=== PATIENT | female | born 1950 | race Caucasian/White ===

== ENCOUNTER → 2018-03-02 02:59 | Outpatient (CLI) | payer MEDICARE, BC, SELFPAY ==
[2018-03-02 14:53] LABS: Abs Immature Grans 0.03 k/cumm (0.0-0.09); Absolute Basophil Count 0.04 k/cumm (0.0-0.2); Absolute Eosinophil Count 0.02 k/cumm (0.0-0.7); Absolute Lymphocyte Count 1.21 k/cumm (1.2-3.4); Absolute Monocyte Count 0.42 k/cumm (0.11-0.7); Absolute Neutrophil Count 9.03 k/cumm (1.2-6.7); Basophils % 0.4; Eosinophils % 0.2; HCT 38.4 % (36.0-46.0); Immature Grans % 0.3; Lymphocytes % 11.3; Mean Corp. HGB Concentration 33.9 g/dL (32.0-36.0); Mean Corpuscular Hemoglobin 29.7 pg (27.0-33.0); Mean Corpuscular Volume 87.7 fL (80-95); Mean Platelet Volume 10.2 fL (8.0-11.0); Monocytes % 3.9; Neutrophils % 83.9; Platelet Count 350 x1000/uL (130-400); RBC 4.38 m/cumm (4.00-5.20); RBC Distribution Width 14.5 % (11.7-14.6); White Blood Cell Count 10.75 k/cumm (4.4-10.8)
[2018-03-02 15:49] LABS: ALT 25 U/L (12-78); AST 21 U/L (15-37); Albumin 4.1 g/dL (3.4-5.0); Alkaline Phosphatase 100 U/L (46-116); BUN 19 mg/dL (7-18); Bilirubin, Total 0.3 mg/dL (0.2-1.0); CREATININE 0.98 mg/dL (0.55-1.02); Calcium 9.5 mg/dL (8.5-10.1); Chloride 104 mmol/L (98-107); Estimated GFR 56.11 (mL/min/1.73m2); Glucose 132 mg/dL (70-100); Sodium 143 mmol/L (136-145)
== END ==
PROVIDERS: PCP Family Medicine; Visit Provider Internal Medicine Rheumatology
DX: M06.9 Rheumatoid arthritis, unspecified (principal); Z51.81 Encounter for therapeutic drug level monitoring
CPT/HCPCS: 36415; 80053; 85025

== ENCOUNTER 2018-03-16 02:53 | Outpatient (RCR) | payer MEDICARE, BC, SELFPAY ==
[2018-03-16 09:26] VITALS: BP 159/75; PULSE 66; RESP 18; TEMP 36.6
[2018-03-16] MEDS: Acetaminophen 325 MG TAB PO (09:34)
[2018-03-16] MEDS: diphenhydrAMINE 25 MG CAP PO (09:34)
[2018-03-16] MEDS: methylPREDNISolone SUCC 125 MG VIAL 50 MG IVP (09:35)
[2018-03-16 10:15] VITALS: BP 143/67; PULSE 57; RESP 18; TEMP 36.7
[2018-03-16 10:45] VITALS: BP 152/83; PULSE 57; RESP 18; TEMP 36.6
[2018-03-16 11:15] VITALS: BP 147/81; PULSE 62; RESP 17; TEMP 36.6
== END 2018-03-19 ==
LOC: INF 02:53
PROVIDERS: PCP Family Medicine; Visit Provider Family Medicine
DX: M06.9 Rheumatoid arthritis, unspecified (principal)
CPT/HCPCS: 96365; 96366; J2930; J9310

== ENCOUNTER 2018-03-30 01:30 | Outpatient (RCR) | payer MEDICARE, BC, SELFPAY ==
[2018-03-30] MEDS: Acetaminophen 325 MG TAB PO (08:45)
[2018-03-30] MEDS: methylPREDNISolone SUCC 125 MG VIAL 50 MG IVP (08:46)
[2018-03-30] MEDS: diphenhydrAMINE 25 MG CAP PO (08:46)
[2018-03-30] MEDS: Normal Saline Flush 10 ML SYR IVP (08:59)
[2018-03-30 09:00] VITALS: BP 173/79; PULSE 63; RESP 18; TEMP 37; O2SAT 97
[2018-03-30 09:30] VITALS: BP 163/77; PULSE 65; RESP 18; TEMP 36.8; O2SAT 97
[2018-03-30 10:00] VITALS: BP 158/77; PULSE 65; RESP 18; TEMP 36.8
[2018-03-30 10:31] VITALS: BP 158/75; PULSE 65; RESP 18; TEMP 36.5
== END 2018-04-18 23:59 | disposition home or self-care (01) ==
LOC: INF 01:30
PROVIDERS: PCP Family Medicine; Visit Provider Family Medicine
DX: M06.9 Rheumatoid arthritis, unspecified (principal)
CPT/HCPCS: 96365; 96366; J2930; J9310

== ENCOUNTER 2019-02-23 13:27 | Outpatient (CLI) | payer MEDICARE, BC, SELFPAY ==
[2019-02-23 14:17] LABS: Abs Immature Grans 0.03 k/cumm (0.0-0.09); Absolute Basophil Count 0.05 k/cumm (0.0-0.2); Absolute Eosinophil Count 0.05 k/cumm (0.0-0.7); Absolute Lymphocyte Count 1.06 k/cumm (1.2-3.4); Absolute Monocyte Count 0.53 k/cumm (0.11-0.7); Absolute Neutrophil Count 8.52 k/cumm (1.2-6.7); Basophils % 0.5; Eosinophils % 0.5; HCT 36.5 % (36.0-46.0); HGB 12.2 g/dL (12.0-15.5); Immature Grans % 0.3; Lymphocytes % 10.4; Mean Corp. HGB Concentration 33.4 g/dL (32.0-36.0); Mean Corpuscular Hemoglobin 30.5 pg (27.0-33.0); Mean Corpuscular Volume 91.3 fL (80-95); Monocytes % 5.2; Neutrophils % 83.1; Platelet Count 383 x1000/uL (130-400); RBC Distribution Width 13.9 % (11.7-14.6); White Blood Cell Count 10.24 k/cumm (4.4-10.8)
[2019-02-23 14:26] LABS: ALT 21 U/L (12-78); AST 13 U/L (15-37); Albumin 3.9 g/dL (3.4-5.0); Alkaline Phosphatase 88 U/L (46-116); Anion Gap 9.6 mmol/L (3-11); BUN 20 mg/dL (7-18); Bilirubin, Total 0.3 mg/dL (0.2-1.0); CO2 28.4 mmol/L (21.0-32.0); CREATININE 1.41 mg/dL (0.55-1.02); Calcium 9.3 mg/dL (8.5-10.1); Chloride 98 mmol/L (98-107); Estimated GFR 36.77 (mL/min/1.73m2); Glucose 141 mg/dL (70-100); Potassium 3.9 mmol/L (3.5-5.1); Sodium 136 mmol/L (136-145); Total Protein 7.2 g/dL (6.4-8.2)
== END 2019-02-23 13:47 ==
PROVIDERS: PCP Family Medicine; Visit Provider Internal Medicine Rheumatology
DX: Z51.81 Encounter for therapeutic drug level monitoring (principal); Z79.899 Other long term (current) drug therapy; R69 Illness, unspecified
CPT/HCPCS: 36415; 80053; 85025

== ENCOUNTER 2019-03-28 14:06 | Emergency (ER) | payer MEDICARE, BC, SELFPAY ==
[2019-03-28 13:48] VITALS: BP 155/65; PULSE 84; RESP 16; TEMP 36.7; O2SAT 98
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
[2019-03-28] MEDS: Lidocaine 5% Patch 1 PATCH (14:09)
[2019-03-28 14:18] LABS: Abs Immature Grans 0.03 k/cumm (0.0-0.09); Absolute Basophil Count 0.03 k/cumm (0.0-0.2); Absolute Eosinophil Count 0.03 k/cumm (0.0-0.7); Absolute Lymphocyte Count 1.15 k/cumm (1.2-3.4); Absolute Monocyte Count 0.53 k/cumm (0.11-0.7); Basophils % 0.3; Eosinophils % 0.3; HCT 37.3 % (36.0-46.0); HGB 12.7 g/dL (12.0-15.5); Immature Grans % 0.3; Lymphocytes % 9.9; Mean Corpuscular Hemoglobin 30.5 pg (27.0-33.0); Mean Corpuscular Volume 89.7 fL (80-95); Mean Platelet Volume 9.2 fL (8.0-11.0); Monocytes % 4.6; Neutrophils % 84.6; Platelet Count 416 x1000/uL (130-400); RBC 4.16 m/cumm (4.00-5.20); RBC Distribution Width 13.3 % (11.7-14.6); White Blood Cell Count 11.59 k/cumm (4.4-10.8)
[2019-03-28 14:21] LABS: Absolute Neutrophil Count 9.81 k/cumm (1.2-6.7)
[2019-03-28 14:40] LABS: ALT 21 U/L (14-59); AST 14 U/L (15-37); Albumin 4.1 g/dL (3.4-5.0); Alkaline Phosphatase 105 U/L (46-116); Anion Gap 11.6 mmol/L (3-11); BUN 17 mg/dL (7-18); Bilirubin, Total 0.4 mg/dL (0.2-1.0); CO2 26.4 mmol/L (21.0-32.0); CREATININE 1.38 mg/dL (0.55-1.02); Calcium 9.4 mg/dL (8.5-10.1); Chloride 92 mmol/L (98-107); Estimated GFR 37.69 (mL/min/1.73m2); Glucose 162 mg/dL (70-100); Potassium 3.5 mmol/L (3.5-5.1); Sodium 130 mmol/L (136-145); Total Protein 7.4 g/dL (6.4-8.2)
[2019-03-28 14:44] LABS: Troponin I < 0.05 ng/mL (0.00-0.06)
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
[2019-03-28 15:21] LABS: Magnesium 1.7 mg/dL (1.8-2.4)
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
[2019-03-28 15:40] LABS: Lipase 106 U/L (73-393)
[2019-03-28 17:07] VITALS: BP 116/52; PULSE 80; RESP 16; TEMP 37; O2SAT 98
[2019-03-28] MEDS: Acetaminophen 325 MG TAB 650 MG PO (17:07)
== END 2019-03-28 17:08 | disposition home or self-care (01) ==
PROVIDERS: Emergency Provider Nurse Practitioner Family; PCP Family Medicine
DX: R07.81 Pleurodynia (principal); V43.52XA Car driver injured in collision with other type car in traffic accident, initial encounter
CPT/HCPCS: 36415; 71250; 80053; 83690; 93005; 99285; 72040; 74176; 83735; 84484; 85025; 93010

== ENCOUNTER 2019-04-14 02:01 | Outpatient (RCR) | payer MEDICARE, BC, SELFPAY ==
[2019-03-31] VITALS (7 sets, daily range): BP systolic 138–156; BP diastolic 66–88; PULSE 62–70; RESP 18; TEMP 36.2–36.7; O2SAT 98–99
[2019-03-31] MEDS: methylPREDNISolone SUCC 125 MG VIAL 50 MG IVP (08:13)
[2019-03-31] MEDS: diphenhydrAMINE 25 MG CAP PO (08:13)
[2019-03-31] MEDS: Acetaminophen 325 MG TAB PO (08:14)
[2019-03-31] MEDS: Normal Saline Flush 10 ML SYR IVP (08:15)
[2019-03-31 09:14] LABS: ESR 20 mm/hr (0-30)
[2019-04-14] MEDS: diphenhydrAMINE 25 MG CAP PO (08:14)
[2019-04-14] MEDS: methylPREDNISolone SUCC 125 MG VIAL 50 MG IVP (08:14)
[2019-04-14] MEDS: Acetaminophen 325 MG TAB PO (08:14)
[2019-04-14] MEDS: Normal Saline Flush 10 ML SYR IVP (08:44)
[2019-04-14 08:55] VITALS: BP 118/77; PULSE 71; RESP 18; TEMP 36.9; O2SAT 99
[2019-04-14 09:34] VITALS: BP 122/79; PULSE 64; RESP 16; TEMP 36.5; O2SAT 97
[2019-04-14 10:49] VITALS: BP 138/75; PULSE 75; RESP 16; TEMP 36.9; O2SAT 98
[2019-04-14 11:22] VITALS: BP 142/84; PULSE 72; RESP 16; TEMP 36.8; O2SAT 97
[2019-04-14 11:56] VITALS: BP 132/80; PULSE 68; RESP 14; TEMP 37; O2SAT 98
[2019-04-14 12:39] VITALS: BP 153/72; PULSE 81; RESP 18; TEMP 36.8; O2SAT 98
== END 2019-04-18 23:59 | disposition home or self-care (01) ==
LOC: INF 02:01
PROVIDERS: PCP Family Medicine; Visit Provider Family Medicine
DX: M06.9 Rheumatoid arthritis, unspecified (principal)
CPT/HCPCS: 36415; 85652; 96365; 96366; 96374; J2930; J9312

== ENCOUNTER 2020-02-06 09:20 | Outpatient (CLI) | payer MEDICARE, BC, SELFPAY ==
--- NOTE | 2020-02-06 09:00 | DI.RAD_ITS ---
EXAM: XR ANKLE RT COMPLETE CLINICAL HISTORY: f/u surgery. TECHNIQUE: 2D digital imaging was performed. COMPARISON: No exams were available for comparison FINDINGS: There are postsurgical changes of an ankle arthrodesis and the talonavicular joint arthrodesis. No a cute fracture or dislocation is seen. The bones are osteopenic. No erosive or destructive changes a re seen. There is a distal right fibular osteotomy. There is generalized soft tissue swelling of th e ankle. No lucencies are seen in or about the orthopedic hardware. IMPRESSION: Postsurgical changes of the right ankle as described above. DATA REPOSITORY: RADIATION DOSE DELIVERED:
== END 2020-02-06 09:40 ==
PROVIDERS: PCP Family Medicine; Referring Provider Family Medicine; Visit Provider Student in an Organized Health Care Education/Training Program
DX: Z98.1 Arthrodesis status (principal); Z47.89 Encounter for other orthopedic aftercare; M85.871 Other specified disorders of bone density and structure, right ankle and foot; M25.571 Pain in right ankle and joints of right foot
CPT/HCPCS: 99203; 99214; 73610

== ENCOUNTER 2020-02-14 03:39 | Outpatient (CLI) | payer MEDICARE, BC, SELFPAY ==
[2020-02-14 15:07] LABS: ESR 22 mm/hr (0-30)
[2020-02-14 15:24] LABS: ALT 29 U/L (14-59); AST 22 U/L (15-37); Albumin 3.8 g/dL (3.4-5.0); Alkaline Phosphatase 103 U/L (46-116); Anion Gap 7.9 mmol/L (3-11); BUN 18 mg/dL (7-18); Bilirubin, Total 0.2 mg/dL (0.2-1.0); CO2 32.1 mmol/L (21.0-32.0); CREATININE 1.32 mg/dL (0.55-1.02); Calcium 9.3 mg/dL (8.5-10.1); Calculated LDL 102 mg/dL (<100); Chloride 95 mmol/L (98-107); Cholesterol 204 mg/dL (<200); Estimated GFR 39.56 (mL/min/1.73m2); Glucose 188 mg/dL (74-106); HDL Cholesterol 80 mg/dL (40-60); Magnesium 1.5 mg/dL (1.8-2.4); Potassium 3.4 mmol/L (3.5-5.1); Sodium 135 mmol/L (136-145); Total Protein 6.4 g/dL (6.4-8.2); Triglyceride 111 mg/dL (<150); Vitamin B12 1447 pg/mL (193-986)
== END 2020-02-14 03:59 ==
PROVIDERS: PCP Family Medicine; Visit Provider Family Medicine
DX: I10 Essential (primary) hypertension; E83.42 Hypomagnesemia; E53.8 Deficiency of other specified B group vitamins; M06.9 Rheumatoid arthritis, unspecified
CPT/HCPCS: 36415; 80053; 80061; 85652; 82607; 83735

== ENCOUNTER 2020-03-15 10:33 | Outpatient (CLI) | payer MEDICARE, BC, SELFPAY ==
--- NOTE | 2020-03-15 10:00 | DI.RAD_ITS ---
EXAM: XR ANKLE RT 2V CLINICAL HISTORY: f/u surgery TECHNIQUE: COMPARISON: CR XR ANKLE RT COMPLETE from 02/06/2020 FINDINGS: Two views were obtained. Prior ankle and hindfoot arthrodesis noted with fixation apparatus in place across the subtalar joint. Alignment appears unchanged comparison with prior radiographs of February 05. IMPRESSION: RADIATION DOSE DELIVERED: Total DLP
== END 2020-03-15 10:53 ==
PROVIDERS: PCP Family Medicine; Referring Provider Family Medicine; Visit Provider Student in an Organized Health Care Education/Training Program
DX: Z98.1 Arthrodesis status (principal); M25.571 Pain in right ankle and joints of right foot
CPT/HCPCS: 99213; 73600

== ENCOUNTER 2021-01-09 10:36 | Outpatient (CLI) | payer MEDICARE, BC, SELFPAY ==
[2021-01-09 12:46] LABS: Hemoglobin A1C 5.6 % (<5.7)
[2021-01-09 12:51] LABS: ALT 26 U/L (14-59); AST 12 U/L (15-37); Alkaline Phosphatase 91 U/L (46-116); Anion Gap 8.7 mmol/L (3-11); BUN 22 mg/dL (7-18); Bilirubin, Total 0.4 mg/dL (0.2-1.0); CO2 32.3 mmol/L (21.0-32.0); CREATININE 1.2 mg/dL (0.55-1.02); Calcium 9.5 mg/dL (8.5-10.1); Chloride 97 mmol/L (98-107); Estimated GFR 44.04 (mL/min/1.73m2); Glucose 88 mg/dL (74-106); Magnesium 1.7 mg/dL (1.8-2.4); Potassium 4.1 mmol/L (3.5-5.1); Sodium 138 mmol/L (136-145); Total Protein 6.7 g/dL (6.4-8.2)
== END 2021-01-09 10:37 | disposition home or self-care (01) ==
LOC: LOS 10:37
PROVIDERS: PCP Family Medicine; Visit Provider Family Medicine
DX: E11.65 Type 2 diabetes mellitus with hyperglycemia (principal); E83.42 Hypomagnesemia; I10 Essential (primary) hypertension
CPT/HCPCS: 36415; 80053; 83036; 83735

== ENCOUNTER 2021-03-21 17:15 | Outpatient (CLI) | payer MEDICARE, BC, SELFPAY ==
--- NOTE | 2021-03-21 | DI.RAD_ITS ---
Exam(s) XR CHEST 2V PA LATERAL EXAM: XR CHEST 2V PA LATERAL CLINICAL HISTORY: PUI, COUGH TECHNIQUE: COMPARISON: CR CHEST 2 VIEWS PA,LAT from 11/17/2014 FINDINGS: Slight prominence of the pulmonary markings in the lung bases may represent poor inspiration. No con solidation identified on the lateral view. Cardiac size within normal limits. Tortuosity of thoraci c aorta noted. No pleural effusion. IMPRESSION: No evidence of acute process. RADIATION DOSE DELIVERED: Total DLP
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
== END 2021-03-21 17:35 ==
PROVIDERS: PCP Family Medicine; Visit Provider Family Medicine
DX: R05 Cough (principal); R09.89 Other specified symptoms and signs involving the circulatory and respiratory systems
CPT/HCPCS: 71046

== ENCOUNTER 2021-03-21 17:47 | Outpatient (REF) | payer MEDICARE, BC, SELFPAY ==
[2021-03-24 14:09] LABS: COVID-19 RT-PCR UVMMC Result Positive (Negative)
== END 2021-03-21 17:48 | disposition home or self-care (01) ==
LOC: LBN 17:47
PROVIDERS: PCP Family Medicine; Visit Provider Physician Assistant
DX: Z20.822 Contact with and (suspected) exposure to COVID-19 (principal)
CPT/HCPCS: U0003

== ENCOUNTER 2021-03-29 14:34 | Emergency (ER) | payer MEDICARE, BC, SELFPAY ==
[2021-03-29] VITALS (37 sets, daily range): BP systolic 104–126; BP diastolic 47–66; PULSE 65–84; RESP 13–23; TEMP 36.6–36.8; O2SAT 93–99
--- NOTE | 2021-03-29 14:30 | RT.EKG_ITS ---
APPROVED REPORT Exam: Resting ECG Reason for Exam: + covid Patient Location: E HR:74 bpm ECG Measurements Heart Rate 74 AXIS KS 162 P 45 QRSd 76 QRS -6 QT 404 T 31 QTc 449 Conclusion Sinus rhythm...normal P axis, V-rate 60- 99
--- NOTE | 2021-03-29 15:03 | ED.GENADUL_ITS ---
Discharge Plan Disposition Patient Disposition: HOME Condition: Stable Discharge Details Clinical Impression: Diarrhea, COVID-19 Primary Care Provider: Leonor Joy ED Provider: Whit Mcgrath Home Meds and New Rx's Prescriptions: No Action gabapentin 100 mg capsule 100 mg PO DAILY RF: 0 diphenhydramine-acetaminophen [Tylenol PM Extra Strength] 25-500 mg tablet 1 tab PO QHS PRNRF: 0 amlodipine 5 mg tablet 5 mg PO DAILY Qty: 90 RF: 4 cetirizine [Zyrtec] 10 mg tablet 5 mg PO DAILY PRNRF: 0 Adult Probiotic 3 billion cell capsule 3,000 mmu cells PO DAILY RF: 0 prednisone 1 mg tablet 7.5 mg PO DAILY Qty: 90 RF: 0 metformin 500 mg tablet 500 mg PO DAILY RF: 0 melatonin 10 mg capsule 10 mg PO HS PRNRF: 0 citalopram [Celexa] 10 MG tablet 10 mg PO DAILY Qty: 90 RF: 4 (DME) Aerochamber MV 1 EACH spacer 1 ea Miscellaneous PRN Qty: 1 RF: 0 hydrochlorothiazide 25 MG tablet 25 mg PO DAILY Qty: 90 RF: 4 Rituxan 10 MG/1 ML concentrate 10 mg IV Q6 MONTHS RF: 0 montelukast [Singulair] 10 MG tablet 10 mg PO DAILY MDD i tab Qty: 90 RF: 4 meloxicam 15 MG tablet 15 mg PO DAILY Qty: 90 RF: 3 Hold Instructions: Home Medication placed on hold at Doctor's office omeprazole 20 mg capsule,delayed release(DR/EC) 20 mg PO BID Qty: 180 RF: 0 Discharge Instructions Instructions: Acute Diarrhea (ED) Additional Instructions: You may take an immodium (Loperamide) or similar which is [id number] after each diarrheal stool up to 4 a day. Discontinue use if no improvement in 48 hours. Continue to keep yourself hydrated please drink Gatorade or similar electrolyte drinks while having diarrhea. Continue with a brat diet. Your potassium and magnesium were slightly low which we gave you oral replacement. Follow up with primary care provider in 3-5 days. Return to ED sooner if any w orsening or concerns. Increase oral fluids. Return to the ER for any worsening shortness of breath, more than seven episodes of diarrhea in a 12 to 24-hour., Vomiting or any concerns. Stand Alone Forms: POSITIVE COVID-19/NO TESTING Referrals: Leonor Joy MD [Primary Care Provider] - 1 week Discharge Data Discharge Date/Time-TO BE ENTERED AT DEPARTURE: 03/29/21 17:57 Medical Decision Making <KIRA Lantigua - Last Filed: 03/29/21 21:52> Patient is a pleasant 71-year-old female presented with chief complaint of diarrhea. Patient was diagnosed with Covid last . Has had symptoms for the past 12 days. Is concerned about the length of time she been having diar charo. States that she had 3 watery bowel movements today. All nonbloody. Denies any fevers or chills. States that she can occasionally have abdominal cramping but no pain. Patient is immunocompromised as she is on rituximab for rheumatoid arthritis. On exam, patient appears nontoxic. Abdomen benign. Concern for dehydration as well as potential electrolyte abnormality. Her vital signs are quite reassuring. She is tolerating p.o. fluids well. Will obtain baseline labs and give 1 L of fluids. At the end of my shift, care transition to Esme Wilson NP with labs and hydration pending. <Whit Mcgrath - Last Filed: 03/29/21 19:56> Care assumed from provider (KIRA Oneill) Please see their initial HPI, PE, and documentation. Discussed patient details and case and pending workup and disposition. Patient is hemodynamically stable, and alert and oriented. At this time labs are just resulted which show no leukocytosis, absolute neutrophils 8.65, absolute lymphocytes 0.60 sodium is 134 potassium 3.3 chloride 96 creatinine 1.2 GFR is 44, glucose 110 magnesium slightly low at 1.6. We will replace potassium and magnesium orally. Patient reevaluation prior to discharge she is tolerating p.o. without difficulty no vomiting. I did discuss her home care with her and follow-up. Patient verbalized understanding. Patient received the entire liter of normal saline prior to discharge. Instructed to follow-up with PCP discussed diet and strict return instructions. Patient remained hemodynamically stable throughout stay. This text was generated using RECESS.ation system, please disregard any oddities of phrase or misspellings. HPI <KIRA Lantigua - Last Filed: 03/29/21 21:52> General Mode of arrival: ambulatory . Date/Time Provider Initiated Documentation: 03/29/21 15:03 . Limitations to Documentation: no limitations . Information obtained by: patient and RN notes reviewed . History of Present Illness 71 year old F presents to the emergency department with the chief complaint of diarrhea, described as moderate, with intensity rated at 3. Quality is described as other (cramping), and is localized to the abdomen. Patient reports no radiation. Patient started experiencing this day(s) (12) and it has been intermittent. No relieving factors improve symptom(s), No exacerbating factors reported . Patient notes cough and weakness (generalized fatigue); denies chest pain, diaphoresis, fever/chills, loss of appetite, naus ea/vomiting, rash and shortness of breath. Patient did receive the following treatments prior to arrival, none Related Data Home Medications Medication Instructions Recorded Confirmed citalopram [Celexa] 10 mg PO DAILY #90 tab-cap 12/17/12 03/21/21 inhalational spacing device #1 aer 11/26/14 03/21/21 [Aerochamber Mv] hydrochlorothiazide 25 mg PO DAILY #90 tab 02/16/15 03/21/21 rituximab [Rituxan] 10 mg IV Q6 MONTHS vial 04/18/15 03/21/21 montelukast [Singulair] 10 mg PO DAILY #90 tab MDD i tab 02/23/17 03/21/21 meloxicam 15 mg PO DAILY #90 tab-cap 04/10/17 03/21/21 amlodipine 5 mg tablet 5 mg PO DAILY #90 tab 02/06/20 03/21/21 diphenhydramine 25 1 tab PO QHS PRN 02/06/20 03/21/21 mg-acetaminophen 500 mg tablet gabapentin 100 mg capsule 100 mg PO DAILY 02/06/20 03/21/21 cetirizine 10 mg tablet 5 mg PO DAILY PRN 03/12/20 03/21/21 lactobacillus combination no.8 3 3,000 mmu cells PO DAILY 03/12/20 03/21/21 billion cell capsule prednisone 1 mg tablet 7.5 mg PO DAILY #90 tab-cap 03/12/20 03/21/21 omeprazole 20 mg capsule,delayed 20 mg PO BID #180 cap 01/31/21 03/21/21 release melatonin 10 mg capsule 10 mg PO HS PRN 03/21/21 03/21/21 metformin 500 mg tablet 500 mg PO DAILY 03/21/21 03/21/21 Previous Rx's Medication Instructions Recorded meloxicam 15 mg PO DAILY #90 tab-cap 04/10/17 amlodipine 5 mg tablet 5 mg PO DAILY #90 tab 02/06/20 omeprazole 20 mg capsule,delayed 20 mg PO BID #180 cap 01/31/21 release Allergies Allergy/AdvReac Type Severity Reaction Status Date / Time hydrocodone AdvReac Intermediate Nausea Verified 03/29/21 14:54 morphine AdvReac Intermediate Nausea Verified 03/29/21 14:54 oxycodone AdvReac Intermediate N/V Verified 03/29/21 14:54 General Stated Complaint: SOB HANS: 2 Review of Systems <KIRA Lantigua - Last Filed: 03/29/21 21:52> Constitutional Constitutional: Reports as per HPI, Denies chills, Denies fatigue, Denies fever(s) and Denies headache(s) ENT Ears, Nose, Mouth, and Throat: Denies headache(s) Cardiovascular Cardiovascular: Reports as per HPI, Denies chest pain and Denies dyspnea Respiratory Respiratory: Reports as per HPI, Denies cough and Denies dyspnea Gastrointestinal Gastrointestinal: Reports as per HPI Genitourinary Genitourinary: Reports system reviewed and no additional complaints, except as documented (denies any change in urinary habits) Musculoskeletal Musculoskeletal: Reports as per HPI and Denies back pain Integumentary/Breasts Skin/Breast: Reports as per HPI and Denies rash Neurologic Neurologic: Reports as per HPI and Denies headache(s) Endocrine Endocrine: Denies fatigue PFSH <KIRA Lantigua - Last Filed: 03/29/21 21:52> Medical History Rheumatoid arthritis Surgical History Colonoscopy - [facility] [place] (03/01/13) DR. Prabhjot LAGUERRE Endometrial Biopsy 1990: NEG 1999: NEG S/P ankle fusion Social History Smoking/Tobacco Use Status: Never Smoking risk assessment performed?: Yes Alcohol Intake: current Alcohol Intake frequency: a few times a month Drug use: Never Substance use type: does not use Do you feel safe at home: Yes Do you feel safe in your relationship?: Yes Exam <KIRA Lantigua - Last Filed: 03/29/21 21:52> Const General: cooperative, healthy appearing (appears fatigued), comfortable, no acute distress and well developed Nutritional Appearance: average body habitus and well nourished Orientation: alert and awake [facility] Head: normal to inspection Mouth: mucous membranes dry (appears dry) Resp Effort & Inspection: normal respiratory effort, able to speak in complete sentences and no respiratory distress Auscultation: clear to auscultation bilaterally, no rales, no rhonchi and no wheezes Cardio Rate: regular rate Rhythm: regular rhythm Heart Sounds: S1 normal and S2 normal GI Inspection: normal to inspection Palpation: soft, no hepatosplenomegaly, not firm, no guarding, not rigid and nontender Percussion: normal to percussion Auscultation: normal bowel sounds Back/Spine/Pelvis Back: no CVA tenderness Skin General skin exam: no rashes or lesions noted Trauma: no lacerations or abrasions Neuro General: patient alert and patient awake Cognition: normal cognition Speech: speech normal Gait: normal gait Psych Appearance: grossly normal and well kempt Mental Status: mental status grossly normal Speech and Movement: speech and movement normal Course <KIRA Lantigua - Last Filed: 03/29/21 21:52> Vital Signs Vital signs: Vital Signs Temperature 36.8 C 03/29/21 14:38 Pulse 81 03/29/21 14:38 Respiratory Rate 20 03/29/21 14:38 Blood Pressure 124/62 03/29/21 14:38 Pulse Oximetry 98 03/29/21 14:38 Temperature 36.8 C 03/29/21 14:38 Temperature Source Skin 03/29/21 14:38 Pulse 81 03/29/21 14:38 Respiratory Rate 20 03/29/21 14:38 Blood Pressure 124/62 03/29/21 14:38 Pulse Oximetry 98 03/29/21 14:38 Oxygen Delivery Method Room Air 03/29/21 14:38 Oxygen Flow Rate 0 03/29/21 14:38 Pain Level 3 03/29/21 14:38 Comment 03/29/21 14:38 Sign Out <KIRA Lantigua - Last Filed: 03/29/21 21:52> Sign Out Data: Sign Out Comment: Care transition to [facility] with labs pending. Patient Covid positive with 12 days of diarrhea. Last updated by Winter Medrano PA at 03/29/21 15:57
[2021-03-29 15:39] LABS: Abs Immature Grans 0.05 10^3/uL (0.0-0.06); Absolute Basophil Count 0.03 10^3/uL (0.0-0.2); Absolute Monocyte Count 0.49 10^3/uL (0.1-0.8); Absolute Neutrophil Count 8.65 10^3/uL (1.2-6.7); Basophils % 0.3; HCT 38.5 % (36.0-46.0); Immature Grans % 0.5; Lymphocytes % 6.1; MCH 29.5 pg (27.0-33.0); MCHC 33.8 % (32.0-36.0); MCV 87.5 fL (80-95); MPV 9.3 fL (8.0-11.0); Neutrophils % 88.1; Nucleated RBC 0 %; Platelet Count 347 10^3/uL (130-400); RDW 13.6 % (11.7-14.6); RDW-SD 44.2 fL; WBC 9.82 10^3/uL (4.4-10.8)
[2021-03-29 15:46] LABS: Magnesium 1.6 mg/dL (1.8-2.4)
[2021-03-29 16:00] LABS: ALT 24 U/L (14-59); AST 17 U/L (15-37); Alkaline Phosphatase 100 U/L (46-116); Anion Gap 7.4 mmol/L (3-11); BUN 16 mg/dL (7-18); Bilirubin, Total 0.3 mg/dL (0.2-1.0); CO2 30.6 mmol/L (21.0-32.0); CREATININE 1.2 mg/dL (0.55-1.02); Calcium 9.2 mg/dL (8.5-10.1); Chloride 96 mmol/L (98-107); Estimated GFR 44.04 (mL/min/1.73m2); Glucose 110 mg/dL (74-106); Potassium 3.3 mmol/L (3.5-5.1); Sodium 134 mmol/L (136-145); Total Protein 7.1 g/dL (6.4-8.2)
[2021-03-29] MEDS: Normal Saline 1,000 ML 1000 ML IV (16:46)
[2021-03-29] MEDS: Potassium Chloride Liquid 20 MEQ PKT 40 MEQ PO (16:47)
[2021-03-29] MEDS: Magnesium Oxide 400 MG TAB PO (16:47)
== END 2021-03-29 17:57 | disposition home or self-care (01) ==
PROVIDERS: Physician Assistant; Emergency Provider Registered Nurse Emergency; PCP Family Medicine
DX: U07.1 COVID-19 (principal); R19.7 Diarrhea, unspecified; E87.6 Hypokalemia; E83.42 Hypomagnesemia
CPT/HCPCS: 36415; 80053; 93005; 96360; 99284; 83735; 85025; 93010; 99285

== ENCOUNTER 2021-04-03 14:33 | Emergency (ER) | payer MEDICARE, BC, SELFPAY ==
[2021-04-03] VITALS (33 sets, daily range): BP systolic 102–131; BP diastolic 43–91; PULSE 66–89; RESP 8–28; TEMP 36.5; O2SAT 91–98
--- NOTE | 2021-04-03 14:45 | RT.EKG_ITS ---
APPROVED REPORT Exam: Resting ECG Reason for Exam: covid Patient Location: E HR:82 bpm ECG Measurements Heart Rate 82 AXIS MO 153 P 50 QRSd 72 QRS -4 QT 359 T -6 QTc 420 Conclusion Sinus rhythm...normal P axis, V-rate 60- 99
--- NOTE | 2021-04-03 15:01 | W.ED.GENAD ---
Discharge Plan Disposition Patient Disposition: HOME Condition: Stable Discharge Details Clinical Impression: 2019 novel coronavirus-infected pneumonia (NCIP) Primary Care Provider: Leonor Joy ED Provider: Gladis Rivero Home Meds and New Rx's Prescriptions: New doxycycline hyclate 100 mg tablet 100 mg PO BID 7 Days Qty: 14 RF: 0 amoxicillin-pot clavulanate [Augmentin] 875-125 mg tablet 1 tab PO BID 7 Days Qty: 14 RF: 0 prednisone 20 mg tablet See Rx Instructions .ROUTE .COMPLEX Qty: 18 RF: 0 Continued gabapentin 100 mg capsule 100 mg PO DAILY RF: 0 diphenhydramine-acetaminophen [Tylenol PM Extra Strength] 25-500 mg tablet 1 tab PO QHS PRNRF: 0 amlodipine 5 mg tablet 5 mg PO DAILY Qty: 90 RF: 4 cetirizine [Zyrtec] 10 mg tablet 5 mg PO DAILY PRNRF: 0 Adult Probiotic 3 billion cell capsule 3,000 mmu cells PO DAILY RF: 0 prednisone 1 mg tablet 7.5 mg PO DAILY Qty: 90 RF: 0 metformin 500 mg tablet 500 mg PO DAILY RF: 0 melatonin 10 mg capsule 10 mg PO HS PRNRF: 0 citalopram [Celexa] 10 MG tablet 10 mg PO DAILY Qty: 90 RF: 4 (DME) Aerochamber MV 1 EACH spacer 1 ea Miscellaneous PRN Qty: 1 RF: 0 hydrochlorothiazide 25 MG tablet 25 mg PO DAILY Qty: 90 RF: 4 Rituxan 10 MG/1 ML concentrate 10 mg IV Q6 MONTHS RF: 0 montelukast [Singulair] 10 MG tablet 10 mg PO DAILY MDD i tab Qty: 90 RF: 4 meloxicam 15 MG tablet 15 mg PO DAILY Qty: 90 RF: 3 Hold Instructions: Home Medication placed on hold at Doctor's office omeprazole 20 mg capsule,delayed release(DR/EC) 20 mg PO BID Qty: 180 RF: 0 Discharge Instructions Instructions: Pneumonia (ED), COVID-19 (Coronavirus Disease 2019) (ED) Additional Instructions: Drink plenty of fluids and get plenty of rest. Alternate tylenol and motrin as needed and directed for pain. Prescriptions for 2 antibiotics and steroids have been sent electronically to your pharmacy. Take them as directed until finished. Use the albuterol inhaler as needed and directed for shortness of breath, cough or wheezing. Call your primary care doctor tomorrow to schedule follow-up appointment for reevaluation within the next 1 to 2 days. Return here immediately with any worsening or new concerning symptoms such as worsening shortness of breath, persistent vomiting, or any other concerns. Discharge Data Discharge Physician: Gladis Rivero Medical Decision Making 71-year-old female with history of rheumatoid arthritis and hypertension diagnosed with Covid 13 days ago presents with increasing dyspnea on exertion for the past 5 days. EKG notes a rate of 82, sinus, no STEMI, non-diagnostic. Her vitals and within normal limits. Her O2 sat is 97% on RA and she appears in no acute respiratory distress. She has crackles L lung. Differential diagnoses include expected clinical course for COVID-19, pneumonia, PE. Will place an IV, bolus IVF, screening labs, CT chest and give duoneb and toradol and reassess. Labs and imaging reviewed. Normal white blood cell count at 8.4. Magnesium 1.6. Troponin negative. CT chest notes: IMPRESSION: 1. No pulmonary embolism. No thoracic aortic aneurysm or dissection. 2. Posterolateral bilateral peripheral patchy airspace opacities consistent with an atypical pneumonia.Imaging features can be seen with COVID-19 pneumonia, though are nonspecific and can occur with a variety of infectious and noninfectious processes. (Reference: Brown) 3. Probable COPD. Delay in disposition due to high acuity and volume in the ED. Patient received a DuoNeb but states the treatment turned off prison through. Her oxygen saturation remains 97% on room air. She was given 2 puffs of albuterol inhaler x1. Patient was ambulated and admitted to feeling generally weak with shortness of breath with oxygen saturation 89 to 90% on room air. She appeared in no acute respiratory distress. She felt this was manageable and would like to go home. Disposition decision made weighing the risks and benefits of hospitalization versus outpatient treatment, the risk for further decompensation, and the patient's wishes. Her vitals remained within normal limits and she appears comfortable in no acute respiratory distress. We will treat pneumonia with p.o. Augmentin and p.o. doxycycline. She was given a dose of oral steroids. Prescription sent electronically to her pharmacy. Patient advised to call her PCP tomorrow for follow-up within the next 1 to 2 days. She was advised to return here immediately with any worsening or new concerning symptoms for further evaluation and consideration for admission but if her symptoms do not improve or worsen. Medical Records Medical records reviewed: Yes I reviewed the patient's medical records. Imaging Data Radiologic Study: Radiologist's impression: CTA Chest With Contrast Exam date and time: 04/03/2021 3:44 PM Age: 71 years old Clinical indication: Other: SOB back and rib pain; Patient HX: Covid postive TECHNIQUE: Imaging protocol: Computed tomographic angiography of the chest with contrast. 3D rendering (Not supervised by radiologist): MIP and/or 3D reconstructed images were created by the technologist. Radiation optimization: All CT scans at this facility use at least one of these dose optimization techniques: automated exposure control; mA and/or kV adjustment per patient size (includes targeted exams where dose is matched to clinical indication); or iterative reconstruction. Contrast material: OMNIPAQUE; Contrast volume: 100 ml; Contrast route: INTRAVENOUS (IV); COMPARISON: CT CHEST/ABD/PEL WO 03/28/2019 3:30 PM FINDINGS: Pulmonary arteries: Contrast fills the pulmonary artery and its branch vessels satisfactorily. No intraluminal filling defect to suggest pulmonary embolism. Aorta: Unremarkable. No aortic aneurysm. No aortic dissection. Lungs: Patchy bilateral posterolateral foci of airspace opacities representing an atypical pneumonia predominantly in the bilateral upper lobes. Chronic parenchymal changes are re-identified in the medial basal segment of the right lower lobe and the lateral basal segment of the left lower lobe. Hyperinflation suggestive of COPD. Pleural spaces: Unremarkable. No pneumothorax. No pleural effusion. Heart: Mild cardiomegaly. No pericardial effusion. Lymph nodes: Unremarkable. No enlarged lymph nodes. Bones/joints: Moderate kyphosis. No acute fracture. Soft tissues: Unremarkable. IMPRESSION: 1. No pulmonary embolism. No thoracic aortic aneurysm or dissection. 2. Posterolateral bilateral peripheral patchy airspace opacities consistent with an atypical pneumonia.Imaging features can be seen with COVID-19 pneumonia, though are nonspecific and can occur with a variety of infectious and noninfectious processes. (Reference: Brown) 3. Probable COPD. Lab Data Lab results reviewed: Yes I reviewed the patient's lab results. Labs: Laboratory Tests Range/Units 04/03/21 04/03/21 04/03/21 16:27 16:27 16:27 WBC (4.4-10.8) 10^3/uL 8.54 RBC (3.93-5.22) 10^6/uL 4.22 Hgb (11.2-15.7) g/dL 12.5 Hct (36.0-46.0) % 37.1 MCV (80-95) fL 87.9 MCH (27.0-33.0) pg 29.6 MCHC (32.0-36.0) % 33.7 RDW (11.7-14.6) % 13.8 Plt Count (130-400) 10^3/uL 349 MPV (8.0-11.0) fL 9.4 Immature Gran % 0.5 Neutrophils % 87.3 Lymphocytes % 6.6 Monocytes % 5.0 Eosinophils % 0.1 Basophils % 0.5 Nucleated RBC % % 0 Absolute Neutrophils (1.2-6.7) 10^3/uL 7.46 H Absolute Lymphocytes (1.2-3.4) 10^3/uL 0.56 L Absolute Monocytes (0.1-0.8) 10^3/uL 0.43 Absolute Eosinophils (0.0-0.7) 10^3/uL 0.01 Absolute Basophils (0.0-0.2) 10^3/uL 0.04 Sodium (136-145) mmol/L 132 L Potassium (3.5-5.1) mmol/L 3.8 Chloride (98-107) mmol/L 94 L Carbon Dioxide (21.0-32.0) mmol/L 30.8 Anion Gap (3-11) mmol/L 7.2 BUN (7-18) mg/dL 16 Creatinine (0.55-1.02) mg/dL 1.2 H Estimated GFR/1.73 m2 (mL/min/1.73m2) 44.04 Glucose (74-106) mg/dL 102 Calcium (8.5-10.1) mg/dL 9.2 Magnesium (1.8-2.4) mg/dL 1.6 L Total Bilirubin (0.2-1.0) mg/dL 0.3 AST (15-37) U/L 20 ALT (14-59) U/L 20 Alkaline Phosphatase (46-116) U/L 94 Troponin I (<0.06) ng/mL < 0.05 Total Protein (6.4-8.2) g/dL 7.2 Albumin (3.4-5.0) g/dL 3.7 ECG Data Attestation: I personally reviewed and interpreted this ECG (s) as follows: Interpretation: Rate of 82, sinus, no acute ST elevation or depression. MA 153. QTc 420. HPI General Mode of arrival: ambulatory. Date/Time Provider Initiated Documentation: 04/03/21 14:59. Limitations to Documentation: no limitations. Information obtained by: patient. HPI Narrative: Patient is a 70-year-old female with a history of rheumatoid arthritis, hypertension diagnosed with Covid 13 days ago presents to the ED with a complaint of dyspnea on exertion that is getting progressively worse over the past 5 days. She initially had significant diarrhea since her diagnosis of Covid but states this has been resolved over the last 5 days. She states for the past 5 to 6 days, she has had increasing dyspnea on exertion. She states she has lower rib and back pain that she feels is due to her cough. She states her cough is mainly dry but is occasionally productive of yellow sputum. She does admit to continued loss of sense of smell and taste since her diagnosis. She also admits to headache, decreased appetite and fatigue. She has been trying to eat and drink water but has been taking in less than usual. She admits to feeling feverish last night with a last dose of Tylenol last evening. She has not taken any Tylenol or Motrin today. She denies any vomiting or abdominal pain. She states she is fully vaccinated as of the end of last month. Related Data Home Medications Medication Instructions Recorded Confirmed citalopram [Celexa] 10 mg PO DAILY #90 tab-cap 12/17/12 04/03/21 Aerochamber MV #1 aer 11/26/14 04/03/21 hydrochlorothiazide 25 mg PO DAILY #90 tab 02/16/15 04/03/21 Rituxan 10 mg IV Q6 MONTHS vial 04/18/15 04/03/21 montelukast [Singulair] 10 mg PO DAILY #90 tab MDD i tab 02/23/17 04/03/21 meloxicam 15 mg PO DAILY #90 tab-cap 04/10/17 04/03/21 amlodipine 5 mg tablet 5 mg PO DAILY #90 tab 02/06/20 04/03/21 diphenhydramine 25 1 tab PO QHS PRN 02/06/20 04/03/21 mg-acetaminophen 500 mg tablet gabapentin 100 mg capsule 100 mg PO DAILY 02/06/20 04/03/21 cetirizine 10 mg tablet 5 mg PO DAILY PRN 03/12/20 04/03/21 lactobacillus combination no.8 3 3,000 mmu cells PO DAILY 03/12/20 04/03/21 billion cell capsule prednisone 1 mg tablet 7.5 mg PO DAILY #90 tab-cap 03/12/20 04/03/21 omeprazole 20 mg capsule,delayed 20 mg PO BID #180 cap 01/31/21 04/03/21 release melatonin 10 mg capsule 10 mg PO HS PRN 03/21/21 04/03/21 metformin 500 mg tablet 500 mg PO DAILY 03/21/21 04/03/21 amoxicillin-pot clavulanate 1 tab PO BID 7 Days #14 tab 04/03/21 [Augmentin] doxycycline hyclate 100 mg PO BID 7 Days #14 tab 04/03/21 prednisone See Rx Instructions .ROUTE 04/03/21 .COMPLEX #18 tab Previous Rx's Medication Instructions Recorded meloxicam 15 mg PO DAILY #90 tab-cap 04/10/17 amlodipine 5 mg tablet 5 mg PO DAILY #90 tab 02/06/20 omeprazole 20 mg capsule,delayed 20 mg PO BID #180 cap 01/31/21 release amoxicillin-pot clavulanate 1 tab PO BID 7 Days #14 tab 04/03/21 [Augmentin] doxycycline hyclate 100 mg PO BID 7 Days #14 tab 04/03/21 prednisone See Rx Instructions .ROUTE 04/03/21 .COMPLEX #18 tab Allergies Allergy/AdvReac Type Severity Reaction Status Date / Time hydrocodone AdvReac Intermediate Nausea Verified 04/03/21 13:55 morphine AdvReac Intermediate Nausea Verified 04/03/21 13:55 oxycodone AdvReac Intermediate N/V Verified 04/03/21 13:55 General Stated Complaint: SOB HANS: 2 Review of Systems All systems reviewed & are unremarkable except as noted in HPI and below Constitutional Constitutional: Reports as per HPI, Denies chills, Denies fever(s), Reports headache(s), Reports lethargy and Reports poor appetite Eyes Eyes: Denies blurry vision ENT Ears, Nose, Mouth, and Throat: Denies dizziness, Reports headache(s), Denies sore throat and Denies throat swelling Cardiovascular Cardiovascular: Denies chest pain and Reports dyspnea Respiratory Respiratory: Reports cough and Reports dyspnea Gastrointestinal Gastrointestinal: Denies abdominal pain, Denies diarrhea and Denies vomiting Genitourinary Genitourinary: Denies hematuria and Denies dysuria Musculoskeletal Musculoskeletal: Reports back pain (rib pain) and Denies numbness Integumentary/Breasts Skin/Breast: Denies lesions and Denies rash Neurologic Neurologic: Denies dizziness, Reports headache(s), Denies localized weakness and Denies numbness Allergic/Immunologic Allergic/Immunologic: Denies throat swelling PFSH Medical History Rheumatoid arthritis Surgical History Colonoscopy - [facility] [place] (03/01/13) DR. Prabhjot LAGUERRE Endometrial Biopsy 1990: NEG 1998: NEG S/P ankle fusion Social History Smoking/Tobacco Use Status: Never Smoking risk assessment performed?: Yes Alcohol Intake: current Alcohol Intake frequency: a few times a month Drug use: Never Substance use type: does not use Do you feel safe at home: Yes Do you feel safe in your relationship?: Yes Exam Const General: cooperative and no acute distress HENMT Head: normal to inspection Face and sinus: normal facial exam Eyes General: appearance normal, both eyes and all related structures EOM: EOM intact bilaterally Neck Neck: normal visual inspection and No submandibular swelling Lymphatic: no lymphadenopathy noted Chest Chest: normal inspection of the chest and no tenderness Resp Effort & Inspection: normal respiratory effort and able to speak in complete sentences Auscultation: crackles on the left throughout Percussion: other Cardio Rate: regular rate Rhythm: regular rhythm GI Inspection: normal to inspection Palpation: soft, not firm, not rigid and nontender Auscultation: normal bowel sounds Skin General skin exam: no rashes or lesions noted Neuro General: patient alert, patient awake and patient oriented x3 Cognition: normal cognition Speech: speech normal Motor: muscle tone normal throughout Sensory Exam: no sensory deficits noted Extrem General: normal to inspection, full ROM, capillary refill normal, no calf tenderness bilaterally and no edema Psych Appearance: grossly normal Mental Status: mental status grossly normal Speech and Movement: speech and movement normal Affect: normal affect Course Vital Signs Vital signs: Vital Signs Temperature 97.7 F 04/03/21 14:51 Pulse 87 04/03/21 14:51 Respiratory Rate 28 H 04/03/21 14:51 Blood Pressure 131/91 H 04/03/21 14:51 Pulse Oximetry 96 04/03/21 14:51 Temperature 97.7 F 04/03/21 14:51 Temperature Source Skin 04/03/21 14:51 Pulse 87 04/03/21 14:51 Respiratory Rate 16 04/03/21 14:59 Respiratory Effort Non-Labored 04/03/21 14:59 Respiratory Depth Normal 04/03/21 14:59 Respiratory Pattern Normal 04/03/21 14:59 Blood Pressure 131/91 H 04/03/21 14:51 Blood Pressure Position Sitting 04/03/21 14:51 Pulse Oximetry 96 04/03/21 14:51 Oxygen Delivery Method Room Air 04/03/21 14:51 Oxygen Flow Rate 0 04/03/21 14:51 Pain Level 0 04/03/21 14:51
--- NOTE | 2021-04-03 15:15 | DI.CT_ITS ---
Exam(s) CT CHEST PE CTA EXAM: CT CHEST PE CTA CLINICAL HISTORY: sob, back and rib pain. TECHNIQUE: Imaging Protocol: Axial CT angiography was performed with multi-slice acquisition and mu lti-planar and/or 3D reconstructions. CONTRAST MATERIAL: Intravenous: Omnipaque 350 Contrast volume:75 mL COMPARISON: CT CT CHEST/ABD/PEL WO from 03/28/2019 FINDINGS: Tracheobronchial tree: Patent where visualized. Pulmonary parenchyma: There are ground-glass predominantly peripheral and lower lobe opacities presen t. No architectural distortion. Pulmonary Arteries: No evidence of filling defect to suggest pulmonary emboli. Mediastinum and Christina: No dominant adenopathy or fluid collection. Visualized thyroid gland: Unremarkable. Pleura: No effusion or pneumothorax. Heart: The heart is not dilated. No coronary artery calcifications are seen. No pericardial effusion. Aorta: Thoracic aorta non-dilated. No evidence of dissection. Mild atherosclerosis. Upper abdomen: Unremarkable. Soft tissues: Unremarkable. Bones: Within normal limits. IMPRESSION: 1. No evidence of pulmonary embolism, thoracic aortic dissection or aneurysm. 2. Bilateral ground-glass predominantly peripheral opacities consistent with an atypical pneumonia. The findings are nonspecific but can be seen with COVID-19. RADIATION DOSE DELIVERED: 508.12mGy.cm Total DLP DATA REPOSITORY: All CT scans at this facility are submitted to the National Radiology Data Registry (NRDR) Dose Index Registry (DIR) with the [employer] (ACR). RADIATION OPTIMIZATION: All CT scans at this facility use at least one of these dose optimization te chniques: automated exposure control; mA and/or kV adjustment per patient size (includes targeted exa ms where dose is matched to clinical indication); or iterative reconstruction.
[2021-04-03] MEDS: Omnipaque 350 MG/ML 100 ML BTL 75 ML IJ (15:34)
[2021-04-03] MEDS: Ketorolac 30 MG/ML VIAL IVP (16:02)
[2021-04-03] MEDS: Normal Saline 1,000 ML 1000 ML IV (16:02)
[2021-04-03] MEDS: Albuterol/Ipratropium 3 ML UPD VIAL UPD (16:02)
[2021-04-03 16:35] LABS: Abs Immature Grans 0.04 10^3/uL (0.0-0.06); Absolute Basophil Count 0.04 10^3/uL (0.0-0.2); Absolute Eosinophil Count 0.01 10^3/uL (0.0-0.7); Absolute Lymphocyte Count 0.56 10^3/uL (1.2-3.4); Absolute Monocyte Count 0.43 10^3/uL (0.1-0.8); Absolute Neutrophil Count 7.46 10^3/uL (1.2-6.7); Basophils % 0.5; Eosinophils % 0.1; HCT 37.1 % (36.0-46.0); HGB 12.5 g/dL (11.2-15.7); Immature Grans % 0.5; Lymphocytes % 6.6; MCH 29.6 pg (27.0-33.0); MCHC 33.7 % (32.0-36.0); MCV 87.9 fL (80-95); MPV 9.4 fL (8.0-11.0); Neutrophils % 87.3; Nucleated RBC 0 %; Platelet Count 349 10^3/uL (130-400); RBC 4.22 10^6/uL (3.93-5.22); RDW 13.8 % (11.7-14.6); RDW-SD 44.6 fL; WBC 8.54 10^3/uL (4.4-10.8)
[2021-04-03 16:44] LABS: Magnesium 1.6 mg/dL (1.8-2.4)
[2021-04-03 16:50] LABS: ALT 20 U/L (14-59); AST 20 U/L (15-37); Albumin 3.7 g/dL (3.4-5.0); Alkaline Phosphatase 94 U/L (46-116); Anion Gap 7.2 mmol/L (3-11); BUN 16 mg/dL (7-18); Bilirubin, Total 0.3 mg/dL (0.2-1.0); CO2 30.8 mmol/L (21.0-32.0); CREATININE 1.2 mg/dL (0.55-1.02); Calcium 9.2 mg/dL (8.5-10.1); Chloride 94 mmol/L (98-107); Estimated GFR 44.04 (mL/min/1.73m2); Glucose 102 mg/dL (74-106); Potassium 3.8 mmol/L (3.5-5.1); Sodium 132 mmol/L (136-145); Total Protein 7.2 g/dL (6.4-8.2); Troponin I < 0.05 ng/mL (<0.06)
--- NOTE | 2021-04-03 16:53 | DI.VRAD_ITS ---
PROCEDURE INFORMATION: Exam: CTA Chest With Contrast Exam date and time: 04/03/2021 3:44 PM Age: 71 years old Clinical indication: Other: SOB back and rib pain; Patient HX: Covid postive TECHNIQUE: Imaging protocol: Computed tomographic angiography of the chest with contrast. 3D rendering (Not supervised by radiologist): MIP and/or 3D reconstructed images were created by the technologist. Radiation optimization: All CT scans at this facility use at least one of these dose optimization techniques: automated exposure control; mA and/or kV adjustment per patient size (includes targeted exams where dose is matched to clinical indication); or iterative reconstruction. Contrast material: OMNIPAQUE; Contrast volume: 100 ml; Contrast route: INTRAVENOUS (IV); COMPARISON: CT CHEST/ABD/PEL WO 03/28/2019 3:30 PM FINDINGS: Pulmonary arteries: Contrast fills the pulmonary artery and its branch vessels satisfactorily. No intraluminal filling defect to suggest pulmonary embolism. Aorta: Unremarkable. No aortic aneurysm. No aortic dissection. Lungs: Patchy bilateral posterolateral foci of airspace opacities representing an atypical pneumonia predominantly in the bilateral upper lobes. Chronic parenchymal changes are re-identified in the medial basal segment of the right lower lobe and the lateral basal segment of the left lower lobe. Hyperinflation suggestive of COPD. Pleural spaces: Unremarkable. No pneumothorax. No pleural effusion. Heart: Mild cardiomegaly. No pericardial effusion. Lymph nodes: Unremarkable. No enlarged lymph nodes. Bones/joints: Moderate kyphosis. No acute fracture. Soft tissues: Unremarkable. IMPRESSION: 1. No pulmonary embolism. No thoracic aortic aneurysm or dissection. 2. Posterolateral bilateral peripheral patchy airspace opacities consistent with an atypical pneumonia.Imaging features can be seen with COVID-19 pneumonia, though are nonspecific and can occur with a variety of infectious and noninfectious processes. (Reference: Brown) 3. Probable COPD. REFERENCES: Brown Shukla, et al., Radiological Society of [place] Expert Consensus Statement on Reporting Chest CT Findings Related to COVID-19. Endorsed by the Society of Thoracic Radiology, the [employer], and RSNA. Published October 12, 2019. In Dictated and Authenticated by: Juan M Orozco MD. Ordering:LOUIS Griffith MD
--- NOTE | 2021-04-03 17:58 | NUR.NOTE ---
1754 continuing seizure activity posturing 1mg Diazepam given per verbal order Dr. Rivero. Toni infusion complete.
[2021-04-03] MEDS: Albuterol HFA 8 GM 60 PUFF INH IH (18:40)
[2021-04-03] MEDS: Doxycycline Hyclate 100 MG CAP PO (18:41)
[2021-04-03] MEDS: Amoxicillin 875/Clav. 125 TAB PO (18:41)
[2021-04-03] MEDS: Amox. 875/Clav. 125, 2 TABS/BTL 1 TAB PO (18:41)
[2021-04-03] MEDS: Doxycycline Hyclate 100 MG, 2 CAPS/BTL PO (18:41)
[2021-04-03] MEDS: predniSONE 20 MG TAB 60 MG PO (18:42)
== END 2021-04-03 19:14 | disposition home or self-care (01) ==
PROVIDERS: Emergency Provider Physician Assistant; PCP Family Medicine
DX: U07.1 COVID-19 (principal); J12.82 Pneumonia due to coronavirus disease 2019
CPT/HCPCS: 71275; 80053; 93005; 94640; 96361; 96374; 99285; 83735; 84484; 85025; 93010; 99284; J1885; J3490; J7512; J7620

== ENCOUNTER 2021-04-17 08:51 | Inpatient (IN) | payer MEDICARE, BC, SELFPAY ==
[2021-04-17] VITALS (98 sets, daily range): BP systolic 105–150; BP diastolic 50–101; PULSE 56–88; RESP 13–65; TEMP 36.6–36.9; O2SAT 85–100
--- NOTE | 2021-04-17 09:15 | RT.EKG_ITS ---
APPROVED REPORT Exam: Resting ECG Reason for Exam: weak, fever Patient Location: E HR:75 bpm ECG Measurements Heart Rate 75 AXIS ME 157 P 57 QRSd 80 QRS 2 QT 399 T 33 QTc 445 Conclusion Sinus rhythm...normal P axis, V-rate 60- 99
[2021-04-17 09:26] LABS: Abs Immature Grans 0.26 10^3/uL (0.0-0.06); Basophils % 0.1; Eosinophils % 0.1; HCT 34.7 % (36.0-46.0); HGB 11.8 g/dL (11.2-15.7); Immature Grans % 1.7; Lymphocytes % 4.6; MCH 29.1 pg (27.0-33.0); MCV 85.5 fL (80-95); MPV 8.8 fL (8.0-11.0); Monocytes % 4.7; Neutrophils % 88.8; Nucleated RBC 0 %; Platelet Count 371 10^3/uL (130-400); RBC 4.06 10^6/uL (3.93-5.22); RDW 13.4 % (11.7-14.6); RDW-SD 41.8 fL; WBC 14.88 10^3/uL (4.4-10.8)
[2021-04-17 09:28] LABS: Source Nasal/Nares
--- NOTE | 2021-04-17 09:30 | DI.CT_ITS ---
Exam(s) CT CHEST PE CTA EXAM: CT CHEST PE CTA CLINICAL HISTORY: ?recurrent pneumonia vs PE. TECHNIQUE: Imaging Protocol: CT angiography of the chest was performed using pulmonary embolus jamin col. Multi planar reconstructions were performed. CONTRAST MATERIAL: Intravenous: Omnipaque 350 Contrast volume: 100 cc COMPARISON: CT CT CHEST PE CTA from 04/03/2021 FINDINGS: CHEST: PULMONARY ARTERIES: There are no intraluminal filling defects to suggest acute pulmonary emboli. LUNGS: There has been deterioration. There is significant increase in the bilateral infiltrates whic h are now confluent.. Involve all lobes. No pleural effusions. MEDIASTINUM: There is no hilar nor mediastinal adenopathy. Visualized thyroid unremarkable. CARDIAC: Cardiomegaly. No pericardial effusion.Caliber of the thoracic aorta is within normal limits . There is no significant shift of the interventricular septum. PARTIALLY VISUALIZED UPPERMOST ABDOMEN: No obvious findings OSSEOUS: No significant osseous lesions.. IMPRESSION: 1. No evidence of acute pulmonary emboli.. 2. However, there is significant progression of previously described bilateral pulmonary infiltrates. These are now extensive involving all lobes of both lungs. No associated pleural effusions 3. No intrathoracic adenopathy. RADIATION DOSE DELIVERED: 466.68mGy.cm Total DLP DATA REPOSITORY: All CT scans at this facility are submitted to the National Radiology Data Registry (NRDR) Dose Index Registry (DIR) with the [employer] (ACR). RADIATION OPTIMIZATION: All CT scans at this facility use at least one of these dose optimization te chniques: automated exposure control; mA and/or kV adjustment per patient size (includes targeted exa ms where dose is matched to clinical indication); or iterative reconstruction.
[2021-04-17 09:31] LABS: Lactate 2.3 mmol/L (0.6-1.4)
--- NOTE | 2021-04-17 09:34 | W.ED.GENAD ---
Discharge Plan Disposition Patient Disposition: [facility] Condition: Stable Discharge Details Chief Complaint: RespSymp Clinical Impression: 2019 novel coronavirus-infected pneumonia (NCIP) Primary Care Provider: Leonor Joy ED Provider: Gab Dodge Home Meds and New Rx's Prescriptions: No Action amlodipine 5 mg tablet 5 mg PO DAILY Qty: 90 RF: 4 cetirizine [Zyrtec] 10 mg tablet 5 mg PO DAILY PRNRF: 0 metformin 500 mg tablet 500 mg PO DAILY RF: 0 melatonin 10 mg capsule 10 mg PO HS PRNRF: 0 citalopram [Celexa] 10 MG tablet 10 mg PO DAILY Qty: 90 RF: 4 (DME) Aerochamber MV 1 EACH spacer 1 ea Miscellaneous PRN Qty: 1 RF: 0 hydrochlorothiazide 25 MG tablet 25 mg PO DAILY Qty: 90 RF: 4 Rituxan 10 MG/1 ML concentrate 10 mg IV Q6 MONTHS RF: 0 montelukast [Singulair] 10 MG tablet 10 mg PO DAILY MDD i tab Qty: 90 RF: 4 meloxicam 15 MG tablet 15 mg PO DAILY Qty: 90 RF: 3 Hold Instructions: Home Medication placed on hold at Doctor's office omeprazole 20 mg capsule,delayed release(DR/EC) 20 mg PO BID Qty: 180 RF: 0 prednisone 20 mg tablet 40 mg PO DAILY RF: 0 Medical Decision Making 71 yo female with hx of rheumatoid arthritis, who was diagnosed with covid on 03/21 and since then has had continued shortness of breath especially with exertion. She was seen on 04/[address] to have possible pnuemonia and was treated with steroids, augmentin and doxy as an outpatient. despite this she still feels short of breath with exertion and yesterday states she had a fever to 102. She denies chest pain. She saw her pcp today who has her on a prednisone taper now, and apparently with walking aroud was in the 80's on o2 sat monitor so was directed here. She is stable on exam and on room air is 95% while resting in the bed. no wheezing on exam, no jvd, speaking clearly. I suspect she has restrictive lung disease given her history of RA but will reimage to assess for resolution of her infiltrates and less likely PE. She has no chest pain or pressure so feel this is unlikely acs. patient 90% on room air and tachypneic, apparently when she was being triaged with exertion her room air saturations were in the 70s. Her labs show wbc of 14 which is likely from being on prednisone, ct consistent with covid. Discussed findings with patient and given she is hypoxic with any movement do not feel she can go home, will discuss with hospitalist. Differential Diagnosis Differential Diagnosis: pneumonia, pe, restrictive lung disease Medical Records Medical records reviewed: Yes I reviewed the patient's medical records. Imaging Data Radiologic Study: Attestation: I personally reviewed and interpreted this imaging study as follows: Imaging: CT Scan Radiologist's impression: IMPRESSION: 1. No evidence of acute pulmonary emboli.. 2. However, there is significant progression of previously described bilateral pulmonary infiltrates. These are now extensive involving all lobes of both lungs. No associated pleural effusions 3. No intrathoracic adenopathy. Lab Data Lab results reviewed: Yes I reviewed the patient's lab results. ECG Data Attestation: I personally reviewed and interpreted this ECG (s) as follows: Prior ECG tracings: not available for review Interpretation: sinus rhythm, rate of 75, no acute st t wave ischemic findings HPI General Mode of arrival: wheelchair. Date/Time Provider Initiated Documentation: 04/17/21 08:55. Limitations to Documentation: no limitations. Information obtained by: patient. History of Present Illness 71 year old F presents to the emergency department with the chief complaint of shortness of breath, described as moderate, Patient started experiencing this month(s) (1) and it has been constant. Rest improves symptom(s), Movement worsens symptoms . Patient notes fever/chills. Patient did receive the following treatments prior to arrival, none Related Data Home Medications Medication Instructions Recorded Confirmed citalopram [Celexa] 10 mg PO DAILY #90 tab-cap 12/17/12 04/17/21 Aerochamber MV #1 aer 11/26/14 04/17/21 hydrochlorothiazide 25 mg PO DAILY #90 tab 02/16/15 04/17/21 Rituxan 10 mg IV Q6 MONTHS vial 04/18/15 04/17/21 montelukast [Singulair] 10 mg PO DAILY #90 tab MDD i tab 02/23/17 04/17/21 meloxicam 15 mg PO DAILY #90 tab-cap 04/10/17 04/17/21 amlodipine 5 mg tablet 5 mg PO DAILY #90 tab 02/06/20 04/17/21 cetirizine 10 mg tablet 5 mg PO DAILY PRN 03/12/20 04/17/21 omeprazole 20 mg capsule,delayed 20 mg PO BID #180 cap 01/31/21 04/17/21 release melatonin 10 mg capsule 10 mg PO HS PRN 03/21/21 04/17/21 metformin 500 mg tablet 500 mg PO DAILY 03/21/21 04/17/21 prednisone 40 mg PO DAILY 04/17/21 04/17/21 Previous Rx's Medication Instructions Recorded meloxicam 15 mg PO DAILY #90 tab-cap 04/10/17 amlodipine 5 mg tablet 5 mg PO DAILY #90 tab 02/06/20 omeprazole 20 mg capsule,delayed 20 mg PO BID #180 cap 01/31/21 release Allergies Allergy/AdvReac Type Severity Reaction Status Date / Time hydrocodone AdvReac Intermediate Nausea Verified 04/17/21 09:16 morphine AdvReac Intermediate Nausea Verified 04/17/21 09:16 oxycodone AdvReac Intermediate N/V Verified 04/17/21 09:16 General Stated Complaint: RespSymp HANS: 3 Review of Systems All systems reviewed & are unremarkable except as noted in HPI and below Constitutional Constitutional: Denies chills and Denies weakness Cardiovascular Cardiovascular: Denies chest pain Respiratory Respiratory: Denies cough Gastrointestinal Gastrointestinal: Denies abdominal pain, Denies nausea and Denies vomiting Musculoskeletal Musculoskeletal: Denies joint swelling Neurologic Neurologic: Denies weakness [facility] Medical History Rheumatoid arthritis Surgical History Colonoscopy - MAC (03/01/13) DR. Prabhjot LAGUERRE Endometrial Biopsy 1989: NEG 1998: NEG S/P ankle fusion Social History Smoking/Tobacco Use Status: Never Smoking risk assessment performed?: Yes Alcohol Intake: current Alcohol Intake frequency: a few times a month Drug use: Never Substance use type: does not use Do you feel safe at home: Yes Do you feel safe in your relationship?: Yes Exam Const General: no acute distress Orientation: alert HENMT Head: normal to inspection Ears: external ears normal General nose exam: external nose normal Mouth: moist mucous membranes Eyes General: appearance normal, both eyes and all related structures Neck Neck: normal visual inspection Resp Effort & Inspection: normal respiratory effort and able to speak in complete sentences Cardio Rate: regular rate Skin General skin exam: no rashes or lesions noted Neuro General: patient alert and patient oriented x3 Extrem General: normal to inspection Psych Mental Status: mental status grossly normal Course Vital Signs Vital signs: Vital Signs Temperature 36.7 C 04/17/21 09:10 Pulse 71 04/17/21 09:10 Respiratory Rate 22 04/17/21 09:10 Blood Pressure 134/67 04/17/21 09:10 Pulse Oximetry 99 04/17/21 09:10 Temperature 36.7 C 04/17/21 09:10 Temperature Source Tympanic 04/17/21 09:10 Pulse 71 04/17/21 09:10 Respiratory Rate 22 04/17/21 09:10 Respiratory Effort Labored 04/17/21 09:15 Blood Pressure 134/67 04/17/21 09:10 Blood Pressure Position Sitting 04/17/21 09:10 Pulse Oximetry 99 04/17/21 09:10 Oxygen Delivery Method Room Air 04/17/21 09:10 Oxygen Flow Rate 0 04/17/21 09:10 Pain Level 0 04/17/21 09:10 Lab/Test Results Lab/Test Results: 04/17/21 09:20 Blood Blood Culture - Pending 04/17/21 08:56 Blood Blood Culture - Pending Laboratory Tests Range/Units 04/17/21 04/17/21 09:20 09:20 VBG Lactate (0.6-1.4) mmol/L 2.3 H* COVID-19 Source Nasal/Nares
[2021-04-17 09:36] LABS: Absolute Basophil Count 0.01 10^3/uL (0.0-0.2); Absolute Eosinophil Count 0.01 10^3/uL (0.0-0.7); Absolute Lymphocyte Count 0.68 10^3/uL (1.2-3.4); Absolute Neutrophil Count 13.21 10^3/uL (1.2-6.7)
[2021-04-17 10:00] LABS: ALT 21 U/L (14-59); AST 23 U/L (15-37); Albumin 3.2 g/dL (3.4-5.0); Alkaline Phosphatase 95 U/L (46-116); Anion Gap 7.7 mmol/L (3-11); BUN 23 mg/dL (7-18); Bilirubin, Total 0.4 mg/dL (0.2-1.0); CO2 31.3 mmol/L (21.0-32.0); Chloride 95 mmol/L (98-107); Estimated GFR 54.35 (mL/min/1.73m2); Glucose 88 mg/dL (74-106); Magnesium 1.9 mg/dL (1.8-2.4); Potassium 3.8 mmol/L (3.5-5.1); Sodium 134 mmol/L (136-145); TSH (W/Ref FT4) 0.69 uIU/mL (0.36-3.74); Total Protein 6.2 g/dL (6.4-8.2)
[2021-04-17 10:02] LABS: NT-proBNP 436 pg/mL (<300); Troponin I < 0.05 ng/mL (<0.06)
[2021-04-17] MEDS: Omnipaque 350 MG/ML 100 ML BTL IJ (10:20)
[2021-04-17] MEDS: Normal Saline - Diluent 50 ML VIAL IV (10:21)
[2021-04-17 10:23] LABS: Procalcitonin < 0.1 ng/mL
[2021-04-17 10:30] LABS: COVID-19 PCR POSITIVE (Negative)
--- NOTE | 2021-04-17 11:25 | HPE_ITS ---
Date of service: 04/17/21 Time of Service: 11:25 Assessment and Plan Assessment and plan (1) 2019 novel coronavirus-infected pneumonia (NCIP): Status: Acute Assessment and plan: originally diagnosed at beginning of March treated recently with augmentin and doxycycline and prednisone found hypoxic. will admit to med/surg, consulted pulmonary with following recommendations: CPAP at night, proning, placed on baricitinib, continue remdesivir, continue dexamethasone, lovenox for prophylaxis, hold metformin and meloxicam, no IVF incentive spirometry and vibrapep, combivent QID, procal negative so will not continue antibiotics. discussed with DR Alvarez. History of Present Illness History of Present Illness Chief Complaint: hypoxia Narrative: referred to ED by pcp office for hypoxia. she is an immunocompromised 71 year old diagnosed with covid 19 several weeks ago who has been treated outpatient for bacterial pneumonia with doxycycline and augmentin and steroid taper. Review of Systems All systems reviewed & are unremarkable except as noted in HPI and below Constitutional Constitutional: Reports fever(s) Cardiovascular Cardiovascular: Reports dyspnea Respiratory Respiratory: Reports cough and Reports dyspnea PFSH Medical History Rheumatoid arthritis Surgical History Colonoscopy - MAC (03/01/13) DR. Prabhjot LAGUERRE Endometrial Biopsy 1989: NEG 1998: NEG S/P ankle fusion Social History Smoking/Tobacco Use Status: Never Smoking risk assessment performed?: Yes Alcohol Intake: current Alcohol Intake frequency: a few times a month Drug use: Never Substance use type: does not use Do you feel safe at home: Yes Do you feel safe in your relationship?: Yes Meds Allergies and Home Medications Allergies Allergy/AdvReac Type Severity Reaction Status Date / Time hydrocodone AdvReac Intermediate Nausea Verified 04/17/21 09:16 morphine AdvReac Intermediate Nausea Verified 04/17/21 09:16 oxycodone AdvReac Intermediate N/V Verified 04/17/21 09:16 Home Medications Medication Instructions Recorded Confirmed Type Aerochamber MV #1 aer 11/26/14 04/17/21 History hydrochlorothiazide 25 mg PO DAILY #90 tab 02/16/15 04/17/21 History Rituxan 10 mg IV Q6 MONTHS vial 04/18/15 04/17/21 History montelukast [Singulair] 10 mg PO DAILY #90 tab MDD i tab 02/23/17 04/17/21 History meloxicam 15 mg PO DAILY #90 tab-cap 04/10/17 04/17/21 Rx amlodipine 5 mg tablet 5 mg PO DAILY #90 tab 02/06/20 04/17/21 Rx cetirizine 10 mg tablet 5 mg PO DAILY PRN 03/12/20 04/17/21 History omeprazole 20 mg capsule,delayed 20 mg PO BID #180 cap 01/31/21 04/17/21 Rx release melatonin 10 mg capsule 10 mg PO HS PRN 03/21/21 04/17/21 History citalopram 20 mg PO DAILY 04/17/21 04/17/21 History metformin 500 mg PO DAILY 04/17/21 04/17/21 History prednisone 40 mg PO DAILY 04/17/21 04/17/21 History Exam Const General: no acute distress Orientation: alert [facility] Head: normal to inspection Ears: external ears normal General nose exam: external nose normal Mouth: moist mucous membranes Eyes General: appearance normal, both eyes and all related structures Neck Neck: normal visual inspection Resp Effort & Inspection: normal respiratory effort and able to speak in complete sentences Cardio Rate: regular rate Skin General skin exam: no rashes or lesions noted Neuro General: patient alert and patient oriented x3 Extrem General: normal to inspection Psych Mental Status: mental status grossly normal Results Labs Result diagrams: 04/18/21 06:30 04/18/21 06:30 Labs: Laboratory Results - last 24 hr 04/17/21 04/17/21 04/17/21 09:20 09:20 09:20 WBC RBC Hgb Hct MCV MCH MCHC RDW Plt Count MPV Immature Gran % Neutrophils % Lymphocytes % Monocytes % Eosinophils % Basophils % Nucleated RBC % Absolute Neutrophils Absolute Lymphocytes Absolute Monocytes Absolute Eosinophils Absolute Basophils VBG Lactate 2.3 H* Sodium 134 L Potassium 3.8 Chloride 95 L Carbon Dioxide 31.3 Anion Gap 7.7 BUN 23 H Creatinine 1.0 Estimated GFR/1.73 m2 54.35 Glucose 88 Calcium 9.0 Magnesium 1.9 Total Bilirubin 0.4 AST 23 ALT 21 Alkaline Phosphatase 95 Troponin I NT-Pro-B Natriuret Pep Total Protein 6.2 L Albumin 3.2 L Procalcitonin < 0.1 TSH 0.69 COVID-19 Source Nasal/Nares SARS-CoV-2 (PCR) POSITIVE A* 04/17/21 04/17/21 04/17/21 09:20 09:20 09:20 WBC 14.88 H RBC 4.06 Hgb 11.8 Hct 34.7 L MCV 85.5 MCH 29.1 MCHC 34.0 RDW 13.4 Plt Count 371 MPV 8.8 Immature Gran % 1.7 Neutrophils % 88.8 Lymphocytes % 4.6 Monocytes % 4.7 Eosinophils % 0.1 Basophils % 0.1 Nucleated RBC % 0 Absolute Neutrophils 13.21 H Absolute Lymphocytes 0.68 L Absolute Monocytes 0.70 Absolute Eosinophils 0.01 Absolute Basophils 0.01 VBG Lactate Sodium Potassium Chloride Carbon Dioxide Anion Gap BUN Creatinine Estimated GFR/1.73 m2 Glucose Calcium Magnesium Total Bilirubin AST ALT Alkaline Phosphatase Troponin I < 0.05 NT-Pro-B Natriuret Pep 436 H Total Protein Albumin Procalcitonin TSH COVID-19 Source SARS-CoV-2 (PCR) Last Vital Signs Temp 36.7 C 04/17/21 09:10 Pulse 71 04/17/21 09:10 Resp 22 04/17/21 09:10 BP 134/67 04/17/21 09:10 Pulse Ox 95 04/17/21 11:02
[2021-04-17] MEDS: PIPERACILLIN/TAZO 4.5 GM in Normal Saline 100 ML IVPB (11:49)
[2021-04-17] MEDS: Normal Saline Flush 10 ML SYR IVP ×2 (11:50→12:57)
[2021-04-17] MEDS: Dexamethasone 4 MG TAB 6 MG PO (11:51)
[2021-04-17 12:13] LABS: Bilirubin Negative (Negative); Blood Negative (Negative); Clarity Clear (Clear); Glucose Negative (Negative); Ketones Negative (Negative); Leukocyte Esterase Trace (Negative); Nitrite Negative (Negative); Urobilinogen 0.2 EU/dL (Up TO 0.2); pH 7.5 (5-8)
--- NOTE | 2021-04-17 12:23 | W.PULMCON ---
General Date Of Service Date of service: 04/17/21 Time of Service: 11:00 Reason for Consult: COVID pneumonia Assessment and Plan Assessment and plan (1) COVID-19: Status: Acute (2) Rheumatoid arthritis: Status: Chronic Qualifiers: Rheumatoid arthritis location: unspecified site Rheumatoid factor presence: unspecified presence Qualified Code(s): M06.9 - Rheumatoid arthritis, unspecified (3) Respiratory failure with hypoxia: Status: Acute Assessment and plan: This is a 71 yo woman with RA on Rituxan, obesity and diabetes who presents with persistent and worsening COVID despite outpatient treatment. Her Rituxan infusion make her significantly immunocompromised, and unfortunately in COVID specifically is associated with higher mortality and more severe disease. Given this, although her inflammatory markers are not radically elevated (although are elevated) we should still treat her as though she had very severe COVID. Her viral cycle time is 29. Any value below 30 is extremely low. This means her overall viral load is extremely high. The cycle time being this low, almost 1 month out of initial diagnosis is extremely concerning. Her chest CT is significantly worse when compared to previously. On a CT scan from 2019 she has no evidence of RA-ILD so the abnormalities seen are due to COVID alone. She has a negative procalcitonin, she likely does not need antibiotics. COVID-19 Pneumonia - recommend Decadron 6mg - recommend remdesivir despite long time out from diagnosis given short viral cycle time - recommend barcitinib - trend inflammatory markers - hold metformin and meloxicam - NSAIDS are associated with high rates of ANSHU in COVID - do not recommend antibiotics at this time - would add CAP coverage if hypoxia worsening significantly - Lovenox for DVT ppx Hypoxic respiratory failure - supplemental O2 for sats > 90% - CPAP at night - proning as much as possible - incentive spirometry - VibraPEP - Combivent QID Qualifiers: Chronicity: acute Qualified Code(s): J96.01 - Acute respiratory failure with hypoxia History of Present Illness Narrative: This is a 71 yo woman with RA on Rituxan who is admitted for COVID PNA. Her initial positive test was 03/21/21. Her last Rituxan dose was September (she gets this q6 months for her RA). Given the Rituxan she had to delay her COVID vaccination and so her last vaccine dose was the end of February, she fell ill only 3 days after her last dose. Her was also positive and believes she contracted it from him, but they do not know where he caught it from as they are very careful. Other risk factors for severe COVID include diabetes and obesity. Today she feels short of breath and fatigued. She does have a cough but is not coughing out a lot of sputum. Review of Systems All systems reviewed & are unremarkable except as noted in HPI and below PFSH Medical History Rheumatoid arthritis Surgical History Colonoscopy - MAC (03/01/13) DR. Prabhjot LAGUERRE Endometrial Biopsy 1989: NEG 1998: NEG S/P ankle fusion Social History Smoking/Tobacco Use Status: Never Smoking risk assessment performed?: Yes Alcohol Intake: current Alcohol Intake frequency: a few times a month Drug use: Never Substance use type: does not use Do you feel safe at home: Yes Do you feel safe in your relationship?: Yes Visit Medication and Allergies Active Medications Generic Name Dose Route Start Last Admin Trade Name Freq PRN Reason Stop Dose Admin Amlodipine Besylate 5 mg 04/18/21 08:30 Amlodipine 5 Mg Tab PO DAILY OCTAVIA Baricitinib 4 mg 04/18/21 08:30 Baricitinib 1 Mg Tab PO DAILY OCTAVIA Cetirizine HCl 5 mg 04/17/21 11:24 Cetirizine 10 Mg Tab PO DAILY PRN PRN Citalopram Hydrobromide 10 mg 04/18/21 08:30 Citalopram 10 Mg Tab PO DAILY OCTAVIA Dexamethasone 6 mg 04/17/21 11:20 04/17/21 11:51 Dexamethasone 4 Mg Tab PO 6 mg DAILY OCTAVIA Administration Dimethicone/Zinc Oxide 0 gm 04/17/21 11:12 Rosalba Protect Cream 142 Gm Tube TP PRN PRN Enoxaparin Sodium 40 mg 04/17/21 12:00 Enoxaparin 40 Mg/0.4 Ml Syr SC Q24H OCTAVIA Hydrochlorothiazide 25 mg 04/18/21 08:30 Hydrochlorothiazide 25 Mg Tab PO DAILY OCTAVIA Remdesivir 100 mg/ Sodium 100 mls @ 100 mls/hr 04/18/21 08:30 Chloride IVPB 04/21/21 09:29 DAILY OCTAVIA IV Miscellaneous Supplies 1 each 04/17/21 09:00 Iv Access IV DIRECTED OCTAVIA Iohexol 100 ml 04/17/21 10:30 04/17/21 10:20 Omnipaque 350 Mg/Ml 100 Ml Btl IJ 05/17/21 23:59 69 ml DIRECTED OCTAVIA Administration Montelukast Sodium 10 mg 04/18/21 08:30 Montelukast 10 Mg Tab PO DAILY OCTAVIA Non-Formulary Medication 10 mg 04/17/21 11:24 Melatonin PO HS PRN Omeprazole 20 mg 04/17/21 20:00 Omeprazole 20 Mg Capcr PO BID@0730,2000 OCTAVIA Sodium Chloride 0 ml 04/17/21 08:55 04/17/21 11:50 Normal Saline Flush 10 Ml Syr IVP 20 ml PRN PRN Administration Sodium Chloride 50 ml 04/17/21 10:30 04/17/21 10:21 Normal Saline - Diluent 50 Ml Vial IV 50 ml .FOR DI USE OCTAVIA Administration Allergies hydrocodone Adverse Reaction (Intermediate, Verified 04/17/21 09:16) Nausea morphine Adverse Reaction (Intermediate, Verified 04/17/21 09:16) Nausea oxycodone Adverse Reaction (Intermediate, Verified 04/17/21 09:16) N/V Exam Const General: no acute distress Nutritional Appearance: obese HENMT Head: normocephalic Ears: external ears normal General nose exam: nasal mucous membranes and turbinates normal Face and sinus: sinuses nontender Mouth: oropharynx normal and moist mucous membranes Teeth and gingiva: dentition normal Eyes General: appearance normal, both eyes and all related structures Pupils: PERRL Neck Neck: normal visual inspection and no lymphadenopathy Chest Chest: normal inspection of the chest Resp Effort & Inspection: normal respiratory effort Auscultation: diminished lung sounds, no rales, rhonchi and no wheezes Cardio Rate: regular rate Rhythm: regular rhythm Heart Sounds: S1 normal, S2 normal and no murmurs Pulses: radial pulses present bilaterally GI Inspection: normal to inspection Palpation: soft Skin General skin exam: no rashes or lesions noted Neuro General: patient alert, patient awake and patient oriented x3 Extrem General: no clubbing, cyanosis or edema Psych Mental Status: mental status grossly normal Affect: normal affect Attitude: cooperative Results Last Vital Signs Temp 36.7 C 04/17/21 09:10 Pulse 71 04/17/21 09:10 Resp 22 04/17/21 09:10 BP 134/67 04/17/21 09:10 Pulse Ox 95 04/17/21 11:02 Labs Result diagrams: 04/17/21 09:20 04/17/21 09:20 Labs: Laboratory Results - last 24 hr 04/17/21 04/17/21 04/17/21 09:20 09:20 09:20 WBC RBC Hgb Hct MCV MCH MCHC RDW Plt Count MPV Immature Gran % Neutrophils % Lymphocytes % Monocytes % Eosinophils % Basophils % Nucleated RBC % Absolute Neutrophils Absolute Lymphocytes Absolute Monocytes Absolute Eosinophils Absolute Basophils VBG Lactate 2.3 H* Sodium 134 L Potassium 3.8 Chloride 95 L Carbon Dioxide 31.3 Anion Gap 7.7 BUN 23 H Creatinine 1.0 Estimated GFR/1.73 m2 54.35 Glucose 88 Calcium 9.0 Magnesium 1.9 Total Bilirubin 0.4 AST 23 ALT 21 Alkaline Phosphatase 95 Troponin I NT-Pro-B Natriuret Pep Total Protein 6.2 L Albumin 3.2 L Procalcitonin < 0.1 TSH 0.69 COVID-19 Source Nasal/Nares SARS-CoV-2 (PCR) POSITIVE A* 04/17/21 04/17/21 04/17/21 09:20 09:20 09:20 WBC 14.88 H RBC 4.06 Hgb 11.8 Hct 34.7 L MCV 85.5 MCH 29.1 MCHC 34.0 RDW 13.4 Plt Count 371 MPV 8.8 Immature Gran % 1.7 Neutrophils % 88.8 Lymphocytes % 4.6 Monocytes % 4.7 Eosinophils % 0.1 Basophils % 0.1 Nucleated RBC % 0 Absolute Neutrophils 13.21 H Absolute Lymphocytes 0.68 L Absolute Monocytes 0.70 Absolute Eosinophils 0.01 Absolute Basophils 0.01 VBG Lactate Sodium Potassium Chloride Carbon Dioxide Anion Gap BUN Creatinine Estimated GFR/1.73 m2 Glucose Calcium Magnesium Total Bilirubin AST ALT Alkaline Phosphatase Troponin I < 0.05 NT-Pro-B Natriuret Pep 436 H Total Protein Albumin Procalcitonin TSH COVID-19 Source SARS-CoV-2 (PCR)
[2021-04-17 12:24] LABS: Bacteria Rare HPF (Negative); C & S Indicated? Yes; Casts Negative LPF (Negative); Crystals Negative HPF (Negative); Epithelial Cells Rare HPF (Negative); Mucus Negative (Negative); RBC 0-2 HPF (0-2)
--- NOTE | 2021-04-17 12:30 | RT.EKG_ITS ---
APPROVED REPORT Exam: Resting ECG Reason for Exam: sob Patient Location: E HR:69 bpm ECG Measurements Heart Rate 69 AXIS HI 161 P 49 QRSd 89 QRS 0 QT 433 T 0 QTc 466 Conclusion Sinus rhythm...normal P axis, V-rate 60- 99
[2021-04-17] MEDS: REMDESIVIR 200 MG in Normal Saline 250 ML 250 MG IVPB (12:56)
[2021-04-17 13:45] LABS: Troponin I < 0.05 ng/mL (<0.06)
[2021-04-17 13:47] LABS: C-Reactive Protein 6.49 mg/dL (0.0-0.3)
[2021-04-17 14:12] LABS: Ferritin 280 ng/mL (8-252)
[2021-04-17] MEDS: Enoxaparin 40 MG/0.4 ML SYR SC (16:40)
[2021-04-17] MEDS: Ipratropium/Albuterol 4 GM 120 PUFF INH IH ×2 (18:00→21:27)
[2021-04-17] MEDS: diphenhydrAMINE 25 MG CAP PO (21:27)
[2021-04-17] MEDS: Acetaminophen 325 MG TAB 650 MG PO (21:27)
[2021-04-17] MEDS: Omeprazole 20 MG CAPCR PO (21:27)
[2021-04-18] VITALS (39 sets, daily range): BP systolic 111–132; BP diastolic 45–65; PULSE 59–76; RESP 16–28; TEMP 36–36.6; O2SAT 76–100
[2021-04-18 06:45] LABS: Abs Immature Grans 0.12 10^3/uL (0.0-0.06); Absolute Basophil Count 0.01 10^3/uL (0.0-0.2); Absolute Monocyte Count 0.63 10^3/uL (0.1-0.8); Absolute Neutrophil Count 8.01 10^3/uL (1.2-6.7); Basophils % 0.1; HCT 32.3 % (36.0-46.0); HGB 10.8 g/dL (11.2-15.7); Immature Grans % 1.2; Lymphocytes % 11.1; MCH 28.7 pg (27.0-33.0); MCHC 33.4 % (32.0-36.0); MCV 85.9 fL (80-95); MPV 8.8 fL (8.0-11.0); Monocytes % 6.4; Neutrophils % 81.2; Nucleated RBC 0 %; Platelet Count 346 10^3/uL (130-400); RBC 3.76 10^6/uL (3.93-5.22); RDW 13.7 % (11.7-14.6); RDW-SD 42.5 fL; WBC 9.87 10^3/uL (4.4-10.8)
[2021-04-18 06:59] LABS: Anion Gap 3.3 mmol/L (3-11); BUN 22 mg/dL (7-18); C-Reactive Protein 5.45 mg/dL (0.0-0.3); CO2 34.7 mmol/L (21.0-32.0); CREATININE 1.1 mg/dL (0.55-1.02); Calcium 8.8 mg/dL (8.5-10.1); Chloride 99 mmol/L (98-107); Estimated GFR 48.69 (mL/min/1.73m2); Glucose 100 mg/dL (74-106); Potassium 3.9 mmol/L (3.5-5.1); Sodium 137 mmol/L (136-145)
[2021-04-18 07:22] LABS: Ferritin 294 ng/mL (8-252)
[2021-04-18] MEDS: Dexamethasone 4 MG TAB 6 MG PO (07:40)
[2021-04-18] MEDS: Omeprazole 20 MG CAPCR PO ×2 (07:41→21:28)
[2021-04-18] MEDS: hydroCHLOROthiazide 25 MG TAB PO (07:42)
[2021-04-18] MEDS: amLODIPine 5 MG TAB PO (07:42)
[2021-04-18] MEDS: Montelukast 10 MG TAB PO (07:42)
[2021-04-18] MEDS: Normal Saline Flush 10 ML SYR IVP (07:44)
[2021-04-18] MEDS: Citalopram 20 MG TAB PO (08:00)
[2021-04-18] MEDS: Ipratropium/Albuterol 4 GM 120 PUFF INH IH ×3 (09:23→21:28)
--- NOTE | 2021-04-18 15:57 | W.PM.PROGNOT ---
Date of Service Date of service: 04/18/21 Time of Service: 15:58 Assessment and Plan Assessment and plan (1) 2018 novel coronavirus-infected pneumonia (NCIP): Status: Acute Assessment and plan: originally diagnosed at beginning of March treated recently with augmentin and doxycycline and prednisone found hypoxic. admitted to med/surg, consulted pulmonary with following recommendations: CPAP at night, proning, placed on baricitinib, continue remdesivir, continue dexamethasone, lovenox for prophylaxis, hold metformin and meloxicam, no IVF incentive spirometry and vibrapep, combivent QID, procal negative so will not continue antibiotics. discussed with DR Alvarez. Subjective Subjective Patient reports: no new complaints, shortness of breath (with activity, desats but recovers to low 90's on 2.5 l nc) and afebrile (max temp 36.9) Exam Const General: no acute distress Orientation: alert HENMT Head: normal to inspection Mouth: moist mucous membranes Eyes General: appearance normal, both eyes and all related structures Neck Neck: normal visual inspection Resp Effort & Inspection: normal respiratory effort and able to speak in complete sentences Cardio Rate: regular rate Skin General skin exam: no rashes or lesions noted Neuro General: patient alert and patient oriented x3 Extrem General: normal to inspection Psych Mental Status: mental status grossly normal Objective Last Vital Signs Temp 36.0 C L 04/18/21 03:40 Pulse 59 L 04/18/21 08:03 Resp 16 04/18/21 03:40 BP 123/45 L 04/18/21 08:03 Pulse Ox 89 L 04/18/21 08:11 Laboratory Results - last 24 hr 04/18/21 04/18/21 06:30 06:30 WBC 9.87 D RBC 3.76 L Hgb 10.8 L Hct 32.3 L MCV 85.9 MCH 28.7 MCHC 33.4 RDW 13.7 Plt Count 346 MPV 8.8 Immature Gran % 1.2 Neutrophils % 81.2 Lymphocytes % 11.1 Monocytes % 6.4 Eosinophils % 0.0 Basophils % 0.1 Nucleated RBC % 0 Absolute Neutrophils 8.01 H Absolute Lymphocytes 1.10 L Absolute Monocytes 0.63 Absolute Eosinophils 0.00 Absolute Basophils 0.01 Sodium 137 Potassium 3.9 Chloride 99 Carbon Dioxide 34.7 H Anion Gap 3.3 BUN 22 H Creatinine 1.1 H Estimated GFR/1.73 m2 48.69 Glucose 100 Calcium 8.8 Ferritin 294 H C-Reactive Protein 5.45 H
--- NOTE | 2021-04-18 16:53 | PHA.REVIEW ---
Pharmacy Admission Review - Admission Clinical Review (Last Reviewed 03/29/21 @ 21:51 by KIRA Lantigua) Respiratory failure with hypoxia (Acute) 2019 novel coronavirus-infected pneumonia (NCIP) (Acute) COVID-19 (Acute) hydrocodone Adverse Reaction (Intermediate, Verified 04/17/21 09:16) Nausea morphine Adverse Reaction (Intermediate, Verified 04/17/21 09:16) Nausea oxycodone Adverse Reaction (Intermediate, Verified 04/17/21 09:16) N/V Resuscitation Status Full Code Height 5 ft Weight 77.8 kg - Renal Dosing Renal Dosing: BUN 22 mg/dL (7-18) H 04/18/21 06:30 Creatinine 1.1 mg/dL (0.55-1.02) H 04/18/21 06:30 Medications needing adjustments: Intervened (Crcl ~42.0 mL/min using adjusted body weight. Baricitinib dose was renally adjusted, other current meds okay.) - Anticoagulation Anticoagulation: Hgb 10.8 g/dL (11.2-15.7) L 04/18/21 06:30 Hct 32.3 % (36.0-46.0) L 04/18/21 06:30 Plt Count 346 10^3/uL (130-400) 04/18/21 06:30 Creatinine 1.1 mg/dL (0.55-1.02) H 04/18/21 06:30 DVT Prophylaxis: Reviewed Medications: Enoxaparin Therapeutic Anticoagulation: N/A - Opiate Usage Evaluate Pain Scale/Pains Meds: N/A - Relevant Labs Sodium 137 mmol/L (136-145) 04/18/21 06:30 Potassium 3.9 mmol/L (3.5-5.1) 04/18/21 06:30 Chloride 99 mmol/L (98-107) 04/18/21 06:30 Magnesium 1.9 mg/dL (1.8-2.4) 04/17/21 09:20 C-Reactive Protein 5.45 mg/dL (0.0-0.3) H 04/18/21 06:30 Electrolytes, C-Reactive P, ESR: Reviewed - DM Control DM Control: Glucose 100 mg/dL (74-106) 04/18/21 06:30 Insulin Dosing: Reviewed (Provider is watching BG since metformin is not ordered.) - Heart Failure/MD Heart Failure/MD: Troponin I < 0.05 ng/mL (<0.06) 04/17/21 12:40 NT-Pro-B Natriuret Pep 436 pg/mL (<300) H 04/17/21 09:20 EF%, KENZIE's, B-Blockers, Diuretics: Reviewed - BP Control BP Control: Blood Pressure 123/45 If elevated: Reviewed (BP has been low to normal most of admission.) - Qtc Review If Elevated: N/A (QTc 466 on most recent EKG this admission.) - IV to PO Switch IV Medications: Reviewed - Home Meds Home Med List reviewed: Reviewed Relevent Home Meds Not ordered & why?: Meloxicam and metformin (being held per provider), prednisone (has other steroid ordered). - Current meds Current Medication Order Review: Intervened (Discontinued DI meds that were already given.) - Comments Comments/Follow Ups: Watch BP, BG, SCr, labs and for med changes (renal dose adjustments).
--- NOTE | 2021-04-18 17:49 | INITIAL_ITS ---
- If Service Date Differs Date of service: 04/18/21 Time of Service: 17:49 Care Management Initial Assess REASON FOR HOSPITALIZATION:: Pneumonia, Covid-19 PAST MEDICAL HISTORY/PAST SURGICAL HISTORY:: Rheumatoid arthritis. Colonoscopy - MAC (03/01/13). DR. Prabhjot LAGUERRE. Endometrial Biopsy. 1990: NEG. 1999: NEG. S/P ankle fusion PREVIOUS FUNCTIONAL STATUS/SOCIAL/FAMILY SUPPORTS:: Kelly resides in [facility] with her , Kristian. She is independent at baseline and currently residing in a camper, with plans to return to [place] for winter. CURRENT FUNCTIONAL STATUS:: Kelly is on Covid precautions in the ICU. Per RN, no identified needs at this time. She is up independently in her room. Remains on 2.5 L O2, has phone at bedside. ADVANCE DIRECTIVES:: None on file. Has patient been provided with info about the portal/API?: No Did the patient sign up for the portal?: No CODE STATUS:: Full Code INSURANCE COVERAGE / FINANCIAL ISSUES:: [facility]. BC/BS CURRENT HOME/COMMUNITY SERVICES/EQUIPMENT:: None, currently. PRIMARY CARE PHYSICIAN:: Leonor Joy POTENTIAL DISCHARGE NEEDS:: Follow up appointment with PCP. PATIENT/FAMILY EDUCATION NEEDS:: Review discharge instructions, visitation policy. ANTICIPATED BARRIERS TO DISCHARGE:: None identified. TRANSPORTATION:: Via private vehicle with her . PLAN:: Kelly will return home when ready per MD. She will follow up with her PCP and plan of care as prescribed. She will transport via private vehicle with her .
[2021-04-18] MEDS: Enoxaparin 40 MG/0.4 ML SYR SC (18:22)
[2021-04-18] MEDS: diphenhydrAMINE 25 MG CAP PO (21:28)
[2021-04-18] MEDS: Acetaminophen 325 MG TAB 650 MG PO (22:45)
[2021-04-19] VITALS (9 sets, daily range): BP systolic 122–128; BP diastolic 62–79; PULSE 67–79; RESP 18–24; TEMP 36.4–36.6; O2SAT 93–98
[2021-04-19] MEDS: amLODIPine 5 MG TAB PO (08:15)
[2021-04-19] MEDS: Dexamethasone 4 MG TAB 6 MG PO (08:16)
[2021-04-19] MEDS: Omeprazole 20 MG CAPCR PO ×2 (08:16→21:45)
[2021-04-19] MEDS: hydroCHLOROthiazide 25 MG TAB PO (08:16)
[2021-04-19] MEDS: Citalopram 20 MG TAB PO (08:16)
[2021-04-19] MEDS: Montelukast 10 MG TAB PO (08:16)
--- NOTE | 2021-04-19 08:48 | CMPROGNOTE_ITS ---
- If Service Date Differs Date of service: 04/19/21 Time of Service: 08:48 Care Management Progress Note S/O: CM met with Kelly over the phone since Kelly is on Covid precautions. Kelly remains on supplemental oxygen and reports sob with exertion which resolves with rest. Kelly reports that she is able to ambulate independently in her room. She has no needs at this time and has a phone at her bedside. A: 71 year old female admitted to [facility] on 04/17/21 for covid-19 pneumonia P:Anticipate Kelly will return home when ready per MD. She will follow up with her PCP and plan of care as prescribed. She will transport via private vehicle with her .
[2021-04-19] MEDS: Ascorbic Acid 500 MG TAB PO ×2 (10:08→21:43)
[2021-04-19] MEDS: Cholecalciferol (Vitamin D3) 1,000 UNIT TAB 5000 UNITS PO (10:08)
[2021-04-19] MEDS: Ipratropium/Albuterol 4 GM 120 PUFF INH IH ×4 (10:10→21:44)
[2021-04-19] MEDS: Normal Saline Flush 10 ML SYR IVP (12:18)
[2021-04-19] MEDS: Enoxaparin 40 MG/0.4 ML SYR SC (17:04)
--- NOTE | 2021-04-19 17:49 | W.PM.PROGNOT ---
Date of Service Date of service: 04/19/21 Time of Service: 15:30 Assessment and Plan Assessment and plan (1) 2019 novel coronavirus-infected pneumonia (NCIP): Start date: 04/19/21 Start time: 15:30 Status: Acute Assessment and plan: originally diagnosed at beginning of March treated recently with augmentin and doxycycline and prednisone found hypoxic. Continues to require 2 Liters of oxygen and dips below 90% with ambulation pulmonary recommendations: CPAP at night, proning, placed on baricitinib, continue remdesivir, continue dexamethasone, lovenox for prophylaxis, hold metformin and meloxicam, no IVF incentive spirometry and vibrapep, combivent QID, added vitamin C and D also asked for something to sleep will trial Ambien with melatonin . (2) Respiratory failure with hypoxia: Start date: 04/19/21 Start time: 15:30 Status: Acute Assessment and plan: as above, due to above Qualifiers: Chronicity: acute Qualified Code(s): J96.01 - Acute respiratory failure with hypoxia (3) Rheumatoid arthritis: Start date: 04/19/21 Start time: 17:55 Status: Chronic Assessment and plan: on immunosuppressents Qualifiers: Rheumatoid arthritis location: unspecified site Rheumatoid factor presence: unspecified presence Qualified Code(s): M06.9 - Rheumatoid arthritis, unspecified (4) DVT prophylaxis: Start date: 04/19/21 Start time: 15:30 Status: Acute Assessment and plan: enoxaparin (5) Discharge planning issues: Start date: 04/19/21 Start time: 15:30 Status: Acute Assessment and plan: Home when medically ready discussed with DR Alvarez Subjective Subjective Patient reports: feels better Interval history since last seen: Feeling better today, continues to prones, added vitamin c and d. She states she does get SOB when ambulating but recovers quickly. Otherwise would like something for sleep and tylenol scheduled. Denies CP. Exam Const General: no acute distress Orientation: alert HENMT Head: normal to inspection Ears: external ears normal General nose exam: external nose normal Mouth: moist mucous membranes Eyes General: appearance normal, both eyes and all related structures Neck Neck: normal visual inspection Resp Effort & Inspection: normal respiratory effort and able to speak in complete sentences Cardio Rate: regular rate Skin General skin exam: no rashes or lesions noted Neuro General: patient alert and patient oriented x3 Extrem General: normal to inspection Psych Mental Status: mental status grossly normal Objective Last Vital Signs Temp 36.6 C 04/19/21 16:10 Pulse 75 04/19/21 16:10 Resp 20 04/19/21 16:10 BP 128/62 04/19/21 16:10 Pulse Ox 94 04/19/21 16:10
[2021-04-19] MEDS: Acetaminophen 325 MG TAB 650 MG PO (21:43)
[2021-04-19] MEDS: diphenhydrAMINE 25 MG CAP PO (21:44)
[2021-04-19] MEDS: Zolpidem 5 MG TAB PO (21:45)
[2021-04-20] VITALS (8 sets, daily range): BP systolic 96–119; BP diastolic 52–66; PULSE 63–81; RESP 18–28; TEMP 35.9–36.4; O2SAT 94–96
[2021-04-20] MEDS: Acetaminophen 325 MG TAB 650 MG PO ×3 (09:16→20:14)
[2021-04-20] MEDS: Cholecalciferol (Vitamin D3) 1,000 UNIT TAB 5000 UNITS PO (09:18)
[2021-04-20] MEDS: Montelukast 10 MG TAB PO (09:18)
[2021-04-20] MEDS: Citalopram 20 MG TAB PO (09:18)
[2021-04-20] MEDS: Ascorbic Acid 500 MG TAB PO ×2 (09:19→20:15)
[2021-04-20] MEDS: amLODIPine 5 MG TAB PO (09:20)
[2021-04-20] MEDS: hydroCHLOROthiazide 25 MG TAB PO (09:22)
[2021-04-20] MEDS: Dexamethasone 4 MG TAB 6 MG PO (09:24)
[2021-04-20] MEDS: Omeprazole 20 MG CAPCR PO (09:27)
[2021-04-20] MEDS: Normal Saline Flush 10 ML SYR IVP (09:28)
[2021-04-20] MEDS: Ipratropium/Albuterol 4 GM 120 PUFF INH IH ×4 (09:29→20:15)
[2021-04-20 09:41] LABS: Abs Immature Grans 0.13 10^3/uL (0.0-0.06); Absolute Basophil Count 0.02 10^3/uL (0.0-0.2); Absolute Eosinophil Count 0.02 10^3/uL (0.0-0.7); Absolute Monocyte Count 0.48 10^3/uL (0.1-0.8); Anion Gap 7.2 mmol/L (3-11); BUN 28 mg/dL (7-18); Basophils % 0.2; CO2 30.8 mmol/L (21.0-32.0); CREATININE 0.9 mg/dL (0.55-1.02); Calcium 8.7 mg/dL (8.5-10.1); Chloride 97 mmol/L (98-107); Eosinophils % 0.2; Glucose 109 mg/dL (74-106); HCT 33.2 % (36.0-46.0); Immature Grans % 1.1; Lymphocytes % 16.6; MCH 28.4 pg (27.0-33.0); MCHC 33.1 % (32.0-36.0); MCV 85.8 fL (80-95); MPV 8.8 fL (8.0-11.0); Magnesium 1.9 mg/dL (1.8-2.4); Monocytes % 4.2; Neutrophils % 77.7; Nucleated RBC 0 %; Platelet Count 375 10^3/uL (130-400); Potassium 3.9 mmol/L (3.5-5.1); RBC 3.87 10^6/uL (3.93-5.22); RDW 13.6 % (11.7-14.6); RDW-SD 42.5 fL; Sodium 135 mmol/L (136-145); WBC 11.46 10^3/uL (4.4-10.8)
--- NOTE | 2021-04-20 10:31 | W.PM.PROGNOT ---
Date of Service Date of service: 04/20/21 Time of Service: 10:31 Assessment and Plan Assessment and plan (1) 2019 novel coronavirus-infected pneumonia (NCIP): Start date: 04/20/21 Start time: 10:50 Status: Acute Assessment and plan: originally diagnosed at beginning of March treated recently with augmentin and doxycycline and prednisone found hypoxic. Continues to require 2 Liters of oxygen and dips below 90% with ambulation, though she states she has COPD would like her to be above 90% when ambulating at baseline pulmonary recommendations: CPAP at night, proning, placed on baricitinib, continue remdesivir, continue dexamethasone, lovenox for prophylaxis, hold metformin and meloxicam, no IVF icentive spirometry and vibrapep, combivent QID, added vitamin C and D1 States she feels better today and slept well slightly anxious will trial low dose valium, continue IS and encourage OOB QID x at least 15 or longer (2) Respiratory failure with hypoxia: Start date: 04/20/21 Start time: 10:55 Status: Acute Assessment and plan: as above, due to above Qualifiers: Chronicity: acute Qualified Code(s): J96.01 - Acute respiratory failure with hypoxia (3) Rheumatoid arthritis: Start date: 04/20/21 Start time: 10:55 Status: Chronic Assessment and plan: on immunosuppressents Qualifiers: Rheumatoid arthritis location: unspecified site Rheumatoid factor presence: unspecified presence Qualified Code(s): M06.9 - Rheumatoid arthritis, unspecified (4) DVT prophylaxis: Start date: 04/20/21 Start time: 10:55 Status: Acute Assessment and plan: enoxaparin (5) Discharge planning issues: Start date: 04/20/21 Start time: 10:55 Status: Acute Assessment and plan: Home when medically ready discussed with DR Bonds Subjective Subjective Patient reports: feels better Interval history since last seen: Patient states she slept well. Feeling better. Oxygen continues to drop in mid 80's when ambulatory. She is feeling anxious about having Covid and gets tearful when hearing from family members and speaking with family members. She has taken anxiety medication in the past. Will give low dose valium for anxiety this will also help with body aches, that COVID can cause. She is doing ICS every commercial. She is pronning, encouraged her to sit up in chair at least four times a day for 15 mins or longer if she can tolerate it and she is agreeable. She denies CP, n/v/d. SOB only when ambulating and regains quickly with rest, does state she has been told hx of COPD, unsure of this however will decrease oxygen requirements to 90 or above. Exam Const General: no acute distress Orientation: alert HENMT Head: normal to inspection Ears: external ears normal General nose exam: external nose normal Mouth: moist mucous membranes Eyes General: appearance normal, both eyes and all related structures Neck Neck: normal visual inspection Resp Effort & Inspection: normal respiratory effort and able to speak in complete sentences Auscultation: diminished lung sounds (from nursing standpoint) Other: through talking on the phone, she does not sound to have wheezing, rhonchi or rales Cardio Rate: regular rate Rhythm: regular rhythm Other: per nursing Skin General skin exam: no rashes or lesions noted Neuro General: patient alert and patient oriented x3 Extrem General: normal to inspection Psych Mental Status: mental status grossly normal Objective Last Vital Signs Temp 36.4 C L 04/20/21 09:04 Pulse 70 04/20/21 09:04 Resp 20 04/20/21 09:04 BP 114/57 L 04/20/21 09:04 Pulse Ox 94 04/20/21 09:04 Laboratory Results - last 24 hr 04/20/21 04/20/21 09:25 09:25 WBC 11.46 H RBC 3.87 L Hgb 11.0 L Hct 33.2 L MCV 85.8 MCH 28.4 MCHC 33.1 RDW 13.6 Plt Count 375 MPV 8.8 Immature Gran % 1.1 Neutrophils % 77.7 Lymphocytes % 16.6 Monocytes % 4.2 Eosinophils % 0.2 Basophils % 0.2 Nucleated RBC % 0 Absolute Neutrophils 8.90 H Absolute Lymphocytes 1.90 Absolute Monocytes 0.48 Absolute Eosinophils 0.02 Absolute Basophils 0.02 Sodium 135 L Potassium 3.9 Chloride 97 L Carbon Dioxide 30.8 Anion Gap 7.2 BUN 28 H Creatinine 0.9 Estimated GFR/1.73 m2 >= 60.00 Glucose 109 H Calcium 8.7 Magnesium 1.9
[2021-04-20] MEDS: Famotidine 20 MG TAB PO (11:20)
[2021-04-20] MEDS: diazePAM 2 MG TAB PO (11:22)
[2021-04-20] MEDS: Enoxaparin 40 MG/0.4 ML SYR SC (17:10)
[2021-04-20] MEDS: diphenhydrAMINE 25 MG CAP PO (21:29)
[2021-04-20] MEDS: Zolpidem 5 MG TAB PO (21:29)
[2021-04-21 05:08] VITALS: O2SAT 93
[2021-04-21 07:11] LABS: Abs Immature Grans 0.21 10^3/uL (0.0-0.06); Absolute Basophil Count 0.01 10^3/uL (0.0-0.2); Absolute Eosinophil Count 0.02 10^3/uL (0.0-0.7); Absolute Lymphocyte Count 1.33 10^3/uL (1.2-3.4); Absolute Monocyte Count 0.51 10^3/uL (0.1-0.8); Absolute Neutrophil Count 7.65 10^3/uL (1.2-6.7); Basophils % 0.1; Eosinophils % 0.2; HCT 32.9 % (36.0-46.0); Immature Grans % 2.2; Lymphocytes % 13.7; MCH 28.7 pg (27.0-33.0); MCHC 33.4 % (32.0-36.0); MCV 85.9 fL (80-95); MPV 8.6 fL (8.0-11.0); Monocytes % 5.2; Neutrophils % 78.6; Nucleated RBC 0 %; Platelet Count 342 10^3/uL (130-400); RBC 3.83 10^6/uL (3.93-5.22); RDW 13.3 % (11.7-14.6); RDW-SD 41.1 fL; WBC 9.73 10^3/uL (4.4-10.8)
[2021-04-21 07:23] LABS: Anion Gap 2.4 mmol/L (3-11); BUN 27 mg/dL (7-18); CO2 35.6 mmol/L (21.0-32.0); Calcium 8.9 mg/dL (8.5-10.1); Chloride 97 mmol/L (98-107); Estimated GFR 54.35 (mL/min/1.73m2); Glucose 90 mg/dL (74-106); Potassium 4.5 mmol/L (3.5-5.1); Sodium 135 mmol/L (136-145)
[2021-04-21 08:02] VITALS: BP 119/68; PULSE 88; RESP 18; TEMP 36.2; O2SAT 95
[2021-04-21] MEDS: Citalopram 20 MG TAB PO (08:05)
[2021-04-21] MEDS: hydroCHLOROthiazide 25 MG TAB PO (08:05)
[2021-04-21] MEDS: Ascorbic Acid 500 MG TAB PO ×2 (08:05→21:48)
[2021-04-21] MEDS: Ipratropium/Albuterol 4 GM 120 PUFF INH IH ×4 (08:05→21:48)
[2021-04-21] MEDS: amLODIPine 5 MG TAB PO (08:05)
[2021-04-21] MEDS: Acetaminophen 325 MG TAB 650 MG PO ×3 (08:06→21:48)
[2021-04-21] MEDS: Montelukast 10 MG TAB PO (08:06)
[2021-04-21] MEDS: Cholecalciferol (Vitamin D3) 1,000 UNIT TAB 5000 UNITS PO (08:06)
[2021-04-21] MEDS: Dexamethasone 4 MG TAB 6 MG PO (08:06)
--- NOTE | 2021-04-21 10:10 | RESPIRATORY ---
Pt states that her Spo2 has been dropping upon ambulation for the past few weeks while at home. She was able to maintain an Sp02 of 95% on room air today but within walking 12 feet pt desats to 85%. She recovers quickly w/ 2L nc.
[2021-04-21] MEDS: Famotidine 20 MG TAB PO (10:29)
[2021-04-21] MEDS: Refresh PLUS Eye Drops 0.4ml 1 EACH OU (10:30)
[2021-04-21 12:44] VITALS: BP 122/66; PULSE 69; RESP 18; TEMP 36.2; O2SAT 96
[2021-04-21] MEDS: Normal Saline Flush 10 ML SYR IVP (12:46)
[2021-04-21] MEDS: diazePAM 2 MG TAB PO (13:54)
--- NOTE | 2021-04-21 16:53 | W.PM.PROGNOT ---
Date of Service Date of service: 04/21/21 Time of Service: 16:53 Assessment and Plan Assessment and plan (1) 2019 novel coronavirus-infected pneumonia (NCIP): Status: Acute Assessment and plan: Since beginning of 04/09. Will extend the course of remdesivir, continue decadron and baricitinib. Continue IS/virabpep. Continue supplementation with vitamin C and D. Wean O2 as tolerated. (2) Acute bacterial bronchitis: Status: Acute Assessment and plan: Add doxycycline/cefuroxime (reports purulent sputum). (3) Respiratory failure with hypoxia: Status: Acute Assessment and plan: Wean O2 as tolerated. Qualifiers: Chronicity: acute Qualified Code(s): J96.01 - Acute respiratory failure with hypoxia (4) Rheumatoid arthritis: Status: Chronic Assessment and plan: Pain is controlled. C/s PT to ensure mobility. Qualifiers: Rheumatoid arthritis location: unspecified site Rheumatoid factor presence: unspecified presence Qualified Code(s): M06.9 - Rheumatoid arthritis, unspecified (5) DVT prophylaxis: Status: Acute Assessment and plan: enoxaparin (6) Discharge planning issues: Status: Acute Assessment and plan: Continues to require hospitalization Subjective Subjective Interval history since last seen: I think I'm doing good. Only on 1L of O2. When she does get up, it drops down quickly even on 1L. Still NELSON and when talks. Coughing up clear yellow sputum. Using IS. Proning. No CP. No nausea/diarrhea. Exam Narrative Exam Narrative: Today's visit is a phone visit due to patient's stability and her diagnosis of COVID-19 pneumonia The patient is A&OX3, moderately dyspneic, able to complete 3-4 word phrases prior to stopping to breathe Her affect is bright. Speech content appropriate. Objective Last Vital Signs Temp 36.2 C L 04/21/21 12:44 Pulse 69 04/21/21 12:44 Resp 18 04/21/21 12:44 BP 122/66 04/21/21 12:44 Pulse Ox 96 04/21/21 12:44 Laboratory Results - last 24 hr 04/21/21 04/21/21 06:55 06:55 WBC 9.73 RBC 3.83 L Hgb 11.0 L Hct 32.9 L MCV 85.9 MCH 28.7 MCHC 33.4 RDW 13.3 Plt Count 342 MPV 8.6 Immature Gran % 2.2 Neutrophils % 78.6 Lymphocytes % 13.7 Monocytes % 5.2 Eosinophils % 0.2 Basophils % 0.1 Nucleated RBC % 0 Absolute Neutrophils 7.65 H Absolute Lymphocytes 1.33 Absolute Monocytes 0.51 Absolute Eosinophils 0.02 Absolute Basophils 0.01 Sodium 135 L Potassium 4.5 Chloride 97 L Carbon Dioxide 35.6 H Anion Gap 2.4 L BUN 27 H Creatinine 1.0 Estimated GFR/1.73 m2 54.35 Glucose 90 Calcium 8.9
[2021-04-21] MEDS: Doxycycline Hyclate 100 MG CAP PO (17:21)
[2021-04-21] MEDS: Enoxaparin 40 MG/0.4 ML SYR SC (17:21)
[2021-04-21 21:45] VITALS: O2SAT 95
[2021-04-21] MEDS: Zolpidem 5 MG TAB PO (21:48)
[2021-04-21] MEDS: diphenhydrAMINE 25 MG CAP PO (21:50)
[2021-04-21 22:06] VITALS: BP 115/62; PULSE 78; TEMP 36.4; O2SAT 95
[2021-04-21] MEDS: Cefuroxime 250 MG TAB PO (22:06)
[2021-04-22] MEDS: Doxycycline Hyclate 100 MG CAP PO ×2 (05:45→17:35)
[2021-04-22] MEDS: diazePAM 2 MG TAB PO ×2 (05:47→12:28)
[2021-04-22] MEDS: Cholecalciferol (Vitamin D3) 1,000 UNIT TAB 5000 UNITS PO (09:35)
[2021-04-22] MEDS: Ascorbic Acid 500 MG TAB PO ×2 (09:35→20:14)
[2021-04-22] MEDS: Acetaminophen 325 MG TAB 650 MG PO ×3 (09:35→20:14)
[2021-04-22] MEDS: amLODIPine 5 MG TAB PO (09:35)
[2021-04-22] MEDS: Cefuroxime 250 MG TAB PO ×2 (09:35→20:14)
[2021-04-22] MEDS: Montelukast 10 MG TAB PO (09:36)
[2021-04-22] MEDS: hydroCHLOROthiazide 25 MG TAB PO (09:36)
[2021-04-22] MEDS: Ipratropium/Albuterol 4 GM 120 PUFF INH IH ×4 (09:36→20:14)
[2021-04-22] MEDS: Citalopram 20 MG TAB PO (09:36)
[2021-04-22] MEDS: Dexamethasone 4 MG TAB 6 MG PO (09:36)
[2021-04-22 09:40] VITALS: BP 116/60; PULSE 89; RESP 18; TEMP 36; O2SAT 94
--- NOTE | 2021-04-22 11:39 | CMPROGNOTE_ITS ---
- If Service Date Differs Date of service: 04/22/21 Time of Service: 11:39 Care Management Progress Note S/O: CM met with Kelly over the phone since she is on Covid precautions. Kelly reports that she is able to ambulate in her room and notes that her sob with exertion has improved some. She is able to carry a conversation with CM without SOB which is a good sign she is progressing in the right direction. Kelly remains on supplemental oxygen and is currently on 1L NC. Kelly has no needs at this time and has a phone at her bedside. A: 71 year old female admitted to [facility] on 04/17/21 for covid-19 pneumonia P:Anticipate Kelly will return home when medically cleared by MD and follow up with her PCP and plan of care as prescribed. She will transport via private vehicle with her . It is unclear if she will need [facility] RN/PT services following discharge. Per MD Kelly continues to desat with minimal exertion and according to her cycling time, she is still infectious. CM continues to support discharge planning needs.
[2021-04-22] MEDS: Normal Saline Flush 10 ML SYR IVP (12:26)
[2021-04-22] MEDS: Famotidine 20 MG TAB PO (12:26)
[2021-04-22] MEDS: Refresh PLUS Eye Drops 0.4ml 1 EACH OU (12:28)
--- NOTE | 2021-04-22 14:22 | PUCON_ITS ---
General Date Of Service Date of service: 04/22/21 Time of Service: 08:20 Reason for Consult: COVID 19 Assessment and Plan Assessment and plan (1) COVID-19: Status: Acute (2) Rheumatoid arthritis: Status: Chronic Qualifiers: Rheumatoid arthritis location: unspecified site Rheumatoid factor presence: unspecified presence Qualified Code(s): M06.9 - Rheumatoid arthritis, unspecified (3) Respiratory failure with hypoxia: Status: Acute Assessment and plan: This is a 71 yo woman with RA on Rituxan, obesity and diabetes who presents with persistent and worsening COVID despite outpatient treatment. Her Rituxan infusion make her significantly immunocompromised, and unfortunately in COVID specifically, is associated with higher mortality and more severe disease. Given this, although her inflammatory markers are not radically elevated (although are elevated) we should still treat her as though she had very severe COVID. Her viral cycle time is 29. Any value below 30 is extremely low. This means her overall viral load is extremely high. The cycle time being this low, almost 1 month out of initial diagnosis is extremely concerning. Her chest CT is significantly worse when compared to previously. On a CT scan from 2019 she has no evidence of RA-ILD so the abnormalities seen are due to COVID alone. She has a negative procalcitonin, she likely does not need antibiotics, although was started n antibiotics for a change in mucus quality. COVID-19 Pneumonia - continue Decadron 6mg - continue remdesivir despite long time out from diagnosis given short viral cycle time - continue barcitinib - trend inflammatory markers - hold metformin and meloxicam - do not recommend antibiotics at this time - repeating procalcitonin to rule out bacterial process, although low probability from my perspective - Lovenox for DVT ppx Hypoxic respiratory failure - supplemental O2 for sats > 90% - CPAP at night - proning as much as possible - incentive spirometry - VibraPEP - Combivent QID - would like to have less desaturations with ambulation than currently prior to discharge - will need O2 on discharge Qualifiers: Chronicity: acute Qualified Code(s): J96.01 - Acute respiratory failure with hypoxia History of Present Illness Narrative: This is a 71 yo woman with RA on Rituxan who is admitted for COVID PNA. Her initial positive test was 03/21/21. Her last Rituxan dose was September (she gets this q6 months for her RA). Given the Rituxan she had to delay her COVID vaccination and so her last vaccine dose was the end of February, she fell ill on ly 3 days after her last dose. Her was also positive and believes she contracted it from him, but they do not know where he caught it from as they are very careful. Other risk factors for severe COVID include diabetes and obesity. Today she is feeling significantly better from the day of admission. She is still relatively short of breath specifically in the setting of moving around in bed or ambulating. She does have a productive cough which is primarily clear to yellow. She is using CPAP at night and is using her incentive spirometer and Vibra Pep. She is having normal bowel and bladder movements and states she is peeing a lot. Review of Systems All systems reviewed & are unremarkable except as noted in HPI and below PFSH Medical History Rheumatoid arthritis Surgical History Colonoscopy - MAC (03/01/13) DR. Prabhjot LAGUERRE Endometrial Biopsy 1989: NEG 1998: NEG S/P ankle fusion Social History Smoking/Tobacco Use Status: Never Smoking risk assessment performed?: Yes Alcohol Intake: current Alcohol Intake frequency: a few times a month Drug use: Never Substance use type: does not use Do you feel safe at home: Yes Do you feel safe in your relationship?: Yes Visit Medication and Allergies Active Medications Generic Name Dose Route Start Last Admin Trade Name Radha PRN Reason Stop Dose Admin Acetaminophen 650 mg 04/19/21 20:00 04/22/21 13:57 Acetaminophen 325 Mg Tab PO 650 mg TID OCTAVIA Administration Albuterol/Ipratropium 1 puff 04/17/21 16:00 04/22/21 12:30 Ipratropium/Albuterol 4 Gm 120 Puff Inh IH 1 inh QID OCTAVIA Administration Amlodipine Besylate 5 mg 04/18/21 08:30 04/22/21 09:35 Amlodipine 5 Mg Tab PO 5 mg DAILY OCTAVIA Administration Ascorbic Acid 500 mg 04/19/21 09:10 04/22/21 09:35 Ascorbic Acid 500 Mg Tab PO 500 mg BID OCTAVIA Administration Baricitinib 2 mg 04/19/21 08:30 04/22/21 09:35 Baricitinib 1 Mg Tab PO 2 mg DAILY OCTAVIA Administration Carboxymethylcellulose Sodium 1 each 04/21/21 09:22 04/22/21 12:28 Refresh Plus Eye Drops 0.4ml OU 2 drp PRN PRN Administration Cefuroxime Axetil 250 mg 04/21/21 20:00 04/22/21 09:35 Cefuroxime 250 Mg Tab PO 250 mg BID OCTAVIA Administration Cetirizine HCl 5 mg 04/17/21 11:24 Cetirizine 10 Mg Tab PO DAILY PRN PRN Cholecalciferol 5,000 units 04/19/21 09:10 04/22/21 09:35 Cholecalciferol (Vitamin D3) 1,000 Unit Tab PO 5,000 units DAILY OCTAVIA Administration Citalopram Hydrobromide 20 mg 04/18/21 08:30 04/22/21 09:36 Citalopram 20 Mg Tab PO 20 mg DAILY OCTAVIA Administration Device 1 each 04/17/21 13:00 Inhaler, Assist Device DIRECTED [facility] Dexamethasone 6 mg 04/17/21 11:20 04/22/21 09:36 Dexamethasone 4 Mg Tab PO 6 mg DAILY OCTAVIA Administration Diazepam 2 mg 04/20/21 10:20 04/22/21 12:28 Diazepam 2 Mg Tab PO 2 mg TID PRN PRN Administration Dimethicone/Zinc Oxide 0 gm 04/17/21 11:12 Rosalba Protect Cream 142 Gm Tube TP PRN PRN Diphenhydramine HCl 25 mg 04/17/21 22:00 04/21/21 21:50 Diphenhydramine 25 Mg Cap PO 25 mg HS OCTAVIA Administration Doxycycline Hyclate 100 mg 04/21/21 18:00 04/22/21 05:45 Doxycycline Hyclate 100 Mg Cap PO 100 mg Q12H OCTAVIA Administration Enoxaparin Sodium 40 mg 04/17/21 16:00 04/21/21 17:21 Enoxaparin 40 Mg/0.4 Ml Syr SC 40 mg Q24H OCTAVIA Administration Famotidine 20 mg 04/20/21 10:00 04/22/21 12:26 Famotidine 20 Mg Tab PO 20 mg Q24H OCTAVIA Administration Hydrochlorothiazide 25 mg 04/18/21 08:30 04/22/21 09:36 Hydrochlorothiazide 25 Mg Tab PO 25 mg DAILY OCTAVIA Administration Remdesivir 100 mg/ Sodium 100 mls @ 100 mls/hr 04/22/21 12:00 04/22/21 14:05 Chloride IVPB 04/25/21 12:59 Infused Q24H OCTAVIA Infusion IV Miscellaneous Supplies 1 each 04/17/21 09:00 Iv Access IV DIRECTED OCTAVIA Melatonin 9 mg 04/17/21 11:24 Melatonin 3 Mg Tab PO HS PRN PRN Montelukast Sodium 10 mg 04/18/21 08:30 04/22/21 09:36 Montelukast 10 Mg Tab PO 10 mg DAILY OCTAVIA Administration Sodium Chloride 0 ml 04/17/21 08:55 04/22/21 12:26 Normal Saline Flush 10 Ml Syr IVP 20 ml PRN PRN Administration Zolpidem Tartrate 5 mg 04/19/21 22:00 04/21/21 21:48 Zolpidem 5 Mg Tab PO 5 mg HS MAY REPEAT X1 OCTAVIA Administration Allergies hydrocodone Adverse Reaction (Intermediate, Verified 04/17/21 09:16) Nausea morphine Adverse Reaction (Intermediate, Verified 04/17/21 09:16) Nausea oxycodone Adverse Reaction (Intermediate, Verified 04/17/21 09:16) N/V Exam Const General: no acute distress Nutritional Appearance: obese HENAZ Head: normocephalic Ears: external ears normal General nose exam: nasal mucous membranes and turbinates normal Face and sinus: sinuses nontender Mouth: oropharynx normal and moist mucous membranes Teeth and gingiva: dentition normal Eyes General: appearance normal, both eyes and all related structures Pupils: PERRL Neck Neck: normal visual inspection and no lymphadenopathy Chest Chest: normal inspection of the chest Resp Effort & Inspection: normal respiratory effort Auscultation: rales bilaterally, rhonchi and no wheezes Cardio Rate: regular rate Rhythm: regular rhythm Heart Sounds: S1 normal, S2 normal and no murmurs Pulses: radial pulses present bilaterally GI Inspection: normal to inspection Palpation: soft Skin General skin exam: no rashes or lesions noted Neuro General: patient alert, patient awake and patient oriented x3 Extrem General: no clubbing, cyanosis or edema Psych Mental Status: mental status grossly normal Affect: normal affect Attitude: cooperative Results Last Vital Signs Temp 36 C L 04/22/21 09:40 Pulse 89 04/22/21 09:40 Resp 18 04/22/21 09:40 BP 116/60 04/22/21 09:40 Pulse Ox 94 04/22/21 09:40 Labs Result diagrams: 04/21/21 06:55 04/21/21 06:55
[2021-04-22 15:01] VITALS: BP 95/58; PULSE 75; RESP 18; TEMP 36; O2SAT 94
[2021-04-22] MEDS: Enoxaparin 40 MG/0.4 ML SYR SC (17:35)
--- NOTE | 2021-04-22 19:32 | W.PM.PROGNOT ---
Date of Service Date of service: 04/22/21 Time of Service: 17:20 Assessment and Plan Assessment and plan (1) 2019 novel coronavirus-infected pneumonia (NCIP): Status: Acute Assessment and plan: Since beginning of 04/09. Continue extended course of remdesivir, continue decadron and baricitinib. Discussed with Dr Oliver, who agrees. Continue IS/virabpep. Continue supplementation with vitamin C and D. Wean O2 as tolerated. (2) Acute bacterial bronchitis: Status: Acute Assessment and plan: Continue doxycycline/cefuroxime. The patient reports that her sputum has cleared up. (3) Respiratory failure with hypoxia: Status: Acute Assessment and plan: Wean O2 as tolerated. Qualifiers: Chronicity: acute Qualified Code(s): J96.01 - Acute respiratory failure with hypoxia (4) Rheumatoid arthritis: Status: Chronic Assessment and plan: Pain is controlled. Baricitinib is addressing RA as well as COVID. PT consulted. Qualifiers: Rheumatoid arthritis location: unspecified site Rheumatoid factor presence: unspecified presence Qualified Code(s): M06.9 - Rheumatoid arthritis, unspecified (5) DVT prophylaxis: Status: Acute Assessment and plan: enoxaparin (6) Discharge planning issues: Status: Acute Assessment and plan: Continues to require hospitalization Subjective Subjective Interval history since last seen: Ms Dasilva states she is feeling a little better. Continues to have NELSON. Denies dizziness, chest pain, nausea. Did not use CPAP last night, but promises she will tonight. On 1L of O2. Exam Narrative Exam Narrative: General: Very pleasant obese female, A&Ox3, appears comfortable in bed, not dyspneic at rest HEENT: EOMI, MMM Heart: RRR, no m/r/g Lungs: crackles at B bases Abdomen: soft, nontender, nondistended Extremities: no edema BLE's Objective Last Vital Signs Temp 36 C L 04/22/21 15:01 Pulse 75 04/22/21 15:01 Resp 18 04/22/21 15:01 BP 95/58 L 04/22/21 15:01 Pulse Ox 94 04/22/21 15:01
[2021-04-22 20:17] VITALS: BP 127/66; PULSE 80; RESP 20; TEMP 36.4; O2SAT 96
[2021-04-22 20:27] VITALS: O2SAT 96
--- NOTE | 2021-04-22 22:15 | RT.EKG_ITS ---
APPROVED REPORT Exam: Resting ECG Reason for Exam: chest pressure Patient Location: I HR:58 bpm ECG Measurements Heart Rate 58 AXIS CO 156 P 54 QRSd 91 QRS 4 QT 433 T 23 QTc 424 Conclusion Sinus bradycardia...rate< 60
--- NOTE | 2021-04-22 22:15 | DI.RAD_ITS ---
Exam(s) XR PORTABLE CHEST AP EXAM: XR PORTABLE CHEST AP CLINICAL HISTORY: chest pain TECHNIQUE: 2D digital imaging was performed of the chest. Images were obtained. PA and lateral v iews were obtained. COMPARISON: CR,XR XR CHEST 2V PA LATERAL from 03/21/2021 CR,XR XR CHEST 2V PA LATERAL from 03/21/2021 FINDINGS: Poor inspiration. MEDIASTINUM: Normal. HEART: Normal. PULMONARY VASCULATURE: Normal. LUNGS: Bilateral interstitial infiltrates are now present, right greater than left. PLEURAL SPACE: No pleural effusion or pneumothorax. BONE:Within normal limits for the patient's age. OTHER FINDINGS:Normal. IMPRESSION: Bilateral pulmonary infiltrates. Pneumonia should be considered. This includes COVID-19. DATA REPOSITORY: RADIATION DOSE DELIVERED:
[2021-04-22 22:23] VITALS: BP 126/66; PULSE 60; RESP 26; TEMP 36.4; O2SAT 98
--- NOTE | 2021-04-22 23:09 | W.PM.PROGNOT ---
Date of Service Date of service: 04/22/21 Time of Service: 23:10 Subjective Subjective Interval history since last seen: Called for CP. Case reviewed, here with persistent and progressive COVID pneumonia. No h/o CAD. C/o chest pressure, with some increase in baseline SOB. States pain is letting up. PE: 122/66, 60, 36.4, 26, 98%. Lungs scattered rales/rhonchi; heart RRR, somewhat distant Lab: EKG sinus estephania, no STTW changes; pCXR: bilateral pneumonitis, comparison is CTA 04/17, appears roughly similar. A/P: Unclear, possible coronary insufficiency. Have ordered trial TUMS and SL NTG. At this time it is reported that patient is declining NTG. Will also cycle troponins. Objective Last Vital Signs Temp 36.4 C L 04/22/21 22:23 Pulse 60 04/22/21 22:23 Resp 26 H 04/22/21 22:23 BP 126/66 04/22/21 22:23 Pulse Ox 98 04/22/21 22:23
[2021-04-22] MEDS: Zolpidem 5 MG TAB PO (23:43)
[2021-04-22] MEDS: diphenhydrAMINE 25 MG CAP PO (23:44)
[2021-04-22] MEDS: Calcium Carbonate *TUMS* 500 MG CHEW 1000 MG PO (23:44)
[2021-04-22] MEDS: nitroGLYcerin 0.4 MG TAB SL (23:59)
[2021-04-23] VITALS (9 sets, daily range): BP systolic 120–128; BP diastolic 64–71; PULSE 72–82; RESP 18–20; TEMP 36–36.4; O2SAT 94–95
[2021-04-23 00:04] LABS: Troponin I < 0.05 ng/mL (<0.06)
--- NOTE | 2021-04-23 00:27 | DI.VRAD_ITS ---
PROCEDURE INFORMATION: Exam: XR Chest Exam date and time: 04/22/2021 10:28 PM Age: 71 years old Clinical indication: Chest pressure; Patient HX: Chest pain, covid 19 TECHNIQUE: Imaging protocol: XR of the chest. Views: 1 view. COMPARISON: CR XR CHEST 2V PA LATERAL 03/21/2021 5:53 PM FINDINGS: Lungs: Mild to moderate interstitial opacities greater on the right. Pleural spaces: No pleural effusion. No pneumothorax. Heart/Mediastinum: Grossly stable. Bones/joints: Grossly stable. IMPRESSION: [id number] interstitial opacities Dictated and Authenticated by: Jimbo Rincon MD. Ordering:PREET Joe MD
[2021-04-23] MEDS: diazePAM 2 MG TAB PO ×3 (06:03→17:24)
[2021-04-23] MEDS: Doxycycline Hyclate 100 MG CAP PO ×2 (06:03→17:24)
[2021-04-23 07:43] LABS: Abs Immature Grans 0.25 10^3/uL (0.0-0.06); Absolute Basophil Count 0.02 10^3/uL (0.0-0.2); Absolute Eosinophil Count 0.02 10^3/uL (0.0-0.7); Absolute Lymphocyte Count 1.12 10^3/uL (1.2-3.4); Absolute Monocyte Count 0.52 10^3/uL (0.1-0.8); Absolute Neutrophil Count 7.89 10^3/uL (1.2-6.7); Basophils % 0.2; Eosinophils % 0.2; HCT 33.6 % (36.0-46.0); HGB 11.4 g/dL (11.2-15.7); Immature Grans % 2.5; Lymphocytes % 11.4; MCHC 33.9 % (32.0-36.0); MCV 85.5 fL (80-95); MPV 8.6 fL (8.0-11.0); Monocytes % 5.3; Neutrophils % 80.4; Nucleated RBC 0 %; Platelet Count 320 10^3/uL (130-400); RBC 3.93 10^6/uL (3.93-5.22); RDW 13.3 % (11.7-14.6); RDW-SD 41.6 fL; WBC 9.82 10^3/uL (4.4-10.8)
[2021-04-23] MEDS: Ipratropium/Albuterol 4 GM 120 PUFF INH IH ×4 (08:10→20:16)
[2021-04-23] MEDS: Refresh PLUS Eye Drops 0.4ml 1 EACH OU (08:11)
[2021-04-23] MEDS: Montelukast 10 MG TAB PO (08:12)
[2021-04-23] MEDS: Citalopram 20 MG TAB PO (08:12)
[2021-04-23] MEDS: amLODIPine 5 MG TAB PO (08:12)
[2021-04-23] MEDS: Acetaminophen 325 MG TAB 650 MG PO ×3 (08:12→20:14)
[2021-04-23] MEDS: Dexamethasone 4 MG TAB 6 MG PO (08:12)
[2021-04-23] MEDS: Cefuroxime 250 MG TAB PO ×2 (08:12→20:14)
[2021-04-23] MEDS: hydroCHLOROthiazide 25 MG TAB PO (08:12)
[2021-04-23] MEDS: Ascorbic Acid 500 MG TAB PO ×2 (08:13→20:14)
[2021-04-23] MEDS: Cholecalciferol (Vitamin D3) 1,000 UNIT TAB 5000 UNITS PO (08:13)
[2021-04-23 08:18] LABS: Troponin I < 0.05 ng/mL (<0.06)
[2021-04-23 08:19] LABS: ALT 27 U/L (14-59); AST 13 U/L (15-37); Albumin 3.2 g/dL (3.4-5.0); Alkaline Phosphatase 78 U/L (46-116); Anion Gap 4.4 mmol/L (3-11); BUN 33 mg/dL (7-18); Bilirubin, Direct 0.1 mg/dL (0.0-0.2); Bilirubin, Total 0.5 mg/dL (0.2-1.0); C-Reactive Protein 0.41 mg/dL (0.0-0.3); CO2 32.6 mmol/L (21.0-32.0); Calcium 9.5 mg/dL (8.5-10.1); Chloride 96 mmol/L (98-107); Estimated GFR 54.35 (mL/min/1.73m2); Glucose 88 mg/dL (74-106); Magnesium 1.9 mg/dL (1.8-2.4); Potassium 4.3 mmol/L (3.5-5.1); Sodium 133 mmol/L (136-145); Total Protein 6.3 g/dL (6.4-8.2)
[2021-04-23 08:20] LABS: D-Dimer 412 ng/mlFEU (<500)
[2021-04-23 08:39] LABS: Procalcitonin < 0.1 ng/mL
[2021-04-23 08:47] LABS: Ferritin 236 ng/mL (8-252)
--- NOTE | 2021-04-23 09:40 | IN_ITS ---
Date of service: 04/23/21 Time of Service: 09:40 PT Notes Visit Reasons: Pneumonia, Covid 19 Physical Therapy Inpatient Initial Evaluation Date: 04/23/2021 Referring Doctor: Flor Bonds MD PT Orders: PT CONSULT: Limited ability Precautions: Fall. Standard. Activity as tolerated. COVID-[address] Patient Profile/Admitting Diagnosis: Kelly is a 71-year-old female who presented to the ED on 04/17/2021 due to shortness of breath and fever with difficulty ambulation due to oxygen desaturation. Patient is diagnosed with COVID-19 pneumonia, acute bacterial bronchitis, respiratory failure with hypoxia, and rheumatoid arthritis. PMHX: Medical History Rheumatoid arthritis Surgical History Colonoscopy - MAC (03/01/13) DR. Prabhjot LAGUERRE Endometrial Biopsy 1990: NEG 1999: NEG S/P ankle fusion Social History/Home Situation: Independent with all activities of daily living without an assistive ambulatory device. [place] in [place] and spends the rest of the year here in [place]. Has a camper in [facility] but will be discharging to her friend's house with a flight of steps leading to the bedroom where they will be staying. No previews oxygen supplementation requirement. Equipment Owned/DME: None Subjective: Agreeable to PT consult. Reports being significantly weak and is unsure of how much do during this consult. Denies pain, chest pain, and dizziness throughout session. Objective: General Observation: Continuous pulse oximetry in place. Oxygen supplementation at 1 L/min via NC. Mental Status: Alert and oriented as to person, place, time, and purpose. Able to pay attention, focus, and respond appropriately. Pain: 0/10 Vital Signs: HR ranged between 79 bpm to 119 bpm. SaO2 ranged from 92% to 97% on 1 L/min throughout session. ROM: Right Upper Extremity: Shoulder Flexion WFL. Shoulder abduction WFL. Elbow flexion WFL. Wrist flexion WFL. Functional opening and closing of hand WFL. Left Upper Extremity: Shoulder Flexion WFL. Shoulder abduction WFL. Elbow flexion WFL. Wrist flexion WFL. Functional opening and closing of hand WFL. Right Lower Extremity: Hip flexion WFL. Hip abduction WFL. Knee flexion WFL. Ankle dorsiflexion WFL. Ankle plantarflexion WFL. Left Lower Extremity: Hip flexion WFL. Hip abduction WFL. Knee flexion WFL. Ankle dorsiflexion WFL. Ankle plantarflexion WFL. Strength: Right Upper Extremity: Shoulder flexors 3+/5. Shoulder abductors 3+/5. Elbow flexors 3+/5. Elbow extensors 3+/5. [employer] strong. Left Upper Extremity: Shoulder flexors 3+/5. Shoulder abductors 3+/5. Elbow flexors 3+/5. Elbow extensors 3+/5. [employer] strong. Right Lower Extremity: Hip flexors 3+/5. Hip abductors 3+/5. Knee flexors 3+/5. Knee extensors 3+/5. Ankle dorsiflexors 3+/5. Ankle plantarflexors 3+5. Left Lower Extremity: Hip flexors 3+/5. Hip abductors 3+/5. Knee flexors 3+/5. Knee extensors 3+/5. Ankle dorsiflexors 3+/5. Ankle plantarflexors 3+5. Bed Mobility/Transfers: Rolling independent Supine to sit independent Sit to supine independent Sit to stand supervision with FWW Stand to sit supervision with FWW Bed to bedside commode supervision with FWW Bedside commode to bed supervision with FWW Bed to reclining chair supervision with FWW Reclining chair to bed supervision with FWW Gait: Instructed patient with level surface ambulation of 20 feet x2 requiring supervision assist. Elen decreased. Denies pain, dizziness, and headache throughout activity however did report fatigue and weakness in BLE. HR high of 117 bpm. SaO2 low of 92% on 1 L/min. MIld SOB seen, resolved with rest. Balance: Static Sitting: Normal Dynamic Sitting: Normal Static Standing: Good fair Dynamic Standing: Special Tests: Mobility Limitations Standardized Measure [facility] AM-PAC 6 clicks Basic Mobility Inpatient Short Form: Raw Score: 23 CMS Score: 11% deficit Informed Consent/Education: Patient was instructed in purpose of PT consult and plan of care. Agreeable to proceed with established PT POC to achieve personal goals. Assessment: Kelly requires the use of front wheeled walker to increase activity tolerance and reduce fall risk due to report of fatigue and weakness in bilateral lower extremities. She will benefit from the use of a front wheeled walker to provide stability and decreased activity tolerance. Patient presents with clinical signs and symptoms consistent with current/admitting diagnoses that have resulted to mobility limitations, gait instability, generalized weakness, and overall ADL decline as demonstrated by the following impairment level findings: 1. Decreased strength to BLE major muscle groups 2. Impaired standing balance 3. Impaired activity tolerance 4. Shortness of breath Impairments are contributing to the following functional limitations: 1. Difficulty with ambulation without assistive device 2. Increased completion time for mobility ADL performance 3. Increased risk for falls 4. Difficulty with managing steps alone safely Patient is assessed as a 93426 moderate complexity based on the following: History: 71 [id number] with past medical history as indicated above Examination: Demonstrable impairment in strength, balance, and mobility level with underlying impairments and functional limitations as exhibited above as well as deficit score of 11% utilizing the [facility] Mobility Inpatient Short Form Presentation: Evolving Decision Makin moderate complexity Goals: Goals X1 week 1. Supine-Sit independent 2. Sit-Supine independent 3. Sit-Stand independent 4. Stand-Sit independent 5. Bed-Chair independent 6. Chair-Bed independent 7. Independent gait on level surface with use of FWW for at least 500 feet without report of pain nor dyspnea 8. Independent stair negotiation while holding onto B rails for at least 12 steps without report of pain nor dyspnea 9. Independent with home exercise program 10. Good static and dynamic standing balance/tolerance Plan of Care/Treatment Plan: 1-2x/day, 7 days/week x 1 week. Plan of care has been reviewed with the CLASSICS TEACHER providing the service under Physical Therapy direction. Initiate Physical Therapy intervention for pain management as needed, strengthening, bed mobility, transfers, gait, stairs, balance training, and use of assistive device. DISCHARGE RECOMMENDATIONS: Patient will benefit from home health PT services in order to progress mobility level using least restrictive assistive ambulatory device, assess home safety, identify additional equipment needs, and establish a functional maintenance program that will increase ability of patient to remain at home. TREATMENT CODE/TIME: 36170 x 20 minutes, 67925 x 10 minutes beginning 9:40 AM. Thank you for the opportunity to participate in the care of this patient. Kelle Matos PT, DPT, CLT [facility] [place], [place]
[2021-04-23] MEDS: Famotidine 20 MG TAB PO (09:45)
--- NOTE | 2021-04-23 11:40 | PDOC.CMPRO ---
- If Service Date Differs Date of service: 04/23/21 Time of Service: 11:40 Care Management Progress Note S/O: CM met with Kelly over the phone since she is on Covid precautions. Kelly reports that she is feeling a bit better, however she still has sob with exertion. Per PT note Kelly became very SOB today with ambulation. Kelly has no needs at this time and has a phone at her bedside. A: 71 year old female admitted to [facility] on 04/17/21 for covid-19 pneumonia P:Anticipate Kelly will return home when medically cleared by and follow up with her PCP and plan of care as prescribed. She will transport via private vehicle with her . It is unclear if she will need [facility] RN/PT services following discharge. Per Kelly continues to desat with minimal exertion and according to her cycling time when last tested she was still infectious. CM continues to support discharge planning needs.
[2021-04-23] MEDS: Normal Saline Flush 10 ML SYR IVP (12:17)
[2021-04-23] MEDS: Enoxaparin 40 MG/0.4 ML SYR SC (17:24)
--- NOTE | 2021-04-23 18:26 | W.PM.PROGNOT ---
Date of Service Date of service: 04/23/21 Time of Service: 18:26 Assessment and Plan Assessment and plan (1) 2019 novel coronavirus-infected pneumonia (NCIP): Status: Acute Assessment and plan: Since beginning of 04/09. Continue extended course of remdesivir, continue decadron and baricitinib. obtain echo to ensure no cardiomyopathy. Negative troponins with yesterday's episode are reassuring. Consider CTA chest. Continue IS/virabpep. Continue supplementation with vitamin C and D. Wean O2 as tolerated. (2) Acute bacterial bronchitis: Status: Acute Assessment and plan: Continue doxycycline/cefuroxime. The patient reports that her sputum has cleared up. (3) Respiratory failure with hypoxia: Status: Acute Assessment and plan: Wean O2 as tolerated. Qualifiers: Chronicity: acute Qualified Code(s): J96.01 - Acute respiratory failure with hypoxia (4) Rheumatoid arthritis: Status: Chronic Assessment and plan: Pain is controlled. Baricitinib is addressing RA as well as COVID. PT consulted. Qualifiers: Rheumatoid arthritis location: unspecified site Rheumatoid factor presence: unspecified presence Qualified Code(s): M06.9 - Rheumatoid arthritis, unspecified (5) DVT prophylaxis: Status: Acute Assessment and plan: enoxaparin (6) Discharge planning issues: Status: Acute Assessment and plan: Continues to require hospitalization Subjective Subjective Interval history since last seen: Ms Dasilva states she is feeling a little bit better. However, last night she had an episode of chest tightness and shortness of breath lasting for 2.5 hrs. She states that nitroglycerin helped. She feels better now.Denies dizziness, chest pain, states she is very short of breath on exertion. Denies n/v/diarrhea. Worked with PT today - got dyspneic and desaturated. On 1L of O2 by NC. There was a difficulty with initiating BiPAP last night so she did not use it. Exam Narrative Exam Narrative: General: Very pleasant obese female, A&Ox3, appears comfortable in bed, not dyspneic at rest HEENT: EOMI, MMM Heart: RRR, no m/r/g Lungs: subtle crackles L bases, coughs on deep inspiration Abdomen: soft, nontender, nondistended Extremities: no edema BLE's Objective Last Vital Signs Temp 36 C L 04/23/21 17:22 Pulse 82 04/23/21 17:24 Resp 18 04/23/21 17:22 BP 124/70 04/23/21 17:22 Pulse Ox 95 04/23/21 17:22 Laboratory Results - last 24 hr 04/22/21 04/23/21 04/23/21 23:35 06:00 07:25 WBC RBC Hgb Hct MCV MCH MCHC RDW Plt Count MPV Immature Gran % Neutrophils % Lymphocytes % Monocytes % Eosinophils % Basophils % Nucleated RBC % Absolute Neutrophils Absolute Lymphocytes Absolute Monocytes Absolute Eosinophils Absolute Basophils D-Dimer Cancelled Sodium Potassium Chloride Carbon Dioxide Anion Gap BUN Creatinine Estimated GFR/1.73 m2 Glucose Calcium Magnesium Ferritin Total Bilirubin Conjugated Bilirubin AST ALT Alkaline Phosphatase Troponin I < 0.05 < 0.05 C-Reactive Protein Total Protein Albumin Procalcitonin 04/23/21 04/23/21 04/23/21 07:25 07:25 07:25 WBC RBC Hgb Hct MCV MCH MCHC RDW Plt Count MPV Immature Gran % Neutrophils % Lymphocytes % Monocytes % Eosinophils % Basophils % Nucleated RBC % Absolute Neutrophils Absolute Lymphocytes Absolute Monocytes Absolute Eosinophils Absolute Basophils D-Dimer Sodium 133 L Potassium 4.3 Chloride 96 L Carbon Dioxide 32.6 H Anion Gap 4.4 BUN 33 H Creatinine 1.0 Estimated GFR/1.73 m2 54.35 Glucose 88 Calcium 9.5 Magnesium 1.9 Ferritin Cancelled 236 Total Bilirubin 0.5 Conjugated Bilirubin 0.1 AST 13 L ALT 27 Alkaline Phosphatase 78 Troponin I C-Reactive Protein 0.41 H Total Protein 6.3 L Albumin 3.2 L Procalcitonin < 0.1 04/23/21 04/23/21 07:25 07:25 WBC 9.82 RBC 3.93 Hgb 11.4 Hct 33.6 L MCV 85.5 MCH 29.0 MCHC 33.9 RDW 13.3 Plt Count 320 MPV 8.6 Immature Gran % 2.5 Neutrophils % 80.4 Lymphocytes % 11.4 Monocytes % 5.3 Eosinophils % 0.2 Basophils % 0.2 Nucleated RBC % 0 Absolute Neutrophils 7.89 H Absolute Lymphocytes 1.12 L Absolute Monocytes 0.52 Absolute Eosinophils 0.02 Absolute Basophils 0.02 D-Dimer 412 Sodium Potassium Chloride Carbon Dioxide Anion Gap BUN Creatinine Estimated GFR/1.73 m2 Glucose Calcium Magnesium Ferritin Total Bilirubin Conjugated Bilirubin AST ALT Alkaline Phosphatase Troponin I C-Reactive Protein Total Protein Albumin Procalcitonin
[2021-04-23] MEDS: diphenhydrAMINE 25 MG CAP PO (22:54)
[2021-04-23] MEDS: Zolpidem 5 MG TAB PO (22:54)
[2021-04-24] VITALS (9 sets, daily range): BP systolic 110–124; BP diastolic 63–70; PULSE 70–96; RESP 16–20; TEMP 34.7–37.1; O2SAT 94–98
[2021-04-24] MEDS: Doxycycline Hyclate 100 MG CAP PO (06:14)
[2021-04-24] MEDS: diazePAM 2 MG TAB PO ×3 (06:14→17:36)
[2021-04-24 07:51] LABS: Abs Immature Grans 0.24 10^3/uL (0.0-0.06); Absolute Basophil Count 0.01 10^3/uL (0.0-0.2); Absolute Eosinophil Count 0.06 10^3/uL (0.0-0.7); Absolute Lymphocyte Count 1.17 10^3/uL (1.2-3.4); Absolute Monocyte Count 0.66 10^3/uL (0.1-0.8); Absolute Neutrophil Count 8.05 10^3/uL (1.2-6.7); Basophils % 0.1; Eosinophils % 0.6; HCT 32.3 % (36.0-46.0); Immature Grans % 2.4; Lymphocytes % 11.5; MCH 28.6 pg (27.0-33.0); MCHC 34.1 % (32.0-36.0); MCV 84.1 fL (80-95); MPV 8.7 fL (8.0-11.0); Monocytes % 6.5; Neutrophils % 78.9; Nucleated RBC 0 %; Platelet Count 347 10^3/uL (130-400); RBC 3.84 10^6/uL (3.93-5.22); RDW 13.7 % (11.7-14.6); RDW-SD 41.7 fL; WBC 10.19 10^3/uL (4.4-10.8)
[2021-04-24 08:16] LABS: ALT 27 U/L (14-59); AST 14 U/L (15-37); Albumin 3.1 g/dL (3.4-5.0); Alkaline Phosphatase 74 U/L (46-116); Anion Gap 6.6 mmol/L (3-11); BUN 35 mg/dL (7-18); Bilirubin, Direct 0.1 mg/dL (0.0-0.2); Bilirubin, Total 0.5 mg/dL (0.2-1.0); C-Reactive Protein 0.15 mg/dL (0.0-0.3); CO2 30.4 mmol/L (21.0-32.0); Chloride 96 mmol/L (98-107); Estimated GFR 54.35 (mL/min/1.73m2); Glucose 77 mg/dL (74-106); Magnesium 1.9 mg/dL (1.8-2.4); Sodium 133 mmol/L (136-145); Total Protein 6.1 g/dL (6.4-8.2)
[2021-04-24 08:24] LABS: D-Dimer 391 ng/mlFEU (<500)
[2021-04-24] MEDS: Cholecalciferol (Vitamin D3) 1,000 UNIT TAB 5000 UNITS PO (08:31)
[2021-04-24] MEDS: Acetaminophen 325 MG TAB 650 MG PO ×3 (08:31→21:55)
[2021-04-24] MEDS: Montelukast 10 MG TAB PO (08:32)
[2021-04-24] MEDS: Cefuroxime 250 MG TAB PO (08:32)
[2021-04-24] MEDS: Ascorbic Acid 500 MG TAB PO ×2 (08:32→21:55)
[2021-04-24] MEDS: amLODIPine 5 MG TAB PO (08:33)
[2021-04-24] MEDS: Dexamethasone 4 MG TAB 6 MG PO (08:33)
[2021-04-24] MEDS: hydroCHLOROthiazide 25 MG TAB PO (08:33)
[2021-04-24] MEDS: Citalopram 20 MG TAB PO (08:33)
[2021-04-24] MEDS: Famotidine 20 MG TAB PO (08:34)
[2021-04-24] MEDS: Ipratropium/Albuterol 4 GM 120 PUFF INH IH ×4 (08:35→21:56)
[2021-04-24] MEDS: Normal Saline Flush 10 ML SYR IVP ×3 (08:35→21:57)
[2021-04-24] MEDS: Nystatin POWDER 15 GM JAR TP ×3 (08:37→21:56)
[2021-04-24 08:43] LABS: Ferritin 221 ng/mL (8-252)
--- NOTE | 2021-04-24 09:02 | CMPROGNOTE_ITS ---
- If Service Date Differs Date of service: 04/24/21 Time of Service: 09:02 Care Management Progress Note S/O: CM met with Kelly over the phone since she is on Covid precautions. Kelly reports that she is feeling a bit better. She shares that she's been in bed without 02 NC for the last 3 hours and hasn't felt short of breath. She still has sob with exertion and supplemental O2 at her bedside if needed. Kelly reports that her is going to be closing up and moving their camper which is currently located at [facility] on Thursday. After that they have friends in [facility] and can stay with them if needed. Kelly wants to visit her family in [place] in the near future and is hopeful that she will be well enough for discharge in the next few days. Kelly has no needs at this time and has a phone at her bedside. A: 71 year old female admitted to [facility] on 04/17/21 for covid-19 pneumonia P:Anticipate Kelly will return home when medically cleared by MD and follow up with her PCP and plan of care as prescribed. She met with RT today and at this point she will not need home O2 when discharged. Kelly will transport via private vehicle with her . It is unclear if she will need to transfer to [facility] or will be well enough for discharge since RT does not anticipate that she will need home 02. CM continues to support discharge planning needs.
--- NOTE | 2021-04-24 10:23 | W.PULMPROG ---
General Date Of Service Date of service: 04/24/21 Time of Service: 08:30 Reason for Consult: COVID 19 Subjective 24 Hour Events: Kelly is slowly improving. She says the breathing is slightly getting better but she is quite dyspneic still with exertion in bed I turned her oxygen off during my assessment and her O2 sats stayed above 92% during this time. I did place her back on oxygen due to her desaturations with movement. She is using her incentive spirometer and VibraPEP. She does have a good appetite and is going to the bathroom regularly. Exam Const General: no acute distress Nutritional Appearance: obese [facility] Head: normocephalic Ears: external ears normal General nose exam: nasal mucous membranes and turbinates normal Face and sinus: sinuses nontender Mouth: oropharynx normal and moist mucous membranes Teeth and gingiva: dentition normal Eyes General: appearance normal, both eyes and all related structures Pupils: PERRL Neck Neck: normal visual inspection and no lymphadenopathy Chest Chest: normal inspection of the chest Resp Effort & Inspection: normal respiratory effort Auscultation: rales bilaterally, rhonchi and no wheezes Cardio Rate: regular rate Rhythm: regular rhythm Heart Sounds: S1 normal, S2 normal and no murmurs Pulses: radial pulses present bilaterally GI Inspection: normal to inspection Palpation: soft Skin General skin exam: no rashes or lesions noted Neuro General: patient alert, patient awake and patient oriented x3 Extrem General: no clubbing, cyanosis or edema Psych Mental Status: mental status grossly normal Affect: normal affect Attitude: cooperative Objective Last Vital Signs Temp 36.7 C 04/24/21 10:06 Pulse 96 H 04/24/21 10:02 Resp 20 04/24/21 08:39 BP 111/67 04/24/21 08:39 Pulse Ox 97 04/24/21 08:39 Laboratory Results - last 24 hr 04/24/21 04/24/21 04/24/21 07:15 07:15 07:15 WBC 10.19 RBC 3.84 L Hgb 11.0 L Hct 32.3 L MCV 84.1 MCH 28.6 MCHC 34.1 RDW 13.7 Plt Count 347 MPV 8.7 Immature Gran % 2.4 Neutrophils % 78.9 Lymphocytes % 11.5 Monocytes % 6.5 Eosinophils % 0.6 Basophils % 0.1 Nucleated RBC % 0 Absolute Neutrophils 8.05 H Absolute Lymphocytes 1.17 L Absolute Monocytes 0.66 Absolute Eosinophils 0.06 Absolute Basophils 0.01 D-Dimer 391 Sodium 133 L Potassium 4.0 Chloride 96 L Carbon Dioxide 30.4 Anion Gap 6.6 BUN 35 H Creatinine 1.0 Estimated GFR/1.73 m2 54.35 Glucose 77 Calcium 9.0 Magnesium 1.9 Ferritin 221 Total Bilirubin 0.5 Conjugated Bilirubin 0.1 AST 14 L ALT 27 Alkaline Phosphatase 74 C-Reactive Protein 0.15 Total Protein 6.1 L Albumin 3.1 L Results Medications Medications: Active Medications Generic Name Dose Route Start Last Admin Trade Name Freq PRN Reason Stop Dose Admin Acetaminophen 650 mg 04/19/21 20:00 04/24/21 08:31 Acetaminophen 325 Mg Tab PO 650 mg TID OCTAVIA Administration Albuterol/Ipratropium 1 puff 04/17/21 16:00 04/24/21 08:35 Ipratropium/Albuterol 4 Gm 120 Puff Inh IH 1 inh QID OCTAVIA Administration Amlodipine Besylate 5 mg 04/18/21 08:30 04/24/21 08:33 Amlodipine 5 Mg Tab PO 5 mg DAILY OCTAVIA Administration Ascorbic Acid 500 mg 04/19/21 09:10 04/24/21 08:32 Ascorbic Acid 500 Mg Tab PO 500 mg BID OCTAVIA Administration Baricitinib 2 mg 04/19/21 08:30 04/24/21 08:32 Baricitinib 1 Mg Tab PO 2 mg DAILY OCTAVIA Administration Carboxymethylcellulose Sodium 1 each 04/21/21 09:22 04/23/21 08:11 Refresh Plus Eye Drops 0.4ml OU 1 drp PRN PRN Administration Cetirizine HCl 5 mg 04/17/21 11:24 Cetirizine 10 Mg Tab PO DAILY PRN PRN Cholecalciferol 5,000 units 04/19/21 09:10 04/24/21 08:31 Cholecalciferol (Vitamin D3) 1,000 Unit Tab PO 5,000 units DAILY [facility] Administration Citalopram Hydrobromide 20 mg 04/18/21 08:30 04/24/21 08:33 Citalopram 20 Mg Tab PO 20 mg DAILY [facility] Administration Device 1 each 04/17/21 13:00 Inhaler, Assist Device MC DIRECTED [facility] Dexamethasone 6 mg 04/17/21 11:20 04/24/21 08:33 Dexamethasone 4 Mg Tab PO 6 mg DAILY [facility] Administration Diazepam 2 mg 04/20/21 10:20 04/24/21 06:14 Diazepam 2 Mg Tab PO 2 mg TID PRN PRN Administration Dimethicone/Zinc Oxide 0 gm 04/17/21 11:12 Rosalba Protect Cream 142 Gm Tube TP PRN PRN Diphenhydramine HCl 25 mg 04/17/21 22:00 04/23/21 22:54 Diphenhydramine 25 Mg Cap PO 25 mg HS OCTAVIA Administration Enoxaparin Sodium 40 mg 04/17/21 16:00 04/23/21 17:24 Enoxaparin 40 Mg/0.4 Ml Syr SC 40 mg Q24H OCTAVIA Administration Famotidine 20 mg 04/20/21 10:00 04/24/21 08:34 Famotidine 20 Mg Tab PO 20 mg Q24H OCTAVIA Administration Hydrochlorothiazide 25 mg 04/18/21 08:30 04/24/21 08:33 Hydrochlorothiazide 25 Mg Tab PO 25 mg DAILY [facility] Administration Remdesivir 100 mg/ Sodium 100 mls @ 100 mls/hr 04/22/21 12:00 04/23/21 13:39 Chloride IVPB 04/25/21 12:59 Infused Q24H OCTAVIA Infusion IV Miscellaneous Supplies 1 each 04/17/21 09:00 Iv Access IV DIRECTED OCTAVIA Melatonin 9 mg 04/17/21 11:24 Melatonin 3 Mg Tab PO HS PRN PRN Montelukast Sodium 10 mg 04/18/21 08:30 04/24/21 08:32 Montelukast 10 Mg Tab PO 10 mg DAILY [facility] Administration Nystatin 15 gm 04/24/21 08:30 04/24/21 08:37 Nystatin Powder 15 Gm Jar TP 1 applic TID OCTAVIA Administration Sodium Chloride 0 ml 04/17/21 08:55 04/24/21 08:35 Normal Saline Flush 10 Ml Syr IVP 10 ml PRN PRN Administration Zolpidem Tartrate 5 mg 04/19/21 22:00 04/23/21 22:54 Zolpidem 5 Mg Tab PO 5 mg HS MAY REPEAT X1 OCTAVIA Administration Allergies hydrocodone Adverse Reaction (Intermediate, Verified 04/17/21 09:16) Nausea morphine Adverse Reaction (Intermediate, Verified 04/17/21 09:16) Nausea oxycodone Adverse Reaction (Intermediate, Verified 04/17/21 09:16) N/V Labs Result Diagrams: 04/24/21 07:15 04/24/21 07:15 Labs: 04/17/21 09:57 Blood Blood Culture - Final NO GROWTH 120 HOURS 04/17/21 09:20 Blood Blood Culture - Final NO GROWTH 120 HOURS 04/17/21 12:05 Urine - Reflex from Ua Urine Culture - Final Gram Positive Larisa,Mixed Gram Negative Larisa,Mixed Laboratory Tests Range/Units 04/17/21 04/17/21 04/17/21 09:20 09:20 09:20 WBC (4.4-10.8) 10^3/uL RBC (3.93-5.22) 10^6/uL Hgb (11.2-15.7) g/dL Hct (36.0-46.0) % MCV (80-95) fL MCH (27.0-33.0) pg MCHC (32.0-36.0) % RDW (11.7-14.6) % Plt Count (130-400) 10^3/uL MPV (8.0-11.0) fL Immature Gran % Neutrophils % Lymphocytes % Monocytes % Eosinophils % Basophils % Nucleated RBC % % Absolute Neutrophils (1.2-6.7) 10^3/uL Absolute Lymphocytes (1.2-3.4) 10^3/uL Absolute Monocytes (0.1-0.8) 10^3/uL Absolute Eosinophils (0.0-0.7) 10^3/uL Absolute Basophils (0.0-0.2) 10^3/uL D-Dimer VBG Lactate (0.6-1.4) mmol/L 2.3 H* Sodium (136-145) mmol/L 134 L Potassium (3.5-5.1) mmol/L 3.8 Chloride (98-107) mmol/L 95 L Carbon Dioxide (21.0-32.0) mmol/L 31.3 Anion Gap (3-11) mmol/L 7.7 BUN (7-18) mg/dL 23 H Creatinine (0.55-1.02) mg/dL 1.0 Estimated GFR/1.73 m2 (mL/min/1.73m2) 54.35 Glucose (74-106) mg/dL 88 Calcium (8.5-10.1) mg/dL 9.0 Magnesium (1.8-2.4) mg/dL 1.9 Ferritin (8-252) ng/mL Total Bilirubin (0.2-1.0) mg/dL 0.4 Conjugated Bilirubin (0.0-0.2) mg/dL AST (15-37) U/L 23 ALT (14-59) U/L 21 Alkaline Phosphatase (46-116) U/L 95 Troponin I (<0.06) ng/mL C-Reactive Protein (0.0-0.3) mg/dL NT-Pro-B Natriuret Pep (<300) pg/mL Total Protein (6.4-8.2) g/dL 6.2 L Albumin (3.4-5.0) g/dL 3.2 L Procalcitonin ng/mL < 0.1 TSH (0.36-3.74) uIU/mL 0.69 Urine Color (Yellow) Urine Clarity (Clear) Urine pH (5-8) Ur Specific [place] (1.005-1.025) Urine Protein (Negative) mg/dL Urine Ketones (Negative) mg/dL Urine Blood (Negative) Urine Nitrite (Negative) Urine Bilirubin (Negative) Urine Urobilinogen (Up TO 0.2) EU/dL Ur Leukocyte Esterase (Negative) Urine RBC (0-2) HPF Urine WBC (0-5) HPF Ur Epithelial Cells (Negative) HPF Urine Crystals (Negative) HPF Urine Bacteria (Negative) HPF Urine Casts (Negative) LPF Urine Mucus (Negative) Ur Culture Indicated? Urine Glucose (Negative) mg/dL COVID-19 Source Nasal/Nares SARS-CoV-2 (PCR) (Negative) POSITIVE A* Range/Units 04/17/21 04/17/21 04/17/21 09:20 09:20 09:20 WBC (4.4-10.8) 10^3/uL 14.88 H RBC (3.93-5.22) 10^6/uL 4.06 Hgb (11.2-15.7) g/dL 11.8 Hct (36.0-46.0) % 34.7 L MCV (80-95) fL 85.5 MCH (27.0-33.0) pg 29.1 MCHC (32.0-36.0) % 34.0 RDW (11.7-14.6) % 13.4 Plt Count (130-400) 10^3/uL 371 MPV (8.0-11.0) fL 8.8 Immature Gran % 1.7 Neutrophils % 88.8 Lymphocytes % 4.6 Monocytes % 4.7 Eosinophils % 0.1 Basophils % 0.1 Nucleated RBC % % 0 Absolute Neutrophils (1.2-6.7) 10^3/uL 13.21 H Absolute Lymphocytes (1.2-3.4) 10^3/uL 0.68 L Absolute Monocytes (0.1-0.8) 10^3/uL 0.70 Absolute Eosinophils (0.0-0.7) 10^3/uL 0.01 Absolute Basophils (0.0-0.2) 10^3/uL 0.01 D-Dimer VBG Lactate (0.6-1.4) mmol/L Sodium (136-145) mmol/L Potassium (3.5-5.1) mmol/L Chloride (98-107) mmol/L Carbon Dioxide (21.0-32.0) mmol/L Anion Gap (3-11) mmol/L BUN (7-18) mg/dL Creatinine (0.55-1.02) mg/dL Estimated GFR/1.73 m2 (mL/min/1.73m2) Glucose (74-106) mg/dL Calcium (8.5-10.1) mg/dL Magnesium (1.8-2.4) mg/dL Ferritin (8-252) ng/mL 280 H Total Bilirubin (0.2-1.0) mg/dL Conjugated Bilirubin (0.0-0.2) mg/dL AST (15-37) U/L ALT (14-59) U/L Alkaline Phosphatase (46-116) U/L Troponin I (<0.06) ng/mL < 0.05 C-Reactive Protein (0.0-0.3) mg/dL 6.49 H NT-Pro-B Natriuret Pep (<300) pg/mL 436 H Total Protein (6.4-8.2) g/dL Albumin (3.4-5.0) g/dL Procalcitonin ng/mL TSH (0.36-3.74) uIU/mL Urine Color (Yellow) Urine Clarity (Clear) Urine pH (5-8) Ur Specific [place] (1.005-1.025) Urine Protein (Negative) mg/dL Urine Ketones (Negative) mg/dL Urine Blood (Negative) Urine Nitrite (Negative) Urine Bilirubin (Negative) Urine Urobilinogen (Up TO 0.2) EU/dL Ur Leukocyte Esterase (Negative) Urine RBC (0-2) HPF Urine WBC (0-5) HPF Ur Epithelial Cells (Negative) HPF Urine Crystals (Negative) HPF Urine Bacteria (Negative) HPF Urine Casts (Negative) LPF Urine Mucus (Negative) Ur Culture Indicated? Urine Glucose (Negative) mg/dL COVID-19 Source SARS-CoV-2 (PCR) (Negative) Range/Units 04/17/21 04/17/21 04/18/21 12:05 12:40 06:30 WBC (4.4-10.8) 10^3/uL RBC (3.93-5.22) 10^6/uL Hgb (11.2-15.7) g/dL Hct (36.0-46.0) % MCV (80-95) fL MCH (27.0-33.0) pg MCHC (32.0-36.0) % RDW (11.7-14.6) % Plt Count (130-400) 10^3/uL MPV (8.0-11.0) fL Immature Gran % Neutrophils % Lymphocytes % Monocytes % Eosinophils % Basophils % Nucleated RBC % % Absolute Neutrophils (1.2-6.7) 10^3/uL Absolute Lymphocytes (1.2-3.4) 10^3/uL Absolute Monocytes (0.1-0.8) 10^3/uL Absolute Eosinophils (0.0-0.7) 10^3/uL Absolute Basophils (0.0-0.2) 10^3/uL D-Dimer VBG Lactate (0.6-1.4) mmol/L Sodium (136-145) mmol/L 137 Potassium (3.5-5.1) mmol/L 3.9 Chloride (98-107) mmol/L 99 Carbon Dioxide (21.0-32.0) mmol/L 34.7 H Anion Gap (3-11) mmol/L 3.3 BUN (7-18) mg/dL 22 H Creatinine (0.55-1.02) mg/dL 1.1 H Estimated GFR/1.73 m2 (mL/min/1.73m2) 48.69 Glucose (74-106) mg/dL 100 Calcium (8.5-10.1) mg/dL 8.8 Magnesium (1.8-2.4) mg/dL Ferritin (8-252) ng/mL 294 H Total Bilirubin (0.2-1.0) mg/dL Conjugated Bilirubin (0.0-0.2) mg/dL AST (15-37) U/L ALT (14-59) U/L Alkaline Phosphatase (46-116) U/L Troponin I (<0.06) ng/mL < 0.05 C-Reactive Protein (0.0-0.3) mg/dL 5.45 H NT-Pro-B Natriuret Pep (<300) pg/mL Total Protein (6.4-8.2) g/dL Albumin (3.4-5.0) g/dL Procalcitonin ng/mL TSH (0.36-3.74) uIU/mL Urine Color (Yellow) Yellow Urine Clarity (Clear) Clear Urine pH (5-8) 7.5 Ur Specific [place] (1.005-1.025) 1.010 Urine Protein (Negative) mg/dL Negative Urine Ketones (Negative) mg/dL Negative Urine Blood (Negative) Negative Urine Nitrite (Negative) Negative Urine Bilirubin (Negative) Negative Urine Urobilinogen (Up TO 0.2) EU/dL 0.2 Ur Leukocyte Esterase (Negative) Trace H Urine RBC (0-2) HPF 0-2 Urine WBC (0-5) HPF 10-20 H Ur Epithelial Cells (Negative) HPF Rare Urine Crystals (Negative) HPF Negative Urine Bacteria (Negative) HPF Rare Urine Casts (Negative) LPF Negative Urine Mucus (Negative) Negative Ur Culture Indicated? Yes Urine Glucose (Negative) mg/dL Negative COVID-19 Source SARS-CoV-2 (PCR) (Negative) Range/Units 04/18/21 04/20/21 04/20/21 06:30 09:25 09:25 WBC (4.4-10.8) 10^3/uL 9.87 D 11.46 H RBC (3.93-5.22) 10^6/uL 3.76 L 3.87 L Hgb (11.2-15.7) g/dL 10.8 L 11.0 L Hct (36.0-46.0) % 32.3 L 33.2 L MCV (80-95) fL 85.9 85.8 MCH (27.0-33.0) pg 28.7 28.4 MCHC (32.0-36.0) % 33.4 33.1 RDW (11.7-14.6) % 13.7 13.6 Plt Count (130-400) 10^3/uL 346 375 MPV (8.0-11.0) fL 8.8 8.8 Immature Gran % 1.2 1.1 Neutrophils % 81.2 77.7 Lymphocytes % 11.1 16.6 Monocytes % 6.4 4.2 Eosinophils % 0.0 0.2 Basophils % 0.1 0.2 Nucleated RBC % % 0 0 Absolute Neutrophils (1.2-6.7) 10^3/uL 8.01 H 8.90 H Absolute Lymphocytes (1.2-3.4) 10^3/uL 1.10 L 1.90 Absolute Monocytes (0.1-0.8) 10^3/uL 0.63 0.48 Absolute Eosinophils (0.0-0.7) 10^3/uL 0.00 0.02 Absolute Basophils (0.0-0.2) 10^3/uL 0.01 0.02 D-Dimer VBG Lactate (0.6-1.4) mmol/L Sodium (136-145) mmol/L 135 L Potassium (3.5-5.1) mmol/L 3.9 Chloride (98-107) mmol/L 97 L Carbon Dioxide (21.0-32.0) mmol/L 30.8 Anion Gap (3-11) mmol/L 7.2 BUN (7-18) mg/dL 28 H Creatinine (0.55-1.02) mg/dL 0.9 Estimated GFR/1.73 m2 (mL/min/1.73m2) >= 60.00 Glucose (74-106) mg/dL 109 H Calcium (8.5-10.1) mg/dL 8.7 Magnesium (1.8-2.4) mg/dL 1.9 Ferritin (8-252) ng/mL Total Bilirubin (0.2-1.0) mg/dL Conjugated Bilirubin (0.0-0.2) mg/dL AST (15-37) U/L ALT (14-59) U/L Alkaline Phosphatase (46-116) U/L Troponin I (<0.06) ng/mL C-Reactive Protein (0.0-0.3) mg/dL NT-Pro-B Natriuret Pep (<300) pg/mL Total Protein (6.4-8.2) g/dL Albumin (3.4-5.0) g/dL Procalcitonin ng/mL TSH (0.36-3.74) uIU/mL Urine Color (Yellow) Urine Clarity (Clear) Urine pH (5-8) Ur Specific [place] (1.005-1.025) Urine Protein (Negative) mg/dL Urine Ketones (Negative) mg/dL Urine Blood (Negative) Urine Nitrite (Negative) Urine Bilirubin (Negative) Urine Urobilinogen (Up TO 0.2) EU/dL Ur Leukocyte Esterase (Negative) Urine RBC (0-2) HPF Urine WBC (0-5) HPF Ur Epithelial Cells (Negative) HPF Urine Crystals (Negative) HPF Urine Bacteria (Negative) HPF Urine Casts (Negative) LPF Urine Mucus (Negative) Ur Culture Indicated? Urine Glucose (Negative) mg/dL COVID-19 Source SARS-CoV-2 (PCR) (Negative) Range/Units 04/21/21 04/21/21 04/22/21 06:55 06:55 23:35 WBC (4.4-10.8) 10^3/uL 9.73 RBC (3.93-5.22) 10^6/uL 3.83 L Hgb (11.2-15.7) g/dL 11.0 L Hct (36.0-46.0) % 32.9 L MCV (80-95) fL 85.9 MCH (27.0-33.0) pg 28.7 MCHC (32.0-36.0) % 33.4 RDW (11.7-14.6) % 13.3 Plt Count (130-400) 10^3/uL 342 MPV (8.0-11.0) fL 8.6 Immature Gran % 2.2 Neutrophils % 78.6 Lymphocytes % 13.7 Monocytes % 5.2 Eosinophils % 0.2 Basophils % 0.1 Nucleated RBC % % 0 Absolute Neutrophils (1.2-6.7) 10^3/uL 7.65 H Absolute Lymphocytes (1.2-3.4) 10^3/uL 1.33 Absolute Monocytes (0.1-0.8) 10^3/uL 0.51 Absolute Eosinophils (0.0-0.7) 10^3/uL 0.02 Absolute Basophils (0.0-0.2) 10^3/uL 0.01 D-Dimer VBG Lactate (0.6-1.4) mmol/L Sodium (136-145) mmol/L 135 L Potassium (3.5-5.1) mmol/L 4.5 Chloride (98-107) mmol/L 97 L Carbon Dioxide (21.0-32.0) mmol/L 35.6 H Anion Gap (3-11) mmol/L 2.4 L BUN (7-18) mg/dL 27 H Creatinine (0.55-1.02) mg/dL 1.0 Estimated GFR/1.73 m2 (mL/min/1.73m2) 54.35 Glucose (74-106) mg/dL 90 Calcium (8.5-10.1) mg/dL 8.9 Magnesium (1.8-2.4) mg/dL Ferritin (8-252) ng/mL Total Bilirubin (0.2-1.0) mg/dL Conjugated Bilirubin (0.0-0.2) mg/dL AST (15-37) U/L ALT (14-59) U/L Alkaline Phosphatase (46-116) U/L Troponin I (<0.06) ng/mL < 0.05 C-Reactive Protein (0.0-0.3) mg/dL NT-Pro-B Natriuret Pep (<300) pg/mL Total Protein (6.4-8.2) g/dL Albumin (3.4-5.0) g/dL Procalcitonin ng/mL TSH (0.36-3.74) uIU/mL Urine Color (Yellow) Urine Clarity (Clear) Urine pH (5-8) Ur Specific [place] (1.005-1.025) Urine Protein (Negative) mg/dL Urine Ketones (Negative) mg/dL Urine Blood (Negative) Urine Nitrite (Negative) Urine Bilirubin (Negative) Urine Urobilinogen (Up TO 0.2) EU/dL Ur Leukocyte Esterase (Negative) Urine RBC (0-2) HPF Urine WBC (0-5) HPF Ur Epithelial Cells (Negative) HPF Urine Crystals (Negative) HPF Urine Bacteria (Negative) HPF Urine Casts (Negative) LPF Urine Mucus (Negative) Ur Culture Indicated? Urine Glucose (Negative) mg/dL COVID-19 Source SARS-CoV-2 (PCR) (Negative) Range/Units 04/23/21 04/23/21 04/23/21 06:00 07:25 07:25 WBC (4.4-10.8) 10^3/uL RBC (3.93-5.22) 10^6/uL Hgb (11.2-15.7) g/dL Hct (36.0-46.0) % MCV (80-95) fL MCH (27.0-33.0) pg MCHC (32.0-36.0) % RDW (11.7-14.6) % Plt Count (130-400) 10^3/uL MPV (8.0-11.0) fL Immature Gran % Neutrophils % Lymphocytes % Monocytes % Eosinophils % Basophils % Nucleated RBC % % Absolute Neutrophils (1.2-6.7) 10^3/uL Absolute Lymphocytes (1.2-3.4) 10^3/uL Absolute Monocytes (0.1-0.8) 10^3/uL Absolute Eosinophils (0.0-0.7) 10^3/uL Absolute Basophils (0.0-0.2) 10^3/uL D-Dimer Cancelled VBG Lactate (0.6-1.4) mmol/L Sodium (136-145) mmol/L Potassium (3.5-5.1) mmol/L Chloride (98-107) mmol/L Carbon Dioxide (21.0-32.0) mmol/L Anion Gap (3-11) mmol/L BUN (7-18) mg/dL Creatinine (0.55-1.02) mg/dL Estimated GFR/1.73 m2 (mL/min/1.73m2) Glucose (74-106) mg/dL Calcium (8.5-10.1) mg/dL Magnesium (1.8-2.4) mg/dL Ferritin (8-252) ng/mL Cancelled Total Bilirubin (0.2-1.0) mg/dL Conjugated Bilirubin (0.0-0.2) mg/dL AST (15-37) U/L ALT (14-59) U/L Alkaline Phosphatase (46-116) U/L Troponin I (<0.06) ng/mL < 0.05 C-Reactive Protein (0.0-0.3) mg/dL NT-Pro-B Natriuret Pep (<300) pg/mL Total Protein (6.4-8.2) g/dL Albumin (3.4-5.0) g/dL Procalcitonin ng/mL TSH (0.36-3.74) uIU/mL Urine Color (Yellow) Urine Clarity (Clear) Urine pH (5-8) Ur Specific [place] (1.005-1.025) Urine Protein (Negative) mg/dL Urine Ketones (Negative) mg/dL Urine Blood (Negative) Urine Nitrite (Negative) Urine Bilirubin (Negative) Urine Urobilinogen (Up TO 0.2) EU/dL Ur Leukocyte Esterase (Negative) Urine RBC (0-2) HPF Urine WBC (0-5) HPF Ur Epithelial Cells (Negative) HPF Urine Crystals (Negative) HPF Urine Bacteria (Negative) HPF Urine Casts (Negative) LPF Urine Mucus (Negative) Ur Culture Indicated? Urine Glucose (Negative) mg/dL COVID-19 Source SARS-CoV-2 (PCR) (Negative) Range/Units 04/23/21 04/23/21 04/23/21 07:25 07:25 07:25 WBC (4.4-10.8) 10^3/uL 9.82 RBC (3.93-5.22) 10^6/uL 3.93 Hgb (11.2-15.7) g/dL 11.4 Hct (36.0-46.0) % 33.6 L MCV (80-95) fL 85.5 MCH (27.0-33.0) pg 29.0 MCHC (32.0-36.0) % 33.9 RDW (11.7-14.6) % 13.3 Plt Count (130-400) 10^3/uL 320 MPV (8.0-11.0) fL 8.6 Immature Gran % 2.5 Neutrophils % 80.4 Lymphocytes % 11.4 Monocytes % 5.3 Eosinophils % 0.2 Basophils % 0.2 Nucleated RBC % % 0 Absolute Neutrophils (1.2-6.7) 10^3/uL 7.89 H Absolute Lymphocytes (1.2-3.4) 10^3/uL 1.12 L Absolute Monocytes (0.1-0.8) 10^3/uL 0.52 Absolute Eosinophils (0.0-0.7) 10^3/uL 0.02 Absolute Basophils (0.0-0.2) 10^3/uL 0.02 D-Dimer VBG Lactate (0.6-1.4) mmol/L Sodium (136-145) mmol/L 133 L Potassium (3.5-5.1) mmol/L 4.3 Chloride (98-107) mmol/L 96 L Carbon Dioxide (21.0-32.0) mmol/L 32.6 H Anion Gap (3-11) mmol/L 4.4 BUN (7-18) mg/dL 33 H Creatinine (0.55-1.02) mg/dL 1.0 Estimated GFR/1.73 m2 (mL/min/1.73m2) 54.35 Glucose (74-106) mg/dL 88 Calcium (8.5-10.1) mg/dL 9.5 Magnesium (1.8-2.4) mg/dL 1.9 Ferritin (8-252) ng/mL 236 Total Bilirubin (0.2-1.0) mg/dL 0.5 Conjugated Bilirubin (0.0-0.2) mg/dL 0.1 AST (15-37) U/L 13 L ALT (14-59) U/L 27 Alkaline Phosphatase (46-116) U/L 78 Troponin I (<0.06) ng/mL C-Reactive Protein (0.0-0.3) mg/dL 0.41 H NT-Pro-B Natriuret Pep (<300) pg/mL Total Protein (6.4-8.2) g/dL 6.3 L Albumin (3.4-5.0) g/dL 3.2 L Procalcitonin ng/mL < 0.1 TSH (0.36-3.74) uIU/mL Urine Color (Yellow) Urine Clarity (Clear) Urine pH (5-8) Ur Specific [place] (1.005-1.025) Urine Protein (Negative) mg/dL Urine Ketones (Negative) mg/dL Urine Blood (Negative) Urine Nitrite (Negative) Urine Bilirubin (Negative) Urine Urobilinogen (Up TO 0.2) EU/dL Ur Leukocyte Esterase (Negative) Urine RBC (0-2) HPF Urine WBC (0-5) HPF Ur Epithelial Cells (Negative) HPF Urine Crystals (Negative) HPF Urine Bacteria (Negative) HPF Urine Casts (Negative) LPF Urine Mucus (Negative) Ur Culture Indicated? Urine Glucose (Negative) mg/dL COVID-19 Source SARS-CoV-2 (PCR) (Negative) Range/Units 04/23/21 04/24/21 04/24/21 07:25 07:15 07:15 WBC (4.4-10.8) 10^3/uL 10.19 RBC (3.93-5.22) 10^6/uL 3.84 L Hgb (11.2-15.7) g/dL 11.0 L Hct (36.0-46.0) % 32.3 L MCV (80-95) fL 84.1 MCH (27.0-33.0) pg 28.6 MCHC (32.0-36.0) % 34.1 RDW (11.7-14.6) % 13.7 Plt Count (130-400) 10^3/uL 347 MPV (8.0-11.0) fL 8.7 Immature Gran % 2.4 Neutrophils % 78.9 Lymphocytes % 11.5 Monocytes % 6.5 Eosinophils % 0.6 Basophils % 0.1 Nucleated RBC % % 0 Absolute Neutrophils (1.2-6.7) 10^3/uL 8.05 H Absolute Lymphocytes (1.2-3.4) 10^3/uL 1.17 L Absolute Monocytes (0.1-0.8) 10^3/uL 0.66 Absolute Eosinophils (0.0-0.7) 10^3/uL 0.06 Absolute Basophils (0.0-0.2) 10^3/uL 0.01 D-Dimer 412 VBG Lactate (0.6-1.4) mmol/L Sodium (136-145) mmol/L 133 L Potassium (3.5-5.1) mmol/L 4.0 Chloride (98-107) mmol/L 96 L Carbon Dioxide (21.0-32.0) mmol/L 30.4 Anion Gap (3-11) mmol/L 6.6 BUN (7-18) mg/dL 35 H Creatinine (0.55-1.02) mg/dL 1.0 Estimated GFR/1.73 m2 (mL/min/1.73m2) 54.35 Glucose (74-106) mg/dL 77 Calcium (8.5-10.1) mg/dL 9.0 Magnesium (1.8-2.4) mg/dL 1.9 Ferritin (8-252) ng/mL 221 Total Bilirubin (0.2-1.0) mg/dL 0.5 Conjugated Bilirubin (0.0-0.2) mg/dL 0.1 AST (15-37) U/L 14 L ALT (14-59) U/L 27 Alkaline Phosphatase (46-116) U/L 74 Troponin I (<0.06) ng/mL C-Reactive Protein (0.0-0.3) mg/dL 0.15 NT-Pro-B Natriuret Pep (<300) pg/mL Total Protein (6.4-8.2) g/dL 6.1 L Albumin (3.4-5.0) g/dL 3.1 L Procalcitonin ng/mL TSH (0.36-3.74) uIU/mL Urine Color (Yellow) Urine Clarity (Clear) Urine pH (5-8) Ur Specific [place] (1.005-1.025) Urine Protein (Negative) mg/dL Urine Ketones (Negative) mg/dL Urine Blood (Negative) Urine Nitrite (Negative) Urine Bilirubin (Negative) Urine Urobilinogen (Up TO 0.2) EU/dL Ur Leukocyte Esterase (Negative) Urine RBC (0-2) HPF Urine WBC (0-5) HPF Ur Epithelial Cells (Negative) HPF Urine Crystals (Negative) HPF Urine Bacteria (Negative) HPF Urine Casts (Negative) LPF Urine Mucus (Negative) Ur Culture Indicated? Urine Glucose (Negative) mg/dL COVID-19 Source SARS-CoV-2 (PCR) (Negative) Range/Units 04/24/21 07:15 WBC (4.4-10.8) 10^3/uL RBC (3.93-5.22) 10^6/uL Hgb (11.2-15.7) g/dL Hct (36.0-46.0) % MCV (80-95) fL MCH (27.0-33.0) pg MCHC (32.0-36.0) % RDW (11.7-14.6) % Plt Count (130-400) 10^3/uL MPV (8.0-11.0) fL Immature Gran % Neutrophils % Lymphocytes % Monocytes % Eosinophils % Basophils % Nucleated RBC % % Absolute Neutrophils (1.2-6.7) 10^3/uL Absolute Lymphocytes (1.2-3.4) 10^3/uL Absolute Monocytes (0.1-0.8) 10^3/uL Absolute Eosinophils (0.0-0.7) 10^3/uL Absolute Basophils (0.0-0.2) 10^3/uL D-Dimer 391 VBG Lactate (0.6-1.4) mmol/L Sodium (136-145) mmol/L Potassium (3.5-5.1) mmol/L Chloride (98-107) mmol/L Carbon Dioxide (21.0-32.0) mmol/L Anion Gap (3-11) mmol/L BUN (7-18) mg/dL Creatinine (0.55-1.02) mg/dL Estimated GFR/1.73 m2 (mL/min/1.73m2) Glucose (74-106) mg/dL Calcium (8.5-10.1) mg/dL Magnesium (1.8-2.4) mg/dL Ferritin (8-252) ng/mL Total Bilirubin (0.2-1.0) mg/dL Conjugated Bilirubin (0.0-0.2) mg/dL AST (15-37) U/L ALT (14-59) U/L Alkaline Phosphatase (46-116) U/L Troponin I (<0.06) ng/mL C-Reactive Protein (0.0-0.3) mg/dL NT-Pro-B Natriuret Pep (<300) pg/mL Total Protein (6.4-8.2) g/dL Albumin (3.4-5.0) g/dL Procalcitonin ng/mL TSH (0.36-3.74) uIU/mL Urine Color (Yellow) Urine Clarity (Clear) Urine pH (5-8) Ur Specific [place] (1.005-1.025) Urine Protein (Negative) mg/dL Urine Ketones (Negative) mg/dL Urine Blood (Negative) Urine Nitrite (Negative) Urine Bilirubin (Negative) Urine Urobilinogen (Up TO 0.2) EU/dL Ur Leukocyte Esterase (Negative) Urine RBC (0-2) HPF Urine WBC (0-5) HPF Ur Epithelial Cells (Negative) HPF Urine Crystals (Negative) HPF Urine Bacteria (Negative) HPF Urine Casts (Negative) LPF Urine Mucus (Negative) Ur Culture Indicated? Urine Glucose (Negative) mg/dL COVID-19 Source SARS-CoV-2 (PCR) (Negative) Assessment and Plan Assessment and plan (1) COVID-19: Status: Acute (2) Rheumatoid arthritis: Status: Chronic Qualifiers: Rheumatoid arthritis location: unspecified site Rheumatoid factor presence: unspecified presence Qualified Code(s): M06.9 - Rheumatoid arthritis, unspecified (3) Respiratory failure with hypoxia: Status: Acute Assessment and plan: This is a 71 yo woman with RA on Rituxan, obesity and diabetes who presents with persistent and worsening COVID despite outpatient treatment. Her Rituxan infusion make her significantly immunocompromised, and unfortunately in COVID specifically, is associated with higher mortality and more severe disease. Her viral cycle time is 29. Any value below 30 is extremely low. This means her overall viral load is extremely high. The cycle time being this low, almost 1 month out of initial diagnosis is extremely concerning. Her chest CT is significantly worse when compared to previously. On a CT scan from 2019 she has no evidence of RA-ILD so the abnormalities seen are due to COVID alone. She has a negative procalcitonin, she likely does not need antibiotics, although was started onn antibiotics for a change in mucus quality. I do worry about an organizing pneumonia process in her as a sequelae of her Covid pneumonia. She will most likely need oxygen at home upon discharge and it will likely take her several weeks to clinically recover from this. Her inflammatory markers are quite improved and so would not extend her baricitinib therapy test standard treatment time COVID-19 Pneumonia - continue Decadron 6mg - on her discharge would recommend the following prednisone taper: - prednisone 20mg for 2 weeks (with Bactrim as ppx while on 20mg pred), 15mg for 1 week, 10mg for 1 week, 5mg for 1 week - continue remdesivir despite long time out from diagnosis given short viral cycle time - continue barcitinib for standard treatment time - trend inflammatory markers - hold metformin and meloxicam - do not recommend antibiotics at this time -I do not clinically feel as though she has a pneumonia and she has 2 - procalcitonin tests. - Lovenox for DVT ppx Hypoxic respiratory failure - supplemental O2 for sats > 90% - CPAP at night - if she is not using the CPAP then it can removed from her room - proning as much as possible - incentive spirometry - VibraPEP - Combivent QID - ambulatory pulse ox - will need O2 on discharge Qualifiers: Chronicity: acute Qualified Code(s): J96.01 - Acute respiratory failure with hypoxia
--- NOTE | 2021-04-24 14:38 | W.NUTRFU ---
Date of service: 04/24/21 Time of Service: 14:38 Nutritional Follow up NOTE: Consistently excellent PO intake on regular diet. BMI is 33.5 kg/m2 c/w class 1 obesity. No nutritional issues noted at this time. Will continue to follow progress. Time Spent in Nutritional Counseling and Treatment: 0
--- NOTE | 2021-04-24 15:43 | PT.INTREAT ---
Date of service: 04/24/21 Time of Service: 10:57 PT Notes Visit Reasons: Pneumonia, Covid 19 Inpatient Physical Therapy Treatment Note [facility] Date: 04/24/2021 PRECAUTIONS: Fall, activity as tolerated, COVID-19 SUBJECTIVE: Kelly is pleasant although states that she is not feeling better. She states that she is SOB and fatigued. OBJECTIVE: PAIN: No c/o pain BED MOBILITY/TRANSFERS Rolling L/R: I Supine-sit: I with HOB flat Sit-supine: I with HOB flat Sit-stand: S Stand-sit: S Bed-Chair: S Chair-bed: S GAIT Assistive Device: No AD FWW Weight bearing: Full Assist: SBA without AD S with FWW Distance: 15' without AD 25' with FWW Deviation: Unsteady without AD; SOB and chest pressure VITALS: 89-92% on RA with gait training and ther ex THEREX: Patient was instructed in an UE and LE strengthening program, completed in a seated position, as per flow sheet. ASSESSMENT: Patient tolerated session with complaint of SOB causing chest pressure. She would benefit from continued global strengthening and general conditioning for improved activity tolerance. PLAN: Continue with global strengthening and general conditioning for improved mobility. TREATMENT CODE/TIME: 31 minutes; 32131, 34484 (10:57)
[2021-04-24] MEDS: Enoxaparin 40 MG/0.4 ML SYR SC (17:36)
--- NOTE | 2021-04-24 19:22 | W.PM.PROGNOT ---
Date of Service Date of service: 04/24/21 Time of Service: 19:22 Assessment and Plan Assessment and plan (1) 2019 novel coronavirus-infected pneumonia (NCIP): Status: Acute Assessment and plan: Since beginning of 04/09. Continue extended course of remdesivir, continue decadron and baricitinib. Echo with LVEF 60% and RVSP of 24%. Improved today. Continue to wean O2. I believe the patient would benefit from swing bed level stay on discharge, to which she agrees. Continue IS/vibrapep. Continue supplementation with vitamin C and D. Wean O2 as tolerated. (2) Acute bacterial bronchitis: Status: Resolved Assessment and plan: D/c abx Cough is now dry. (3) Respiratory failure with hypoxia: Status: Acute Assessment and plan: Wean O2 as tolerated. Qualifiers: Chronicity: acute Qualified Code(s): J96.01 - Acute respiratory failure with hypoxia (4) Rheumatoid arthritis: Status: Chronic Assessment and plan: Pain is controlled. Baricitinib is addressing RA as well as COVID. PT consulted. Qualifiers: Rheumatoid arthritis location: unspecified site Rheumatoid factor presence: unspecified presence Qualified Code(s): M06.9 - Rheumatoid arthritis, unspecified (5) DVT prophylaxis: Status: Acute Assessment and plan: enoxaparin (6) Discharge planning issues: Status: Acute Assessment and plan: Continues to require hospitalization Will require swing bed level stay Subjective Subjective Interval history since last seen: On RA at rest today. NELSON, still desats to 85% on RA when ambulating. BM soft. No diarrhea. Dry Cough. No CP. No Dizziness. Exam Narrative Exam Narrative: Today's visit is conducted over the phone due to patient's improvement and her COVID-19 condition. The patient sounds less dyspneic today. Bright affect. No cough. A&Ox3. Objective Last Vital Signs Temp 37.1 C 04/24/21 17:39 Pulse 74 04/24/21 17:39 Resp 20 04/24/21 17:39 BP 110/63 04/24/21 17:39 Pulse Ox 94 04/24/21 17:39 Laboratory Results - last 24 hr 04/24/21 04/24/21 04/24/21 07:15 07:15 07:15 WBC 10.19 RBC 3.84 L Hgb 11.0 L Hct 32.3 L MCV 84.1 MCH 28.6 MCHC 34.1 RDW 13.7 Plt Count 347 MPV 8.7 Immature Gran % 2.4 Neutrophils % 78.9 Lymphocytes % 11.5 Monocytes % 6.5 Eosinophils % 0.6 Basophils % 0.1 Nucleated RBC % 0 Absolute Neutrophils 8.05 H Absolute Lymphocytes 1.17 L Absolute Monocytes 0.66 Absolute Eosinophils 0.06 Absolute Basophils 0.01 D-Dimer 391 Sodium 133 L Potassium 4.0 Chloride 96 L Carbon Dioxide 30.4 Anion Gap 6.6 BUN 35 H Creatinine 1.0 Estimated GFR/1.73 m2 54.35 Glucose 77 Calcium 9.0 Magnesium 1.9 Ferritin 221 Total Bilirubin 0.5 Conjugated Bilirubin 0.1 AST 14 L ALT 27 Alkaline Phosphatase 74 C-Reactive Protein 0.15 Total Protein 6.1 L Albumin 3.1 L
[2021-04-24] MEDS: Zolpidem 5 MG TAB PO (21:55)
[2021-04-24] MEDS: diphenhydrAMINE 25 MG CAP PO (21:56)
[2021-04-25 04:30] VITALS: BP 127/78; PULSE 68; RESP 16; TEMP 36.4; O2SAT 99
[2021-04-25] MEDS: diazePAM 2 MG TAB PO ×2 (06:03→12:31)
[2021-04-25 07:00] VITALS: PULSE 64
[2021-04-25 08:02] VITALS: PULSE 65; RESP 18; O2SAT 92
[2021-04-25 08:04] VITALS: BP 113/58; PULSE 73; RESP 18; TEMP 36.7; O2SAT 92
[2021-04-25] MEDS: Cholecalciferol (Vitamin D3) 1,000 UNIT TAB 5000 UNITS PO (08:07)
[2021-04-25] MEDS: Montelukast 10 MG TAB PO (08:08)
[2021-04-25] MEDS: Acetaminophen 325 MG TAB 650 MG PO ×2 (08:08→13:53)
[2021-04-25] MEDS: Ascorbic Acid 500 MG TAB PO (08:08)
[2021-04-25] MEDS: Citalopram 20 MG TAB PO (08:08)
[2021-04-25] MEDS: hydroCHLOROthiazide 25 MG TAB PO (08:08)
[2021-04-25] MEDS: amLODIPine 5 MG TAB PO (08:08)
[2021-04-25] MEDS: Ipratropium/Albuterol 4 GM 120 PUFF INH IH ×2 (08:09→13:53)
[2021-04-25] MEDS: Dexamethasone 4 MG TAB 6 MG PO (08:09)
[2021-04-25] MEDS: Nystatin POWDER 15 GM JAR TP ×2 (08:09→13:57)
[2021-04-25] MEDS: Famotidine 20 MG TAB PO (10:03)
[2021-04-25] MEDS: Normal Saline Flush 10 ML SYR IVP ×2 (12:32→13:53)
[2021-04-25 14:40] VITALS: O2SAT 93
--- NOTE | 2021-04-25 14:51 | PT.INTREAT ---
Date of service: 04/25/21 Time of Service: 11:04 PT Notes Visit Reasons: Pneumonia, Covid 19 Inpatient Physical Therapy Treatment [facility] Date: 04/25/2021 PRECAUTIONS: Fall, activity as tolerated, COVID-19 SUBJECTIVE: Kelly is pleasant and reports that she is feeling much better today. She states that she has been on room air for about 24 hours now, and feels almost back to her baseline prior to Covid. She is hopeful that she can discharge to home today. OBJECTIVE: PAIN: No c/o pain BED MOBILITY/TRANSFERS Rolling L/R: I Supine-sit: I with HOB flat Sit-stand: I Stand-sit: I Bed-Chair: I Chair-bed: I GAIT Assistive Device: FWW Weight bearing: Full Assist: S Distance: 40' x2 Deviation: Slow pacing for energy conservation, minimal SOB VITALS: 89-92% on RA with gait training and ther ex THEREX: Patient was instructed in a seated UE and LE strengthening program, as per flow sheet. ASSESSMENT: Patient tolerated session with minimal complaint of SOB without chest pressure. She was able to tolerate a progression in gait distance with FWW support and supervision. PLAN: Continue with global strengthening and general conditioning for improved activity tolerance. TREATMENT CODE/TIME: 26 minutes; [id number], [id number] (11:04)
--- NOTE | 2021-04-25 15:50 | DSE_ITS ---
Date of service: 04/25/21 Time of Service: 15:55 DS: Diagnosis Discharge Diagnosis (1) 2019 novel coronavirus-infected pneumonia (NCIP): Status: Acute (2) Acute bacterial bronchitis: Status: Resolved (3) Respiratory failure with hypoxia: Status: Resolved (4) Rheumatoid arthritis: Status: Chronic (5) Obesity (BMI 30-39.9): Status: Chronic Discharge Plan Disposition Patient Disposition: HOME Condition: Stable Discharge Details Reason For Visit: Pneumonia, Covid 19 Admit Date/Time: 04/17/21 11:12 Admit Provider: Kurtis Alvarez Attending Provider: Kurtis Alvarez [facility] Course: Ms Dasilva is a 71 year old female with PMHx of RA on rituxan, as well as h/o NIDDM2, hypertension, obesity with BMI of 33.5, who was admitted to [facility] hospitalist service on 04/17/21 with acute hypoxic respiratory failure due to COVID-19 pneumonia with superimposed bacterial component. She saturated 80% on RA and required 2.5 L to saturate above 90%. She had originally tested positive for COVID-19 on 03/21/21 and continued to test positive on this admission. The patient was initiated on dexamethasone, remdesivir and baricitinib with slow improvement. She was also treated with empiric antibiotics for suspected bacterial superinfection. She saw Dr Oliver of pulmonology/critical care in consultation who guided her therapy. The patient was able to get off supplemental oxygen, including wiht exertion, and her exertional dyspnea improved significantly. She feels much better. She is now ready for discharge home. Because of her underlying immunosuppressed state, it would be best if she continued to quarantine for another week. She is going to be discharged home with a walker. Care for patient as well as completion of her discharge summary on day of discharge took 45 minutes. Home Meds and New Rx's Prescriptions: New ascorbic acid (vitamin C) [Vitamin C] 500 mg Tablet 500 mg PO BID Qty: 0 RF: 0 diazepam 2 mg Tablet 2 mg PO TID PRN PRN (Reason: anxiety) Qty: 10 RF: 0 Combivent Respimat 20-100 mcg/actuation Mist 1 puff inhalation QID PRN PRN (Reason: shortness of breath or wheezing) Qty: 4 RF: 0 prednisone 10 mg tablet See Rx Instructions .ROUTE .COMPLEX Qty: 50 RF: 0 sulfamethoxazole-trimethoprim [Bactrim DS] 800-160 mg tablet 1 tab PO BID Qty: 28 RF: 0 Continued amlodipine 5 mg tablet 5 mg PO DAILY Qty: 90 RF: 4 cetirizine [Zyrtec] 10 mg tablet 5 mg PO DAILY PRNRF: 0 melatonin 10 mg capsule 10 mg PO HS PRNRF: 0 (DME) Aerochamber MV 1 EACH spacer 1 ea Miscellaneous PRN Qty: 1 RF: 0 hydrochlorothiazide 25 MG tablet 25 mg PO DAILY Qty: 90 RF: 4 Rituxan 10 MG/1 ML concentrate 10 mg IV Q6 MONTHS RF: 0 montelukast [Singulair] 10 MG tablet 10 mg PO DAILY MDD i tab Qty: 90 RF: 4 meloxicam 15 MG tablet 15 mg PO DAILY Qty: 90 RF: 3 Hold Instructions: Home Medication placed on hold at Doctor's office omeprazole 20 mg capsule,delayed release(DR/EC) 20 mg PO BID Qty: 180 RF: 0 citalopram 20 mg tablet 20 mg PO DAILY RF: 0 metformin 500 mg tablet extended release 24 hr 500 mg PO DAILY RF: 0 Discontinued prednisone 20 mg tablet 40 mg PO DAILY RF: 0 Discharge Instructions Instructions: Sulfamethoxazole/Trimethoprim (By mouth), Prednisone (By mouth), Droplet Precautions (GEN), COVID-19 (Coronavirus Disease 2019) (DC) Additional Instructions: You should self-quarantine for the next week. Return to the hospital with any fever, bleeding, chest pain, shortness of breath. Finish your prednisone taper and bactrim as prescribed. Referrals: Dr Morgan Burch [Other] (Fax discharge summary when discharged) Dr Gerardo Banks [Other] (Fax discharge summary when discharged) Activity:: Activity as Tolerated Equipment/Supplies:: walker Diet:: Low Sodium Discharge Orders Discharge Orders: Discharge Order (Routine); Ordered 04/25/21 Ordered By: Flro Bonds DS: Summary Time Spent with Patient providing and/or coordinating discharge services: Greater than 30 minutes Status at Discharge Functional status at discharge: uses cane/walker Overall status at discharge: patient is back to baseline Mental Status: mental status grossly normal Speech and Movement: speech and movement normal Mood: congruent mood Affect: normal affect Exam Narrative Exam Narrative: Today's visit is conducted over the phone due to patient's improvement and her COVID-19 condition. No dyspnea/tachypnea/cough. Bright affect. A&Ox3. Psych Mental Status: mental status grossly normal Speech and Movement: speech and movement normal Mood: congruent mood Affect: normal affect DS: Data Vitals/I&O Vitals and I&O: Vital Signs Temperature 36.7 C 04/25/21 08:04 Temperature Source Temporal Artery Scan 04/25/21 08:04 Pulse 73 04/25/21 08:04 Pulse Rhythm Regular 04/25/21 09:00 Pulse 65 04/25/21 08:02 Respiratory Rate 18 04/25/21 08:04 Respiratory Effort Non-Labored 04/25/21 09:00 Respiratory Depth Normal 04/25/21 09:00 Respiratory Pattern Normal 04/25/21 09:00 Blood Pressure 113/58 L 04/25/21 08:04 Blood Pressure Mean 66 04/18/21 08:03 Blood Pressure Position Supine 04/17/21 14:22 Pulse Oximetry 93 04/25/21 14:40 Oxygen Delivery Method Room Air 04/25/21 14:40 Oxygen Flow Rate 0 04/25/21 14:40 Fraction of Inspired Oxygen (FIO2) 30 04/23/21 09:11 Pain Level 0 04/25/21 08:04 Comment 04/23/21 22:58 Intake & Output 04/24/21 04/25/21 04/25/21 23:59 11:59 23:59 Intake Total 560 / 960 700 / 700 Balance 560 / 460 700 / 700 Intake: IV 110 / 110 Oral 450 / 850 700 / 700 Other: Urine Color Yellow Urine Appearance Clear Clear Comment Unable to identify urine color because mixed with barbara in bedside commode. Patient is voiding independently in the bedside commode. Stool Size Moderate Small Stool Characteristics Soft Soft Formed Formed Brown Brown Voiding Methods Bedside Commode Bedside Commode Data Completed and Pending Completed studies during hospitalization [Text1]: CTA chest: 1. No evidence of acute pulmonary emboli.. 2. However, there is significant progression of previously described bilateral pulmonary infiltrates. These are now extensive involving all lobes of both lungs. No associated pleural effusions 3. No intrathoracic adenopathy. CXR:Bilateral pulmonary infiltrates. Pneumonia should be considered. This includes COVID-19. BALDEV: LVEF 60%, nml LV size, wall thickness. No LV segmental wall motion abnormalities. RVSP 24 mmHg. [facility] Medical History Obesity (BMI 30-39.9) Rheumatoid arthritis Surgical History Colonoscopy - [facility] (03/01/13) DR. Prabhjot LAGUERRE Endometrial Biopsy 1990: NEG 1999: NEG S/P ankle fusion Social History Smoking/Tobacco Use Status: Never Smoking risk assessment performed?: Yes Alcohol Intake: current Alcohol Intake frequency: a few times a month Drug use: Never Substance use type: does not use Do you feel safe at home: Yes Do you feel safe in your relationship?: Yes
--- NOTE | 2021-04-25 17:09 | PDOC.CMDIS ---
- If Service Date Differs Date of service: 04/25/21 Time of Service: 17:09 LACE Index Scoring Tool - Questions: Length of Stay (in days): 7 - 13 Acuity (Admit via E.D.?): Yes E.D. Visits: 3 - Answers: Total Score: 11 Risk of Readmission: High Risk Care Management Discharge Reason for Hospitalization: Pneumonia, Covid-19 Discharge Plan: Kelly will return home with no new services. She plans to go to stay with family in [place] with her , who will be driving her via private vehicle. She will follow up with her PCP, outpatient PT, and her discharge plan of care. KATARINA called the pharmacy regarding a prescription for an inhaler, which will be $450, as her deductible is not yet met. Per MD, she will have the remainder of the inhaler that she has used at [facility] to return home with. KATARINA will fax the discharge summary to her providers in [place], as she will be relocating to [place] multimedia services coordinator after a stay at her family's home in [place]. KATARINA spoke to Kelly over the phone, and she is very happy to be discharged, and feels ready for discharge today. She will follow up with her PCP and discharge plan of care. Patient/Family Education Needs: Review discharge instructions regarding activity levels and medications, discussion of self care needs including ask me three.
== END 2021-04-25 18:20 | disposition home or self-care (01) | DRG 177 ==
LOC: ER 11:04 → ICU 13:40 → MS 04-18 22:47
PROVIDERS: General Practice; Internal Medicine; Nurse Practitioner Acute Care; Nurse Practitioner Family; Student in an Organized Health Care Education/Training Program; Admitting Provider Family Medicine; Emergency Provider Emergency Medicine; PCP Family Medicine; Visit Provider Family Medicine
DX: U07.1 COVID-19 (principal); J12.82 Pneumonia due to coronavirus disease 2019; J96.01 Acute respiratory failure with hypoxia; D84.821 Immunodeficiency due to drugs; Z79.899 Other long term (current) drug therapy; M06.9 Rheumatoid arthritis, unspecified; R07.89 Other chest pain; J20.8 Acute bronchitis due to other specified organisms; E66.9 Obesity, unspecified; Z68.33 Body mass index [BMI] 33.0-33.9, adult
CPT/HCPCS: 36415; 71275; 80048; 80053; 80076; 84145; 87040; 87635; 93005; 94640; 96365; 96367; 97110; 97162; 97530; 99285; J1650; 71045; 81003; 81015; 82728; 83605; 83735; 83880; 84443; 84484; 85025; 85379; 86140; 87086; 93010; 93306; 94660; 99223; 99231; 99232; 99233; 99239; J2543; J3490; J8540

== ENCOUNTER 2021-05-06 10:48 | Inpatient (IN) | payer MEDICARE, BC, SELFPAY ==
[2021-05-06] VITALS (37 sets, daily range): BP systolic 102–123; BP diastolic 55–71; PULSE 64–121; RESP 17–48; TEMP 31–36.8; O2SAT 55–99
--- NOTE | 2021-05-06 10:45 | RT.EKG_ITS ---
APPROVED REPORT Exam: Resting ECG Reason for Exam: sob Patient Location: E HR:108 bpm ECG Measurements Heart Rate 108 AXIS HI 143 P 47 QRSd 66 QRS 4 QT 312 T 31 QTc 418 Conclusion Sinus tachycardia...rate> 99 sinus tachycardia at 108, normal axis, no STEMI, nondiagnostic EKG
--- NOTE | 2021-05-06 11:24 | W.ED.GENAD ---
Discharge Plan Disposition Patient Disposition: [facility] INPATIENT Discharge Details Clinical Impression: Hypoxia Admit Date/Time: 05/06/21 12:48 Admit Provider: Kurtis Alvarez Attending Provider: Kurtis Alvarez Primary Care Provider: Shawn Hancock ED Provider: Rizwana Alcazar Discharge Data Discharge Date/Time-TO BE ENTERED AT DEPARTURE: 05/06/21 13:52 Medical Decision Making Kelly Dasilva is a 71 y/o woman with h/o rheumatoid arthritis, diabetes who presented to the emergency department with SOB. Pt initially tachypenic to RR of 40 with O2 sats in 50s, rapidly improved O2 sats to 93% on 3LNC O2. Coarse breath sounds b/l. No peripheral edema. Concern for continued PNA, possible bacterial superinfection, PE, other. Doubt ACS, CHF. Exam/hx at this time not c/w sepsis, acute aortic process, acute intra-abdominal process. Plan for EKG, IV placement, telemetry, screening labs, CT chest. Will monitor and reassess. Labs reviewed, COVID postive, WBC 8.98, Hgb 10.5, Ferritin 939, d-dimer 3438, CRP 9.56, Cr 1.3. Pt desats into low 80s with small movements. Plan for high flow O2. CT shows extensive b/l pulm infiltrates somewhat improved from prior, no PE. Plan for admission for hypoxia. Medical Records Medical records reviewed: Yes I reviewed the patient's medical records. Imaging Data Radiologic Study: Attestation: I personally reviewed and interpreted this imaging study as follows: Radiologist's impression: EXAM: CT CHEST PE CTA CLINICAL HISTORY: SOB, hypoxia. TECHNIQUE: Imaging Protocol: CT angiography of the chest was performed using pulmonary embolus protocol. Multi planar reconstructions were performed. CONTRAST MATERIAL: Intravenous: Omnipaque 350 Contrast volume: 100 cc COMPARISON: CT CT CHEST PE CTA from 04/17/2021 FINDINGS: CHEST: PULMONARY ARTERIES: There are no intraluminal filling defects to suggest acute pulmonary emboli. LUNGS: There is still extensive infiltrates throughout both lung garcia with thumb mild improvement when compared to 04/17/2021. There are no pleural effusions. No ominous focal pulmonary nodules. No new findings in the trachea and mainstem bronchi. In the right upper lobe there is some confluent subpleural infiltrate noted which is more so than previous. MEDIASTINUM: There is no hilar nor mediastinal adenopathy. Visualized thyroid unremarkable. CARDIAC: Cardiomegaly. No pericardial effusion.Caliber of the thoracic aorta is within normal limits. There is no significant shift of the interventricular septum. PARTIALLY VISUALIZED UPPERMOST ABDOMEN: Hepatic steatosis noted. OSSEOUS: No significant osseous lesions.. IMPRESSION: 1. No evidence of acute pulmonary emboli. No evidence of pulmonary infarction. 2. Extensive bilateral pulmonary infiltrates are again noted, mildly improved from 04/17/2021. No associated pleural effusions. No intrathoracic adenopathy 3. Cardiomegaly again noted. No pericardial effusion. Lab Data Lab results reviewed: Yes I reviewed the patient's lab results. Labs: Laboratory Tests Range/Units 05/06/21 05/06/21 05/06/21 11:26 11:26 11:26 WBC (4.4-10.8) 10^3/uL 8.98 RBC (3.93-5.22) 10^6/uL 3.59 L Hgb (11.2-15.7) g/dL 10.5 L Hct (36.0-46.0) % 31.0 L MCV (80-95) fL 86.4 MCH (27.0-33.0) pg 29.2 MCHC (32.0-36.0) % 33.9 RDW (11.7-14.6) % 14.8 H Plt Count (130-400) 10^3/uL 207 D MPV (8.0-11.0) fL 8.6 Immature Gran % 4.0 Neutrophils % 84.8 Lymphocytes % 6.6 Monocytes % 4.3 Eosinophils % 0.0 Basophils % 0.3 Nucleated RBC % % 0 Absolute Neutrophils (1.2-6.7) 10^3/uL 7.61 H Absolute Lymphocytes (1.2-3.4) 10^3/uL 0.59 L Absolute Monocytes (0.1-0.8) 10^3/uL 0.39 Absolute Eosinophils (0.0-0.7) 10^3/uL 0.00 Absolute Basophils (0.0-0.2) 10^3/uL 0.03 D-Dimer (<500) ng/mlFEU 3438 H Sodium (136-145) mmol/L 133 L Potassium (3.5-5.1) mmol/L 4.4 Chloride (98-107) mmol/L 96 L Carbon Dioxide (21.0-32.0) mmol/L 27.2 Anion Gap (3-11) mmol/L 9.8 BUN (7-18) mg/dL 24 H Creatinine (0.55-1.02) mg/dL 1.3 H Estimated GFR/1.73 m2 (mL/min/1.73m2) 40.15 Glucose (74-106) mg/dL 114 H Calcium (8.5-10.1) mg/dL 8.6 Ferritin (8-252) ng/mL 939 H Total Bilirubin (0.2-1.0) mg/dL 0.4 AST (15-37) U/L 31 ALT (14-59) U/L 22 Alkaline Phosphatase (46-116) U/L 77 Troponin I (<0.06) ng/mL < 0.05 C-Reactive Protein (0.0-0.3) mg/dL 9.56 H NT-Pro-B Natriuret Pep (<300) pg/mL 792 H Total Protein (6.4-8.2) g/dL 6.6 Albumin (3.4-5.0) g/dL 2.8 L Urine Color (Yellow) Urine Clarity (Clear) Urine pH (5-8) Ur Specific [place] (1.005-1.025) Urine Protein (Negative) mg/dL Urine Ketones (Negative) mg/dL Urine Blood (Negative) Urine Nitrite (Negative) Urine Bilirubin (Negative) Urine Urobilinogen (Up TO 0.2) EU/dL Ur Leukocyte Esterase (Negative) Urine RBC (0-2) HPF Urine WBC (0-5) HPF Ur Epithelial Cells (Negative) HPF Urine Crystals (Negative) HPF Urine Bacteria (Negative) HPF Urine Casts (Negative) LPF Urine Mucus (Negative) Ur Culture Indicated? Urine Glucose (Negative) mg/dL COVID-19 Source SARS-CoV-2 (PCR) (Negative) Range/Units 05/06/21 05/06/21 11:55 12:25 WBC (4.4-10.8) 10^3/uL RBC (3.93-5.22) 10^6/uL Hgb (11.2-15.7) g/dL Hct (36.0-46.0) % MCV (80-95) fL MCH (27.0-33.0) pg MCHC (32.0-36.0) % RDW (11.7-14.6) % Plt Count (130-400) 10^3/uL MPV (8.0-11.0) fL Immature Gran % Neutrophils % Lymphocytes % Monocytes % Eosinophils % Basophils % Nucleated RBC % % Absolute Neutrophils (1.2-6.7) 10^3/uL Absolute Lymphocytes (1.2-3.4) 10^3/uL Absolute Monocytes (0.1-0.8) 10^3/uL Absolute Eosinophils (0.0-0.7) 10^3/uL Absolute Basophils (0.0-0.2) 10^3/uL D-Dimer (<500) ng/mlFEU Sodium (136-145) mmol/L Potassium (3.5-5.1) mmol/L Chloride (98-107) mmol/L Carbon Dioxide (21.0-32.0) mmol/L Anion Gap (3-11) mmol/L BUN (7-18) mg/dL Creatinine (0.55-1.02) mg/dL Estimated GFR/1.73 m2 (mL/min/1.73m2) Glucose (74-106) mg/dL Calcium (8.5-10.1) mg/dL Ferritin (8-252) ng/mL Total Bilirubin (0.2-1.0) mg/dL AST (15-37) U/L ALT (14-59) U/L Alkaline Phosphatase (46-116) U/L Troponin I (<0.06) ng/mL C-Reactive Protein (0.0-0.3) mg/dL NT-Pro-B Natriuret Pep (<300) pg/mL Total Protein (6.4-8.2) g/dL Albumin (3.4-5.0) g/dL Urine Color (Yellow) Yellow Urine Clarity (Clear) Sl Cloudy Urine pH (5-8) 5.5 Ur Specific [place] (1.005-1.025) >= 1.030 H Urine Protein (Negative) mg/dL 100 H Urine Ketones (Negative) mg/dL Negative Urine Blood (Negative) Small H Urine Nitrite (Negative) Negative Urine Bilirubin (Negative) Negative Urine Urobilinogen (Up TO 0.2) EU/dL 0.2 Ur Leukocyte Esterase (Negative) Negative Urine RBC (0-2) HPF 5-10 H Urine WBC (0-5) HPF 0-2 Ur Epithelial Cells (Negative) HPF Many Urine Crystals (Negative) HPF Negative Urine Bacteria (Negative) HPF Many Urine Casts (Negative) LPF 0-2 Coarse Granular Urine Mucus (Negative) Trace Ur Culture Indicated? No/Sq. Contamination Urine Glucose (Negative) mg/dL Negative COVID-19 Source Nasal/Nares SARS-CoV-2 (PCR) (Negative) POSITIVE A* ECG Data Attestation: I personally reviewed and interpreted this ECG (s) as follows: Interpretation: EKG shows sinus tachycardia at 108, normal axis, no STEMI, nondiagnostic EKG HPI General Mode of arrival: ambulatory. Date/Time Provider Initiated Documentation: 05/06/21 11:17. Limitations to Documentation: no limitations. Information obtained by: patient, RN notes reviewed and old records reviewed. HPI Narrative: Kelly Dasilva is a 71-year-old woman with a history of rheumatoid arthritis on Rituxan, [id number] diabetes, recent Covid presenting to emergency department with shortness of breath. Per patient and record review, patient was diagnosed with Covid on March 17, approximately 7 days after her second dose of Covid vaccine. Patient reports that she was hospitalized for Covid on 04/17/2021, and then discharged home on 04/25/2021. Patient reports that at the time of discharge she did not have an oxygen requirement and was sent home on no oxygen. Patient reports that she spent time after discharge in [place], feeling overall well, and then on 05/02 developed a fever of 101 and began to feel more short of breath than usual. Patient also developed worsening dry cough. Patient has had no fever since 05/02, but shortness of breath which include shortness of breath at rest and dyspnea on exertion has been progressively worsening. Patient has pulse ox at home, and reports that oxygen levels at home over the past day or so has been in the 60s. She denies any pain, vomiting, diarrhea, numbness, weakness, rash. Has had somewhat decreased appetite over the past few days. Patient denies any history of pulmonary disease other than what she has been told is rheumatoid arthritis lung, does not use oxygen at baseline. Related Data Home Medications Medication Instructions Recorded Confirmed Aerochamber MV #1 aer 11/26/14 04/18/21 hydrochlorothiazide 25 mg PO DAILY #90 tab 02/16/15 05/06/21 Rituxan 10 mg IV Q6 MONTHS vial 04/18/15 05/06/21 montelukast [Singulair] 10 mg PO DAILY #90 tab MDD i tab 02/23/17 05/06/21 meloxicam 15 mg PO DAILY #90 tab-cap 04/10/17 05/06/21 amlodipine 5 mg tablet 5 mg PO DAILY #90 tab 02/06/20 05/06/21 cetirizine 10 mg tablet 5 mg PO DAILY PRN 03/12/20 05/06/21 omeprazole 20 mg capsule,delayed 20 mg PO BID #180 cap 01/31/21 05/06/21 release melatonin 10 mg capsule 10 mg PO HS PRN 03/21/21 05/06/21 citalopram 20 mg PO DAILY 04/17/21 05/06/21 metformin 500 mg PO DAILY 04/17/21 05/06/21 ascorbic acid (vitamin C) [Vitamin 500 mg PO BID #0 tab 04/25/21 05/06/21 C] ipratropium-albuterol [Combivent 1 puff INHALATION QID PRN PRN #4 g 04/25/21 05/06/21 Respimat] prednisone See Rx Instructions .ROUTE 04/25/21 05/06/21 .COMPLEX #50 tab lorazepam 0.5 mg tablet 0.5 mg PO BID PRN #20 tab 04/30/21 05/06/21 trazodone 50 mg tablet 50 mg PO QHS PRN #30 tab 04/30/21 05/06/21 Previous Rx's Medication Instructions Recorded meloxicam 15 mg PO DAILY #90 tab-cap 04/10/17 amlodipine 5 mg tablet 5 mg PO DAILY #90 tab 02/06/20 omeprazole 20 mg capsule,delayed 20 mg PO BID #180 cap 01/31/21 release ascorbic acid (vitamin C) [Vitamin 500 mg PO BID #0 tab 04/25/21 C] ipratropium-albuterol [Combivent 1 puff INHALATION QID PRN PRN #4 g 04/25/21 Respimat] prednisone See Rx Instructions .ROUTE 04/25/21 .COMPLEX #50 tab lorazepam 0.5 mg tablet 0.5 mg PO BID PRN #20 tab 04/30/21 trazodone 50 mg tablet 50 mg PO QHS PRN #30 tab 04/30/21 Allergies Allergy/AdvReac Type Severity Reaction Status Date / Time hydrocodone AdvReac Intermediate Nausea Verified 05/06/21 13:44 morphine AdvReac Intermediate Nausea Verified 05/06/21 13:44 oxycodone AdvReac Intermediate N/V Verified 05/06/21 13:44 General Stated Complaint: SOB HANS: 2 Review of Systems Narrative: Constitutional: denies fevers Eyes: denies eye pain ENT: denies ear pain, dental pain, sore throat Cardiovascular: denies chest pain, edema Respiratory: reports SOB, cough GI: denies abdominal pain, vomiting, diarrhea : denies flank pain MSK: denies back pain, neck pain, arthralgias, myalgias Skin: denies rash Neuro: denies headaches, numbness, weakness ON LICENSE OF [facility] Medical History Obesity (BMI 30-39.9) Rheumatoid arthritis Surgical History Colonoscopy - MAC (03/01/13) DR. Prabhjot LAGUERRE Endometrial Biopsy 1990: NEG 1998: NEG S/P ankle fusion Social History Smoking/Tobacco Use Status: Never Smoking risk assessment performed?: Yes Alcohol Intake: current Alcohol Intake frequency: a few times a month Drug use: Never Substance use type: does not use Do you feel safe at home: Yes Do you feel safe in your relationship?: Yes Exam Narrative Exam Narrative: Constitutional: [id number]-vyfulhhos, pleasant, tachypneic HENT: head atraumatic/normocephalic/normal inspection, mucous membranes moist Eyes: conjunctiva normal, sclera normal, pupils 3mm b/l Neck: no stridor, normal ROM, trachea midline Chest: normal inspection Resp: tachypneic, coarse breath sounds throughout b/l Cardio: tachycardic rate, normal rhythm, no murmur appreciated GI: abdomen soft, non-tender, non-distended Back: normal inspection, no rash Skin: warm, dry, normal color, no rash Neuro: alert, not altered, grossly non-focal, normal tone Ext: no edema, no posterior calf TTP Psych: normal mood, normal affect, normal behavior Course Vital Signs Vital signs: Vital Signs Pulse Oximetry 67 L 05/06/21 10:59 Temperature 36.8 C 05/06/21 11:02 Temperature Source Temporal Artery Scan 05/06/21 11:02 Pulse 105 H 05/06/21 11:16 Pulse 113 H 05/06/21 11:20 Respiratory Rate 42 H 05/06/21 11:20 Blood Pressure 112/66 05/06/21 11:16 Blood Pressure Mean 77 05/06/21 11:16 Pulse Oximetry 93 05/06/21 11:20 Oxygen Delivery Method Room Air 05/06/21 11:02 Oxygen Flow Rate 0 05/06/21 11:02 Pain Level 0 05/06/21 11:02 Comment 05/06/21 11:02
[2021-05-06 11:35] LABS: Abs Immature Grans 0.36 10^3/uL (0.0-0.06); Absolute Basophil Count 0.03 10^3/uL (0.0-0.2); Absolute Lymphocyte Count 0.59 10^3/uL (1.2-3.4); Absolute Monocyte Count 0.39 10^3/uL (0.1-0.8); Absolute Neutrophil Count 7.61 10^3/uL (1.2-6.7); Basophils % 0.3; HGB 10.5 g/dL (11.2-15.7); Lymphocytes % 6.6; MCH 29.2 pg (27.0-33.0); MCHC 33.9 % (32.0-36.0); MCV 86.4 fL (80-95); MPV 8.6 fL (8.0-11.0); Monocytes % 4.3; Neutrophils % 84.8; Nucleated RBC 0 %; Platelet Count 207 10^3/uL (130-400); RBC 3.59 10^6/uL (3.93-5.22); RDW 14.8 % (11.7-14.6); RDW-SD 46.2 fL; WBC 8.98 10^3/uL (4.4-10.8)
[2021-05-06 11:57] LABS: ALT 22 U/L (14-59); AST 31 U/L (15-37); Albumin 2.8 g/dL (3.4-5.0); Alkaline Phosphatase 77 U/L (46-116); Anion Gap 9.8 mmol/L (3-11); BUN 24 mg/dL (7-18); Bilirubin, Total 0.4 mg/dL (0.2-1.0); C-Reactive Protein 9.56 mg/dL (0.0-0.3); CO2 27.2 mmol/L (21.0-32.0); CREATININE 1.3 mg/dL (0.55-1.02); Calcium 8.6 mg/dL (8.5-10.1); Chloride 96 mmol/L (98-107); Estimated GFR 40.15 (mL/min/1.73m2); Glucose 114 mg/dL (74-106); NT-proBNP 792 pg/mL (<300); Potassium 4.4 mmol/L (3.5-5.1); Sodium 133 mmol/L (136-145); Total Protein 6.6 g/dL (6.4-8.2); Troponin I < 0.05 ng/mL (<0.06)
[2021-05-06 12:10] LABS: D-Dimer 3438 ng/mlFEU (<500)
[2021-05-06 12:10] LABS: Bilirubin Negative (Negative); Blood Small (Negative); Clarity Sl Cloudy (Clear); Glucose Negative (Negative); Ketones Negative (Negative); Leukocyte Esterase Negative (Negative); Nitrite Negative (Negative); Specific Gravity >= 1.030 (1.005-1.025); Urobilinogen 0.2 EU/dL (Up TO 0.2); pH 5.5 (5-8)
--- NOTE | 2021-05-06 12:11 | DI.CT_ITS ---
Exam(s) CT CHEST PE CTA EXAM: CT CHEST PE CTA CLINICAL HISTORY: SOB, hypoxia. TECHNIQUE: Imaging Protocol: CT angiography of the chest was performed using pulmonary embolus jamin col. Multi planar reconstructions were performed. CONTRAST MATERIAL: Intravenous: Omnipaque 350 Contrast volume: 100 cc COMPARISON: CT CT CHEST PE CTA from 04/17/2021 FINDINGS: CHEST: PULMONARY ARTERIES: There are no intraluminal filling defects to suggest acute pulmonary emboli. LUNGS: There is still extensive infiltrates throughout both lung garcia with thumb mild improvement w hen compared to 04/17/2021. There are no pleural effusions. No ominous focal pulmonary nodules. No new findings in the trachea and mainstem bronchi. In the right upper lobe there is some confluent s ubpleural infiltrate noted which is more so than previous. MEDIASTINUM: There is no hilar nor mediastinal adenopathy. Visualized thyroid unremarkable. CARDIAC: Cardiomegaly. No pericardial effusion.Caliber of the thoracic aorta is within normal limits . There is no significant shift of the interventricular septum. PARTIALLY VISUALIZED UPPERMOST ABDOMEN: Hepatic steatosis noted. OSSEOUS: No significant osseous lesions.. IMPRESSION: 1. No evidence of acute pulmonary emboli. No evidence of pulmonary infarction. 2. Extensive bilateral pulmonary infiltrates are again noted, mildly improved from 04/17/2021. No as sociated pleural effusions. No intrathoracic adenopathy 3. Cardiomegaly again noted. No pericardial effusion. Report called to ER provider. RADIATION DOSE DELIVERED: 451.8mGy.cm Total DLP DATA REPOSITORY: All CT scans at this facility are submitted to the National Radiology Data Registry (NRDR) Dose Index Registry (DIR) with the [employer] (ACR). RADIATION OPTIMIZATION: All CT scans at this facility use at least one of these dose optimization te chniques: automated exposure control; mA and/or kV adjustment per patient size (includes targeted exa ms where dose is matched to clinical indication); or iterative reconstruction.
[2021-05-06 12:17] LABS: Bacteria Many HPF (Negative); C & S Indicated? No/Sq. Contamination; Casts 0-2 Coarse Granular LPF (Negative); Crystals Negative HPF (Negative); Epithelial Cells Many HPF (Negative); Mucus Trace (Negative); WBC 0-2 HPF (0-5)
[2021-05-06 12:19] LABS: Ferritin 939 ng/mL (8-252)
[2021-05-06] MEDS: Normal Saline - Diluent 50 ML VIAL IV (12:20)
[2021-05-06] MEDS: Omnipaque 350 MG/ML 100 ML BTL 73 ML IJ (12:21)
[2021-05-06] MEDS: Normal Saline Flush 10 ML SYR IVP ×2 (12:25→15:15)
[2021-05-06] MEDS: Albuterol/Ipratropium 3 ML UPD VIAL UPD (12:27)
[2021-05-06 12:31] LABS: Source Nasal/Nares
[2021-05-06 13:29] LABS: COVID-19 PCR POSITIVE (Negative)
[2021-05-06] MEDS: Enoxaparin 40 MG/0.4 ML SYR SC ×2 (15:14→16:47)
[2021-05-06] MEDS: Pantoprazole 40 MG VIAL IVP ×2 (15:14→16:47)
--- NOTE | 2021-05-06 15:43 | W.PM.HP.N ---
Date of service: 05/06/21 Time of Service: 15:43 Assessment and Plan Assessment and plan (1) Respiratory failure with hypoxia: Status: Resolved Assessment and plan: Consult Pulmonary medicine. Stable on Hiflow O2. CPAP at night. Qualifiers: Chronicity: acute Qualified Code(s): J96.01 - Acute respiratory failure with hypoxia (2) 2019 novel coronavirus-infected pneumonia (NCIP): Status: Acute Assessment and plan: PCR cycle time of 34.7. Consult Pulmonary medicine. Inflammatory markers had normalized but now up higher than at time of previous admission. Start dexamethasone, Remdesivir and Baricitanib. Procal ordered d/t concerned of developing consolidating pneumonia on CT. (3) Rheumatoid arthritis: Status: Chronic Assessment and plan: Held her Rituxan this month. Qualifiers: Rheumatoid arthritis location: unspecified site Rheumatoid factor presence: unspecified presence Qualified Code(s): M06.9 - Rheumatoid arthritis, unspecified History of Present Illness History of Present Illness Chief Complaint: Shortness of air Narrative: This is a 69 yo female with a PMH of RA on Rituxan, COVID-19 PNA admitted at [facility] from 04/19/21 - 04/25/21, DM2. She presented to the ED with shortness of breath. She was d/c'd on 04/25 w/o supplemental O2 needs. She had been feeling better overall but on 05/02 she had a fever of 101F and began to feel more short of air. A dry cough developed. She has monitored her oxygen saturations at home and for the last appx 2 days they have gone down into the 60's. O2 saturation of 50% on presentation here. No CP, palpitations, N/V/diarrhea. She lost her sense of taste at the onset of her Covid-19 and it has remained so. She was afebrile here. WBC count normal. Hgb 10.5. Na 133, BUN 24, creatinine 1.3. CRP 9.56 (0.15 on 04/24). NTProBNP 792. Ferritin 939. D dimer 3438 (391 on 04/24). CT chest: No evidence of acute pulmonary emboli. No evidence of pulmonary infarction. Extensive bilateral pulmonary infiltrates are again noted, mildly improved from 04/17/2021. No associated pleural effusions. No intrathoracic adenopathy. Cardiomegaly again noted. No pericardial effusion. On Hiflow NC at 50% FIO2 her oxygen saturations are in the mid 90's. She was feeling comfortable while at rest. Review of Systems All systems reviewed & are unremarkable except as noted in HPI and below PFSH Medical History Obesity (BMI 30-39.9) Rheumatoid arthritis Surgical History Colonoscopy - MAC (03/01/13) DR. Prabhjot LAGUERRE Endometrial Biopsy 1989: NEG 1999: NEG S/P ankle fusion Social History Smoking/Tobacco Use Status: Never Smoking risk assessment performed?: Yes Alcohol Intake: current Alcohol Intake frequency: a few times a month Drug use: Never Substance use type: does not use Do you feel safe at home: Yes Do you feel safe in your relationship?: Yes Meds Allergies and Home Medications Allergies Allergy/AdvReac Type Severity Reaction Status Date / Time hydrocodone AdvReac Intermediate Nausea Verified 05/06/21 13:44 morphine AdvReac Intermediate Nausea Verified 05/06/21 13:44 oxycodone AdvReac Intermediate N/V Verified 05/06/21 13:44 Home Medications Medication Instructions Recorded Confirmed Type Aerochamber MV #1 aer 11/26/14 04/18/21 History hydrochlorothiazide 25 mg PO DAILY #90 tab 02/16/15 05/06/21 History Rituxan 10 mg IV Q6 MONTHS vial 04/18/15 05/06/21 History montelukast [Singulair] 10 mg PO DAILY #90 tab MDD i tab 02/23/17 05/06/21 History meloxicam 15 mg PO DAILY #90 tab-cap 04/10/17 05/06/21 Rx amlodipine 5 mg tablet 5 mg PO DAILY #90 tab 02/06/20 05/06/21 Rx cetirizine 10 mg tablet 5 mg PO DAILY PRN 03/12/20 05/06/21 History omeprazole 20 mg capsule,delayed 20 mg PO BID #180 cap 01/31/21 05/06/21 Rx release melatonin 10 mg capsule 10 mg PO HS PRN 03/21/21 05/06/21 History citalopram 20 mg PO DAILY 04/17/21 05/06/21 History metformin 500 mg PO DAILY 04/17/21 05/06/21 History ascorbic acid (vitamin C) [Vitamin 500 mg PO BID #0 tab 04/25/21 05/06/21 Rx C] ipratropium-albuterol [Combivent 1 puff INHALATION QID PRN PRN #4 g 04/25/21 05/06/21 Rx Respimat] prednisone See Rx Instructions .ROUTE 04/25/21 05/06/21 Rx .COMPLEX #50 tab lorazepam 0.5 mg tablet 0.5 mg PO BID PRN #20 tab 04/30/21 05/06/21 Rx trazodone 50 mg tablet 50 mg PO QHS PRN #30 tab 04/30/21 05/06/21 Rx Exam Const General: cooperative and no acute distress Nutritional Appearance: average body habitus Orientation: alert and oriented x3 HENMT Head: normocephalic Eyes General: appearance normal, both eyes and all related structures Cornea: corneas normal Pupils: PERRL Resp Effort & Inspection: normal respiratory effort Auscultation: diminished lung sounds and rales Cardio Rate: regular rate Rhythm: regular rhythm Heart Sounds: S1 normal and S2 normal GI Palpation: soft and nontender Auscultation: normal bowel sounds Skin General skin exam: no rashes or lesions noted Lesions: no lesions Neuro General: no focal motor deficits Cognition: normal cognition Speech: speech normal Extrem General: no pedal edema and no calf tenderness Psych Appearance: grossly normal Mental Status: mental status grossly normal Speech and Movement: speech and movement normal Affect: normal affect Results Labs Result diagrams: 05/07/21 06:20 05/07/21 06:20 Labs: Laboratory Results - last 24 hr 05/06/21 05/06/21 05/06/21 11:26 11:26 11:26 WBC 8.98 RBC 3.59 L Hgb 10.5 L Hct 31.0 L MCV 86.4 MCH 29.2 MCHC 33.9 RDW 14.8 H Plt Count 207 D MPV 8.6 Immature Gran % 4.0 Neutrophils % 84.8 Lymphocytes % 6.6 Monocytes % 4.3 Eosinophils % 0.0 Basophils % 0.3 Nucleated RBC % 0 Absolute Neutrophils 7.61 H Absolute Lymphocytes 0.59 L Absolute Monocytes 0.39 Absolute Eosinophils 0.00 Absolute Basophils 0.03 D-Dimer 3438 H Sodium 133 L Potassium 4.4 Chloride 96 L Carbon Dioxide 27.2 Anion Gap 9.8 BUN 24 H Creatinine 1.3 H Estimated GFR/1.73 m2 40.15 Glucose 114 H Calcium 8.6 Ferritin 939 H Total Bilirubin 0.4 AST 31 ALT 22 Alkaline Phosphatase 77 Troponin I < 0.05 C-Reactive Protein 9.56 H NT-Pro-B Natriuret Pep 792 H Total Protein 6.6 Albumin 2.8 L Urine Color Urine Clarity Urine pH Ur Specific [place] Urine Protein Urine Ketones Urine Blood Urine Nitrite Urine Bilirubin Urine Urobilinogen Ur Leukocyte Esterase Urine RBC Urine WBC Ur Epithelial Cells Urine Crystals Urine Bacteria Urine Casts Urine Mucus Ur Culture Indicated? Urine Glucose COVID-19 Source SARS-CoV-2 (PCR) 05/06/21 05/06/21 11:55 12:25 WBC RBC Hgb Hct MCV MCH MCHC RDW Plt Count MPV Immature Gran % Neutrophils % Lymphocytes % Monocytes % Eosinophils % Basophils % Nucleated RBC % Absolute Neutrophils Absolute Lymphocytes Absolute Monocytes Absolute Eosinophils Absolute Basophils D-Dimer Sodium Potassium Chloride Carbon Dioxide Anion Gap BUN Creatinine Estimated GFR/1.73 m2 Glucose Calcium Ferritin Total Bilirubin AST ALT Alkaline Phosphatase Troponin I C-Reactive Protein NT-Pro-B Natriuret Pep Total Protein Albumin Urine Color Yellow Urine Clarity Sl Cloudy Urine pH 5.5 Ur Specific [place] >= 1.030 H Urine Protein 100 H Urine Ketones Negative Urine Blood Small H Urine Nitrite Negative Urine Bilirubin Negative Urine Urobilinogen 0.2 Ur Leukocyte Esterase Negative Urine RBC 5-10 H Urine WBC 0-2 Ur Epithelial Cells Many Urine Crystals Negative Urine Bacteria Many Urine Casts 0-2 Coarse Granular Urine Mucus Trace Ur Culture Indicated? No/Sq. Contamination Urine Glucose Negative COVID-19 Source Nasal/Nares SARS-CoV-2 (PCR) POSITIVE A* Last Vital Signs Temp 35.6 C L 05/06/21 14:15 Pulse 94 H 05/06/21 14:20 Resp 21 05/06/21 14:21 BP 110/57 L 05/06/21 14:20 Pulse Ox 93 05/06/21 14:21
[2021-05-06] MEDS: Normal Saline Flush 10 ML SYR (16:46)
--- NOTE | 2021-05-06 17:00 | PT.INDS ---
Date of service: 04/25/21 PT Notes Visit Reasons: Covid-19 Pneumonia,Acute Respiratory Failure Physical Therapy Inpatient Discharge Summary Date: 04/25/2021 Dates of Service: 04/23/2021 through 04/25/2021 This is a clinical summary of care provided for the duration of dates listed above. No charge was made in the completion of this documentation. Referring Doctor: Flor Bonds MD PT Orders: PT CONSULT: Limited ability Precautions: Fall. Standard. Activity as tolerated. COVID-[address]. Patient Profile/Admitting Diagnosis: Kelly is a 71-year-old female who presented to the ED on 04/17/2021 due to shortness of breath and fever with difficulty ambulation due to oxygen desaturation. Patient is diagnosed with COVID-19 pneumonia, acute bacterial bronchitis, respiratory failure with hypoxia, and rheumatoid arthritis. PMHX: Medical History Rheumatoid arthritis Surgical History Colonoscopy - [facility] (03/01/13) DR. Prabhjot LAGUERRE Endometrial Biopsy 1990: NEG 1999: NEG S/P ankle fusion Social History/Home Situation: Independent with all activities of daily living without an assistive ambulatory device. [place] in [place] and spends the rest of the year here in [place]. Has a camper in [facility] but will be discharging to her friend's house with a flight of steps leading to the bedroom where they will be staying. No previews oxygen supplementation requirement. Equipment Owned/DME: None Subjective: NT. See most recent BLASTING MACHINE OPERATOR notes. Objective: General Observation: NT. See most recent BLASTING MACHINE OPERATOR notes. Mental Status: NT. See most recent BLASTING MACHINE OPERATOR notes. Pain: NT. See most recent BLASTING MACHINE OPERATOR notes. Vital Signs: NT. See most recent BLASTING MACHINE OPERATOR notes. ROM: Right Upper Extremity: Shoulder Flexion WFL. Shoulder abduction WFL. Elbow flexion WFL. Wrist flexion WFL. Functional opening and closing of hand WFL. Left Upper Extremity: Shoulder Flexion WFL. Shoulder abduction WFL. Elbow flexion WFL. Wrist flexion WFL. Functional opening and closing of hand WFL. Right Lower Extremity: Hip flexion WFL. Hip abduction WFL. Knee flexion WFL. Ankle dorsiflexion WFL. Ankle plantarflexion WFL. Left Lower Extremity: Hip flexion WFL. Hip abduction WFL. Knee flexion WFL. Ankle dorsiflexion WFL. Ankle plantarflexion WFL. Strength: Right Upper Extremity: Shoulder flexors 3+/5. Shoulder abductors 3+/5. Elbow flexors 3+/5. Elbow extensors 3+/5. Asset Management Analyst strong. Left Upper Extremity: Shoulder flexors 3+/5. Shoulder abductors 3+/5. Elbow flexors 3+/5. Elbow extensors 3+/5. Asset Management Analyst strong. Right Lower Extremity: Hip flexors 3+/5. Hip abductors 3+/5. Knee flexors 3+/5. Knee extensors 3+/5. Ankle dorsiflexors 3+/5. Ankle plantarflexors 3+5. Left Lower Extremity: Hip flexors 3+/5. Hip abductors 3+/5. Knee flexors 3+/5. Knee extensors 3+/5. Ankle dorsiflexors 3+/5. Ankle plantarflexors 3+5. Bed Mobility/Transfers: Rolling independent Supine to sit independent Sit to supine independent Sit to stand independent notes with FWW Stand to sit independent with FWW Bed to bedside commode independent with FWW Bedside commode to bed independent with FWW Bed to reclining chair independent with FWW Reclining chair to bed independent with FWW Gait: Instructed patient with level surface ambulation of 40 feet x2 requiring supervision assist. Elen decreased. Denies pain, dizziness, and headache throughout activity however did report fatigue and weakness in BLE. Min SOB. 89-92% on RA. Balance: Static Sitting: Normal Dynamic Sitting: Normal Static Standing: Good fair Dynamic Standing: Assessment: Kelly requires the use of front wheeled walker to increase activity tolerance and reduce fall risk due to report of fatigue and weakness in bilateral lower extremities. She will benefit from the use of a front wheeled walker to provide stability and decreased activity tolerance. Patient presents with clinical signs and symptoms consistent with current/admitting diagnoses that have resulted to mobility limitations, gait instability, generalized weakness, and overall ADL decline as demonstrated by the following impairment level findings: 1. Decreased strength to BLE major muscle groups 2. Impaired standing balance 3. Impaired activity tolerance 4. Shortness of breath Impairments are contributing to the following functional limitations: 1. Difficulty with ambulation without assistive device 2. Increased completion time for mobility ADL performance 3. Increased risk for falls 4. Difficulty with managing steps alone safely Goals: Goals X1 week 1. Supine-Sit independent MET 2. Sit-Supine independent MET 3. Sit-Stand independent MET 4. Stand-Sit independent MET 5. Bed-Chair independent MET 6. Chair-Bed independent MET 7. Independent gait on level surface with use of FWW for at least 500 feet without report of pain nor dyspnea NOT MET 8. Independent stair negotiation while holding onto B rails for at least 12 steps without report of pain nor dyspnea NOT MET 9. Independent with home exercise program NOT MET 10. Good static and dynamic standing balance/tolerance NOT MET DISCHARGE RECOMMENDATIONS: Patient will benefit from home health PT services in order to progress mobility level using least restrictive assistive ambulatory device, assess home safety, identify additional equipment needs, and establish a functional maintenance program that will increase ability of patient to remain at home. TREATMENT CODE/TIME: GA Thank you for the opportunity to participate in the care of this patient. Kelle Matos PT, DPT, CLT [facility] [place], [place]
[2021-05-06] MEDS: Acetaminophen 325 MG TAB PO (17:11)
[2021-05-06 17:32] LABS: Troponin I < 0.05 ng/mL (<0.06)
[2021-05-06] MEDS: Ipratropium/Albuterol 4 GM 120 PUFF INH IH ×2 (17:49→20:00)
[2021-05-06] MEDS: Dexamethasone 4 MG/ML VIAL 6 MG IVP (18:10)
--- NOTE | 2021-05-06 18:58 | W.PULMCC ---
General Date of Service Date of service: 05/06/21 Time of Service: 16:20 Reason for Admission to ICU: COVID-19 Assessment and Plan Assessment and plan (1) Obesity (BMI 30-39.9): Status: Chronic (2) Respiratory failure with hypoxia: Status: Resolved Qualifiers: Chronicity: acute Qualified Code(s): J96.01 - Acute respiratory failure with hypoxia (3) COVID-19: Status: Acute (4) Rheumatoid arthritis: Status: Chronic Qualifiers: Rheumatoid arthritis location: unspecified site Rheumatoid factor presence: unspecified presence Qualified Code(s): M06.9 - Rheumatoid arthritis, unspecified (5) Organizing pneumonia: Status: Acute (6) ANSHU (acute kidney injury): Status: Acute Assessment and plan: This is a 71 yo woman with obesity and RA on Rituxan who was initially diagnosed with COVID 03/21/21. She was hospitalized 04/17/21 and improved to the point of being discharged without the need for oxygen. She is now back with hypoxic respiratory and continued active COVID infection and the early stages of what appears to be an organizing pneumonia. Her viral cycle time is improved from her last admission (29 to 34), however her inflammatory markers are significantly higher than her last admission. She is admitted to the ICU for high oxygen requirements for her respiratory failure. Recommendations Pulmonary: Hypoxic respiratory failure - recommend CPAP at night - HFNC during the day - sat goal >90% - Incentive spirometry - VibraPEP - patient has trouble proning, but recommend this as much as possible and side sleeping - out of bed to chair during the day - daily phosphorus level - agree with scheduled Combivent Organizing Pneumonia - when she is ready for D/C will plan for a prolong steroid course (2 months) - will arrange follow up with me after D/C Cardiac: No acute concerns Renal: ANSHU - suspect due to hypoxia - continue to monitor - advise against fluids I&O: Intake & Output 05/03/21 05/04/21 05/05/21 05/06/21 23:59 23:59 23:59 23:59 Intake Total 100 / 100 Output Total 300 / 300 Balance -200 / -200 Weight 35.6 kg Daily Fluid Goal:: Even GI Nutrition: Ok for PO diet Infectious Disease: COVID-19 - agree with restarting Decadron, barcitinib and remdesivir - no concern for bacterial superinfection - recommend procalcitonin Hematologic: No acute concerns Neurologic: No acute concerns Endocrine: Diabetes - SSI for coverage - monitor glucose given steroids Lines: PIV Prophylaxis: Lovenox Protonix Code Status: Resuscitation Status Full Code Subjective Critical and life-threatening events over the past 24 hours: This is a 71 yo woman with RA on Rituxan who is admitted for COVID PNA. Her initial positive test was 03/21/21. Her last Rituxan dose was September (she gets this q6 months for her RA). Given the Rituxan she had to delay her COVID vaccination and so her last vaccine dose was the end of February, she fell ill only 3 days after her last dose. Her was also positive and believes she contracted it from him, but they do not know where he caught it from as they are very careful. Other risk factors for severe COVID include diabetes and obesity. She was admitted on 04/17/21 and improved with Decadron, remdesivir and barcitinib. She required supplemental low flow O2 therapy and was ultimately discharged with a prednisone taper on 04/25/21. She had a viral cycle time of 29 at that time with modest elevations of her inflammatory markers. She was also treated for a suspected bacterial pneumonia at that time. She states that she was feeling better at the time of her discharge and was doing well at home. She had gone to [place] for a short vacation. After returning from [place] she had increasing symptoms which prompted her to present to the ED. She was found to be hypoxic requiring HFNC 50/40. He has a repeat CTPE completed which did not show any clot. It did however show some improvements in the ground glass opacities, with some evidence of a forming organizing pneumonia. In addition to shortness of breath she endorses fever, sweating, headache and chills. Exam Const General: no acute distress Nutritional Appearance: obese [facility] Head: normocephalic Ears: external ears normal and no periauricular adenopathy General nose exam: nasal mucous membranes and turbinates normal Face and sinus: sinuses nontender Mouth: oropharynx normal and moist mucous membranes Teeth and gingiva: dentition normal Eyes General: appearance normal, both eyes and all related structures Pupils: PERRL Neck Neck: normal visual inspection and no lymphadenopathy Chest Chest: normal inspection of the chest Resp Effort & Inspection: normal respiratory effort Auscultation: rales bilaterally at the base, no rhonchi and no wheezes Cardio Rate: regular rate Rhythm: regular rhythm Heart Sounds: S1 normal, S2 normal and no murmurs Pulses: radial pulses present bilaterally GI Inspection: normal to inspection Palpation: soft Skin General skin exam: no rashes or lesions noted Neuro General: patient alert, patient awake and patient oriented x3 Extrem General: no clubbing, cyanosis or edema Psych Mental Status: mental status grossly normal Affect: normal affect Attitude: cooperative Most Recent VS/Results Last Vital Signs Temp 35.8 C L 05/06/21 15:30 Pulse 77 05/06/21 17:01 Resp 26 H 05/06/21 17:01 BP 113/62 05/06/21 17:01 Pulse Ox 95 05/06/21 17:01 Laboratory Results - last 24 hr 05/06/21 05/06/21 05/06/21 11:26 11:26 11:26 WBC 8.98 RBC 3.59 L Hgb 10.5 L Hct 31.0 L MCV 86.4 MCH 29.2 MCHC 33.9 RDW 14.8 H Plt Count 207 D MPV 8.6 Immature Gran % 4.0 Neutrophils % 84.8 Lymphocytes % 6.6 Monocytes % 4.3 Eosinophils % 0.0 Basophils % 0.3 Nucleated RBC % 0 Absolute Neutrophils 7.61 H Absolute Lymphocytes 0.59 L Absolute Monocytes 0.39 Absolute Eosinophils 0.00 Absolute Basophils 0.03 D-Dimer 3438 H Sodium 133 L Potassium 4.4 Chloride 96 L Carbon Dioxide 27.2 Anion Gap 9.8 BUN 24 H Creatinine 1.3 H Estimated GFR/1.73 m2 40.15 Glucose 114 H Calcium 8.6 Ferritin 939 H Total Bilirubin 0.4 AST 31 ALT 22 Alkaline Phosphatase 77 Troponin I < 0.05 C-Reactive Protein 9.56 H NT-Pro-B Natriuret Pep 792 H Total Protein 6.6 Albumin 2.8 L Urine Color Urine Clarity Urine pH Ur Specific [place] Urine Protein Urine Ketones Urine Blood Urine Nitrite Urine Bilirubin Urine Urobilinogen Ur Leukocyte Esterase Urine RBC Urine WBC Ur Epithelial Cells Urine Crystals Urine Bacteria Urine Casts Urine Mucus Ur Culture Indicated? Urine Glucose COVID-19 Source SARS-CoV-2 (PCR) 05/06/21 05/06/21 05/06/21 11:55 12:25 17:00 WBC RBC Hgb Hct MCV MCH MCHC RDW Plt Count MPV Immature Gran % Neutrophils % Lymphocytes % Monocytes % Eosinophils % Basophils % Nucleated RBC % Absolute Neutrophils Absolute Lymphocytes Absolute Monocytes Absolute Eosinophils Absolute Basophils D-Dimer Sodium Potassium Chloride Carbon Dioxide Anion Gap BUN Creatinine Estimated GFR/1.73 m2 Glucose Calcium Ferritin Total Bilirubin AST ALT Alkaline Phosphatase Troponin I < 0.05 C-Reactive Protein NT-Pro-B Natriuret Pep Total Protein Albumin Urine Color Yellow Urine Clarity Sl Cloudy Urine pH 5.5 Ur Specific [place] >= 1.030 H Urine Protein 100 H Urine Ketones Negative Urine Blood Small H Urine Nitrite Negative Urine Bilirubin Negative Urine Urobilinogen 0.2 Ur Leukocyte Esterase Negative Urine RBC 5-10 H Urine WBC 0-2 Ur Epithelial Cells Many Urine Crystals Negative Urine Bacteria Many Urine Casts 0-2 Coarse Granular Urine Mucus Trace Ur Culture Indicated? No/Sq. Contamination Urine Glucose Negative COVID-19 Source Nasal/Nares SARS-CoV-2 (PCR) POSITIVE A* Review of Systems All systems reviewed & are unremarkable except as noted in HPI and below Time spent with patient Time spent in Critical Care: 45 Time spent in Critical care included: Coordination of care, Documenting critically ill care, Time at immediate bedside and Discussing critically ill care with other medical staff
[2021-05-06] MEDS: Ascorbic Acid 500 MG TAB PO (19:29)
[2021-05-06 20:09] LABS: Procalcitonin 0.2 ng/mL
[2021-05-06 20:24] LABS: PHOSPHORUS 3.9 mg/dL (2.6-4.7)
[2021-05-07] VITALS (43 sets, daily range): BP systolic 87–126; BP diastolic 48–87; PULSE 58–93; RESP 11–36; TEMP 34–36.8; O2SAT 93–99
[2021-05-07] MEDS: Melatonin 3 MG TAB 9 MG PO ×2 (00:17→18:59)
--- NOTE | 2021-05-07 02:39 | NUR.NOTE ---
0230-pt has sat up with legs dangling over side of bed, turned frequently from side to side but has not prone positioned himself. At one point, he took off his oxygen and desatted to 82%. When asked to replace the o2 he did and increased eventually to 92%.
[2021-05-07 06:48] LABS: Abs Immature Grans 0.09 10^3/uL (0.0-0.06); Absolute Neutrophil Count 2.99 10^3/uL (1.2-6.7); HCT 28.5 % (36.0-46.0); HGB 9.4 g/dL (11.2-15.7); Immature Grans % 2.3; Lymphocytes % 17.6; MCH 28.9 pg (27.0-33.0); MCV 87.7 fL (80-95); MPV 9.1 fL (8.0-11.0); Neutrophils % 75.1; Nucleated RBC 0 %; Platelet Count 202 10^3/uL (130-400); RBC 3.25 10^6/uL (3.93-5.22); RDW 14.7 % (11.7-14.6); WBC 3.98 10^3/uL (4.4-10.8)
[2021-05-07 07:14] LABS: BUN 24 mg/dL (7-18); CREATININE 1.2 mg/dL (0.55-1.02); Calcium 8.7 mg/dL (8.5-10.1); Glucose 151 mg/dL (74-106)
[2021-05-07 07:15] LABS: ALT 21 U/L (14-59); AST 25 U/L (15-37); Albumin 2.6 g/dL (3.4-5.0); Alkaline Phosphatase 71 U/L (46-116); Anion Gap 5.7 mmol/L (3-11); Bilirubin, Total 0.3 mg/dL (0.2-1.0); CO2 29.3 mmol/L (21.0-32.0); Chloride 101 mmol/L (98-107); Estimated GFR 44.04 (mL/min/1.73m2); PHOSPHORUS 4.3 mg/dL (2.6-4.7); Potassium 5.3 mmol/L (3.5-5.1); Sodium 136 mmol/L (136-145); Total Protein 6.2 g/dL (6.4-8.2)
[2021-05-07 07:34] LABS: D-Dimer 1864 ng/mlFEU (<500)
[2021-05-07 07:42] LABS: Ferritin 856 ng/mL (8-252)
--- NOTE | 2021-05-07 07:46 | NUR.NOTE ---
Nursing Note:19:30H-Informed on-call RN that pt needs Cpapfor the night as ordered by the MD.
[2021-05-07] MEDS: Ipratropium/Albuterol 4 GM 120 PUFF INH IH ×4 (08:45→18:59)
[2021-05-07] MEDS: amLODIPine 5 MG TAB PO (09:02)
[2021-05-07] MEDS: Ascorbic Acid 500 MG TAB PO ×2 (09:02→18:59)
[2021-05-07] MEDS: Montelukast 10 MG TAB PO (09:02)
[2021-05-07] MEDS: Citalopram 20 MG TAB PO (09:02)
--- NOTE | 2021-05-07 09:59 | INITIAL_ITS ---
- If Service Date Differs Date of service: 05/07/21 Time of Service: 09:59 Care Management Initial Assess REASON FOR HOSPITALIZATION:: Covid-19, Pneumonia, Acute Respiratory Failure. PAST MEDICAL HISTORY/PAST SURGICAL HISTORY:: Medical History: Obesity (BMI 30- 39.9) and Rheumatoid arthritis. Surgical History: Colonoscopy - [facility] [place] (03/01/[place]) - DR. Prabhjot LAGUERRE,. Endometrial Biopsy - 1989: NEG, 1998: NEG, and S/P ankle fusion. PREVIOUS FUNCTIONAL STATUS/SOCIAL/FAMILY SUPPORTS:: Kelly resides with her , Kristian, in [place], [place] during the winter months and spends newton in a camper in [place]. She is independent at baseline. CURRENT FUNCTIONAL STATUS:: Kelly is on Covid precautions in the ICU. Per RN, she is up independently in her room and remains on high flow O2. ADVANCE DIRECTIVES:: None on file. Has patient been provided with info about the portal/API?: No Did the patient sign up for the portal?: No CODE STATUS:: Full Code INSURANCE COVERAGE / FINANCIAL ISSUES:: BCBS and Medicare. CURRENT HOME/COMMUNITY SERVICES/EQUIPMENT:: Kelly is independent at baseline. She has no home/community services or equipment currently. PRIMARY CARE PHYSICIAN:: Leonor Joy MD. POTENTIAL DISCHARGE NEEDS:: Follow up appointment with PCP. PATIENT/FAMILY EDUCATION NEEDS:: Review discharge instructions re medications and activity level and discuss Ask Me Three. ANTICIPATED BARRIERS TO DISCHARGE:: No anticipated barriers at this time. TRANSPORTATION:: Via private vehicle with her . PLAN:: Kelly will be discharged home when medically cleared by provider. She will follow up with her PCP and plan of care as directed. Her will drive her home via private vehicle when ready. CM will continue to follow. Readmission - Within the Past 30 Days Yes or No: Y - Date of First Admission Date of 1st Admission: 04/17/21 - Date of this Admission Date of Admission: 05/06/21 This admission was: Through ED - I. Interview patient and/or Family Difficulty reaching your doctor or getting an office appt?: No Have you had trouble purchasing/ or taking medication?: No Have you had trouble with getting meals at home?: No Did you feel ready for discharge when you left the last time: Yes Did you call your physician beore you came to the ED?: No - ED visits How many ED visits in the past 12 months: 4 - Assessment for Readmission Summary of readmission circumstances, based upon interviews: Kelly continues active Covid infection and seems to be in the early stages of an organizing pneumonia.
--- NOTE | 2021-05-07 12:39 | W.PULMCC ---
General Date of Service Date of service: 05/07/21 Time of Service: 07:30 Reason for Admission to ICU: COVID-19 Assessment and Plan Assessment and plan (1) Obesity (BMI 30-39.9): Status: Chronic (2) Respiratory failure with hypoxia: Status: Resolved Qualifiers: Chronicity: acute Qualified Code(s): J96.01 - Acute respiratory failure with hypoxia (3) COVID-19: Status: Acute (4) Rheumatoid arthritis: Status: Chronic Qualifiers: Rheumatoid arthritis location: unspecified site Rheumatoid factor presence: unspecified presence Qualified Code(s): M06.9 - Rheumatoid arthritis, unspecified (5) Organizing pneumonia: Status: Acute (6) ANSHU (acute kidney injury): Status: Acute Assessment and plan: This is a 71 yo woman with obesity and RA on Rituxan who was initially diagnosed with COVID 03/21/21. She was hospitalized 04/17/21 and improved to the point of being discharged without the need for oxygen. She is now back with hypoxic respiratory and continued active COVID infection and the early stages of what appears to be an organizing pneumonia. Her viral cycle time is improved from her last admission (29 to 34), however her inflammatory markers are significantly higher than her last admission, although seem to now be improving. She is admitted to the ICU for high oxygen requirements for her respiratory failure. Her oxygen requirements are improved, this morning she is on high flow 43% at 50 L/min. We will plan on using CPAP tonight. Recommendations Pulmonary: Hypoxic respiratory failure - recommend CPAP at night - HFNC during the day - sat goal >90% - Incentive spirometry - VibraPEP - proning as much as able - out of bed to chair during the day - daily phosphorus level - agree with scheduled Combivent Organizing Pneumonia - when she is ready for D/C recommend: - 40mg prednisone for 4 weeks, followed by 30mg for 2 weeks, 20mg for 2 weeks, 10mg for 1 week, 5mg for 1 week - will arrange follow up with me after D/C Cardiac: No acute concerns Renal: ANSHU - suspect due to hypoxia - continue to monitor - advise against fluids I&O: Intake & Output 05/04/21 05/05/21 05/06/21 05/07/21 23:59 23:59 23:59 23:59 Intake Total 210 / 210 Output Total 300 / 300 450 / 450 Balance -90 / -90 -450 / -450 Weight 78.1 kg Daily Fluid Goal:: Even to slightly negative GI Nutrition: OK for PO diet Date of Last Bowel Movement: 05/06/21 Infectious Disease: COVID-19 - agree with restarting Decadron, barcitinib and remdesivir - no concern for bacterial superinfection and procal negative - trend inflammatory markers Hematologic: Leukopenia - likely due to viral infection Neurologic: No acute concerns - delirium prevention Endocrine: Diabetes - SSI for coverage - monitor glucose given steroids Lines: PIV Prophylaxis: Lovenox and Protonix Code Status: Resuscitation Status Full Code Subjective Critical and life-threatening events over the past 24 hours: Today Kelly states she is doing much better and feels as though her breathing is much improved from when she first arrived. In general her lab work is also improving. She prone for 6 hours overnight as we were out of CPAP machines. We will be able to provide her with a CPAP for tonight and she is agreeable to this plan. He has a good appetite, going to the bathroom appropriately, she still has some shortness of breath and cough but again this is much improved. Exam Const General: no acute distress Nutritional Appearance: obese [facility] Head: normocephalic Ears: external ears normal and no periauricular adenopathy General nose exam: nasal mucous membranes and turbinates normal Face and sinus: sinuses nontender Mouth: oropharynx normal and moist mucous membranes Teeth and gingiva: dentition normal Eyes General: appearance normal, both eyes and all related structures Pupils: PERRL Neck Neck: normal visual inspection and no lymphadenopathy Chest Chest: normal inspection of the chest Resp Effort & Inspection: normal respiratory effort Auscultation: rales bilaterally at the base, no rhonchi and no wheezes Cardio Rate: regular rate Rhythm: regular rhythm Heart Sounds: S1 normal, S2 normal and no murmurs Pulses: radial pulses present bilaterally GI Inspection: normal to inspection Palpation: soft Skin General skin exam: no rashes or lesions noted Neuro General: patient alert, patient awake and patient oriented x3 Extrem General: no clubbing, cyanosis or edema Psych Mental Status: mental status grossly normal Affect: normal affect Attitude: cooperative Most Recent VS/Results Last Vital Signs Temp 35.9 C L 05/07/21 09:30 Pulse 73 05/07/21 06:49 Resp 11 L 05/07/21 06:49 BP 112/54 L 05/07/21 06:49 Pulse Ox 94 05/07/21 06:49 Laboratory Results - last 24 hr 05/06/21 05/06/21 05/06/21 12:25 17:00 17:00 WBC RBC Hgb Hct MCV MCH MCHC RDW Plt Count MPV Immature Gran % Neutrophils % Lymphocytes % Monocytes % Eosinophils % Basophils % Nucleated RBC % Absolute Neutrophils Absolute Lymphocytes Absolute Monocytes Absolute Eosinophils Absolute Basophils D-Dimer Sodium Potassium Chloride Carbon Dioxide Anion Gap BUN Creatinine Estimated GFR/1.73 m2 Glucose Calcium Phosphorus Ferritin Total Bilirubin AST ALT Alkaline Phosphatase Troponin I < 0.05 C-Reactive Protein Total Protein Albumin Procalcitonin 0.2 COVID-19 Source Nasal/Nares SARS-CoV-2 (PCR) POSITIVE A* 05/06/21 05/07/21 05/07/21 17:00 06:20 06:20 WBC RBC Hgb Hct MCV MCH MCHC RDW Plt Count MPV Immature Gran % Neutrophils % Lymphocytes % Monocytes % Eosinophils % Basophils % Nucleated RBC % Absolute Neutrophils Absolute Lymphocytes Absolute Monocytes Absolute Eosinophils Absolute Basophils D-Dimer Sodium 136 Potassium 5.3 H Chloride 101 Carbon Dioxide 29.3 Anion Gap 5.7 BUN 24 H Creatinine 1.2 H Estimated GFR/1.73 m2 44.04 Glucose 151 H Calcium 8.7 Phosphorus 3.9 4.3 Ferritin 856 H Total Bilirubin 0.3 AST 25 ALT 21 Alkaline Phosphatase 71 Troponin I C-Reactive Protein 10.60 H Total Protein 6.2 L Albumin 2.6 L Procalcitonin COVID-19 Source SARS-CoV-2 (PCR) 05/07/21 05/07/21 06:20 06:20 WBC 3.98 L D RBC 3.25 L Hgb 9.4 L Hct 28.5 L MCV 87.7 MCH 28.9 MCHC 33.0 RDW 14.7 H Plt Count 202 MPV 9.1 Immature Gran % 2.3 Neutrophils % 75.1 Lymphocytes % 17.6 Monocytes % 5.0 Eosinophils % 0.0 Basophils % 0.0 Nucleated RBC % 0 Absolute Neutrophils 2.99 Absolute Lymphocytes 0.70 L Absolute Monocytes 0.20 Absolute Eosinophils 0.00 Absolute Basophils 0.00 D-Dimer 1864 H Sodium Potassium Chloride Carbon Dioxide Anion Gap BUN Creatinine Estimated GFR/1.73 m2 Glucose Calcium Phosphorus Ferritin Total Bilirubin AST ALT Alkaline Phosphatase Troponin I C-Reactive Protein Total Protein Albumin Procalcitonin COVID-19 Source SARS-CoV-2 (PCR) Review of Systems All systems reviewed & are unremarkable except as noted in HPI and below
[2021-05-07] MEDS: Enoxaparin 40 MG/0.4 ML SYR SC (14:06)
[2021-05-07] MEDS: Pantoprazole 40 MG VIAL IVP (14:06)
[2021-05-07] MEDS: Normal Saline Flush 10 ML SYR IVP (14:07)
--- NOTE | 2021-05-07 16:49 | W.PM.PROGNOT ---
Date of Service Date of service: 05/07/21 Time of Service: 16:50 Assessment and Plan Assessment and plan (1) Respiratory failure with hypoxia: Status: Resolved Assessment and plan: Consult Pulmonary medicine. Stable on Hiflow O2. CPAP at night. Improving. Qualifiers: Chronicity: acute Qualified Code(s): J96.01 - Acute respiratory failure with hypoxia (2) 2019 novel coronavirus-infected pneumonia (NCIP): Status: Acute Assessment and plan: PCR cycle time of 34.7. Consult Pulmonary medicine. Inflammatory markers had normalized but now up higher than at time of previous admission. Start dexamethasone, Remdesivir and Baricitanib. Procal ordered d/t concerned of developing consolidating pneumonia on CT. Procal neg so not likely to have a bacterial pulmonary infection. (3) Rheumatoid arthritis: Status: Chronic Assessment and plan: Held her Rituxan this month. Qualifiers: Rheumatoid arthritis location: unspecified site Rheumatoid factor presence: unspecified presence Qualified Code(s): M06.9 - Rheumatoid arthritis, unspecified Subjective Subjective Patient reports: no new complaints, feels better, shortness of breath and afebrile Exam Narrative Exam Narrative: Sitting in chair. VS: BP 87/62. O2 saturation 95% on Hiflow NC at 43% FIO2. Const General: cooperative, no acute distress and frail appearing Nutritional Appearance: obese Orientation: alert and oriented x3 Resp Effort & Inspection: normal respiratory effort Cardio Rate: regular rate Rhythm: regular rhythm Objective Last Vital Signs Temp 36.2 C L 05/07/21 12:30 Pulse 79 05/07/21 14:01 Resp 31 H 05/07/21 14:01 BP 87/62 L 05/07/21 14:01 Pulse Ox 95 05/07/21 14:01 Laboratory Results - last 24 hr 05/06/21 05/06/21 05/06/21 17:00 17:00 17:00 WBC RBC Hgb Hct MCV MCH MCHC RDW Plt Count MPV Immature Gran % Neutrophils % Lymphocytes % Monocytes % Eosinophils % Basophils % Nucleated RBC % Absolute Neutrophils Absolute Lymphocytes Absolute Monocytes Absolute Eosinophils Absolute Basophils D-Dimer Sodium Potassium Chloride Carbon Dioxide Anion Gap BUN Creatinine Estimated GFR/1.73 m2 Glucose Calcium Phosphorus 3.9 Ferritin Total Bilirubin AST ALT Alkaline Phosphatase Troponin I < 0.05 C-Reactive Protein Total Protein Albumin Procalcitonin 0.2 1005/07/21 05/07/21 06:20 06:20 06:20 WBC 3.98 L D RBC 3.25 L Hgb 9.4 L Hct 28.5 L MCV 87.7 MCH 28.9 MCHC 33.0 RDW 14.7 H Plt Count 202 MPV 9.1 Immature Gran % 2.3 Neutrophils % 75.1 Lymphocytes % 17.6 Monocytes % 5.0 Eosinophils % 0.0 Basophils % 0.0 Nucleated RBC % 0 Absolute Neutrophils 2.99 Absolute Lymphocytes 0.70 L Absolute Monocytes 0.20 Absolute Eosinophils 0.00 Absolute Basophils 0.00 D-Dimer Sodium 136 Potassium 5.3 H Chloride 101 Carbon Dioxide 29.3 Anion Gap 5.7 BUN 24 H Creatinine 1.2 H Estimated GFR/1.73 m2 44.04 Glucose 151 H Calcium 8.7 Phosphorus 4.3 Ferritin 856 H Total Bilirubin 0.3 AST 25 ALT 21 Alkaline Phosphatase 71 Troponin I C-Reactive Protein 10.60 H Total Protein 6.2 L Albumin 2.6 L Procalcitonin 05/07/21 06:20 WBC RBC Hgb Hct MCV MCH MCHC RDW Plt Count MPV Immature Gran % Neutrophils % Lymphocytes % Monocytes % Eosinophils % Basophils % Nucleated RBC % Absolute Neutrophils Absolute Lymphocytes Absolute Monocytes Absolute Eosinophils Absolute Basophils D-Dimer 1864 H Sodium Potassium Chloride Carbon Dioxide Anion Gap BUN Creatinine Estimated GFR/1.73 m2 Glucose Calcium Phosphorus Ferritin Total Bilirubin AST ALT Alkaline Phosphatase Troponin I C-Reactive Protein Total Protein Albumin Procalcitonin
[2021-05-07] MEDS: Dexamethasone 4 MG/ML VIAL 6 MG IVP (17:31)
[2021-05-07] MEDS: Acetaminophen 325 MG TAB PO (18:58)
[2021-05-07] MEDS: Zolpidem 5 MG TAB PO (22:06)
[2021-05-08] VITALS (55 sets, daily range): BP systolic 70–150; BP diastolic 47–70; PULSE 60–100; RESP 13–45; TEMP 34–36.6; O2SAT 88–99
[2021-05-08 07:41] LABS: C-Reactive Protein 5.36 mg/dL (0.0-0.3)
[2021-05-08 07:52] LABS: D-Dimer 1473 ng/mlFEU (<500)
[2021-05-08] MEDS: Citalopram 20 MG TAB PO (08:00)
[2021-05-08] MEDS: Montelukast 10 MG TAB PO (08:00)
[2021-05-08] MEDS: Ascorbic Acid 500 MG TAB PO ×2 (08:00→19:22)
[2021-05-08] MEDS: amLODIPine 5 MG TAB PO (08:00)
[2021-05-08 08:19] LABS: Ferritin 824 ng/mL (8-252)
[2021-05-08] MEDS: Ipratropium/Albuterol 4 GM 120 PUFF INH IH ×4 (08:26→19:23)
--- NOTE | 2021-05-08 09:06 | W.PULMCC ---
General Date of Service Date of service: 05/08/21 Time of Service: 07:45 Assessment and Plan Assessment and plan (1) Obesity (BMI 30-39.9): Status: Chronic (2) Respiratory failure with hypoxia: Status: Resolved Qualifiers: Chronicity: acute Qualified Code(s): J96.01 - Acute respiratory failure with hypoxia (3) COVID-19: Status: Acute (4) Rheumatoid arthritis: Status: Chronic Qualifiers: Rheumatoid arthritis location: unspecified site Rheumatoid factor presence: unspecified presence Qualified Code(s): M06.9 - Rheumatoid arthritis, unspecified (5) Organizing pneumonia: Status: Acute (6) ANSHU (acute kidney injury): Status: Acute Assessment and plan: This is a 71 yo woman with obesity and RA on Rituxan who was initially diagnosed with COVID 03/21/21. She was hospitalized 04/17/21 and improved to the point of being discharged without the need for oxygen. She is now back with hypoxic respiratory and continued active COVID infection and the early stages of what appears to be an organizing pneumonia. Her viral cycle time is improved from her last admission (29 to 34), however her inflammatory markers are significantly higher than her last admission, although seem to now be improving. She is admitted to the ICU for high oxygen requirements for her respiratory failure. She did great overnight on CPAP 8, 40% with sats in the high 90's. She will use high flow today and use the CPAP at night again tonight. Her inflammatory markers are decreasing. Recommendations Pulmonary: Hypoxic respiratory failure - recommend CPAP at night - HFNC during the day - sat goal >90% - Incentive spirometry - VibraPEP - proning as much as able - out of bed to chair during the day - daily phosphorus level - agree with scheduled Combivent Organizing Pneumonia - when she is ready for D/C recommend: - 40mg prednisone for 4 weeks, followed by 30mg for 2 weeks, 20mg for 2 weeks, 10mg for 1 week, 5mg for 1 week - will arrange follow up with me after D/C Cardiac: No acute concerns Renal: ANSHU - suspect due to hypoxia - continue to monitor - advise against fluids I&O: Intake & Output 05/05/21 05/06/21 05/07/21 05/08/21 23:59 23:59 23:59 23:59 Intake Total 210 / 210 991 / 991 Output Total 300 / 300 1700 / 1700 650 / 650 Balance -90 / -90 -709 / -709 -650 / -650 Weight 78.1 kg 79.7 kg Daily Fluid Goal:: Negative GI Nutrition: OK for PO diet Date of Last Bowel Movement: 05/08/21 Infectious Disease: COVID-19 - agree with restarting Decadron, barcitinib and remdesivir - no concern for bacterial superinfection and procal negative - trend inflammatory markers Hematologic: Leukopenia - likely due to viral infection Neurologic: No acute concerns - delirium prevention Endocrine: Diabetes - SSI for coverage - monitor glucose given steroids Lines: PIV Prophylaxis: Lovenox and Protonix Code Status: Resuscitation Status Full Code Subjective Critical and life-threatening events over the past 24 hours: Kelly is doing very well today. She worse CPAP for 9 hours while proning overnight. She feels well and is ready for a break from CPAP. Her breathing seems to be improving. She denies pain. Exam Const General: no acute distress Nutritional Appearance: obese HENMT Head: normocephalic Ears: external ears normal and no periauricular adenopathy General nose exam: nasal mucous membranes and turbinates normal Face and sinus: sinuses nontender Mouth: oropharynx normal and moist mucous membranes Teeth and gingiva: dentition normal Eyes General: appearance normal, both eyes and all related structures Pupils: PERRL Neck Neck: normal visual inspection and no lymphadenopathy Chest Chest: normal inspection of the chest Resp Effort & Inspection: normal respiratory effort Auscultation: rales bilaterally at the base, no rhonchi and no wheezes Cardio Rate: regular rate Rhythm: regular rhythm Heart Sounds: S1 normal, S2 normal and no murmurs Pulses: radial pulses present bilaterally GI Inspection: normal to inspection Palpation: soft Skin General skin exam: no rashes or lesions noted Neuro General: patient alert, patient awake and patient oriented x3 Extrem General: no clubbing, cyanosis or edema Psych Mental Status: mental status grossly normal Affect: normal affect Attitude: cooperative Most Recent VS/Results Last Vital Signs Temp 36.4 C L 05/08/21 08:00 Pulse 86 05/08/21 08:30 Resp 16 05/08/21 08:30 BP 124/67 05/08/21 08:30 Pulse Ox 93 05/08/21 08:30 Laboratory Results - last 24 hr 05/08/21 05/08/21 06:52 06:52 D-Dimer 1473 H Ferritin 824 H C-Reactive Protein 5.36 H Review of Systems All systems reviewed & are unremarkable except as noted in HPI and below
--- NOTE | 2021-05-08 09:23 | PDOC.CMPRO ---
- If Service Date Differs Date of service: 05/08/21 Time of Service: 09:23 Care Management Progress Note S/O:Kelly remains in the ICU and is being treated for Covid pneumonia. CM was unable to meet with her in person due to the isolation but did speak to her on the phone. Kelly informed CM that she is feeling much better than when first admitted. She was very cooperative with proning last night and shared that she feels it was very helpful. She and her live in [place] and she stated that their goal is to return there as soon as she is allowed to travel. She is concerned about her oxygen needs and expressed that she would feel better if she had home oxygen ordered at discharge. A: Kelly is a 71 year old woman admitted on 05/06/21 with Covid Pneumonia P:Kelly will be discharged home when medically cleared by provider. She will follow up with her PCP and plan of care as directed. Ultimately she wants to return to [place] where she lives and will transfer her care to her PCP in [place]. Her will drive her home via private vehicle when ready. CM will continue to support Kelly and assess for discharge planning concerns.
--- NOTE | 2021-05-08 11:43 | W.PM.PROGNOT ---
Date of Service Date of service: 05/08/21 Time of Service: 11:44 Assessment and Plan Assessment and plan (1) Respiratory failure with hypoxia: Status: Resolved Assessment and plan: Consult Pulmonary medicine. Stable on Hiflow O2. CPAP at night; 5 hours while proned last PM Improving. Qualifiers: Chronicity: acute Qualified Code(s): J96.01 - Acute respiratory failure with hypoxia (2) 2019 novel coronavirus-infected pneumonia (NCIP): Status: Acute Assessment and plan: PCR cycle time of 34.7. Consult Pulmonary medicine. Inflammatory markers had normalized but now up higher than at time of previous admission. Start dexamethasone, Remdesivir and Baricitanib. Procal ordered d/t concerned of developing consolidating pneumonia on CT. Procal neg so not likely to have a bacterial pulmonary infection. (3) Rheumatoid arthritis: Status: Chronic Assessment and plan: Held her Rituxan this month. Qualifiers: Rheumatoid arthritis location: unspecified site Rheumatoid factor presence: unspecified presence Qualified Code(s): M06.9 - Rheumatoid arthritis, unspecified Subjective Subjective Patient reports: no new complaints, feels better, tolerating a regular diet and afebrile; denies nausea and vomiting Exam Narrative Exam Narrative: Sitting in chair. VS: BP 87/62. O2 saturation 95% on Hiflow NC at 43% FIO2. Const General: cooperative, no acute distress and frail appearing Nutritional Appearance: average body habitus and obese Orientation: alert and oriented x3 HENMT Head: normocephalic Eyes General: appearance normal, both eyes and all related structures Cornea: corneas normal Pupils: PERRL Resp Effort & Inspection: normal respiratory effort Auscultation: diminished lung sounds and rales Cardio Rate: regular rate Rhythm: regular rhythm Heart Sounds: S1 normal and S2 normal GI Palpation: soft and nontender Auscultation: normal bowel sounds Skin General skin exam: no rashes or lesions noted Lesions: no lesions Neuro General: no focal motor deficits Cognition: normal cognition Speech: speech normal Extrem General: no pedal edema and no calf tenderness Psych Appearance: grossly normal Mental Status: mental status grossly normal Speech and Movement: speech and movement normal Affect: normal affect Objective Last Vital Signs Temp 36.4 C L 05/08/21 08:00 Pulse 86 05/08/21 08:30 Resp 16 05/08/21 08:30 BP 124/67 05/08/21 08:30 Pulse Ox 93 05/08/21 08:30 Laboratory Results - last 24 hr 05/08/21 05/08/21 06:52 06:52 D-Dimer 1473 H Ferritin 824 H C-Reactive Protein 5.36 H
[2021-05-08] MEDS: LORazepam 0.5 MG TAB PO ×2 (12:03→19:24)
[2021-05-08] MEDS: Enoxaparin 40 MG/0.4 ML SYR SC (14:31)
[2021-05-08] MEDS: Normal Saline Flush 10 ML SYR IVP ×3 (14:31→19:00)
[2021-05-08] MEDS: Pantoprazole 40 MG VIAL IVP (14:31)
[2021-05-08] MEDS: Dexamethasone 4 MG/ML VIAL 6 MG IVP (17:08)
[2021-05-08] MEDS: Zolpidem 5 MG TAB PO (19:22)
[2021-05-08] MEDS: Melatonin 3 MG TAB 9 MG PO (19:22)
[2021-05-08] MEDS: Acetaminophen 325 MG TAB PO (19:22)
--- NOTE | 2021-05-08 19:45 | RT.EKG_ITS ---
APPROVED REPORT Exam: Resting ECG Reason for Exam: VS change Patient Location: I HR:74 bpm ECG Measurements Heart Rate 74 AXIS OR 174 P 44 QRSd 77 QRS 2 QT 364 T 30 QTc 405 Conclusion Sinus rhythm...normal P axis, V-rate 60- 99 Normal Electrocardiogram
[2021-05-08] MEDS: nitroGLYcerin 0.4 MG TAB SL (20:43)
[2021-05-08] MEDS: Mylanta Suspension 30 ML CUP PO (20:47)
[2021-05-08 21:21] LABS: Troponin I < 0.05 ng/mL (<0.06)
[2021-05-08 21:23] LABS: Anion Gap 10.4 mmol/L (3-11); BUN 24 mg/dL (7-18); CO2 20.6 mmol/L (21.0-32.0); CREATININE 1.3 mg/dL (0.55-1.02); Calcium 7.5 mg/dL (8.5-10.1); Chloride 103 mmol/L (98-107); Estimated GFR 40.15 (mL/min/1.73m2); Glucose 268 mg/dL (74-106); Magnesium 1.6 mg/dL (1.8-2.4); NT-proBNP 618 pg/mL (<300); Potassium 4.8 mmol/L (3.5-5.1); Sodium 134 mmol/L (136-145)
--- NOTE | 2021-05-08 23:15 | RT.EKG_ITS ---
APPROVED REPORT Exam: Resting ECG Reason for Exam: follow up Patient Location: I HR:71 bpm ECG Measurements Heart Rate 71 AXIS NJ 162 P 46 QRSd 76 QRS 17 QT 370 T 41 QTc 402 Conclusion Sinus rhythm...normal P axis, V-rate 60- 99 Poor R wave progression
[2021-05-08] MEDS: Aspirin 81 MG CHEW 324 MG CH (23:20)
[2021-05-08] MEDS: Loperamide 2 MG CAP PO (23:21)
[2021-05-09] VITALS (25 sets, daily range): BP systolic 99–136; BP diastolic 58–81; PULSE 57–78; RESP 16–102; TEMP 34–36.9; O2SAT 87–99
[2021-05-09] MEDS: MAGNESIUM SULFATE 2 GM/50 ML BAG IVPB (00:21)
[2021-05-09] MEDS: Normal Saline Flush 10 ML SYR IVP ×4 (00:25→19:34)
[2021-05-09 00:51] LABS: Troponin I < 0.05 ng/mL (<0.06)
--- NOTE | 2021-05-09 07:15 | RT.EKG_ITS ---
APPROVED REPORT Exam: Resting ECG Reason for Exam: chest pain, EKG changes Patient Location: I HR:65 bpm ECG Measurements Heart Rate 65 AXIS CA 166 P 42 QRSd 82 QRS 3 QT 406 T 23 QTc 421 Conclusion Sinus rhythm...normal P axis, V-rate 60- 99 Normal Electrocardiogram
[2021-05-09 07:48] LABS: Ferritin 661 ng/mL (8-252)
[2021-05-09 08:01] LABS: D-Dimer 1351 ng/mlFEU (<500); Troponin I < 0.05 ng/mL (<0.06)
[2021-05-09] MEDS: Ipratropium/Albuterol 4 GM 120 PUFF INH IH ×4 (08:12→19:33)
[2021-05-09 08:15] LABS: C-Reactive Protein 2.62 mg/dL (0.0-0.3)
[2021-05-09 08:38] LABS: BUN 28 mg/dL (7-18); CREATININE 1.4 mg/dL (0.55-1.02); Calcium 9.1 mg/dL (8.5-10.1); Chloride 96 mmol/L (98-107); Estimated GFR 36.86 (mL/min/1.73m2); Glucose 223 mg/dL (74-106); Potassium 5.5 mmol/L (3.5-5.1); Sodium 133 mmol/L (136-145)
[2021-05-09] MEDS: Ascorbic Acid 500 MG TAB PO ×2 (08:43→19:32)
[2021-05-09] MEDS: Pantoprazole 40 MG VIAL IVP ×2 (08:43→19:31)
[2021-05-09] MEDS: Citalopram 20 MG TAB PO (08:43)
[2021-05-09] MEDS: Montelukast 10 MG TAB PO (08:43)
[2021-05-09] MEDS: amLODIPine 5 MG TAB PO (08:43)
[2021-05-09] MEDS: Magnesium Oxide 400 MG TAB PO (08:43)
[2021-05-09] MEDS: LORazepam 0.5 MG TAB PO ×2 (09:19→18:14)
--- NOTE | 2021-05-09 13:50 | PDOC.CMPRO ---
- If Service Date Differs Date of service: 05/09/21 Time of Service: 13:50 Care Management Progress Note S/O: CM spoke to Kelly over the phone, as she remains on Covid precautions. She reported that she is feeling better today, and was moved to / from the ICU, so she feels that she is making progress. She stated that she will be returning to [place] as soon as she is able to travel. She also reported that she has been talking to her twice a day, updating him. CM will continue to follow. A: Kelly is a 71 year old woman admitted on 05/06/21 with Covid Pneumonia P:Kelly will be discharged home when medically cleared by provider. She will follow up with her PCP and plan of care as directed. Ultimately she wants to return to [place] where she lives and will transfer her care to her PCP in [place]. Her will drive her home via private vehicle when ready. CM will continue to support Kelly and assess for discharge planning concerns.
[2021-05-09] MEDS: Enoxaparin 40 MG/0.4 ML SYR SC (14:41)
--- NOTE | 2021-05-09 16:46 | W.PM.PROGNOT ---
Date of Service Date of service: 05/09/21 Time of Service: 16:47 Assessment and Plan Assessment and plan (1) Respiratory failure with hypoxia: Status: Resolved Assessment and plan: Pulmonary medicine following. Stable on Hiflow O2. CPAP at night; 5 hours while proned last PM and the night before Improving. Qualifiers: Chronicity: acute Qualified Code(s): J96.01 - Acute respiratory failure with hypoxia (2) 2019 novel coronavirus-infected pneumonia (NCIP): Status: Acute Assessment and plan: PCR cycle time of 34.7. Inflammatory markers had normalized but now up higher than at time of previous admission. Cont dexamethasone, Remdesivir and Baricitanib. Procal ordered d/t concerned of developing consolidating pneumonia on CT. Procal neg so not likely to have a bacterial pulmonary infection. (3) Rheumatoid arthritis: Status: Chronic Assessment and plan: Held her Rituxan this month. Qualifiers: Rheumatoid arthritis location: unspecified site Rheumatoid factor presence: unspecified presence Qualified Code(s): M06.9 - Rheumatoid arthritis, unspecified Subjective Subjective Patient reports: no new complaints, tolerating a regular diet and afebrile; denies diarrhea, nausea and vomiting Exam Narrative Exam Narrative: Sitting in chair. VS: BP 87/62. O2 saturation 95% on Hiflow NC at 43% FIO2. Const General: cooperative, no acute distress and frail appearing Nutritional Appearance: average body habitus and obese Orientation: alert and oriented x3 HENMT Head: normocephalic Eyes General: appearance normal, both eyes and all related structures Cornea: corneas normal Pupils: PERRL Resp Effort & Inspection: normal respiratory effort Auscultation: diminished lung sounds and rales Cardio Rate: regular rate Rhythm: regular rhythm Heart Sounds: S1 normal and S2 normal GI Palpation: soft and nontender Auscultation: normal bowel sounds Skin General skin exam: no rashes or lesions noted Lesions: no lesions Neuro General: no focal motor deficits Cognition: normal cognition Speech: speech normal Extrem General: no pedal edema and no calf tenderness Psych Appearance: grossly normal Mental Status: mental status grossly normal Speech and Movement: speech and movement normal Affect: normal affect Objective Last Vital Signs Temp 36 C L 05/09/21 11:51 Pulse 75 05/09/21 11:51 Resp 102 H 05/09/21 11:51 BP 124/61 05/09/21 08:00 Pulse Ox 93 05/09/21 11:51 Laboratory Results - last 24 hr 05/08/21 05/08/21 05/09/21 20:50 20:50 00:20 D-Dimer Sodium 134 L 133 L Potassium 4.8 5.5 H Chloride 103 96 L Carbon Dioxide 20.6 L 27.0 Anion Gap 10.4 10.0 BUN 24 H 28 H Creatinine 1.3 H 1.4 H Estimated GFR/1.73 m2 40.15 36.86 Glucose 268 H D 223 H Calcium 7.5 L 9.1 Magnesium 1.6 L 2.0 Ferritin Troponin I < 0.05 < 0.05 C-Reactive Protein NT-Pro-B Natriuret Pep 618 H 05/09/21 05/09/21 06:05 06:05 D-Dimer 1351 H Sodium Potassium Chloride Carbon Dioxide Anion Gap BUN Creatinine Estimated GFR/1.73 m2 Glucose Calcium Magnesium Ferritin 661 H Troponin I < 0.05 C-Reactive Protein 2.62 H NT-Pro-B Natriuret Pep
[2021-05-09] MEDS: Dexamethasone 4 MG/ML VIAL 6 MG IVP (18:14)
[2021-05-09] MEDS: Zolpidem 5 MG TAB PO (22:09)
[2021-05-09] MEDS: Acetaminophen 325 MG TAB PO (22:09)
[2021-05-10] VITALS (10 sets, daily range): BP systolic 106–133; BP diastolic 63–84; PULSE 60–79; RESP 18–26; TEMP 35.4–36.4; O2SAT 91–97
[2021-05-10] MEDS: Melatonin 3 MG TAB 9 MG PO ×2 (00:23→23:09)
[2021-05-10] MEDS: Normal Saline Flush 10 ML SYR IVP ×4 (00:24→21:03)
[2021-05-10 07:27] LABS: HGB 9.3 g/dL (11.2-15.7); MCH 28.8 pg (27.0-33.0); MCHC 33.2 % (32.0-36.0); MCV 86.7 fL (80-95); MPV 9.3 fL (8.0-11.0); Platelet Count 309 10^3/uL (130-400); RBC 3.23 10^6/uL (3.93-5.22); RDW 14.6 % (11.7-14.6); RDW-SD 45.9 fL
[2021-05-10 07:39] LABS: BUN 28 mg/dL (7-18); CREATININE 0.9 mg/dL (0.55-1.02); Calcium 8.7 mg/dL (8.5-10.1); Chloride 99 mmol/L (98-107); Glucose 135 mg/dL (74-106); Potassium 5.6 mmol/L (3.5-5.1); Sodium 137 mmol/L (136-145)
[2021-05-10 07:41] LABS: C-Reactive Protein 1.61 mg/dL (0.0-0.3)
[2021-05-10] MEDS: Montelukast 10 MG TAB PO (07:47)
[2021-05-10] MEDS: Pantoprazole 40 MG VIAL IVP ×2 (07:47→21:02)
[2021-05-10] MEDS: LORazepam 0.5 MG TAB PO (07:48)
[2021-05-10] MEDS: Citalopram 20 MG TAB PO (07:48)
[2021-05-10] MEDS: Magnesium Oxide 400 MG TAB PO (07:48)
[2021-05-10] MEDS: Ascorbic Acid 500 MG TAB PO ×2 (07:48→21:02)
[2021-05-10] MEDS: amLODIPine 5 MG TAB PO (07:49)
[2021-05-10 08:00] LABS: D-Dimer 1217 ng/mlFEU (<500)
[2021-05-10 08:09] LABS: Ferritin 541 ng/mL (8-252)
--- NOTE | 2021-05-10 11:42 | PDOC.CMPRO ---
- If Service Date Differs Date of service: 05/10/21 Time of Service: 11:42 Care Management Progress Note S/O: CM spoke to Kelly over the phone, as she remains on Covid precautions. She sounded like she was in good spirits and shared that she is breathing better right now. She acknowledged that it has been an up and down process with periods where she could breathe well and others when she struggled. She stated that she has not had any serious discussions about discharge yet as she is not ready. She has shared that she will return to [facility] as soon as she is able but other supports needed have not been identified yet. CM will continue to support and follow Kelly. CM offered coloring books and word searches to stave off boredom, but Kelly declined, stating that TV is fine for now. A: Kelly is a 71 year old woman admitted on 05/06/21 with Covid Pneumonia P:Kelly will be discharged home when medically cleared by provider. She will follow up with her PCP and plan of care as directed. Ultimately she wants to return to [place] where she lives and will transfer her care to her PCP in [place]. Her will drive her home via private vehicle when ready. CM will continue to support Kelly and assess for discharge planning concerns.
[2021-05-10] MEDS: Ipratropium/Albuterol 4 GM 120 PUFF INH IH ×3 (12:25→21:03)
--- NOTE | 2021-05-10 13:13 | W.PM.PROGNOT ---
Date of Service Date of service: 05/10/21 Time of Service: 13:13 Assessment and Plan Assessment and plan (1) Respiratory failure with hypoxia: Status: Resolved Assessment and plan: Pulmonary medicine following. Stable on Hiflow O2; 40% FIO2 CPAP at night; continues to prone. D dimer and CRP trending downward trending downward. Improving. Qualifiers: Chronicity: acute Qualified Code(s): J96.01 - Acute respiratory failure with hypoxia (2) 2019 novel coronavirus-infected pneumonia (NCIP): Status: Acute Assessment and plan: As above PCR cycle time of 34.7. Inflammatory markers had normalized but now up higher than at time of previous admission. Cont dexamethasone, Remdesivir and Baricitanib. Procal neg. (3) Rheumatoid arthritis: Status: Chronic Assessment and plan: Held her Rituxan this month. Qualifiers: Rheumatoid arthritis location: unspecified site Rheumatoid factor presence: unspecified presence Qualified Code(s): M06.9 - Rheumatoid arthritis, unspecified Subjective Subjective Patient reports: tolerating a regular diet, shortness of breath (with activity.) and afebrile; denies diarrhea, nausea and vomiting Interval history since last seen: She feels about the same as yesterday. Exam Narrative Exam Narrative: Sitting in chair. VS: BP 87/62. O2 saturation 95% on Hiflow NC at 43% FIO2. Const General: cooperative, no acute distress and frail appearing Nutritional Appearance: average body habitus and obese Orientation: alert and oriented x3 HENMT Head: normocephalic Eyes General: appearance normal, both eyes and all related structures Cornea: corneas normal Pupils: PERRL Resp Effort & Inspection: normal respiratory effort Auscultation: diminished lung sounds and rales bilaterally Cardio Rate: regular rate Rhythm: regular rhythm Heart Sounds: S1 normal and S2 normal GI Palpation: soft and nontender Auscultation: normal bowel sounds Skin General skin exam: no rashes or lesions noted Lesions: no lesions Neuro General: no focal motor deficits Cognition: normal cognition Speech: speech normal Extrem General: no pedal edema and no calf tenderness Psych Appearance: grossly normal Mental Status: mental status grossly normal Speech and Movement: speech and movement normal Affect: normal affect Objective Last Vital Signs Temp 36.1 C L 05/10/21 08:00 Pulse 60 05/10/21 08:00 Resp 18 05/10/21 08:00 BP 130/84 05/10/21 08:00 Pulse Ox 91 L 05/10/21 08:00 Laboratory Results - last 24 hr 05/10/21 05/10/21 05/10/21 07:00 07:00 07:00 WBC 7.00 RBC 3.23 L Hgb 9.3 L Hct 28.0 L MCV 86.7 MCH 28.8 MCHC 33.2 RDW 14.6 Plt Count 309 D MPV 9.3 D-Dimer 1217 H Sodium Potassium Chloride Carbon Dioxide Anion Gap BUN Creatinine Estimated GFR/1.73 m2 Glucose Calcium Ferritin 541 H C-Reactive Protein 1.61 H 05/10/21 07:00 WBC RBC Hgb Hct MCV MCH MCHC RDW Plt Count MPV D-Dimer Sodium 137 Potassium 5.6 H Chloride 99 Carbon Dioxide 33.0 H Anion Gap 5.0 BUN 28 H Creatinine 0.9 D Estimated GFR/1.73 m2 >= 60.00 Glucose 135 H D Calcium 8.7 Ferritin C-Reactive Protein
[2021-05-10] MEDS: Enoxaparin 40 MG/0.4 ML SYR SC (14:54)
[2021-05-10] MEDS: Dexamethasone 4 MG/ML VIAL 6 MG IVP (18:05)
[2021-05-10] MEDS: Zolpidem 5 MG TAB PO (23:09)
[2021-05-10] MEDS: Acetaminophen 325 MG TAB PO (23:10)
[2021-05-11] VITALS (16 sets, daily range): BP systolic 97–117; BP diastolic 46–68; PULSE 57–82; RESP 18–36; TEMP 34–36.5; O2SAT 86–96
[2021-05-11 07:41] LABS: C-Reactive Protein 0.88 mg/dL (0.0-0.3)
[2021-05-11 08:06] LABS: Ferritin 505 ng/mL (8-252)
[2021-05-11 08:18] LABS: D-Dimer 1084 ng/mlFEU (<500)
[2021-05-11] MEDS: Pantoprazole 40 MG VIAL IVP ×2 (10:30→19:25)
[2021-05-11] MEDS: Normal Saline Flush 10 ML SYR IVP ×3 (10:30→19:26)
[2021-05-11] MEDS: Citalopram 20 MG TAB PO (10:31)
[2021-05-11] MEDS: LORazepam 0.5 MG TAB PO ×2 (10:31→17:03)
[2021-05-11] MEDS: Ascorbic Acid 500 MG TAB PO (10:31)
[2021-05-11] MEDS: Magnesium Oxide 400 MG TAB PO (10:31)
[2021-05-11] MEDS: amLODIPine 5 MG TAB PO (10:31)
[2021-05-11] MEDS: Montelukast 10 MG TAB PO (10:31)
[2021-05-11] MEDS: Ipratropium/Albuterol 4 GM 120 PUFF INH IH ×4 (10:32→19:27)
--- NOTE | 2021-05-11 12:55 | NUR.NOTE ---
patient sitting up in bed noted to have labored breathing, vitals decrease O2 88% on 3 liters, respirations 36. Nurse called for assist and respiratory. Nurse then increase O2 to 4 liters then 89%, respirations 30, inhaler given at 1302Nursing Note:
--- NOTE | 2021-05-11 14:36 | W.PM.PROGNOT ---
Date of Service Date of service: 05/11/21 Time of Service: 14:36 Assessment and Plan Assessment and plan (1) Respiratory failure with hypoxia: Status: Acute Assessment and plan: Somewhat worse today. I suspect that there is a component of fluid overload - will trial lasix. PE ruled out on admission - consider obtaining a new CT chest. Encourage proning. No longer using CPAP. Continue humidified heated high flow. Qualifiers: Chronicity: acute Qualified Code(s): J96.01 - Acute respiratory failure with hypoxia (2) 2019 novel coronavirus-infected pneumonia (NCIP): Status: Acute Assessment and plan: Recurrent/never cleared hear original infection from 03/21/21. Continue dexamethasone and Baricitinib. Resume remdesivir (fell off SEP due to dose limit on the order). Trend inflammatory markers. (3) Organizing pneumonia: Status: Acute Assessment and plan: Continue steroids - with instructions for steroid taper as per pulmonology on discharge. (4) ANSHU (acute kidney injury): Status: Acute Assessment and plan: Recheck labs in am. Monitor Cr with diuresis. (5) Rheumatoid arthritis: Status: Chronic Assessment and plan: Hold Rituxan this month. Qualifiers: Rheumatoid arthritis location: unspecified site Rheumatoid factor presence: unspecified presence Qualified Code(s): M06.9 - Rheumatoid arthritis, unspecified (6) DVT prophylaxis: Status: Acute Assessment and plan: SC enoxaparin (7) Discharge planning issues: Status: Acute Assessment and plan: Full code Continues to require hospitalization Subjective Subjective Interval history since last seen: Ms Dasilva stated that she got quite short of breath for about an hour and a half while on 3L of O2 by DC and she was transitioned back to humidified heated high flow system. She denies dizziness, chest pain, nausea. She has a nonproductive cough. She is inquiring about remdesivir. Exam Narrative Exam Narrative: General: Pleasant elderly female who is laying on her back, mildly dyspneic, A&Ox3, on humidified heated high flow (FiO2 40 % 30 L). HEENT: EOMI, MMM Heart: RRR, no m/r/g Lungs: crackles throughout B lung garcia Abdomen: soft, nontender, nondistended Extremities: +1 edema BLEs to B knees Objective Last Vital Signs Temp 36.1 C L 05/11/21 12:38 Pulse 79 05/11/21 13:08 Resp 22 05/11/21 13:33 BP 105/62 05/11/21 13:08 Pulse Ox 93 05/11/21 13:33 Laboratory Results - last 24 hr 05/11/21 05/11/21 07:10 07:10 D-Dimer 1084 H Ferritin 505 H C-Reactive Protein 0.88 H
[2021-05-11] MEDS: Enoxaparin 40 MG/0.4 ML SYR SC (15:39)
[2021-05-11] MEDS: Dexamethasone 4 MG/ML VIAL 6 MG IVP (18:22)
[2021-05-11] MEDS: Ascorbic Acid 500 MG TAB 1000 MG PO (19:26)
[2021-05-11] MEDS: Zolpidem 5 MG TAB PO (22:44)
[2021-05-11] MEDS: Melatonin 3 MG TAB 9 MG PO (22:44)
[2021-05-11] MEDS: Acetaminophen 325 MG TAB PO (22:44)
[2021-05-12] VITALS (13 sets, daily range): BP systolic 92–124; BP diastolic 40–76; PULSE 50–92; RESP 18–21; TEMP 34–36.4; O2SAT 95–100
[2021-05-12 07:36] LABS: HCT 30.4 % (36.0-46.0); MCH 28.3 pg (27.0-33.0); MCHC 32.9 % (32.0-36.0); MCV 86.1 fL (80-95); MPV 9.4 fL (8.0-11.0); Nucleated RBC 0 %; Platelet Count 438 10^3/uL (130-400); RBC 3.53 10^6/uL (3.93-5.22); RDW 14.7 % (11.7-14.6); RDW-SD 45.2 fL; WBC 9.08 10^3/uL (4.4-10.8)
[2021-05-12 08:01] LABS: PHOSPHORUS 4.4 mg/dL (2.6-4.7)
[2021-05-12 08:04] LABS: ALT 23 U/L (14-59); AST 12 U/L (15-37); Absolute Lymphocyte Count 0.27 10^3/uL (1.2-3.4); Absolute Monocyte Count 0.27 10^3/uL (0.1-0.8); Absolute Neutrophil Count 8.26 10^3/uL (1.2-6.7); Albumin 2.9 g/dL (3.4-5.0); Alkaline Phosphatase 81 U/L (46-116); Anion Gap 5.5 mmol/L (3-11); BUN 27 mg/dL (7-18); Bands % 6; Bilirubin, Direct 0.1 mg/dL (0.0-0.2); Bilirubin, Total 0.3 mg/dL (0.2-1.0); C-Reactive Protein 0.57 mg/dL (0.0-0.3); CO2 31.5 mmol/L (21.0-32.0); CREATININE 0.9 mg/dL (0.55-1.02); Calcium 8.8 mg/dL (8.5-10.1); Chloride 97 mmol/L (98-107); Diff Comment Manual Differential; Glucose 132 mg/dL (74-106); Magnesium 2.1 mg/dL (1.8-2.4); Metamyelocytes % 3; Potassium 5.2 mmol/L (3.5-5.1); RBC Morphology Normal; Sodium 134 mmol/L (136-145); Total Protein 5.7 g/dL (6.4-8.2)
[2021-05-12] MEDS: Ipratropium/Albuterol 4 GM 120 PUFF INH IH ×4 (08:09→21:32)
[2021-05-12 08:29] LABS: D-Dimer 964 ng/mlFEU (<500)
[2021-05-12 08:37] LABS: Procalcitonin < 0.1 ng/mL
[2021-05-12 08:38] LABS: Ferritin 420 ng/mL (8-252)
[2021-05-12] MEDS: Cholecalciferol (Vitamin D3) 1,000 UNIT TAB 2000 UNITS PO (09:28)
[2021-05-12] MEDS: Magnesium Oxide 400 MG TAB PO (09:29)
[2021-05-12] MEDS: Ascorbic Acid 500 MG TAB 1000 MG PO ×2 (09:29→21:29)
[2021-05-12] MEDS: LORazepam 0.5 MG TAB PO ×2 (09:29→17:24)
[2021-05-12] MEDS: Montelukast 10 MG TAB PO (09:29)
[2021-05-12] MEDS: Pantoprazole 40 MG VIAL IVP ×2 (09:30→21:28)
[2021-05-12] MEDS: Citalopram 20 MG TAB PO (09:30)
[2021-05-12] MEDS: Normal Saline Flush 10 ML SYR IVP ×4 (09:31→21:29)
[2021-05-12] MEDS: Furosemide 40 MG/4 ML VIAL IVP (10:41)
[2021-05-12] MEDS: Enoxaparin 40 MG/0.4 ML SYR SC (15:07)
--- NOTE | 2021-05-12 15:27 | W.PM.PROGNOT ---
Date of Service Date of service: 05/12/21 Time of Service: 15:27 Assessment and Plan Assessment and plan (1) Respiratory failure with hypoxia: Status: Acute Assessment and plan: Multifactorial, due to pneumonia due to COVID-19, organizing pneumonia and likely component of fluid overload. Improved today. On 4L of O2 by NC. The patient did not get lasix yesterday due to borderline low BP, but did get it today. I suspect this is helping. PE ruled out on admission. Encourage proning. No longer using CPAP. Encouraged IS/acapella. Qualifiers: Chronicity: acute Qualified Code(s): J96.01 - Acute respiratory failure with hypoxia (2) 2019 novel coronavirus-infected pneumonia (NCIP): Status: Acute Assessment and plan: Recurrent/never cleared hear original infection from 03/21/21. Continue dexamethasone, remdesivir, and Baricitinib. Trend inflammatory markers. (3) Organizing pneumonia: Status: Acute Assessment and plan: Continue steroids - with instructions for steroid taper as per pulmonology on discharge. (4) ANSHU (acute kidney injury): Status: Acute Assessment and plan: Recheck labs in am. Monitor Cr with diuresis. (5) Rheumatoid arthritis: Status: Chronic Assessment and plan: Hold Rituxan this month. Qualifiers: Rheumatoid arthritis location: unspecified site Rheumatoid factor presence: unspecified presence Qualified Code(s): M06.9 - Rheumatoid arthritis, unspecified (6) DVT prophylaxis: Status: Acute Assessment and plan: SC enoxaparin (7) Discharge planning issues: Status: Acute Assessment and plan: Full code Continues to require hospitalization Subjective Subjective Interval history since last seen: Ms Dasilva was transitioned to 4L of O2 by regular NC. Feels better today. Denies dizziness, chest pain, shortness of breath at rest, nausea. Had two soft BMs today. Cough nonproductive. Exam Narrative Exam Narrative: General: Pleasant elderly female, laying on her R side, no dyspnea/tachypnea/cyanosis, A&Ox3, on 4L regular NC Heart: RRR, no m/r/g Lungs: crackles at B lung bases, L>R Abdomen: soft, nontender, nondistended Extremities: no edema BLE's Objective Last Vital Signs Temp 36.3 C L 05/12/21 12:39 Pulse 92 H 05/12/21 12:39 Resp 20 05/12/21 12:39 BP 110/76 05/12/21 12:39 Pulse Ox 96 05/12/21 12:39 Laboratory Results - last 24 hr 05/12/21 05/12/21 05/12/21 07:10 07:10 07:10 WBC 9.08 RBC 3.53 L Hgb 10.0 L Hct 30.4 L MCV 86.1 MCH 28.3 MCHC 32.9 RDW 14.7 H Plt Count 438 H MPV 9.4 Immature Gran % 0.0 Neutrophils % 85.0 Band Neutrophils % 6 Lymphocytes % 3.0 Monocytes % 3.0 Eosinophils % 0.0 Basophils % 0.0 Metamyelocytes % 3 Nucleated RBC % 0 Absolute Neutrophils 8.26 H Absolute Lymphocytes 0.27 L Absolute Monocytes 0.27 Absolute Eosinophils 0.00 Absolute Basophils 0.00 RBC Morphology Normal D-Dimer 964 H Sodium 134 L Potassium 5.2 H Chloride 97 L Carbon Dioxide 31.5 Anion Gap 5.5 BUN 27 H Creatinine 0.9 Estimated GFR/1.73 m2 >= 60.00 Glucose 132 H Calcium 8.8 Phosphorus Magnesium 2.1 Ferritin 420 H Total Bilirubin 0.3 Conjugated Bilirubin 0.1 AST 12 L ALT 23 Alkaline Phosphatase 81 C-Reactive Protein 0.57 H Total Protein 5.7 L Albumin 2.9 L Procalcitonin 05/12/21 05/12/21 07:10 07:10 WBC RBC Hgb Hct MCV MCH MCHC RDW Plt Count MPV Immature Gran % Neutrophils % Band Neutrophils % Lymphocytes % Monocytes % Eosinophils % Basophils % Metamyelocytes % Nucleated RBC % Absolute Neutrophils Absolute Lymphocytes Absolute Monocytes Absolute Eosinophils Absolute Basophils RBC Morphology D-Dimer Sodium Potassium Chloride Carbon Dioxide Anion Gap BUN Creatinine Estimated GFR/1.73 m2 Glucose Calcium Phosphorus 4.4 Magnesium Ferritin Total Bilirubin Conjugated Bilirubin AST ALT Alkaline Phosphatase C-Reactive Protein Total Protein Albumin Procalcitonin < 0.1
[2021-05-12] MEDS: Dexamethasone 4 MG/ML VIAL 6 MG IVP (17:23)
[2021-05-12] MEDS: Acetaminophen 325 MG TAB PO (21:29)
[2021-05-12] MEDS: Zolpidem 5 MG TAB PO (23:17)
[2021-05-12] MEDS: Melatonin 3 MG TAB 9 MG PO (23:17)
[2021-05-13] VITALS (9 sets, daily range): BP systolic 97–124; BP diastolic 61–72; PULSE 62–94; RESP 18–20; TEMP 36–36.4; O2SAT 92–98
[2021-05-13] MEDS: LORazepam 0.5 MG TAB PO ×3 (05:30→18:29)
[2021-05-13 07:11] LABS: HCT 30.6 % (36.0-46.0); HGB 10.2 g/dL (11.2-15.7); MCH 28.8 pg (27.0-33.0); MCHC 33.3 % (32.0-36.0); MCV 86.4 fL (80-95); MPV 9.2 fL (8.0-11.0); Nucleated RBC 0 %; Platelet Count 452 10^3/uL (130-400); RBC 3.54 10^6/uL (3.93-5.22); RDW 14.8 % (11.7-14.6); RDW-SD 46.2 fL; WBC 7.41 10^3/uL (4.4-10.8)
[2021-05-13 07:42] LABS: Absolute Lymphocyte Count 0.74 10^3/uL (1.2-3.4); Absolute Monocyte Count 0.37 10^3/uL (0.1-0.8); Absolute Neutrophil Count 5.93 10^3/uL (1.2-6.7)
[2021-05-13 07:43] LABS: Diff Comment Manual Differential; Metamyelocytes % 2; Myelocytes % 3; RBC Morphology Normal
[2021-05-13 07:48] LABS: D-Dimer 726 ng/mlFEU (<500)
[2021-05-13] MEDS: Ascorbic Acid 500 MG TAB 1000 MG PO ×2 (08:10→20:03)
[2021-05-13] MEDS: Cholecalciferol (Vitamin D3) 1,000 UNIT TAB 2000 UNITS PO (08:10)
[2021-05-13] MEDS: Citalopram 20 MG TAB PO (08:11)
[2021-05-13] MEDS: Magnesium Oxide 400 MG TAB PO (08:12)
[2021-05-13 08:15] LABS: ALT 15 U/L (14-59); AST 12 U/L (15-37); Alkaline Phosphatase 80 U/L (46-116); Anion Gap 6.4 mmol/L (3-11); BUN 33 mg/dL (7-18); Bilirubin, Direct 0.1 mg/dL (0.0-0.2); Bilirubin, Total 0.3 mg/dL (0.2-1.0); C-Reactive Protein 0.38 mg/dL (0.0-0.3); CO2 32.6 mmol/L (21.0-32.0); CREATININE 0.9 mg/dL (0.55-1.02); Calcium 8.9 mg/dL (8.5-10.1); Chloride 95 mmol/L (98-107); Glucose 136 mg/dL (74-106); Magnesium 2.1 mg/dL (1.8-2.4); Potassium 5.2 mmol/L (3.5-5.1); Sodium 134 mmol/L (136-145); Total Protein 5.8 g/dL (6.4-8.2)
[2021-05-13] MEDS: Montelukast 10 MG TAB PO (08:17)
[2021-05-13 08:39] LABS: Ferritin 392 ng/mL (8-252)
[2021-05-13] MEDS: Ipratropium/Albuterol 4 GM 120 PUFF INH IH ×4 (08:49→20:03)
[2021-05-13] MEDS: Pantoprazole 40 MG TABCR PO ×2 (09:58→20:03)
[2021-05-13] MEDS: Furosemide 40 MG TAB PO (09:58)
--- NOTE | 2021-05-13 11:11 | CMPROGNOTE_ITS ---
- If Service Date Differs Date of service: 05/13/21 Time of Service: 11:12 Care Management Progress Note S/O:Kelly verbalized that she is feeling much better when CM called into her room today. She stated that her breathing is better and she is happy to be able to have a nasal cannula for oxygen delivery. She did say that she has not been allowed to ambulate yet because her oxygen levels drop with activity. She indicated that she is managing to keep occupied and is not interested in any ac tivities such as adult coloring books or word searche puzzles. A: Kelly is a 71 year old woman admitted on 05/06/21 with Covid Pneumonia P:Kelly will be discharged home when medically cleared by provider. She will follow up with her PCP and plan of care as directed. Ultimately she wants to return to [place] where she lives and will transfer her care to her PCP in [place]. Her will drive her home via private vehicle when ready. CM will continue to support Kelly and assess for discharge planning concerns. cc:
--- NOTE | 2021-05-13 12:56 | W.NUTRFU ---
Date of service: 05/13/21 Time of Service: 12:56 Nutritional Follow up NOTE: PO intake is generally very good on low sodium diet. Weight has been stable over the past month. BMI is 34.9 kg/m2 c/w class 1 obesity. No nutritional issues noted at this time. Will continue to follow progress. Time Spent in Nutritional Counseling and Treatment: 0
[2021-05-13] MEDS: Normal Saline Flush 10 ML SYR IVP (15:44)
[2021-05-13] MEDS: Enoxaparin 40 MG/0.4 ML SYR SC (15:45)
--- NOTE | 2021-05-13 16:06 | W.PM.PROGNOT ---
Date of Service Date of service: 05/13/21 Time of Service: 16:06 Assessment and Plan Assessment and plan (1) Respiratory failure with hypoxia: Status: Acute Assessment and plan: Multifactorial, due to pneumonia due to COVID-19, organizing pneumonia and likely component of fluid overload. Continues to improve. On 2L of O2 by NC. Continue to encourse IS/acapella/proning. PE ruled out on admission. Wean O2 as tolerated. Qualifiers: Chronicity: acute Qualified Code(s): J96.01 - Acute respiratory failure with hypoxia (2) 2019 novel coronavirus-infected pneumonia (NCIP): Status: Acute Assessment and plan: Recurrent/never cleared hear original infection from 03/21/21. Continue dexamethasone, remdesivir, and Baricitinib. Trend inflammatory markers. (3) Organizing pneumonia: Status: Acute Assessment and plan: Continue steroids - with instructions for steroid taper as per pulmonology on discharge. (4) ANSHU (acute kidney injury): Status: Acute Assessment and plan: Recheck labs in am. Monitor Cr with diuresis. (5) Rheumatoid arthritis: Status: Chronic Assessment and plan: Hold Rituxan this month. Qualifiers: Rheumatoid arthritis location: unspecified site Rheumatoid factor presence: unspecified presence Qualified Code(s): M06.9 - Rheumatoid arthritis, unspecified (6) DVT prophylaxis: Status: Acute Assessment and plan: SC enoxaparin (7) Discharge planning issues: Status: Acute Assessment and plan: Full code Continues to require hospitalization Subjective Subjective Interval history since last seen: Weaned down to 2L of O2 by NC. Feels better. Spent 3.5 hrs in a chair today. Will prone tonight, but wants to turn side to side for the remainder of the day. Denies dizziness, chest pain, shortness of breath, nausea. Exam Narrative Exam Narrative: General: Pleasant elderly female, in bed, on 2L of O2 by NC, no dyspnea/tachypnea/cyanosis, A&Ox3, looks comfortable (laying tilted to the right). HEENT: EOMI, MMM Heart: RRR, no m/r/g Lungs: crackles at B lung bases, L>R, improved today Abdomen: soft, nontender, nondistended Extremities: no edema BLE's Objective Last Vital Signs Temp 36 C L 05/13/21 15:47 Pulse 94 H 05/13/21 15:47 Resp 18 05/13/21 15:47 BP 97/61 L 05/13/21 15:47 Pulse Ox 92 05/13/21 15:47 Laboratory Results - last 24 hr 05/13/21 05/13/21 05/13/21 06:30 06:30 06:30 WBC 7.41 RBC 3.54 L Hgb 10.2 L Hct 30.6 L MCV 86.4 MCH 28.8 MCHC 33.3 RDW 14.8 H Plt Count 452 H MPV 9.2 Immature Gran % See Differential Neutrophils % 80.0 Lymphocytes % 10.0 Monocytes % 5.0 Eosinophils % 0.0 Basophils % 0.0 Metamyelocytes % 2 Myelocytes % 3 Nucleated RBC % 0 Absolute Neutrophils 5.93 Absolute Lymphocytes 0.74 L Absolute Monocytes 0.37 Absolute Eosinophils 0.00 Absolute Basophils 0.00 RBC Morphology Normal D-Dimer 726 H Sodium 134 L Potassium 5.2 H Chloride 95 L Carbon Dioxide 32.6 H Anion Gap 6.4 BUN 33 H Creatinine 0.9 Estimated GFR/1.73 m2 >= 60.00 Glucose 136 H Calcium 8.9 Magnesium 2.1 Ferritin 392 H Total Bilirubin 0.3 Conjugated Bilirubin 0.1 AST 12 L ALT 15 Alkaline Phosphatase 80 C-Reactive Protein 0.38 H Total Protein 5.8 L Albumin 3.0 L
[2021-05-13] MEDS: Dexamethasone 4 MG/ML VIAL 6 MG IVP (18:29)
[2021-05-13] MEDS: Acetaminophen 325 MG TAB PO (20:02)
[2021-05-13] MEDS: Zolpidem 5 MG TAB PO (22:44)
[2021-05-13] MEDS: Melatonin 3 MG TAB 9 MG PO (22:44)
[2021-05-14] VITALS (9 sets, daily range): BP systolic 97–124; BP diastolic 56–70; PULSE 57–96; RESP 16–20; TEMP 36–36.4; O2SAT 91–95
[2021-05-14] MEDS: LORazepam 0.5 MG TAB PO ×3 (05:54→16:13)
[2021-05-14] MEDS: Ipratropium/Albuterol 4 GM 120 PUFF INH IH ×4 (08:06→20:04)
[2021-05-14] MEDS: Pantoprazole 40 MG TABCR PO ×2 (08:38→20:04)
[2021-05-14] MEDS: Cholecalciferol (Vitamin D3) 1,000 UNIT TAB 2000 UNITS PO (08:38)
[2021-05-14] MEDS: Ascorbic Acid 500 MG TAB 1000 MG PO ×2 (08:38→20:04)
[2021-05-14] MEDS: Montelukast 10 MG TAB PO (08:38)
[2021-05-14] MEDS: Citalopram 20 MG TAB PO (08:39)
[2021-05-14] MEDS: Magnesium Oxide 400 MG TAB PO (08:39)
[2021-05-14] MEDS: Enoxaparin 40 MG/0.4 ML SYR SC (14:22)
--- NOTE | 2021-05-14 16:45 | PGE_ITS ---
Date of Service Date of service: 05/14/21 Time of Service: 16:46 Assessment and Plan Assessment and plan (1) Respiratory failure with hypoxia: Status: Acute Assessment and plan: Multifactorial, due to pneumonia due to COVID-19, organizing pneumonia and likely component of fluid overload. Stable. On 2L of O2 by CA. Continue to encourage IS/acapella/proning. PE ruled out on admission. Wean O2 as tolerated. Qualifiers: Chronicity: acute Qualified Code(s): J96.01 - Acute respiratory failure with hypoxia (2) 2019 novel coronavirus-infected pneumonia (NCIP): Status: Acute Assessment and plan: Recurrent/never cleared hear original infection from 03/21/21. Continue dexamethasone, remdesivir, and Baricitinib. Trend inflammatory markers. Consult PT. (3) Organizing pneumonia: Status: Acute Assessment and plan: Continue steroids - with instructions for steroid taper as per pulmonology on discharge. (4) ANSHU (acute kidney injury): Status: Acute Assessment and plan: Recheck labs in am. Monitor Cr with diuresis. (5) Rheumatoid arthritis: Status: Chronic Assessment and plan: Hold Rituxan this month. Qualifiers: Rheumatoid arthritis location: unspecified site Rheumatoid factor presence: unspecified presence Qualified Code(s): M06.9 - Rheumatoid arthritis, unspecified (6) DVT prophylaxis: Status: Acute Assessment and plan: SC enoxaparin (7) Discharge planning issues: Status: Acute Assessment and plan: Full code Continues to require hospitalization Subjective Subjective Interval history since last seen: On RA. 91 on 2L of O2 by CA. Floyd short of breath earlier today. Alright right now. Nonproductive cough. No nausea. + Diarrhea. Exam Narrative Exam Narrative: Telephone visit today as the patient is stable and has a diagnosis of COVID-19. General: The patient is speaking in full sentences, no dyspnea/tachypnea. She is in good spirits. Objective Last Vital Signs Temp 36.1 C L 05/14/21 16:20 Pulse 84 05/14/21 16:20 Resp 16 05/14/21 16:20 BP 106/56 L 05/14/21 16:20 Pulse Ox 91 L 05/14/21 16:20
[2021-05-14] MEDS: Loperamide 2 MG CAP PO (17:28)
--- NOTE | 2021-05-14 18:49 | PDOC.CMPRO ---
- If Service Date Differs Date of service: 05/14/21 Time of Service: 18:49 Care Management Progress Note S/O: Kelly remains on precautions for Covid 19, therefore CM was unable to visit with her today. Per report, she is improving, and was 90% on 2L O2 today. Her O2 will be weaned as tolerated, and her labs will continue to be monitored closely. CM will continue to follow. A: Kelly is a 71 year old woman admitted on 05/06/21 with Covid Pneumonia P:Kelly will be discharged home when medically cleared by provider. She will follow up with her PCP and plan of care as directed. Ultimately she wants to return to [place] where she lives and will transfer her care to her PCP in [place]. Her will drive her home via private vehicle when ready. CM will continue to support Kelly and assess for discharge planning concerns.
[2021-05-14] MEDS: Dexamethasone 4 MG/ML VIAL 6 MG IVP (20:01)
[2021-05-14] MEDS: Melatonin 3 MG TAB 9 MG PO (20:04)
[2021-05-14] MEDS: Cetirizine 10 MG TAB 5 MG PO (20:04)
[2021-05-15] VITALS (10 sets, daily range): BP systolic 97–146; BP diastolic 55–81; PULSE 58–84; RESP 15–28; TEMP 35.7–37.5; O2SAT 93–96
[2021-05-15] MEDS: Zolpidem 5 MG TAB PO ×2 (00:19→22:49)
[2021-05-15] MEDS: Acetaminophen 325 MG TAB PO (00:19)
[2021-05-15] MEDS: Pantoprazole 40 MG TABCR PO ×2 (06:38→20:55)
[2021-05-15] MEDS: LORazepam 0.5 MG TAB PO ×2 (06:38→17:16)
[2021-05-15 07:20] LABS: HCT 31.3 % (36.0-46.0); HGB 10.3 g/dL (11.2-15.7); MCH 29.2 pg (27.0-33.0); MCHC 32.9 % (32.0-36.0); MCV 88.7 fL (80-95); MPV 9.5 fL (8.0-11.0); Platelet Count 509 10^3/uL (130-400); RBC 3.53 10^6/uL (3.93-5.22); RDW-SD 47.3 fL; WBC 8.88 10^3/uL (4.4-10.8)
[2021-05-15] MEDS: Ascorbic Acid 500 MG TAB 1000 MG PO ×2 (08:55→20:56)
[2021-05-15] MEDS: Cholecalciferol (Vitamin D3) 1,000 UNIT TAB 2000 UNITS PO (08:57)
[2021-05-15] MEDS: Magnesium Oxide 400 MG TAB PO (08:58)
[2021-05-15] MEDS: Citalopram 20 MG TAB PO (08:58)
[2021-05-15] MEDS: Montelukast 10 MG TAB PO (08:58)
[2021-05-15] MEDS: Ipratropium/Albuterol 4 GM 120 PUFF INH IH ×4 (08:59→20:57)
[2021-05-15] MEDS: Enoxaparin 40 MG/0.4 ML SYR SC (14:11)
[2021-05-15] MEDS: Normal Saline Flush 10 ML SYR IVP (14:12)
--- NOTE | 2021-05-15 16:39 | W.PM.PROGNOT ---
Date of Service Date of service: 05/15/21 Time of Service: 16:40 Assessment and Plan Assessment and plan (1) Respiratory failure with hypoxia: Status: Acute Assessment and plan: Multifactorial, due to pneumonia due to COVID-19, organizing pneumonia and likely component of fluid overload. Stable. On 2L of O2 by [place]. Continue to encourage IS/acapella/proning. PE ruled out on admission. Wean O2 as tolerated. Diurese. Qualifiers: Chronicity: acute Qualified Code(s): J96.01 - Acute respiratory failure with hypoxia (2) 2019 novel coronavirus-infected pneumonia (NCIP): Status: Acute Assessment and plan: Recurrent/never cleared hear original infection from 03/21/21. Continue dexamethasone, remdesivir, and Baricitinib. Trend inflammatory markers. (3) Organizing pneumonia: Status: Acute Assessment and plan: Continue steroids - with instructions for steroid taper as per pulmonology on discharge. (4) ANSHU (acute kidney injury): Status: Acute Assessment and plan: Recheck labs in am. Monitor Cr with diuresis. (5) Rheumatoid arthritis: Status: Chronic Assessment and plan: Hold Rituxan this month. Qualifiers: Rheumatoid arthritis location: unspecified site Rheumatoid factor presence: unspecified presence Qualified Code(s): M06.9 - Rheumatoid arthritis, unspecified (6) DVT prophylaxis: Status: Acute Assessment and plan: SC enoxaparin (7) Discharge planning issues: Status: Acute Assessment and plan: Full code Continues to require hospitalization Subjective Subjective Interval history since last seen: Ms Dasilav is on 3L of O2. Denies dizziness, chest pain, shortness of breath, nausea. Did have an episode of shortness of breath last night desaturating to 84%. Requested that I call her Kristian at [phone]. He was not there when I called - I will call tomorrow and I let Ms Dasilva know that. Exam Narrative Exam Narrative: General: Pleasant elderly female, sitting in a chair, on 3L of O2 by NV, no dyspnea/tachypnea/cyanosis, A&Ox3, looks better HEENT: EOMI, MMM Heart: RRR, no m/r/g Lungs: crackles at B lung bases, worse today Abdomen: soft, nontender, nondistended Extremities: +1 edema at B ankles Objective Last Vital Signs Temp 36.6 C 05/15/21 11:40 Pulse 84 05/15/21 11:40 Resp 28 H 05/15/21 11:40 BP 97/69 L 05/15/21 11:40 Pulse Ox 93 05/15/21 11:40 Laboratory Results - last 24 hr 05/15/21 06:10 WBC 8.88 RBC 3.53 L Hgb 10.3 L Hct 31.3 L MCV 88.7 MCH 29.2 MCHC 32.9 RDW 15.0 H Plt Count 509 H MPV 9.5
[2021-05-15] MEDS: Furosemide 20 MG TAB PO (17:16)
[2021-05-15] MEDS: Dexamethasone 4 MG/ML VIAL 6 MG IVP (18:52)
--- NOTE | 2021-05-15 19:08 | CMPROGNOTE_ITS ---
- If Service Date Differs Date of service: 05/15/21 Time of Service: 19:08 Care Management Progress Note S/O: Kelly remains on Covid precautions, therefore CM spoke with her over the phone today. She reported that she continues to feel better, although her O2 requirements did bump up today from yesterday, to 3L. She stated that she is keeping herself busy by watching TV, and is talking to her daily, keeping him updated. CM will continue to follow. A: Kelly is a 71 year old woman admitted on 05/06/21 with Covid Pneumonia P:Kelly will be discharged home when medically cleared by provider. She will follow up with her PCP and plan of care as directed. Ultimately she wants to re turn to [place] where she lives and will transfer her care to her PCP in [place]. Her will drive her home via private vehicle when ready. CM will continue to support Kelly and assess for discharge planning concerns.
[2021-05-15] MEDS: Melatonin 3 MG TAB 9 MG PO (22:50)
[2021-05-16] VITALS (9 sets, daily range): BP systolic 95–125; BP diastolic 57–75; PULSE 60–82; RESP 16–20; TEMP 36.1–36.4; O2SAT 91–94
[2021-05-16] MEDS: Pantoprazole 40 MG TABCR PO ×2 (06:41→21:40)
[2021-05-16] MEDS: Ascorbic Acid 500 MG TAB 1000 MG PO ×2 (07:41→21:38)
[2021-05-16] MEDS: Montelukast 10 MG TAB PO (07:41)
[2021-05-16] MEDS: Cholecalciferol (Vitamin D3) 1,000 UNIT TAB 2000 UNITS PO (07:41)
[2021-05-16] MEDS: Magnesium Oxide 400 MG TAB PO (07:42)
[2021-05-16] MEDS: LORazepam 0.5 MG TAB PO ×3 (07:42→17:28)
[2021-05-16] MEDS: Furosemide 20 MG TAB PO (07:42)
[2021-05-16] MEDS: Citalopram 20 MG TAB PO (07:42)
[2021-05-16] MEDS: Normal Saline Flush 10 ML SYR IVP ×2 (07:43→17:28)
[2021-05-16] MEDS: Ipratropium/Albuterol 4 GM 120 PUFF INH IH ×4 (07:43→21:39)
--- NOTE | 2021-05-16 09:55 | IN_ITS ---
Date of service: 05/16/21 PT Notes Visit Reasons: Covid-19 Pneumonia,Acute Respiratory Failure Physical Therapy Inpatient Initial Evaluation Date: 05/16/2021 Referring Doctor: Flor Bonds MD PT Orders: PT CONSULT: Limited ability Precautions: Fall. Standard. Activity as tolerated. COVID-[address] Patient Profile/Admitting Diagnosis: Kelly is a 71-year-old female on chronic RA medication who returns to the ICU on 05/06/2021 after being discharged on 04/25/2021 due to respiratory failure with hypoxia, continued COVID-19 infection, acute kidney injury, and organizing pneumonia. PMHX: Medical History Obesity (BMI 30-39.9) Rheumatoid arthritis Surgical History Colonoscopy - MAC (03/01/13) DR. Prabhjot LAGUERRE Endometrial Biopsy 1990: NEG 1999: NEG S/P ankle fusion Social History/Home Situation: Independent with all activities of daily living without an assistive ambulatory device. [place] in [place] and spends the rest of the year here in [place]. Has a camper in [facility] but will be discharging to her friend's house with a flight of steps leading to the bedroom where they will be staying. Plans on staying at her firned's house for about two weeks or until Thanksgiving until they are able to go back to [place] for the winter. Her friend's house has 3 steps to enter and 7 steps to kitchen with rails on both sides. Equipment Owned/DME: Front-wheeled walker Subjective: Agreeable to PT consult. Hopeful that her and her can go to [place] as soon as possible. Did indicate that she will be staying at a friend's house to recover and possibly spend Thanksgiving with. Denies pain, chest pain, and dizziness throughout session. Did complain of considerable shortness of breath duringa short ambulation activity. Objective: General Observation: Continuous oxygen supplementation at 2 L/min via NC. In NAD. Moderste SOB with activity. Mental Status: Alert and oriented as to person, place, time, and purpose. Able to pay attention, focus, and respond appropriately. Pain: Denies Vital Signs: During the first walk of 25 feet patient desaturated to 80% on 2 L with blood pressure of 90/60 mmHg and HR of 85 bpm. Required 5 minutes of her rest to recover prior to the second walk. Patient saturated at 91% on 3 L during the second walk with blood pressure of 102/60 mmHg and heart rate of 89 bpm. ROM: Right Upper Extremity: Shoulder Flexion WFL. Shoulder abduction WFL. Elbow flexion WFL. Wrist flexion WFL. Functional opening and closing of hand WFL. Left Upper Extremity: Shoulder Flexion WFL. Shoulder abduction WFL. Elbow flexion WFL. Wrist flexion WFL. Functional opening and closing of hand WFL. Right Lower Extremity: Hip flexion WFL. Hip abduction WFL. Knee flexion WFL. Ankle dorsiflexion WFL. Ankle plantarflexion WFL. Left Lower Extremity: Hip flexion WFL. Hip abduction WFL. Knee flexion WFL. Ankle dorsiflexion WFL. Ankle plantarflexion WFL. Strength: Right Upper Extremity: Shoulder flexors 3+/5. Shoulder abductors 3+/5. Elbow flexors 3+/5. Elbow extensors 3+/5. Beverage Distiller strong. Left Upper Extremity: Shoulder flexors 3+/5. Shoulder abductors 3+/5. Elbow flexors 3+/5. Elbow extensors 3+/5. Beverage Distiller strong. Right Lower Extremity: Hip flexors 3+/5. Hip abductors 3+/5. Knee flexors 3+/5. Knee extensors 3+/5. Ankle dorsiflexors 3+/5. Ankle plantarflexors 3+5. Left Lower Extremity: Hip flexors 3+/5. Hip abductors 3+/5. Knee flexors 3+/5. Knee extensors 3+/5. Ankle dorsiflexors 3+/5. Ankle plantarflexors 3+5. Bed Mobility/Transfers: Sit to stand stand by assist with FWW Stand to sit stand by assist with FWW Bed to bedside commode independent with stand pivot transfer without AD but with moderate shortness of breath that resolves with rest Bedside commode to bed independent with stand pivot transfer without AD but with moderate shortness of breath that resolves with rest Bed to reclining chair stand by assist but with moderate shortness of breath that resolves with rest Reclining chair to bed stand by assist but with moderate shortness of breath that resolves with rest Gait: Instructed patient with level surface ambulation of 50 feet x 2 requiring supervision assist. Elen decreased. Denies pain, dizziness, and headache throughout activity however did report fatigue and weakness in BLE. Desaturated to 83% on 2 L/min for the first walk. Desaturated to 86% on 2 L/min for the second walk. Needed to rest for at least 5 minutes to recover prior to Balance: Static Sitting: Normal Dynamic Sitting: Normal Static Standing: Good fair Dynamic Standing: Special Tests: Mobility Limitations Standardized Measure [facility] AM-PAC 6 clicks Basic Mobility Inpatient Short Form: Raw Score: 23 CMS Score: 11% deficit Informed Consent/Education: Patient was instructed in purpose of PT consult and plan of care. Agreeable to proceed with established PT POC to achieve personal goals. Assessment: Moderate shortness of breath during ambulation activity requiring longer time to recover. Kelly requires the use of front-wheeled walker to increase activity tolerance and reduce fall risk due to report of fatigue and we akness in bilateral lower extremities. She will benefit from the use of a front-wheeled walker to provide stability and decreased activity tolerance. Patient presents with clinical signs and symptoms consistent with current/admitting diagnoses that have resulted to mobility limitations, gait instability, generalized weakness, and overall ADL decline as demonstrated by the following impairment level findings: 1. Decreased strength to BLE major muscle groups 2. Impaired standing balance 3. Impaired activity tolerance 4. Shortness of breath Impairments are contributing to the following functional limitations: 1. Difficulty with ambulation without assistive device 2. Increased completion time for mobility ADL performance 3. Increased risk for falls 4. Difficulty with managing steps alone safely Patient is assessed as a 33162 moderate complexity based on the following: History: 71 [id number] with past medical history as indicated above Examination: Demonstrable impairment in strength, balance, and mobility level with underlying impairments and functional limitations as exhibited above as well as deficit score of 11% utilizing the [facility] Mobility Inpatient Short Form Presentation: Evolving Decision Makin moderate complexity Goals: Goals X1 week 1. Supine-Sit independent 2. Sit-Supine independent 3. Sit-Stand independent without an assistive device 4. Stand-Sit independent without an assistive device 5. Bed-Chair independent without an assistive device 6. Chair-Bed independent without an assistive device 7. Independent gait on level surface with use of FWW for at least 500 feet without report of pain nor dyspnea 8. Independent stair negotiation while holding onto B rails for at least 12 steps without report of pain nor dyspnea 9. Independent with home exercise program 10. Good static and dynamic standing balance/tolerance Plan of Care/Treatment Plan: 1-2x/day, 7 days/week x 1 week. Plan of care has been reviewed with the DUST HANDLER providing the service under Physical Therapy direction. Initiate Physical Therapy intervention for pain management as needed, strengthening, bed mobility, transfers, gait, stairs, balance training, and use of assistive device. DISCHARGE RECOMMENDATIONS: Patient will benefit from home health PT services in order to progress mobility level using least restrictive assistive ambulatory device, assess home safety, identify additional equipment needs, and establish a functional maintenance program that will increase ability of patient to remain at home. TREATMENT CODE/TIME: 31008 x 30 minutes, 79792 x 29 minutes beginning 9:55 AM. Thank you for the opportunity to participate in the care of this patient. Kelle Matos PT, DPT, CLT [facility] [place], [place]
--- NOTE | 2021-05-16 11:58 | CMPROGNOTE_ITS ---
- If Service Date Differs Date of service: 05/16/21 Time of Service: 11:58 Care Management Progress Note S/O: CM talked to Kelly on the phone today, as she is continues to be on precautions for Covid. Kelly reported that she has been up and walking today with PT, which she was happy about. CM reinforced the importance of her moving around. She reports that she is on 2L O2, which they will be weaning as tolerated. CM will continue to follow. A: Kelly is a 71 year old woman admitted on 05/06/21 with Covid Pneumonia P:Kelly will be discharged home when medically cleared by provider. She will follow up with her PCP and plan of care as directed. Ultimately she wants to return to [place] where she lives and will transfer her care to her PCP in [place]. Her will drive her home via private vehicle when ready. CM will continue to support Kelly and assess for discharge planning concerns.
[2021-05-16] MEDS: Enoxaparin 40 MG/0.4 ML SYR SC (15:06)
[2021-05-16] MEDS: Dexamethasone 4 MG/ML VIAL 6 MG IVP (17:28)
--- NOTE | 2021-05-16 18:03 | W.PM.PROGNOT ---
Date of Service Date of service: 05/16/21 Time of Service: 18:03 Assessment and Plan Assessment and plan (1) Respiratory failure with hypoxia: Status: Acute Assessment and plan: Multifactorial, due to pneumonia due to COVID-19, organizing pneumonia and likely component of fluid overload. Stable. On 2L of O2 by [place]. Continue to encourage IS/acapella/proning. PE ruled out on admission. Wean O2 as tolerated. Diurese. Qualifiers: Chronicity: acute Qualified Code(s): J96.01 - Acute respiratory failure with hypoxia (2) 2019 novel coronavirus-infected pneumonia (NCIP): Status: Acute Assessment and plan: Recurrent/never cleared hear original infection from 03/21/21. Continue dexamethasone and Baricitinib. Finished remdesivir. Trend inflammatory markers. (3) Organizing pneumonia: Status: Acute Assessment and plan: Continue steroids - with instructions for steroid taper as per pulmonology on discharge. (4) ANSHU (acute kidney injury): Status: Acute Assessment and plan: Recheck labs in am. Monitor Cr with diuresis. (5) Rheumatoid arthritis: Status: Chronic Assessment and plan: Hold Rituxan this month. Qualifiers: Rheumatoid arthritis location: unspecified site Rheumatoid factor presence: unspecified presence Qualified Code(s): M06.9 - Rheumatoid arthritis, unspecified (6) DVT prophylaxis: Status: Acute Assessment and plan: SC enoxaparin (7) Discharge planning issues: Status: Acute Assessment and plan: Full code Continues to require hospitalization I spoke with the patient's Kristian ([phone]) and updated him on the patient's status. Subjective Subjective Interval history since last seen: Ms Dasilva states that she was quite short of breath when working with PT today. Per PT, she did desaturate while working with them, even when bumped up to 3L from 2 L. Otherwise, she is doing ok. She promises that she prones at night and lays on one side or the other during the day (she was laying on her back when I came in to see her today). She is working with IS and acapella. She spent a good portion of the day sitting in a chair today. Exam Narrative Exam Narrative: General: Pleasant elderly female, on her back in bed, on 2L of O2 by [place], no dyspnea/tachypnea/cyanosis, A&Ox3, looks about the same HEENT: EOMI, MMM Heart: RRR, no m/r/g Lungs: crackles at B lung bases, improved today Abdomen: soft, nontender, nondistended Extremities: no edema BLE's today Objective Last Vital Signs Temp 36.4 C L 05/16/21 12:24 Pulse 75 05/16/21 15:00 Resp 18 05/16/21 12:24 BP 95/64 L 05/16/21 12:24 Pulse Ox 94 05/16/21 12:24
[2021-05-16] MEDS: Acetaminophen 325 MG TAB PO (21:37)
[2021-05-16] MEDS: Cetirizine 10 MG TAB 5 MG PO (21:38)
[2021-05-16] MEDS: Zolpidem 5 MG TAB PO (21:38)
[2021-05-16] MEDS: Melatonin 3 MG TAB 9 MG PO (21:39)
[2021-05-17] VITALS (11 sets, daily range): BP systolic 96–124; BP diastolic 55–83; PULSE 5–85; RESP 16–18; TEMP 35.8–36.5; O2SAT 91–97
[2021-05-17] MEDS: LORazepam 0.5 MG TAB PO ×3 (06:45→17:16)
[2021-05-17] MEDS: Pantoprazole 40 MG TABCR PO ×2 (06:45→21:11)
[2021-05-17] MEDS: Normal Saline Flush 10 ML SYR IVP ×3 (09:06→21:15)
[2021-05-17] MEDS: Cholecalciferol (Vitamin D3) 1,000 UNIT TAB 2000 UNITS PO (09:07)
[2021-05-17] MEDS: Montelukast 10 MG TAB PO (09:07)
[2021-05-17] MEDS: Magnesium Oxide 400 MG TAB PO (09:07)
[2021-05-17] MEDS: Ipratropium/Albuterol 4 GM 120 PUFF INH IH ×4 (09:07→21:12)
[2021-05-17] MEDS: Furosemide 20 MG TAB PO (09:07)
[2021-05-17] MEDS: Citalopram 20 MG TAB PO (09:07)
[2021-05-17] MEDS: Ascorbic Acid 500 MG TAB 1000 MG PO ×2 (09:07→21:11)
--- NOTE | 2021-05-17 10:29 | PDOC.CMPRO ---
- If Service Date Differs Date of service: 05/17/21 Time of Service: 10:29 Care Management Progress Note S/O: Kelly remains on Covid precautions, therefore CM spoke with her over the phone today. She reported that she continues to feel better, although continues to have SOB with exertion. Per provider her dyspnea on exertion needs to improve before discharge can be considered. She stated that she is keeping herself busy by watching TV, and is talking to her daily, keeping him updated. CM will continue to follow. A: Kelly is a 71 year old woman admitted on 05/06/21 with Covid Pneumonia P:Kelly will be discharged home when medically cleared by provider. She will follow up with her PCP and plan of care as directed. Ultimately she wants to return to [place] where she lives and will transfer her care to her PCP in [place]. Her will drive her home via private vehicle when ready. CM will continue to support Kelly and assess for discharge planning concerns.
[2021-05-17] MEDS: Enoxaparin 40 MG/0.4 ML SYR SC (14:00)
--- NOTE | 2021-05-17 14:14 | PT.INTREAT ---
Date of service: 05/17/21 Time of Service: 09:55 PT Notes Visit Reasons: Covid-19 Pneumonia,Acute Respiratory Failure Inpatient Physical Therapy Treatment Note [facility] Date: 05/17/2021 PRECAUTIONS: Fall, activity as tolerated, Covid+ SUBJECTIVE: Kelly is pleasant and stating that she is feeling better today, although continues to feel SOB with all activity. OBJECTIVE: PAIN: No c/o pain BED MOBILITY/TRANSFERS Sit-stand: S Stand-sit: S Bed-chair: S Chair-bed: S GAIT: Assistive Device: FWW Weight bearing: Full Assist: SBA Distance: 15' + 20' +25' Deviation: Seated rest x1, increased fatigue, moderate SOB, slowed desmond VITALS: SaO2: 84-93% on 3L O2 via NC with gait training THEREX: Patient was instructed in a seated UE and LE strengthening program, as per flow sheet. Static standing at sink for teeth brushing x~3 minutes with supervision and SOB. ASSESSMENT: Patient tolerated session with c/o increased fatigue and SOB with gait training. She would benefit from continued gait training with least restrictive device and global strengthening PLAN: Continue with global strengthening and general conditioning for improved mobility and activity tolerance, as tolerated. TREATMENT CODE/TIME: 38 minutes; 54184 x2, 05998 (09:55)
[2021-05-17] MEDS: Dexamethasone 4 MG/ML VIAL 6 MG IVP (17:12)
--- NOTE | 2021-05-17 17:42 | W.PM.PROGNOT ---
Date of Service Date of service: 05/17/21 Time of Service: 16:50 Assessment and Plan Assessment and plan (1) Respiratory failure with hypoxia: Status: Acute Assessment and plan: Multifactorial, due to pneumonia due to COVID-19, organizing pneumonia and likely component of fluid overload. Stable. On 3L of O2 by [place]. Continue IS/acapella/proning. PE ruled out on admission. Wean O2 as tolerated. Diuresing. Qualifiers: Chronicity: acute Qualified Code(s): J96.01 - Acute respiratory failure with hypoxia (2) 2019 novel coronavirus-infected pneumonia (NCIP): Status: Acute Assessment and plan: Recurrent/never cleared hear original infection from 03/21/21. Continue dexamethasone and Baricitinib. Finished remdesivir. Trend inflammatory markers. (3) Organizing pneumonia: Status: Acute Assessment and plan: Continue steroids - with instructions for steroid taper as per pulmonology on discharge. (4) ANSHU (acute kidney injury): Status: Acute Assessment and plan: Recheck labs in am. Monitor Cr with diuresis. (5) Rheumatoid arthritis: Status: Chronic Assessment and plan: Hold Rituxan this month. Qualifiers: Rheumatoid arthritis location: unspecified site Rheumatoid factor presence: unspecified presence Qualified Code(s): M06.9 - Rheumatoid arthritis, unspecified (6) DVT prophylaxis: Status: Acute Assessment and plan: SC enoxaparin (7) Discharge planning issues: Status: Acute Assessment and plan: Full code Continues to require hospitalization Subjective Subjective Interval history since last seen: Kelly has been ambulating to the bathroom and feels a little less SOB doing so today. Denies dizziness, chest pain, shortness of breath, nausea. Has been proning and sitting in the chair, though today she has not been doing a lot of IS/acapella because they were out of her reach. Exam Narrative Exam Narrative: General: Pleasant elderly female, sitting up in a chair on 3L of O2 by [place], no dyspnea/tachypnea/cyanosis, A&Ox3, looks about the same HEENT: EOMI, MMM Heart: RRR, no m/r/g Lungs: crackles at B lung bases, unchanged Abdomen: soft, nontender, nondistended Extremities: no edema BLEs Objective Last Vital Signs Temp 36.4 C L 05/17/21 17:19 Pulse 85 10/29/21 17:19 Resp 18 05/17/21 17:19 BP 100/70 05/17/21 17:19 Pulse Ox 91 L 05/17/21 17:19
[2021-05-17] MEDS: Acetaminophen 325 MG TAB PO (22:31)
[2021-05-17] MEDS: Melatonin 3 MG TAB 9 MG PO (22:31)
[2021-05-17] MEDS: Zolpidem 5 MG TAB PO (22:31)
[2021-05-18] VITALS (11 sets, daily range): BP systolic 86–131; BP diastolic 55–77; PULSE 60–88; RESP 16–28; TEMP 36.1–36.6; O2SAT 70–98
[2021-05-18] MEDS: Cholecalciferol (Vitamin D3) 1,000 UNIT TAB 2000 UNITS PO (09:41)
[2021-05-18] MEDS: Magnesium Oxide 400 MG TAB PO (09:41)
[2021-05-18] MEDS: Ascorbic Acid 500 MG TAB 1000 MG PO ×2 (09:41→20:40)
[2021-05-18] MEDS: LORazepam 0.5 MG TAB PO ×3 (09:41→20:41)
[2021-05-18] MEDS: Ipratropium/Albuterol 4 GM 120 PUFF INH IH ×4 (09:43→20:41)
[2021-05-18] MEDS: Furosemide 20 MG TAB PO (09:43)
[2021-05-18] MEDS: Montelukast 10 MG TAB PO (09:43)
[2021-05-18] MEDS: Citalopram 20 MG TAB PO (09:43)
[2021-05-18] MEDS: Pantoprazole 40 MG TABCR PO ×2 (09:43→20:41)
[2021-05-18] MEDS: Normal Saline Flush 10 ML SYR IVP (09:47)
--- NOTE | 2021-05-18 10:57 | PT.INTREAT ---
PT Notes Visit Reasons: Covid-19 Pneumonia,Acute Respiratory Failure 05/18/2021 SUBJECTIVE: Notes being pretty SOB today. She was up not to long ago to use the bathroom and she was quite SOB. OBJECTIVE: TRANSFERS Sit to stand: I Stand to sit: I GAIT Device: FWW Weight bearing: full Assist: SBA Distance: 25'x1, 10'x1 Deviation: SOB throughout THEREX: Standing hip flexion x 5, standing HR x 5- very fatigued and SOB VITALS: 2 L NC throughout; resting at 91%. Drops to 78% after 25' of ambulation. Requires 8 minutes to recover back to 90%. Nursing aware and present in room for recovery. ASSESSMENT: Continues to be very SOB with activity. She did take quite some time to recover breath today. She also appears very fatigued today. PLAN: Continue to progress functional mobility as she can tolerate. Treatment time: 30 minutes [id number] Jessika Morillo PTA Clinic location: [facility] [place], [place]
[2021-05-18] MEDS: Enoxaparin 40 MG/0.4 ML SYR SC (14:43)
--- NOTE | 2021-05-18 15:12 | PGE_ITS ---
Date of Service Date of service: 05/18/21 Time of Service: 15:13 Assessment and Plan Assessment and plan (1) Respiratory failure with hypoxia: Status: Acute Assessment and plan: Multifactorial, due to pneumonia due to COVID-19, organizing pneumonia and likely component of fluid overload. Stable. On 3L of O2 by [place]. Continue IS/acapella/proning. PE ruled out on admission. Wean O2 as tolerated. Diuresing. Qualifiers: Chronicity: acute Qualified Code(s): J96.01 - Acute respiratory failure with hypoxia (2) 2019 novel coronavirus-infected pneumonia (NCIP): Status: Acute Assessment and plan: Question of whether this is recurrent or whether she never cleared her original infection or is this long COVID syndrome. Clearly her CRP was high on admisson at 9.5 and now is down to 0.38. Her ferritin is down to 392 from 939. Her d-dimer dropped from 3438 to 726.. (3) Organizing pneumonia: Status: Acute Assessment and plan: Continue steroids - with instructions for steroid taper as per pulmonology on discharge. (4) ANSHU (acute kidney injury): Status: Acute Assessment and plan: Recheck labs in am. Monitor Cr with diuresis. (5) Rheumatoid arthritis: Status: Chronic Assessment and plan: Hold Rituxan this month. Qualifiers: Rheumatoid arthritis location: unspecified site Rheumatoid factor presence: unspecified presence Qualified Code(s): M06.9 - Rheumatoid arthritis, unspecified (6) DVT prophylaxis: Status: Acute Assessment and plan: SC enoxaparin (7) Discharge planning issues: Status: Acute Assessment and plan: Full code Continues to require hospitalization Subjective Subjective Interval history since last seen: Patient states that she had a better day yesterday. She has felt more dyspneic w/ activity today particularly after her P.T. session. Cough has been nonproductive. She has RA and per her admission she previously had some RA lung disease occurring before she got COVID-19 at the end of February. This is her second hospitalization in two months for COVID-19. She completed her 10 days of Remdesivir. She remains on Baricitinib and decadron. I told her that I will discuss her case w/ I.D. on Thursday. I am not convinced that she has active Covid-19 infection but rather may be suffering from long Covid syndrome and has chronic hypoxemia d/t underlying RA lung w/ superimposed COVID- 19 lung scarring. I would like some guidance on length of treatment for COVID-19 in this case. She may need to remain on oxygen indefinitely. She is currently on 2 LPM oxygen but w/out oxygen she desaturates into the 70% quickly. Exam Narrative Exam Narrative: Elderly white female who is alert and oriented x 3; no acute respiratory distress, able to talk in complete sentences Lungs w/ bilateral diffuse crackles Heart: regular Abdomen: obese, soft, nontender Legs:no edema or tenderness Objective Last Vital Signs Temp 36.5 C 05/18/21 12:54 Pulse 81 05/18/21 12:54 Resp 22 05/18/21 12:54 BP 92/70 L 05/18/21 12:54 Pulse Ox 96 05/18/21 12:54
[2021-05-18] MEDS: Dexamethasone 4 MG/ML VIAL 6 MG IVP (17:48)
[2021-05-18] MEDS: Atorvastatin 40 MG TAB PO (20:40)
[2021-05-18] MEDS: Melatonin 3 MG TAB 9 MG PO (22:51)
[2021-05-18] MEDS: Zolpidem 5 MG TAB PO (22:52)
[2021-05-19] VITALS (11 sets, daily range): BP systolic 92–120; BP diastolic 55–68; PULSE 57–92; RESP 20–30; TEMP 36–36.6; O2SAT 92–98
[2021-05-19] MEDS: LORazepam 0.5 MG TAB PO ×3 (05:24→17:59)
[2021-05-19 07:45] LABS: HCT 29.5 % (36.0-46.0); HGB 9.9 g/dL (11.2-15.7); MCH 29.8 pg (27.0-33.0); MCHC 33.6 % (32.0-36.0); MCV 88.9 fL (80-95); MPV 9.1 fL (8.0-11.0); Nucleated RBC 0 %; Platelet Count 472 10^3/uL (130-400); RBC 3.32 10^6/uL (3.93-5.22); RDW 15.6 % (11.7-14.6); RDW-SD 49.4 fL; WBC 9.26 10^3/uL (4.4-10.8)
[2021-05-19 08:02] LABS: ALT 22 U/L (14-59); AST 15 U/L (15-37); Alkaline Phosphatase 76 U/L (46-116); Anion Gap 6.7 mmol/L (3-11); BUN 27 mg/dL (7-18); Bilirubin, Total 0.5 mg/dL (0.2-1.0); C-Reactive Protein 0.27 mg/dL (0.0-0.3); CO2 32.3 mmol/L (21.0-32.0); CREATININE 0.9 mg/dL (0.55-1.02); Calcium 8.7 mg/dL (8.5-10.1); Chloride 97 mmol/L (98-107); Glucose 116 mg/dL (74-106); Potassium 4.5 mmol/L (3.5-5.1); Sodium 136 mmol/L (136-145); Total Protein 5.8 g/dL (6.4-8.2)
[2021-05-19 08:07] LABS: Absolute Lymphocyte Count 0.56 10^3/uL (1.2-3.4); Absolute Monocyte Count 0.46 10^3/uL (0.1-0.8); Absolute Neutrophil Count 8.15 10^3/uL (1.2-6.7); Bands % 1
[2021-05-19 08:08] LABS: Diff Comment Manual Differential; Metamyelocytes % 1; RBC Morphology Normal
[2021-05-19 08:35] LABS: Ferritin 293 ng/mL (8-252)
[2021-05-19 08:37] LABS: D-Dimer 355 ng/mlFEU (<500)
[2021-05-19 08:39] LABS: Procalcitonin < 0.1 ng/mL
[2021-05-19] MEDS: Citalopram 20 MG TAB PO (09:01)
[2021-05-19] MEDS: Pantoprazole 40 MG TABCR PO ×2 (09:01→21:22)
[2021-05-19] MEDS: Magnesium Oxide 400 MG TAB PO (09:01)
[2021-05-19] MEDS: Montelukast 10 MG TAB PO (09:01)
[2021-05-19] MEDS: Ascorbic Acid 500 MG TAB 1000 MG PO ×2 (09:01→21:22)
[2021-05-19] MEDS: Ipratropium/Albuterol 4 GM 120 PUFF INH IH ×4 (09:02→21:23)
[2021-05-19] MEDS: Normal Saline Flush 10 ML SYR IVP (09:02)
[2021-05-19] MEDS: Cholecalciferol (Vitamin D3) 1,000 UNIT TAB 2000 UNITS PO (09:02)
--- NOTE | 2021-05-19 10:31 | PTTR_ITS ---
PT Notes Visit Reasons: Covid-19 Pneumonia,Acute Respiratory Failure 05/19/2021 SUBJECTIVE: Has not been too SOB this morning thus far. Is agreeable to PT treatment. OBJECTIVE: TRANSFERS Sit to stand: S Stand to sit: S GAIT Device: fWW Weight bearing: Full Assist: SBA Distance: 15'x2 Deviation: 2 L NC VITALS: 88% resting on 2 L NC. Post ambulation pt drops to 76%. Recovers quicker today compared to yesterday to 88%. End of session she is resting at 90% on 2 L NC. ASSESSMENT: Continues to get SOB with activity although her recovery time was much quicker compared to yesterday. She remains very calm when her becomes SOB and this helps her recovery quicker. No LOB during gait. PLAN: Continue per POC. Treatment time: 25 minuets [id number] Jessika Morillo PTA Clinic location: [facility] [place], [place]
[2021-05-19] MEDS: Enoxaparin 40 MG/0.4 ML SYR SC (14:45)
--- NOTE | 2021-05-19 15:19 | W.PM.PROGNOT ---
Date of Service Date of service: 05/19/21 Time of Service: 15:19 Assessment and Plan Assessment and plan (1) Respiratory failure with hypoxia: Status: Acute Assessment and plan: Multifactorial, due to pneumonia due to COVID-19, organizing pneumonia and likely component of fluid overload. Stable. On 3L of O2 by [place]. Continue IS/acapella/proning. PE ruled out on admission. Wean O2 as tolerated. Diuresing. Qualifiers: Chronicity: acute Qualified Code(s): J96.01 - Acute respiratory failure with hypoxia (2) 2019 novel coronavirus-infected pneumonia (NCIP): Status: Acute Assessment and plan: Question of whether this is recurrent or whether she never cleared her original infection or is this long COVID syndrome. Clearly her CRP was high on admisson at 9.5 and now is normal at 0.27 and Her ferritin is down to 293 from 939. Her d-dimer dropped from 3438 to normal at 355. (3) Organizing pneumonia: Status: Acute Assessment and plan: Continue steroids - with instructions for steroid taper as per pulmonology on discharge. (4) Rheumatoid arthritis: Status: Chronic Assessment and plan: Hold Rituxan this month. 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 This predisposes her to worsening lung function w/ her recent COVID-19 infection. She probably is going to need home oxygen upon discharge. Qualifiers: Rheumatoid arthritis location: unspecified site Rheumatoid factor presence: unspecified presence Qualified Code(s): M06.9 - Rheumatoid arthritis, unspecified (5) DVT prophylaxis: Status: Acute Assessment and plan: SC enoxaparin (6) Discharge planning issues: Status: Acute Assessment and plan: Full code Continues to require hospitalization although I will discuss her case w/ ID and/or pulmonary as to length of treatment and risk of community spread given that she is living w/ a friend in [place], [place] who has COPD. Patient wants to return to her home in [place]. Subjective Subjective Interval history since last seen: No new complaints. Patient's been practicing proning and rolling from side to side. She has been getting up out of bed to the chair and to the bathroom. At rest she is fine but with activity she gets dyspneic and drops her oxygen saturation into the 70s. At rest on 2 L/min per nasal cannula her O2 saturation is 93%. Her inflammatory markers continue to improve. Her total white count is 9200 but still with a residual lymphopenia. She has a stable chronic anemia hemoglobin of 9.9 g. Electrolytes are normal. Ferritin is down to 293 her C-reactive protein is now normal at 0.27 and her procalcitonin level is less than 0.1. Her D-dimer is now normal at 355. We have not repeated any imaging of her chest but may consider doing a CT scan of her chest for follow-up considering that we have not been able to wean her off oxygen. I told Kelly that I would discuss her case with ID or pulmonary tomorrow to help us determine the length of treatment that is needed and whether or not were dealing with long Covid. I think given her underlying rheumatoid lung her need for supplemental oxygen may be her new baseline. She and her winter in [place] and would like to return to [place] but would need oxygen to get them down to [place]. Furthermore while they are here in [place] they been staying with friends and [place] and her friend has COPD and she is concerned about exposing her friend to Covid 19. I told her I would talk with ID try to determine at what point when she no longer be considered infectious. Exam Narrative Exam Narrative: Elderly white female lying in bed semifowler position alert and oriented person place time circumstance in no respiratory distress not using accessory respiratory muscles. Lungs with bibasilar dry rales along with diminished breath sounds over the right lung base without rhonchi or wheezing Heart regular rate and rhythm Abdomen soft nontender nondistended normal bowel sounds Extremities without peripheral cyanosis or edema no calf swelling or tenderness. Neuro exam grossly intact no focal sensory or motor deficits. Objective Last Vital Signs Temp 36 C L 05/19/21 14:47 Pulse 90 05/19/21 14:47 Resp 28 H 05/19/21 14:47 BP 112/68 05/19/21 14:47 Pulse Ox 93 05/19/21 14:47 Laboratory Results - last 24 hr 05/19/21 05/19/21 05/19/21 07:20 07:20 07:20 WBC 9.26 RBC 3.32 L Hgb 9.9 L Hct 29.5 L MCV 88.9 MCH 29.8 MCHC 33.6 RDW 15.6 H Plt Count 472 H MPV 9.1 Immature Gran % See Differential Neutrophils % 87.0 Band Neutrophils % 1 Lymphocytes % 6.0 Monocytes % 5.0 Eosinophils % 0.0 Basophils % 0.0 Metamyelocytes % 1 Nucleated RBC % 0 Absolute Neutrophils 8.15 H Absolute Lymphocytes 0.56 L Absolute Monocytes 0.46 Absolute Eosinophils 0.00 Absolute Basophils 0.00 RBC Morphology Normal D-Dimer Sodium 136 Potassium 4.5 Chloride 97 L Carbon Dioxide 32.3 H Anion Gap 6.7 BUN 27 H Creatinine 0.9 Estimated GFR/1.73 m2 >= 60.00 Glucose 116 H Calcium 8.7 Ferritin 293 H Total Bilirubin 0.5 AST 15 ALT 22 Alkaline Phosphatase 76 C-Reactive Protein 0.27 Total Protein 5.8 L Albumin 3.0 L Procalcitonin < 0.1 05/19/21 07:20 WBC RBC Hgb Hct MCV MCH MCHC RDW Plt Count MPV Immature Gran % Neutrophils % Band Neutrophils % Lymphocytes % Monocytes % Eosinophils % Basophils % Metamyelocytes % Nucleated RBC % Absolute Neutrophils Absolute Lymphocytes Absolute Monocytes Absolute Eosinophils Absolute Basophils RBC Morphology D-Dimer 355 Sodium Potassium Chloride Carbon Dioxide Anion Gap BUN Creatinine Estimated GFR/1.73 m2 Glucose Calcium Ferritin Total Bilirubin AST ALT Alkaline Phosphatase C-Reactive Protein Total Protein Albumin Procalcitonin
[2021-05-19] MEDS: Dexamethasone 4 MG/ML VIAL 6 MG IVP (17:53)
[2021-05-19] MEDS: Acetaminophen 325 MG TAB PO (21:22)
[2021-05-19] MEDS: Atorvastatin 40 MG TAB PO (21:23)
[2021-05-19] MEDS: Zolpidem 5 MG TAB PO (22:53)
[2021-05-19] MEDS: Melatonin 3 MG TAB 9 MG PO (22:53)
[2021-05-20] VITALS (8 sets, daily range): BP systolic 88–120; BP diastolic 56–66; PULSE 57–89; RESP 20–23; TEMP 35.7–36.7; O2SAT 90–98
[2021-05-20] MEDS: LORazepam 0.5 MG TAB PO ×3 (06:08→17:13)
--- NOTE | 2021-05-20 09:34 | CMPROGNOTE_ITS ---
- If Service Date Differs Date of service: 05/20/21 Time of Service: 09:34 Care Management Progress Note S/O: Kelly remains on Covid precautions. She was re-tested this morning as it has been 2 months since her initial diagnosis, however she is still Covid positive. Kelly shared with CM today, via phone, that she had a great day at rest but when she got up to walk, her oxygen levels dropped and she became extremely short of breath. Kelly asked if there was a way to determine if she is still infectious. CM indicated that it would be good to ask the provider that question when he sees her today. Kelly informed CM that she cannot return to her friend's house until she is no longer infectious and that concerns her, as she would have no place else to go. A: Kelly is a 71 year old woman admitted on 05/06/21 with Covid Pneumonia P:Kelly will be discharged home when medically cleared by provider. She will follow up with her PCP and plan of care as directed. Ultimately she wants to return to [place] where she lives and will transfer her care to her PCP in [place]. Her will drive her home via private vehicle when ready. CM will continue to support Kelly and assess for discharge planning concerns.
[2021-05-20] MEDS: Ipratropium/Albuterol 4 GM 120 PUFF INH IH ×4 (09:37→20:17)
[2021-05-20] MEDS: Citalopram 20 MG TAB PO (09:38)
[2021-05-20] MEDS: Pantoprazole 40 MG TABCR PO ×2 (09:38→20:17)
[2021-05-20] MEDS: Ascorbic Acid 500 MG TAB 1000 MG PO ×2 (09:40→20:16)
[2021-05-20] MEDS: Magnesium Oxide 400 MG TAB PO (09:40)
[2021-05-20] MEDS: Montelukast 10 MG TAB PO (09:40)
[2021-05-20] MEDS: Cholecalciferol (Vitamin D3) 1,000 UNIT TAB 2000 UNITS PO (09:40)
[2021-05-20] MEDS: Normal Saline 500 ML 250 ML IV (09:50)
[2021-05-20 11:11] LABS: Abs Immature Grans 0.54 10^3/uL (0.0-0.06); HCT 31.2 % (36.0-46.0); HGB 10.2 g/dL (11.2-15.7); MCH 29.5 pg (27.0-33.0); MCHC 32.7 % (32.0-36.0); MCV 90.2 fL (80-95); MPV 9.3 fL (8.0-11.0); Nucleated RBC 0 %; RBC 3.46 10^6/uL (3.93-5.22); RDW 15.9 % (11.7-14.6); RDW-SD 51.4 fL; WBC 10.75 10^3/uL (4.4-10.8)
[2021-05-20 11:22] LABS: Absolute Lymphocyte Count 0.22 10^3/uL (1.2-3.4); Absolute Monocyte Count 0.54 10^3/uL (0.1-0.8); Absolute Neutrophil Count 9.68 10^3/uL (1.2-6.7); Bands % 1; Platelet Count 437 10^3/uL (130-400)
[2021-05-20 11:23] LABS: Absolute Basophil Count 0.11 10^3/uL (0.0-0.2); Absolute Eosinophil Count 0.11 10^3/uL (0.0-0.7); Basophilic Stippling Present; Diff Comment Manual Differential; Metamyelocytes % 1; Polychromasia Present
[2021-05-20 11:43] LABS: Source Nasal/Nares
[2021-05-20 12:38] LABS: COVID-19 PCR POSITIVE (Negative)
[2021-05-20] MEDS: Enoxaparin 40 MG/0.4 ML SYR SC (13:27)
--- NOTE | 2021-05-20 15:00 | PT.INTREAT ---
Date of service: 05/20/21 Time of Service: 13:23 PT Notes Visit Reasons: Covid-19 Pneumonia,Acute Respiratory Failure Inpatient Physical Therapy Treatment Note [facility] Date: 05/20/2021 PRECAUTIONS: Covid, activity as tolerated SUBJECTIVE: Kelly is pleasant and agreeable to participating in PT. She states that she has been getting up and walking to the bathroom by herself. OBJECTIVE: PAIN: No c/o pain BED MOBILITY/TRANSFERS Sit-supine: I Sit-stand: I Stand-sit: I Bed-chair: I Chair-bed: I GAIT: Assistive Device: FWW Weight bearing: Full Assist: S Distance: 25' x3 Deviation: SOB, slow pacing, seated rest x2 VITALS: Session completed in collaboration with RT, please see their note for specific vital signs. THEREX: Patient was instructed in a resisted UE and LE strengthening program, completed in a seated position, as per flow sheet. She utilizes yellow Theraband and 1# dumbbells with exercises. ASSESSMENT: Patient tolerated session with c/o increased SOB with gait training. She was able to tolerate the addition of resistance to her ther ex program. She would benefit from continued gait training with least restrictive device and global strengthening. PLAN: Continue with global strengthening and general conditioning for improved mobility and activity tolerance, as tolerated. TREATMENT CODE/TIME: 42 minutes; 52745 x2, 86043 (13:23)
[2021-05-20] MEDS: Dexamethasone 4 MG/ML VIAL 6 MG IVP (17:13)
--- NOTE | 2021-05-20 17:28 | PGE_ITS ---
Date of Service Date of service: 05/20/21 Time of Service: 17:29 Assessment and Plan Assessment and plan (1) Respiratory failure with hypoxia: Status: Acute Assessment and plan: Multifactorial, due to pneumonia due to COVID-19, organizing pneumonia and likely component of fluid overload. Stable. On 2L of O2 by NC at rest (needs greater than 6 Lpm w/ any activity) Continue IS/acapella/proning. PE ruled out on admission. Wean O2 as tolerated. Diuresing. Qualifiers: Chronicity: acute Qualified Code(s): J96.01 - Acute respiratory failure with hypoxia (2) 2019 novel coronavirus-infected pneumonia (NCIP): Status: Acute Assessment and plan: Question of whether this is recurrent or whether she never cleared her original infection or is this long COVID syndrome. Clearly her CRP was high on admisson at 9.5 and now is normal at 0.27 and Her ferritin is down to 293 from 939. Her d-dimer dropped from 3438 to normal at 355. Patient remains infectious (PCR w/ a C.T. of 19.1 (the lower the number the more infectious; prior numbers were 34.7 on 05/06 and 29.3 on 04/17) and will remain in COVID-19 precautions. Case was discussed w/ Dr. Arnoldo Ventura who reviewed her prior PCR tests and compared them to today's test. He also referred me to Amado Abdi at [facility] who discussed the case w/ me and advised against any more IL-6 inhibitors or WESTLEY inhibitors but recommended continued supportive care and continued steroids w/ a slow taper off steroids. (3) Organizing pneumonia: Status: Acute Assessment and plan: Continue steroids - with instructions for steroid taper as per pulmonology on discharge. (4) Rheumatoid arthritis: Status: Chronic Assessment and plan: Hold Rituxan this month. Patient reportedly has rheu matoid lung. This predisposes her to worsening lung function w/ her recent COVID-19 infection. She probably is going to need home oxygen upon discharge. Qualifiers: Rheumatoid arthritis location: unspecified site Rheumatoid factor presence: unspecified presence Qualified Code(s): M06.9 - Rheumatoid arthritis, unspecified (5) DVT prophylaxis: Status: Acute Assessment and plan: SC enoxaparin (6) Discharge planning issues: Status: Acute Assessment and plan: Full code Continues to require hospitalization although I will discuss her case w/ ID and/or pulmonary as to length of treatment and risk of community spread given that she is living w/ a friend in [place], [place] who has COPD. Patient wants to return to her home in [place]. Subjective Subjective Patient reports: nausea Interval history since last seen: Kelly still gets very dyspneic w/ any prolonged movement/ambulation. At rest her SPO2 is 93 to 98% on 2 LPM however, w/ activity her SPO2 drops into the 70's and even w/ 6 LPM her SPO2 only will stay at 85%. She and her want to return to [place] for the winter and until they go to [place] they have been staying w/ a friend in [place], [place]. However this friend has COPD. I explained to Kelly, that she is still infectious as we checked her nasal PCR SARS-COV2 and her coupling time is 19.1 ( which is much worse than her prior levels which were 34.7 on 05/06 and 29.3 on 04/17. This has been run on the [employer] expert SARS-COV2 and the internal controlls have shown no significant differences between each of the runs on 04/17, 05/06 and today. I spoke w/ Amado Abdi at [facility] about this case. The patient has completed 10 days of Remdesivir and 14 days of baricitinib and remains on decadron. Dr. Reilly indicated that he would not continue treatment w/ Remdesivir nor Baricitinib and he would not give her monoclonal antibodies. he indicated that he would continue steroids and put her on a long steroid taper and keep her in quarantine. He feels that she remains high infectious. I explained to her that she may not be able to make the trip back to [place] this winter. I discussed her current condition and treatment w/ her , Kristian. He will look into getting a place for them to stay in [place] at her brother's camp. Exam Narrative Exam Narrative: Elderly white female lying in bed semifowler position alert and oriented person place time circumstance in no respiratory distress not using accessory respiratory muscles. Lungs with bibasilar dry rales along with diminished breath sounds over the right lung base without rhonchi or wheezing Heart regular rate and rhythm Abdomen soft nontender nondistended normal bowel sounds Extremities without peripheral cyanosis or edema no calf swelling or tenderness. Neuro exam grossly intact no focal sensory or motor deficits. Objective Last Vital Signs Temp 35.7 C L 05/20/21 09:35 Pulse 74 05/20/21 15:22 Resp 23 05/20/21 09:35 BP 90/60 L 05/20/21 11:32 Pulse Ox 90 L 05/20/21 09:35 Laboratory Results - last 24 hr 05/20/21 05/20/21 10:30 11:20 WBC 10.75 RBC 3.46 L Hgb 10.2 L Hct 31.2 L MCV 90.2 MCH 29.5 MCHC 32.7 RDW 15.9 H Plt Count 437 H MPV 9.3 Immature Gran % See Differential Neutrophils % 89.0 Band Neutrophils % 1 Lymphocytes % 2.0 Monocytes % 5.0 Eosinophils % 1.0 Basophils % 1.0 Metamyelocytes % 1 Nucleated RBC % 0 Absolute Neutrophils 9.68 H Absolute Lymphocytes 0.22 L Absolute Monocytes 0.54 Absolute Eosinophils 0.11 Absolute Basophils 0.11 RBC Morphology See Below Polychromasia Present Basophilic Stippling Present COVID-19 Source Nasal/Nares SARS-CoV-2 (PCR) POSITIVE A*
[2021-05-20] MEDS: Atorvastatin 40 MG TAB PO (20:17)
[2021-05-20] MEDS: Acetaminophen 325 MG TAB PO (20:17)
[2021-05-20] MEDS: Zolpidem 5 MG TAB PO (22:55)
[2021-05-20] MEDS: Melatonin 3 MG TAB 9 MG PO (22:55)
[2021-05-21] VITALS (10 sets, daily range): BP systolic 90–127; BP diastolic 50–68; PULSE 53–88; RESP 16–20; TEMP 36.1–36.7; O2SAT 88–96
[2021-05-21] MEDS: Ipratropium/Albuterol 4 GM 120 PUFF INH IH ×4 (08:34→20:48)
[2021-05-21] MEDS: Cholecalciferol (Vitamin D3) 1,000 UNIT TAB 2000 UNITS PO (08:35)
[2021-05-21] MEDS: Magnesium Oxide 400 MG TAB PO (08:35)
[2021-05-21] MEDS: LORazepam 0.5 MG TAB PO ×3 (08:35→17:23)
[2021-05-21] MEDS: Montelukast 10 MG TAB PO (08:35)
[2021-05-21] MEDS: Ascorbic Acid 500 MG TAB 1000 MG PO ×2 (08:35→20:49)
[2021-05-21] MEDS: Citalopram 20 MG TAB PO (08:35)
[2021-05-21] MEDS: Pantoprazole 40 MG TABCR PO ×2 (08:35→20:50)
[2021-05-21] MEDS: Dexamethasone 4 MG TAB 6 MG PO (10:21)
--- NOTE | 2021-05-21 11:10 | PTTR_ITS ---
Date of service: 05/21/21 Time of Service: 10:23 PT Notes Visit Reasons: Covid-19 Pneumonia,Acute Respiratory Failure Inpatient Physical Therapy Treatment Note [facility] Date: 05/21/2021 PRECAUTIONS: Covid-19, activity as tolerated SUBJECTIVE: Kelly is pleasant and agreeable to participating in PT. She reports that she is not feeling better nor worse today. OBJECTIVE: PAIN: No c/o pain BED MOBILITY/TRANSFERS Sit-stand: I Stand-sit: I Bed-chair: I Chair-bed: I GAIT: Assistive Device: FWW Weight bearing: Full Assist: S Distance: 25' x2 + 10' x2 + 15' Deviation: SOB, slow pacing, seated rest x3 VITALS: SaO2: 88-90% on 2L O2 at rest; 83-92% on 6L O2 with gait training; 92- 94% x1 minute rest for recovery on 6L O2 post-ambulation THEREX: Patient was instructed in a resisted UE and LE strengthening program, completed in a seated position, as per flow sheet. She utilizes yellow Theraband and 1# dumbbells with exercises, and was able to tolerate a progression in her ther ex program, tolerating increased reps. TOILETING: Patient toileted independently. ASSESSMENT: Patient tolerated session with c/o increased SOB with gait tr aining. She was able to tolerate increased reps in her ther ex program. She would benefit from continued gait training, global strengthening, and general conditioning. PLAN: Continue with global strengthening and general conditioning for improved mobility and activity tolerance, as tolerated. TREATMENT CODE/TIME: 39 minutes; 54585 x2, 30735 (10:23)
[2021-05-21] MEDS: Omnipaque 350 MG/ML 100 ML BTL IJ (11:12)
[2021-05-21] MEDS: Normal Saline - Diluent 50 ML VIAL IV (11:12)
--- NOTE | 2021-05-21 11:30 | DI.CT_ITS ---
Exam(s) CT CHEST PE CTA EXAM: CT CHEST PE CTA CLINICAL HISTORY: covid pneumonia. TECHNIQUE: Imaging Protocol: Axial CT angiography was performed with multi-slice acquisition and mu lti-planar and/or 3D reconstructions. CONTRAST MATERIAL: Intravenous: Omnipaque 350 Contrast volume:structured data in ml COMPARISON: CT CT CHEST PE CTA from 05/06/2021 FINDINGS: CT angiography of the chest was performed with intravenous infusion of 100 cc of Omnipaque 350. Note is again made of diffuse bilateral intrapulmonary radiodensities, in comparison with the prior e xamination there is some decrease in the ground-glass radiodensities but little interval change in di ffuse reticular and minor consolidative radiodensities period. No pleural effusion. Tracheobronchial tree appears intact. No evidence of pulmonary embolic disease. Thoracic aorta is of normal diameter, no thoracic aortic an eurysm or dissection, major branch vessels appear intact. No mediastinal or hilar adenopathy. Images obtained through the upper abdomen show unremarkable appearance of the visualized portions of the liver, spleen, pancreas, adrenals, and kidneys. IMPRESSION: Mild interval improvement in presumed multi focal COVID pneumonia. No evidence of pulmonary embolic disease. RADIATION DOSE DELIVERED: 480.61mGy.cm Total DLP 480.61mGy.cm Total DLP 12.26mGy CTDIvol DATA REPOSITORY: All CT scans at this facility are submitted to the National Radiology Data Registry (NRDR) Dose Index Registry (DIR) with the [employer] (ACR). RADIATION OPTIMIZATION: All CT scans at this facility use at least one of these dose optimization te chniques: automated exposure control; mA and/or kV adjustment per patient size (includes targeted exa ms where dose is matched to clinical indication); or iterative reconstruction.
--- NOTE | 2021-05-21 14:21 | PGE_ITS ---
Date of Service Date of service: 05/21/21 Time of Service: 14:21 Assessment and Plan Assessment and plan (1) Respiratory failure with hypoxia: Status: Acute Assessment and plan: Multifactorial, due to pneumonia due to COVID-19, organizing pneumonia and underlying rheumatoid lung Stable. On 2L of O2 by NC at rest (needs greater than 6 Lpm w/ any activity) Continue IS/acapella/proning. PE ruled out on admission and again on repeat CTA from today Wean O2 as tolerated. Diuresing. Patient remains on low-dose furosemide 20 mg daily.Recent weight has not been done. Last BUN/creatinine were from 2 days ago and was stable at 27 and 0.9 Qualifiers: Chronicity: acute Qualified Code(s): J96.01 - Acute respiratory failure with hypoxia (2) 2019 novel coronavirus-infected pneumonia (NCIP): Status: Acute Assessment and plan: Completed baricitinib and Remdesivir therapy. Continue Decadron. I switch her from IV Decadron to oral Decadron 6 mg daily. Patient will need a slow taper as outlined by pulmonary service. (3) Organizing pneumonia: Status: Acute Assessment and plan: Continue steroids - with instructions for steroid taper as per pulmonology on discharge. (4) Rheumatoid arthritis: Status: Chronic Assessment and plan: Hold Rituxan this month. 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 This predisposes her to worsening lung function w/ her recent COVID-19 infection. She probably is going to need home oxygen upon discharge. Her last Rituxan treatment was in September 2020. Qualifiers: Rheumatoid arthritis location: unspecified site Rheumatoid factor presence: unspecified presence Qualified Code(s): M06.9 - Rheumatoid arthritis, unspecified (5) DVT prophylaxis: Status: Acute Assessment and plan: SC enoxaparin (6) Discharge planning issues: Status: Acute Assessment and plan: Full code Continues to require hospitalization although I will discuss her case w/ ID and/or pulmonary as to length of treatment and risk of community spread given that she is living w/ a friend in [place], [place] who has COPD. Patient wants to return to her home in [place]. Subjective Subjective Interval history since last seen: Patient has no new complaints. She has been practicing her proning and when I came in the room she was actually in the prone position. At rest she is not short of breath but with any activity she gets dyspneic and gets hypoxemic. At rest she is able to maintain her oxygen saturation using 2 L/min per nasal cannula. However with any activity she gets dyspneic and her O2 saturation drops down into the low to mid 80s. She requires 6 L/min just to maintain her saturation in the upper 80s. CT scan of her chest was performed there is no evidence of pulmonary embolic disease. There is been mild interval improvement in her multifocal pneumonia. Explained to Kelly that her PCR test is still showing that she is highly contagious with a cycling time of 19. I also explained to her that I talked with her last night and that he is working on reaching out to her family in [place] to see if they can stay in the camp until she recovers. In the interim we should talk about transitioning into a swing bed while she recuperates here. I told her that I spoke with infectious disease doctor yesterday and that he recommends continued Decadron but did not recommend any more baricitinib or remdesivir. Exam Narrative Exam Narrative: Obese pleasant white female who is lying in the prone position. She rolled over on her side to talk with me. She was able to do this on her own without significant dyspnea. Lungs with diffuse dry rales no rhonchi or wheezing Heart regular rate and rhythm Abdomen soft nontender normal bowel sounds Extremities without edema Objective Last Vital Signs Temp 36.3 C L 05/21/21 08:33 Pulse 88 05/21/21 08:33 Resp 18 05/21/21 08:33 BP 90/50 L 05/21/21 08:33 Pulse Ox 92 05/21/21 08:43
[2021-05-21] MEDS: Enoxaparin 40 MG/0.4 ML SYR SC (15:49)
--- NOTE | 2021-05-21 19:06 | CMPROGNOTE_ITS ---
- If Service Date Differs Date of service: 05/21/21 Time of Service: 19:06 Care Management Progress Note S/O: CM talked to Kelly over the phone today, as she remains on Covid precautions. CM discussed a SWB admission, as she may be nearing rehab level of care. Per MD, she continues to require PT and RT daily. Kelly agreed to a SWB admission, which she will likely transition to tomorrow. She asked for a copy to be made available to her , who can pick it up at [facility], and they can discu ss the details over the phone. Kelly reported that she would like to be discharged as soon as she is able, with O2, if necessary. CM will continue to follow. A: Kelly is a 71 year old woman admitted on 05/06/21 with Covid Pneumonia P:Kelly will be discharged home when medically cleared by provider. She will follow up with her PCP and plan of care as directed. Ultimately she wants to return to [place] where she lives and will transfer her care to her PCP in [place]. Her will drive her home via private vehicle when ready. CM will continue to support Kelly and assess for discharge planning concerns.
[2021-05-21] MEDS: Atorvastatin 40 MG TAB PO (20:49)
[2021-05-21] MEDS: Melatonin 3 MG TAB 9 MG PO (23:03)
[2021-05-21] MEDS: Zolpidem 5 MG TAB PO (23:03)
[2021-05-22 04:52] VITALS: BP 104/60; PULSE 80; RESP 18; TEMP 36.7; O2SAT 98
[2021-05-22] MEDS: Pantoprazole 40 MG TABCR PO (08:03)
[2021-05-22] MEDS: Cholecalciferol (Vitamin D3) 1,000 UNIT TAB 2000 UNITS PO (08:04)
[2021-05-22] MEDS: Montelukast 10 MG TAB PO (08:04)
[2021-05-22] MEDS: Ascorbic Acid 500 MG TAB 1000 MG PO (08:04)
[2021-05-22] MEDS: LORazepam 0.5 MG TAB PO ×2 (08:04→12:13)
[2021-05-22] MEDS: Citalopram 20 MG TAB PO (08:05)
[2021-05-22] MEDS: Magnesium Oxide 400 MG TAB PO (08:05)
[2021-05-22] MEDS: Dexamethasone 4 MG TAB 6 MG PO (08:05)
[2021-05-22] MEDS: Ipratropium/Albuterol 4 GM 120 PUFF INH IH ×2 (08:06→11:10)
[2021-05-22 08:09] VITALS: BP 128/64; PULSE 70; RESP 20; TEMP 36.6; O2SAT 91
[2021-05-22 08:12] VITALS: O2SAT 91
--- NOTE | 2021-05-22 09:25 | CMPROGNOTE_ITS ---
- If Service Date Differs Date of service: 05/22/21 Time of Service: 09:25 Care Management Progress Note S/O: Kelly remains on precautions for Covid 19, therefore CM was unable to visit with her today. CM did speak to her on the phone and she shared that she is having a bad day. She said her breathing is really bad , even at rest, and she did not ambulate because of this. Kelly informed CM that she would not be able to stay at her cousin's camp in [place] as it is only a summer camp and not suitable at this time of year. She has been transitioned to SB-1 status for continued treatment of her Covid infection and respiratory issues. She verbalized that she is comfortable with this plan. A: Kelly is a 71 year old woman admitted on 05/06/21 with Covid Pneumonia P:Kelly will be discharged home when medically cleared by provider. She will follow up with her PCP and plan of care as directed. Ultimately she wants to return to [place] where she lives and will transfer her care to her PCP in [place]. Her will drive her home via private vehicle when ready. CM will continue to support Kelly and assess for discharge planning concerns.
--- NOTE | 2021-05-22 10:28 | DSE_ITS ---
Date of service: 05/22/21 Time of Service: 10:28 DS: Diagnosis Discharge Diagnosis (1) Respiratory failure with hypoxia: Status: Acute Asessment and Plan: multifactorial including COVID-19 pneumonia, RA lung and organizing pneumonia. Patient continues to have high oxygen requirements w/ activtiy i.e. 6 LPM or more but her oxygen needs are adequately met at rest w/ low flow NC. Her inflammatory markers have resolved and her CT showes some interval imrpovement but persistent reticulonodular changes. Per consultation w/ I.D. there is nothing further to offer for treatment and they did not recommend further treatment w/ WESTLEY inhibitor nor an IL-6 inhibitor but to continue corticosteorids w/ a slow taper. I have increased her decadron from 6 mg to 10 mg daily. This should correspond to 60 mg prednisone per day. She is on a PPI for GI protection. (2) 2019 novel coronavirus-infected pneumonia (NCIP): Status: Acute (3) Organizing pneumonia: Status: Acute (4) Rheumatoid arthritis: Status: Chronic (5) DVT prophylaxis: Status: Acute Asessment and Plan: patient will remain on prophylaxis w/ enoxaparin. (6) Discharge planning issues: Status: Acute Asessment and Plan: patient is discharged to swing bed status while she continues to recuperate and participates in P.T. Discharge Plan Disposition Patient Disposition: [facility] SWING BED LEVEL 1 Condition: Stable Discharge Details Reason For Visit: Covid-19 Pneumonia,Acute Respiratory Failure Admit Date/Time: 05/06/21 12:48 Admit Provider: Kurtis Alvarez Attending Provider: Kurtis Alvarez Primary Care Provider: Shawn Hancock Hospital Course Hospital Course: 71 yr old female w/ PMH of RA including rheumatoid lung, previously on Rituximab (LD September 2020) who was hospitalized from 04/19 to 04/25/2021 w/ COVID-19 pneumonia (she previously had two dose series of an MRNA vaccine in September 2020). She did well w/ corticosteroids and Remdesivir and was discharged home on no oxygen supplementation. She develped a fever 101 on 05/02 along w/ a nonproductive cough and increasing dyspnea. She monitored her home oxygen saturation but when it declined to the 60's% she presented to the ER where she was found to be afebrile but w/ oxygen saturation in the 50's%. She was afebrile on admission and no leukocytosis but a relative lymphocytopenia and anemia Hb 10.5 gm. Inflammatory markers were elevated from their previous levels. CRP 9.56, ferritin 939, d-dimer 3438. CTA chest did not show any pulmonary emboli nor any infarcts but demonstrated extensive bilateral pulmonary infiltrates which were improved from her prior CT of her chest from 04/17. Nasal swab PCR for SARS-COV2 was positive. She was admitted to ICU on CPAP. She was started on Remdesivir, Baricitinib and decadron. She was treated w/ 10 doses of Remdesivir and 14 days of baricitinib and given decadron 10 mg IV on admission and put on 6 mg IV daily through her hospital stay. She was put on diuretics. She was put on DVT prophyaxis enoxaparin and given vitamin C, vitamin D and zinc. She was put on protonix for GI protection and later during her stay she was put on atorvastatin prophylactically. Her baseline oxygen needs at rest eventually improved to the point where she was able to be mainained on 2 to 3 LPM at rest however with any physical activity including simple ADL performance and working w/ P.T. she would quickly desaturate into the 70's but w/ 6 LPM she was able to maintain her SPO2 in the mid 80's%. She had repeat CT scan of her chest on 05/21 due to her continued need for higher flow of oxygen w/ activity. This again did not demonstrate any pulmonary emboli but continued to demonstrate mild interval improvement in her diffuse bilateral ground glass radiodensities but persistent diffuse reticular and minor consolidative densities bilaterally. It is felt that the patient has an organizing pneumonia (PLOW SHAKER) due to her COVID-19 in the setting of rheumatoid lung. Pulmonary consultation was obtained (see Dr. Oliver's notes from 05/06, 05/07 and 05/08. She recommended use of CPAP at night and HFNC during the day. She recommended a slow steroid taper. After the patient had comp leted all of her baricitinib and her remdesivir, a repat PCR was done to see if she could be safely taken out of isolation. Her PCR nasal swab unfortunately continued to show positivity w/ a cycling time of which actually represented worse levels of viral shedding compared to her admission PCR test. I discussed this case w/ Dr. Arnoldo Ventura, pathologist for [facility] and also w/ Amado Abdi at [facility]. There is really nothing further to be added to her treatment other than continued corticosteroids on a slow taper and supportive care w/ supplemental oxygen. Patient has been proning and using her I.S. and acapella. She has been on diuretics and she was on antibiotics. Because she can not be taken out of isolation and because she needs higher oxygen supply than what can be given for her to return home to [place], we are putting her in swing bed while she continues to recuperate. She will work w/ P.T. as best as she can tolerate. She will remain on oral decadron and enoxparin prohylactically. Her inflammatory markers have all returned to normal or near normal. CRP is now 0.27 (normal 0.3), ferritin 293 (normal 252), procalcitonin <0.1 twice (on 05/12 and again on 05/19). WBC 10,750. D-dimer 355 (normal less than 500). The patient and her have been staying w/ a friend in [place], [place] while they have been in [place] for the summer.However, they had planned to return to [place] for the winter. But w/ her increased oxygen needs w/ activity and her lowered cycling time of her PCR suggesting greater infectivity, she can not return to [place] nor to her friends home (her friend has COPD). Her is trying to make arrangements for them to live on a family members campground in [place] until she recovers. For now she will remain hospitalized, hopefully can remain in swing bed status unless her respiratory condition deteriorates. She remains a full code in the event of acute cardiac or pulmonary failure. Home Meds and New Rx's Prescriptions: No Action amlodipine 5 mg tablet 5 mg PO DAILY Qty: 90 RF: 4 cetirizine [Zyrtec] 10 mg tablet 5 mg PO DAILY PRNRF: 0 melatonin 10 mg capsule 10 mg PO HS PRNRF: 0 (DME) Aerochamber MV 1 EACH spacer 1 ea Miscellaneous PRN Qty: 1 RF: 0 hydrochlorothiazide 25 MG tablet 25 mg PO DAILY Qty: 90 RF: 4 Rituxan 10 MG/1 ML concentrate 10 mg IV Q6 MONTHS RF: 0 montelukast [Singulair] 10 MG tablet 10 mg PO DAILY MDD i tab Qty: 90 RF: 4 meloxicam 15 MG tablet 15 mg PO DAILY Qty: 90 RF: 3 Hold Instructions: Home Medication placed on hold at Doctor's office omeprazole 20 mg capsule,delayed release(DR/EC) 20 mg PO BID Qty: 180 RF: 0 lorazepam 0.5 mg tablet 0.5 mg PO BID PRN (Reason: anxiety) Qty: 20 RF: 0 trazodone 50 mg tablet 50 mg PO QHS PRN (Reason: sleep) Qty: 30 RF: 1 citalopram 20 mg tablet 20 mg PO DAILY RF: 0 metformin 500 mg tablet extended release 24 hr 500 mg PO DAILY RF: 0 ascorbic acid (vitamin C) [Vitamin C] 500 mg Tablet 500 mg PO BID Qty: 0 RF: 0 Combivent Respimat 20-100 mcg/actuation Mist 1 puff inhalation QID PRN PRN (Reason: shortness of breath or wheezing) Qty: 4 RF: 0 prednisone 10 mg tablet See Rx Instructions .ROUTE .COMPLEX Qty: 50 RF: 0 Discharge Instructions Instructions: COVID-19 and Chronic Health Conditions (DC) Additional Instructions: You have an appointment on June 12, at 2:30pm with Dr. Oliver at the pulmonology office located at [address] [place] [address], [place] [address]. If you are unable to attend this appointment you may call [phone]. Activity:: Activity as Tolerated Equipment/Supplies:: Oxygen (L/min Below) Diet:: Carb Counting Discharge Orders Discharge Orders: Discharge Order (Routine); Ordered 05/22/21 Ordered By: Massimo Chambers Discharge Data Discharge Date/Time-TO BE ENTERED AT DEPARTURE: 05/22/21 10:00 DS: Summary Time Spent with Patient providing and/or coordinating discharge services: Less than 30 minutes Status at Discharge Functional status at discharge: uses cane/walker Overall status at discharge: patient is not back to baseline Mental Status: mental status grossly normal Speech and Movement: speech and movement normal Mood: congruent mood Affect: normal affect Exam Narrative Exam Narrative: Elderly female lying in bed on her side. She was able to sit herself up at the bedside and dangle her legs over the bed unassisted. She is moderately dyspneic after this but able to quickly recover and hold a conversation. She is able to perform 1500 mL on her I.S. for me Alert and oriented x 3 Lungs: bibasilar rales; no rhonchi and no wheezing Heart: RRR Abdomen: obese, soft, nontender, Extremities; no edema, no calf swelling or tenderness, no cyanosis Psych Mental Status: mental status grossly normal Speech and Movement: speech and movement normal Mood: congruent mood Affect: normal affect DS: Data Vitals/I&O Vitals and I&O: Vital Signs Temperature 36.6 C 05/22/21 08:09 Temperature Source Tympanic 05/22/21 08:09 Pulse 70 05/22/21 08:09 Pulse Rhythm Regular 05/22/21 04:50 Pulse 73 05/10/21 14:45 Respiratory Rate 20 05/22/21 08:09 Respiratory Effort 05/22/21 04:50 Respiratory Depth Normal 05/22/21 04:50 Respiratory Pattern Normal 05/22/21 04:50 Blood Pressure 128/64 05/22/21 08:09 Blood Pressure Mean 77 05/09/21 08:00 Blood Pressure Position Sitting 05/08/21 08:00 Pulse Oximetry 91 L 05/22/21 08:12 Oxygen Delivery Method Nasal Cannula 05/22/21 08:12 Oxygen Flow Rate 3 05/22/21 08:12 Fraction of Inspired Oxygen (FIO2) 44 05/12/21 09:17 Pain Level 0 05/22/21 08:09 Comment 05/21/21 21:07 Intake & Output 05/21/21 05/21/21 05/22/21 11:59 23:59 11:59 Intake Total 250 / 950 700 / 950 Balance 250 / 950 700 / 950 Intake: Oral 250 / 950 700 / 950 Other: Urine Color Yellow Yellow Urine Appearance Clear Clear Clear Urine Odor Normal Comment Urine not measured. patient independent to the bathroom. Voiding Methods Toilet Toilet [facility] Medical History Obesity (BMI 30-39.9) Rheumatoid arthritis Surgical History Colonoscopy - [facility] (03/01/13) DR. Prabhjot LAGUERRE Endometrial Biopsy 1990: NEG 1999: NEG S/P ankle fusion Social History Smoking/Tobacco Use Status: Never Smoking risk assessment performed?: Yes Alcohol Intake: current Alcohol Intake frequency: a few times a month Drug use: Never Substance use type: does not use Do you feel safe at home: Yes Do you feel safe in your relationship?: Yes
[2021-05-22 11:05] VITALS: PULSE 100; RESP 28; O2SAT 91
--- NOTE | 2021-05-22 11:25 | PT.INTREAT ---
Date of service: 05/22/21 Time of Service: 10:36 PT Notes Visit Reasons: Covid-19 Pneumonia,Acute Respiratory Failure Inpatient Physical Therapy Treatment Note [facility] Date: 05/22/2021 PRECAUTIONS: Covid-19, activity as tolerated SUBJECTIVE: Kelly reports that she is not having a good day. She reports feeling very tired and SOB today. She would like to get into bed to rest after PT session. OBJECTIVE: PAIN: No c/o pain BED MOBILITY/TRANSFERS/GAIT: Held due to SOB and fatigue VITALS: SaO2: 84-86% on 3L O2 at rest. Nursing called, instructed to increase supplemental O2 to 4L: 84-88% on 4L O2 at rest. Nursing increased supplemental O2 to 5L, patient 82-89% at rest. Patient symptomatic. THEREX: Patient was instructed in a resisted UE and LE strengthening program, completed in a seated position, as per flow sheet. She utilizes yellow Theraband and 1# dumbbells with exercises. She requires frequent rest periods due to significantly increased SOB. ASSESSMENT: Patient tolerated session with c/o increased SOB with all activity, including talking while at rest. Gait training held due to increasing SOB and supplemental O2 needs. She would benefit from continued gait training, global strengthening, and general conditioning. PLAN: Continue with global strengthening and general conditioning for improved mobility and activity tolerance, as tolerated. TREATMENT CODE/TIME: 29 minutes; [id number] x2 (10:36)
[2021-05-22] MEDS: Enoxaparin 40 MG/0.4 ML SYR SC (14:14)
--- NOTE | 2021-05-22 15:30 | NUR.NOTE ---
Nursing Note: Patient switched to swing bed status per MD order.
[2021-05-22] MEDS: Dexamethasone 4 MG TAB PO (17:14)
--- NOTE | 2021-05-23 13:45 | PT.INDS ---
Date of service: 05/23/21 Time of Service: 13:45 PT Notes Visit Reasons: Covid-19 Pneumonia,Acute Respiratory Failure Physical Therapy Inpatient Discharge Summary Date: 05/23/2021 Dates of service: 05/16/2021 through 05/22/2021 This is a clinical summary of care provided for the duration of dates listed above. No charge was made in the completion of this documentation. Referring Doctor: Massimo Chambers MD PT Orders: PT CONSULT: Extended stay weakness Precautions: Fall. Standard. Activity as tolerated. COVID-[address] Patient Profile/Admitting Diagnosis: Re-evaluation performed today under swing bed level 1 of care. 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 PMHX: Medical History Obesity (BMI 30-39.9) Rheumatoid arthritis Surgical History Colonoscopy - MAC (03/01/13) DR. Prabhjot LAGUERRE Endometrial Biopsy 1990: NEG 1999: NEG S/P ankle fusion Social History/Home Situation: Independent with all activities of daily living without an assistive ambulatory device. [place] in [place] and spends the rest of the year here in [place]. Has a camper in [facility] but will be discharging to her friend's house with a flight of steps leading to the bedroom where they will be staying. Plans on staying at her firned's house for about two weeks or until Thanksgiving until they are able to go back to [place] for the winter. Her friend's house has 3 steps to enter and 7 steps to kitchen with rails on both sides. Equipment Owned/DME: Front-wheeled walker Subjective: NT. See most recent HOLE DIGGER OPERATOR notes. Objective: General Observation: NT. See most recent HOLE DIGGER OPERATOR notes. Mental Status: NT. See most recent HOLE DIGGER OPERATOR notes. Pain: Denies Vital Signs: NT. See most recent HOLE DIGGER OPERATOR notes. ROM: Right Upper Extremity: Shoulder Flexion WFL. Shoulder abduction WFL. Elbow flexion WFL. Wrist flexion WFL. Functional opening and closing of hand WFL. Left Upper Extremity: Shoulder Flexion WFL. Shoulder abduction WFL. Elbow flexion WFL. Wrist flexion WFL. Functional opening and closing of hand WFL. Right Lower Extremity: Hip flexion WFL. Hip abduction WFL. Knee flexion WFL. Ankle dorsiflexion WFL. Ankle plantarflexion WFL. Left Lower Extremity: Hip flexion WFL. Hip abduction WFL. Knee flexion WFL. Ankle dorsiflexion WFL. Ankle plantarflexion WFL. Strength: Right Upper Extremity: Shoulder flexors 3+/5. Shoulder abductors 3+/5. Elbow flexors 3+/5. Elbow extensors 3+/5. Roller Leveler Operator strong. Left Upper Extremity: Shoulder flexors 3+/5. Shoulder abductors 3+/5. Elbow flexors 3+/5. Elbow extensors 3+/5. Roller Leveler Operator strong. Right Lower Extremity: Hip flexors 3+/5. Hip abductors 3+/5. Knee flexors 3+/5. Knee extensors 3+/5. Ankle dorsiflexors 3+/5. Ankle plantarflexors 3+5. Left Lower Extremity: Hip flexors 3+/5. Hip abductors 3+/5. Knee flexors 3+/5. Knee extensors 3+/5. Ankle dorsiflexors 3+/5. Ankle plantarflexors 3+5. Bed Mobility/Transfers: Sit to stand independent Stand to sit independent with FWW Bed to bedside commode independent with stand pivot transfer Bedside commode to bed independent with stand pivot transfer Bed to reclining chair independent with stand pivot transfer Reclining chair to bed independent with stand pivot transfer Gait: Instructed patient with level surface ambulation of 40 to 50 feet requiring supervision. Elen decreased. Denies pain, dizziness, and headache throughout activity. During the first walk of 25 feet patient desaturated to 81% on 4 L. Needed to be titrated up to 7 L which allowed resaturation back up to 91%. Needed to be left with 6.5 L at rest at conclusion of PT session to maintain saturation to 88-89%. Balance: Static Sitting: Normal Dynamic Sitting: Normal Static Standing: Good Dynamic Standing: Fair Special Tests: Mobility Limitations Standardized Measure [facility] AM-PAC 6 clicks Basic Mobility Inpatient Short Form: Raw Score: 23 CMS Score: 11% deficit Informed Consent/Education: Patient was instructed in purpose of PT consult and plan of care. Agreeable to proceed with established PT POC to achieve personal goals. Assessment: Somewhat severe to severe shortness of breath/4-5 out of 10 in the Modified Lolita Dyspnea Scale with 40-50 feet of in-room ambulation. Kelly requires the use of front-wheeled walker to increase activity tolerance and reduce fall risk due to report of fatigue and weakness in bilateral lower extremities. She will benefit from the use of a front-wheeled walker to provide stability and decreased activity tolerance. Patient presents with clinical signs and symptoms consistent with current/admitting diagnoses that have resulted to mobility limitations, gait instability, generalized weakness, and overall ADL decline as demonstrated by the following impairment level findings: 1. Decreased strength to BLE major muscle groups 2. Impaired standing balance 3. Impaired activity tolerance 4. Shortness of breath Impairments are contributing to the following functional limitations: 1. Difficulty with ambulation without assistive device 2. Increased completion time for mobility ADL performance 3. Increased risk for falls 4. Difficulty with managing steps alone safely Goals: Goals X1 week 1. Supine-Sit independent MET 2. Sit-Supine independent MET 3. Sit-Stand independent without an assistive device MET 4. Stand-Sit independent without an assistive device MET 5. Bed-Chair independent without an assistive device MET 6. Chair-Bed independent without an assistive device MET 7. Independent gait on level surface with use of FWW for at least 500 feet without report of pain nor dyspnea NOT MET 8. Independent stair negotiation while holding onto B rails for at least 12 steps without report of pain nor dyspnea NOT MET 9. Independent with home exercise program NOT MET 10. Good static and dynamic standing balance/tolerance NOT MET DISCHARGE RECOMMENDATIONS: PT once medically cleared by hospitalist. No mobility equipment needs at this time. TREATMENT CODE/TIME: GA Thank you for the opportunity to participate in the care of this patient. Kelle Matos PT, DPT, CLT [facility] [place], [place]
== END 2021-05-22 10:00 | disposition swing bed (61) | DRG 177 ==
LOC: ER 13:44 → ICU 13:59 → MS 05-09 11:32
PROVIDERS: Internal Medicine; Student in an Organized Health Care Education/Training Program; Admitting Provider Family Medicine; Emergency Provider Student in an Organized Health Care Education/Training Program; PCP Family Medicine; Visit Provider Family Medicine
DX: U07.1 COVID-19 (principal); J96.01 Acute respiratory failure with hypoxia; J12.82 Pneumonia due to coronavirus disease 2019; D84.821 Immunodeficiency due to drugs; E11.9 Type 2 diabetes mellitus without complications; E66.9 Obesity, unspecified; Z68.33 Body mass index [BMI] 33.0-33.9, adult; Z79.899 Other long term (current) drug therapy; E87.70 Fluid overload, unspecified; J84.89 Other specified interstitial pulmonary diseases; M05.10 Rheumatoid lung disease with rheumatoid arthritis of unspecified site
CPT/HCPCS: 36415; 71275; 80048; 80053; 80076; 84145; 85027; 87635; 93005; 94640; 97110; 97163; 97530; 99285; J1650; 81003; 81015; 82728; 83735; 83880; 84100; 84484; 85025; 85379; 86140; 93010; 94660; 99223; 99231; 99232; 99233; 99238; J1100; J1940; J3490; J7620; J8540

== ENCOUNTER 2021-05-22 13:11 | Inpatient (IN) | payer MEDICARE, BC, SELFPAY ==
--- NOTE | 2021-05-22 13:15 | W.PM.HP.N ---
Date of service: 05/22/21 Time of Service: 13:15 Assessment and Plan Assessment and plan (1) 2019 novel coronavirus-infected pneumonia (NCIP): Status: Acute Assessment and plan: Patient has completed full course of Baricitinib and Remdesivir. She remains on decadron, oxygen and she is cooperative w/ using her IS and acapella and she practices proning. (2) Organizing pneumonia: Status: Acute Assessment and plan: continue decadron, supportive care w/ oxygen and prn MDI use. continue enoxparin prophylaxis (3) Respiratory failure with hypoxia: Status: Acute Qualifiers: Chronicity: acute Qualified Code(s): J96.01 - Acute respiratory failure with hypoxia (4) Rheumatoid arthritis: Status: Chronic Assessment and plan: continue decadron, tylenol prn, may need to use her meloxicam prn Qualifiers: Rheumatoid arthritis location: unspecified site Rheumatoid factor presence: unspecified presence Qualified Code(s): M06.9 - Rheumatoid arthritis, unspecified History of Present Illness History of Present Illness Chief Complaint: dyspnea Narrative: 71 yr old female admitted to [facility] 04/19-04/25 for COVID-19 pneumonia (she previously had been double vaccinated) her risks for COVID include her hx of rheumatoid arthritis treated w/ Rituximab (last dose September 2020). See her discharge summary for details. She did well during that hospitalization and completed decadron and remdesivir, but developed worsening dyspnea, cough and fever on 05/02. She was admitted to MICU d/t severe hypoxemia (SPO2 in the high 50's to low 60'%). She was not intubated but was treated w/ CPAP and HFNC. She was given 11 days of Remdesivir and 14 days of Baricitinib along w/ decadron 6 mg IV daily. she eventually transferred out of the ICU and was weaned down to 2 to 3 LPM NC at rest. However she plateaued and was never able to be weaned off oxygen. In fact she has had higher oxygen requirements w/ activity. Also when she was tested for clearance of her SARS-COV2 her PCR came back w/ lower cycling times of 19 indicative of greater viral shedding. Because she can not come out of isolation and because she requires higher oxygen requirements than can be met at home, she needs continued hospitalization. However because all of her inflammatory markers have returned to normal or near normal, she does not require frequent laboratory monitoring. Her follow up CT of her chest continues to show COVID pneumonia but w/ interval improvment in her ground glass opaciities but still no PE. It is anticipated she will need a prolonged senior living stay while she recuperates. Review of Systems All systems reviewed & are unremarkable except as noted in HPI and below PFSH Medical History Obesity (BMI 30-39.9) Rheumatoid arthritis Surgical History Colonoscopy - [facility] (03/01/13) DR. Prabhjot LAGUERRE Endometrial Biopsy 1989: NEG 1998: NEG S/P ankle fusion Social History Smoking/Tobacco Use Status: Never Smoking risk assessment performed?: Yes Alcohol Intake: current Alcohol Intake frequency: a few times a month Drug use: Never Substance use type: does not use Do you feel safe at home: Yes Do you feel safe in your relationship?: Yes Meds Allergies and Home Medications Allergies Allergy/AdvReac Type Severity Reaction Status Date / Time hydrocodone AdvReac Intermediate Nausea Verified 05/06/21 13:44 morphine AdvReac Intermediate Nausea Verified 05/06/21 13:44 oxycodone AdvReac Intermediate N/V Verified 05/06/21 13:44 Home Medications Medication Instructions Recorded Confirmed Type Aerochamber MV #1 aer 11/26/14 05/22/21 History hydrochlorothiazide 25 mg PO DAILY #90 tab 02/16/15 05/22/21 History Rituxan 10 mg IV Q6 MONTHS vial 04/18/15 05/22/21 History montelukast [Singulair] 10 mg PO DAILY #90 tab MDD i tab 02/23/17 05/22/21 History meloxicam 15 mg PO DAILY #90 tab-cap 04/10/17 05/22/21 Rx amlodipine 5 mg tablet 5 mg PO DAILY #90 tab 02/06/20 05/22/21 Rx cetirizine 10 mg tablet 5 mg PO DAILY PRN 03/12/20 05/22/21 History omeprazole 20 mg capsule,delayed 20 mg PO BID #180 cap 01/31/21 05/22/21 Rx release melatonin 10 mg capsule 10 mg PO HS PRN 03/21/21 05/22/21 History citalopram 20 mg PO DAILY 04/17/21 05/22/21 History metformin 500 mg PO DAILY 04/17/21 05/22/21 History ascorbic acid (vitamin C) [Vitamin 500 mg PO BID #0 tab 04/25/21 05/22/21 Rx C] ipratropium-albuterol [Combivent 1 puff INHALATION QID PRN PRN #4 g 04/25/21 05/22/21 Rx Respimat] prednisone See Rx Instructions .ROUTE 04/25/21 05/22/21 Rx .COMPLEX #50 tab lorazepam 0.5 mg tablet 0.5 mg PO BID PRN #20 tab 04/30/21 05/22/21 Rx trazodone 50 mg tablet 50 mg PO QHS PRN #30 tab 04/30/21 05/22/21 Rx Exam Narrative Exam Narrative: Const General: cooperative, no acute distress, well developed and well groomed Nutritional Appearance: overweight Orientation: alert, awake and oriented x3 HENMT Head: normal to inspection and normocephalic Face and sinus: normal facial exam Mouth: oral mucosae normal Eyes General: appearance normal, both eyes and all related structures Visual Garcia: normal visual garcia by confrontation Alignment and Position: alignment normal Periorbital: periorbital findings normal Eyelids: eyelids normal Conjunctivae: conjunctivae normal Sclera: sclerae normal Cornea: corneas normal Pupils: PERRL EOM: EOM intact bilaterally Neck Neck: normal visual inspection, full ROM, no lymphadenopathy and No JVD Thyroid: thyroid normal Carotids: normal carotid upstroke Lymphatic: no lymphadenopathy noted Chest Chest: normal inspection of the chest Resp Effort & Inspection: normal respiratory effort, able to speak in complete sentences and no use of accessory muscles Auscultation: crackles bilaterally throughout Percussion: percussion normal Cardio Jugular venous pressure: no JVD Palpation: normal PMI Rate: regular rate Rhythm: regular rhythm Heart Sounds: S1 normal, S2 normal and normal, physiologic split S2 Pulses: normal peripheral pulses GI Inspection: normal to inspection Palpation: soft, no hepatosplenomegaly and nontender Percussion: normal to percussion Auscultation: normal bowel sounds General: No CVA tenderness Back/Spine/Pelvis Back: no CVA tenderness Cervical Spine: normal cervical lordosis Thoracic/Lumbar Spine: thoracic and lumbar spine normal to inspection Skin General skin exam: no rashes or lesions noted, elasticity normal and turgor normal Neuro General: patient alert, patient awake and patient oriented x3 Cranial Nerves: CN's II-XI intact bilaterally Cognition: normal cognition Speech: speech normal Gait: normal gait Motor: muscle tone normal throughout Sensory Exam: no sensory deficits noted Extrem General: normal to inspection, full ROM and capillary refill normal Psych Appearance: grossly normal Mental Status: mental status grossly normal Speech and Movement: speech and movement normal Mood: congruent mood Affect: normal affect Attitude: cooperative Thought Process: normal Thought Content: normal Insight: insight good Judgment: judgment good Results Labs Result diagrams: 05/24/21 09:38 05/24/21 09:38
--- NOTE | 2021-05-22 15:31 | NUR.NOTE ---
Nursing Note: Patient transitioned to swing bed status per MD order.
--- NOTE | 2021-05-22 16:59 | CM.SBPSYCH ---
- If Service Date Differs Date of service: 05/22/21 Time of Service: 16:59 SB Psychosocial/Act.Assessment - Hospital Admission Admission Date: 05/06/21 Admission From:: ED Diagnosis:: Covid Pneumonia and respiratory failure - Swing Bed Admission Swing Bed Admit Date:: 05/22/21 Swing Bed Level of Care: Level 1/SNF - Social Supports PREVIOUS FUNCTIONAL STATUS/SOCIAL/FAMILY SUPPORTS:: Kelly resides with her , Kristian, in [place], [place] during the winter months and spends newton in a camper in [place]. She is independent at baseline. - Education Highest Grade Completed:: college graduate Special Education/Training:: Was general dentist/owner for a [employer] - Work History Employment Status:: retired - Gnosticism Gnosticism Affliation: Jewish - Advance Directives for Healthcare Advance Directives for Healthcare: Advance Directives - Interests Hobbies:: golf Reading:: likes murder mysteries - Medical History PAST MEDICAL HISTORY/PAST SURGICAL HISTORY:: Medical History: Obesity (BMI 30-39.9) and Rheumatoid arthritis. Surgical History[place] [facility] [place] DR. Prabhjot LAGUERRE,. Endometrial Biopsy - 1989: NEG, 1998: NEG, and S/P ankle fusion. - Admission Data Reason for Swing Bed Admission:: RT and PT Discharge Plan:: Home - likely with new home oxygen Assessment: Kelly will work with PT and RT daily to wean her O2 requirements with ambulation. She will likely need new home oxygen. Kelly lives in [place] and wishes to return as soon as she is able. Labor And Delivery Registered Nurse: Sharon Pierre Date Assessment was completed:: 05/22/21
[2021-05-22 17:00] VITALS: O2SAT 91
--- NOTE | 2021-05-22 17:08 | CM.SWINGPC ---
- If Service Date Differs Date of service: 05/22/21 Time of Service: 17:08 Swingbed Plan of Care Plan of care: SWING BED PROGRAM ACTIVITIES/DISCHARGE PLAN OF CARE ACTIVITIES PLAN Date:05/22/21 Identified Need:Individualized Activity plan Intervention/Plan:Kelly will be able to watch TV in her room. She will be offered items from the Activity cart. Unfortunately, due to her Covid status, she cannot have visitors or leave her room. CM and nursing staff will facilitate video visits with friends/family if/when requested. Initials [facility] [place]GE [place]AN Date:05/22/21 Identified Need:Reduce oxygen requirements during ambulation and activity Intervention/Plan: work with PT and RT daily and continue participation in plan of care. Initials [facility]
[2021-05-22] MEDS: LORazepam 0.5 MG TAB PO (17:15)
[2021-05-22] MEDS: Ipratropium/Albuterol 4 GM 120 PUFF INH IH ×2 (17:16→20:25)
[2021-05-22 19:27] VITALS: O2SAT 98
[2021-05-22 20:00] VITALS: O2SAT 91
[2021-05-22] MEDS: Ascorbic Acid 500 MG TAB 1000 MG PO (20:21)
[2021-05-22] MEDS: Pantoprazole 40 MG TABCR PO (20:22)
[2021-05-22] MEDS: Atorvastatin 40 MG TAB PO (20:22)
[2021-05-22 20:30] VITALS: BP 107/59; PULSE 78; RESP 18; TEMP 36.4; O2SAT 91
[2021-05-22] MEDS: Melatonin 3 MG TAB 9 MG PO (22:51)
[2021-05-22] MEDS: Zolpidem 5 MG TAB PO (22:51)
[2021-05-23 04:04] VITALS: BP 145/81; PULSE 63; RESP 16; TEMP 36.8; O2SAT 95
[2021-05-23] MEDS: Cholecalciferol (Vitamin D3) 1,000 UNIT TAB 2000 UNITS PO (07:40)
[2021-05-23] MEDS: Citalopram 20 MG TAB PO (07:40)
[2021-05-23] MEDS: Ascorbic Acid 500 MG TAB 1000 MG PO ×2 (07:40→20:57)
[2021-05-23] MEDS: Pantoprazole 40 MG TABCR PO ×2 (07:40→20:58)
[2021-05-23] MEDS: Dexamethasone 4 MG TAB 6 MG PO (07:41)
[2021-05-23] MEDS: Montelukast 10 MG TAB PO (07:41)
[2021-05-23] MEDS: Magnesium Oxide 400 MG TAB PO (07:41)
[2021-05-23] MEDS: LORazepam 0.5 MG TAB PO ×3 (07:41→17:22)
[2021-05-23 07:51] VITALS: BP 90/58; PULSE 93; RESP 22; TEMP 36.5; O2SAT 89
[2021-05-23 08:00] VITALS: O2SAT 89
[2021-05-23] MEDS: Ipratropium/Albuterol 4 GM 120 PUFF INH IH ×4 (09:06→20:59)
[2021-05-23] MEDS: Enoxaparin 40 MG/0.4 ML SYR SC (13:38)
--- NOTE | 2021-05-23 14:05 | IN_ITS ---
Date of service: 05/23/21 Time of Service: 14:05 PT Notes Visit Reasons: Acute Hypoxic Respiratory Failure,Covid-19 Pneumon Swing Bed Level I Physical Therapy Initial Evaluation Date: 05/23/2021 Referring Doctor: Massimo Chambers MD PT Orders: PT CONSULT: Extended stay weakness Precautions: Fall. Standard. Activity as tolerated. COVID-[address] Patient Profile/Admitting Diagnosis: Re-evaluation performed today under swing bed level 1 of care. 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 PMHX: Medical History Obesity (BMI 30-39.9) Rheumatoid arthritis Surgical History Colonoscopy - MAC (03/01/13) DR. Prabhjot LAGUERRE Endometrial Biopsy 1990: NEG 1999: NEG S/P ankle fusion Social History/Home Situation: Independent with all activities of daily living without an assistive ambulatory device. [place] in [place] and spends the rest of the year here in [place]. Has a camper in [facility] but will be discharging to her friend's house with a flight of steps leading to the bedroom where they will be staying. Plans on staying at her firned's house for about two weeks or until Thanksgiving until they are able to go back to [place] for the winter. Her friend's house has 3 steps to enter and 7 steps to kitchen with rails on both sides. Equipment Owned/DME: Front-wheeled walker Subjective: Agreeable to PT re-evaluation under swing bed level I of care. Emphasizes that she can only go to her friend's house if she is COVID-19 negative. Did complain of considerable shortness of breath during a short ambulation activity. Objective: General Observation: Continuous oxygen supplementation at 4 L/min via mask. In NAD. Moderate SOB with activity. Mental Status: Alert and oriented as to person, place, time, and purpose. Able to pay attention, focus, and respond appropriately. Pain: Denies Vital Signs: During the first walk of 25 feet patient desaturated to 81% on 4 L. Needed to be titrated up to 7 L which allowed resaturation back up to 91%. Needed to be left with 6.5 L at rest at conclusion of PT session to maintain saturation to 88-89%. ROM: Right Upper Extremity: Shoulder Flexion WFL. Shoulder abduction WFL. Elbow flexion WFL. Wrist flexion WFL. Functional opening and closing of hand WFL. Left Upper Extremity: Shoulder Flexion WFL. Shoulder abduction WFL. Elbow flexion WFL. Wrist flexion WFL. Functional opening and closing of hand WFL. Right Lower Extremity: Hip flexion WFL. Hip abduction WFL. Knee flexion WFL. Ankle dorsiflexion WFL. Ankle plantarflexion WFL. Left Lower Extremity: Hip flexion WFL. Hip abduction WFL. Knee flexion WFL. Ankle dorsiflexion WFL. Ankle plantarflexion WFL. Strength: Right Upper Extremity: Shoulder flexors 3+/5. Shoulder abductors 3+/5. Elbow flexors 3+/5. Elbow extensors 3+/5. Flooring Professional strong. Left Upper Extremity: Shoulder flexors 3+/5. Shoulder abductors 3+/5. Elbow flexors 3+/5. Elbow extensors 3+/5. Flooring Professional strong. Right Lower Extremity: Hip flexors 3+/5. Hip abductors 3+/5. Knee flexors 3+/5. Knee extensors 3+/5. Ankle dorsiflexors 3+/5. Ankle plantarflexors 3+5. Left Lower Extremity: Hip flexors 3+/5. Hip abductors 3+/5. Knee flexors 3+/5. Knee extensors 3+/5. Ankle dorsiflexors 3+/5. Ankle plantarflexors 3+5. Bed Mobility/Transfers: Sit to stand independent Stand to sit independentwith FWW Bed to bedside commode independent with stand pivot transfer Bedside commode to bed independent with stand pivot transfer Bed to reclining chair independent with stand pivot transfer Reclining chair to bed independent with stand pivot transfer Gait: Instructed patient with level surface ambulation of 40 to 50 feet requiring supervision. Elen decreased. Denies pain, dizziness, and headache throughout activity. During the first walk of 25 feet patient desaturated to 81% on 4 L. Needed to be titrated up to 7 L which allowed resaturation back up to 91%. Needed to be left with 6.5 L at rest at conclusion of PT session to maintain saturation to 88-89%. Balance: Static Sitting: Normal Dynamic Sitting: Normal Static Standing: Good Dynamic Standing: Fair Special Tests: Mobility Limitations Standardized Measure [facility] AM-PAC 6 clicks Basic Mobility Inpatient Short Form: Raw Score: 23 CMS Score: 11% deficit Informed Consent/Education: Patient was instructed in purpose of PT consult and plan of care. Agreeable to proceed with established PT POC to achieve personal goals. Assessment: Somewhat severe to severe shortness of breath/4-5 out of 10 in the Modified Lolita Dyspnea Scale with 40-50 feet of in-room ambulation. Kelly requires the use of front-wheeled walker to increase activity tolerance and reduce fall risk due to report of fatigue and weakness in bilateral lower extremities. She will benefit from the use of a front-wheeled walker to provide stability and decreased activity tolerance. Patient presents with clinical signs and symptoms consistent with current/admitting diagnoses that have resulted to mobility limitations, gait instability, generalized weakness, and overall ADL decline as demonstrated by the following impairment level findings: 1. Decreased strength to BLE major muscle groups 2. Impaired standing balance 3. Impaired activity tolerance 4. Shortness of breath Impairments are contributing to the following functional limitations: 1. Difficulty with ambulation without assistive device 2. Increased completion time for mobility ADL performance 3. Increased risk for falls 4. Difficulty with managing steps alone safely Patient is assessed as a 00056 moderate complexity based on the following: History: 71 [id number] with past medical history as indicated above Examination: Demonstrable impairment in strength, balance, and mobility level with underlying impairments and functional limitations as exhibited above as well as deficit score of 11% utilizing the [facility] Mobility Inpatient Short Form Presentation: Evolving Decision Makin moderate complexity Goals: Goals X1 week 1. Independent gait on level surface with use of FWW for at least 200 feet with 1/10 score (Very slight) in the Modified Lolita Dyspnea Scale 2. Independent stair negotiation while holding onto B rails for at least 12 steps without report of pain nor dyspnea (once cleared to get out of room) 1/10 score (Very slight) in the Modified Lolita Dyspnea Scale 3. Independent with home exercise program 4. Good static and dynamic standing balance/tolerance 5. Will demonstrate 1/10 score (Very slight) in the Modified Lolita Dyspnea Scale to allow for safe completion of monbility ADLs at discharge destination at 2 L/min via mask Plan of Care/Treatment Plan: 1-2x/day, 7 days/week x 1 week. Plan of care has been reviewed with the POLISHING WHEEL SETTER providing the service under Physical Therapy direction. Initiate Physical Therapy intervention for pain management as needed, strengthening, bed mobility, transfers, gait, stairs, balance training, and use of assistive device. DISCHARGE RECOMMENDATIONS: PT once medically cleared by hospitalist. No mobility equipment needs at this time. TREATMENT CODE/TIME: 77116 x 20 minutes, 35908 x 12 minutes beginning 14:05 PM. Thank you for the opportunity to participate in the care of this patient. Kelle Matos PT, DPT, CLT [facility] [place], [place]
[2021-05-23 17:23] VITALS: BP 104/53; PULSE 71; RESP 20; TEMP 36.1; O2SAT 92
[2021-05-23 20:50] VITALS: BP 119/60; PULSE 66; RESP 21; TEMP 36.9; O2SAT 92
[2021-05-23] MEDS: Atorvastatin 40 MG TAB PO (20:58)
[2021-05-24] VITALS (8 sets, daily range): BP systolic 104–117; BP diastolic 65–66; PULSE 78–100; RESP 20; TEMP 36.8–38.4; O2SAT 89–98
[2021-05-24] MEDS: Melatonin 3 MG TAB 9 MG PO (00:11)
[2021-05-24] MEDS: Zolpidem 5 MG TAB PO (00:11)
[2021-05-24] MEDS: Acetaminophen 325 MG TAB PO ×2 (03:10→08:22)
[2021-05-24] MEDS: Cholecalciferol (Vitamin D3) 1,000 UNIT TAB 2000 UNITS PO (08:02)
[2021-05-24] MEDS: Ascorbic Acid 500 MG TAB 1000 MG PO (08:03)
[2021-05-24] MEDS: Dexamethasone 4 MG TAB 6 MG PO (08:03)
[2021-05-24] MEDS: Montelukast 10 MG TAB PO (08:03)
[2021-05-24] MEDS: Citalopram 20 MG TAB PO (08:03)
[2021-05-24] MEDS: Pantoprazole 40 MG TABCR PO (08:03)
[2021-05-24] MEDS: Magnesium Oxide 400 MG TAB PO (08:03)
[2021-05-24] MEDS: LORazepam 0.5 MG TAB PO (08:03)
[2021-05-24 10:06] LABS: HGB 9.2 g/dL (11.2-15.7); MCH 29.6 pg (27.0-33.0); MCHC 32.9 % (32.0-36.0); MPV 9.2 fL (8.0-11.0); Nucleated RBC 0 %; Platelet Count 286 10^3/uL (130-400); RBC 3.11 10^6/uL (3.93-5.22); RDW 16.5 % (11.7-14.6); WBC 12.48 10^3/uL (4.4-10.8)
[2021-05-24 10:15] LABS: Absolute Monocyte Count 0.12 10^3/uL (0.1-0.8); Absolute Neutrophil Count 11.86 10^3/uL (1.2-6.7); Bands % 2; Diff Comment Manual Differential; RBC Morphology Normal
[2021-05-24 10:19] LABS: ALT 25 U/L (14-59); AST 22 U/L (15-37); Albumin 2.5 g/dL (3.4-5.0); Alkaline Phosphatase 78 U/L (46-116); Anion Gap 10.8 mmol/L (3-11); BUN 28 mg/dL (7-18); Bilirubin, Total 0.5 mg/dL (0.2-1.0); C-Reactive Protein 6.98 mg/dL (0.0-0.3); CO2 25.2 mmol/L (21.0-32.0); Calcium 8.3 mg/dL (8.5-10.1); Chloride 93 mmol/L (98-107); Estimated GFR 54.35 (mL/min/1.73m2); Glucose 190 mg/dL (74-106); Sodium 129 mmol/L (136-145); Total Protein 5.8 g/dL (6.4-8.2)
--- NOTE | 2021-05-24 10:36 | DI.RAD_ITS ---
Exam(s) XR PORTABLE CHEST AP EXAM: XR PORTABLE CHEST AP CLINICAL HISTORY: Fever, dyspnea, hypoxemia TECHNIQUE: 2D digital imaging was performed. COMPARISON: CR,XR XR PORTABLE CHEST AP from 04/22/2021 CR,XR XR PORTABLE CHEST AP from 04/22/[address] CHEST PE CTA from 05/21/[address] CHEST PE CTA from 05/21/2021 FINDINGS: There has been interval worsening of bilateral infiltrates when compared with the previous exams. Lo w lung volumes. Stable cardiac silhouette. No visible pneumothorax or effusion. IMPRESSION: Interval worsening of bilateral infiltrates. DATA REPOSITORY: RADIATION DOSE DELIVERED:
[2021-05-24] MEDS: Ipratropium/Albuterol 4 GM 120 PUFF INH IH (10:47)
[2021-05-24 11:13] LABS: Procalcitonin 0.1 ng/mL
[2021-05-24 11:15] LABS: BE 6 mmol/L (-2-3); HCO3 29 mmol/L (22-26); pCO2 38 mmHg (35-45); pO2 65 mmHg (80-105); sO2 93 % (95-98); tCO2 27 mmol/L (23-27)
[2021-05-24 11:16] LABS: FIO2 40 %; Site Right Radial
[2021-05-24 11:17] LABS: FIO2L CPAP 7 L
== END 2021-05-24 11:19 | disposition short-term general hospital (02) | DRG 177 ==
PROVIDERS: Admitting Provider Internal Medicine; PCP Family Medicine; Visit Provider Internal Medicine
DX: U07.1 COVID-19 (principal); J12.82 Pneumonia due to coronavirus disease 2019; J96.01 Acute respiratory failure with hypoxia; D84.821 Immunodeficiency due to drugs; J84.89 Other specified interstitial pulmonary diseases; M06.9 Rheumatoid arthritis, unspecified
CPT/HCPCS: 36415; 80053; 82805; 84145; 87040; 97110; 97162; 97530; J1650; 71045; 85025; 86140; J8540

== ENCOUNTER 2021-05-24 11:27 | Inpatient (IN) | payer MEDICARE, BC, SELFPAY ==
[2021-05-24] VITALS (59 sets, daily range): BP systolic 123–166; BP diastolic 63–79; PULSE 74–128; RESP 28–52; TEMP 37.3–38.6; O2SAT 79–98
--- NOTE | 2021-05-24 11:31 | HPE_ITS ---
Date of service: 05/24/21 Time of Service: 11:31 Assessment and Plan Assessment and plan (1) HCAP (healthcare-associated pneumonia): Status: Acute Assessment and plan: panculture (nasal MRSA, sputum culture), cover w/ Zosyn, Vancomycin, doxycycline; check atypical studies (mycoplasma, legionella, urine strep); continue decadron at higher dose; continue supportive care w/ CPAP; will send images over to [facility] to discuss w/ pulmonary services. patient may need higher level of care, particularly if she requires intubation. (2) Organizing pneumonia: Status: Acute Assessment and plan: corticosteroids, bronchodilators, CPAP and broad spectrum antibiotics as listed above (3) 2019 novel coronavirus-infected pneumonia (NCIP): Status: Acute Assessment and plan: continue decadron but at higher dose of 10 mg (equivalent to 60 mg prednisone) (4) Respiratory failure with hypoxia: Status: Acute Assessment and plan: supportive care as above Qualifiers: Chronicity: acute Qualified Code(s): J96.01 - Acute respiratory failure with hypoxia (5) DVT prophylaxis: Status: Acute Assessment and plan: enoxaparin 40 mg SC daily (6) Rheumatoid arthritis: Status: Chronic Assessment and plan: Tylenol and ultram prn. 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 She has been fully vaccinated against COVID-19 with a messenger RNA vaccine in September 2020. She developed COVID-19 the end of March and became hospitalized at [facility] April 19 through April 25, 2021. She was treated with corticosteroids and remdesivir and recovered and was successfully weaned off oxygen. However she represented to the hospital on May 06, 2021 with symptoms of shortness of breath and hypoxemia with oxygen saturations in the 60s percent but was found to be afebrile. Her inflammatory markers were increased and CT of the chest showed no pulmonary infarcts but showed extensive bilateral pulmonary groundglass infiltrates. Her nasal swab PCR was positive for SARS-CoV-2. She was admitted to the intensive care unit and put on CPAP and started on remdesivir and baricitinib and Decadron. She completed 10-day course of remdesivir and 14 days of baricitinib. She was put on GI prophylaxis and DVT prophylaxis. She improved to the point where she was moved out of the intensive care unit and had stabilized and had a stable baseline oxygen needs of 2 L to 3 L/min at rest and entered into swing bed status for continued physical therapy to improve her strength and ADL performance. She remained on DVT prophylaxis and Decadron but after a couple days in swing bed status she developed a fever of 38.4 degrees associated with chills and worsening dyspnea and worsening hypoxemia. Overnight her oxygen saturation had dropped down into the high 80s. Her nasal cannula was titrated 6 L/min however she is now requiring CPAP. Patient is now readmitted into acute inpatient status for treatment with parenteral antibiotics bronchodilators as well as NIPPV. Review of Systems Constitutional Constitutional: Reports body ache(s), Reports chills, Reports fatigue, Reports fever(s) and Reports weakness Eyes Eyes: Reports system reviewed and no additional complaints, except as documented ENT Ears, Nose, Mouth, and Throat: Reports system reviewed and no additional complaints, except as documented Cardiovascular Cardiovascular: Reports system reviewed and no additional complaints, except as documented and Reports dyspnea on exertion Respiratory Respiratory: Reports cough, Denies excessive phlegm production and Reports dyspnea on exertion Gastrointestinal Gastrointestinal: Reports system reviewed and no additional complaints, except as documented Genitourinary Genitourinary: Reports system reviewed and no additional complaints, except as documented and Denies dysuria Musculoskeletal Musculoskeletal: Reports arthralgias and Reports muscle cramps Integumentary/Breasts Skin/Breast: Reports system reviewed and no additional complaints, except as documented Neurologic Neurologic: Reports system reviewed and no additional complaints, except as documented and Reports weakness Psychiatric Psychiatric: Reports system reviewed and no additional complaints, except as documented Endocrine Endocrine: Reports system reviewed and no additional complaints, except as documented and Reports fatigue Hematologic/Lymphatic Hematologic/Lymphatic: Reports system reviewed and no additional complaints, except as documented Allergic/Immunologic Allergic/Immunologic: Reports system reviewed and no additional complaints, except as documented [facility] Medical History (Updated 05/24/21 @ 12:06 by Massimo Chambers) Obesity (BMI 30-39.9) Rheumatoid arthritis Complicated by rheumatoid lung Surgical History Colonoscopy - MAC (03/01/13) DR. Prabhjot LAGUERRE Endometrial Biopsy 1990: NEG 1999: NEG S/P ankle fusion Social History Smoking/Tobacco Use Status: Never Smoking risk assessment performed?: Yes Alcohol Intake: current Alcohol Intake frequency: a few times a month Drug use: Never Substance use type: does not use Do you feel safe at home: Yes Do you feel safe in your relationship?: Yes Meds Allergies and Home Medications Allergies Allergy/AdvReac Type Severity Reaction Status Date / Time hydrocodone AdvReac Intermediate Nausea Verified 05/06/21 13:44 morphine AdvReac Intermediate Nausea Verified 05/06/21 13:44 oxycodone AdvReac Intermediate N/V Verified 05/06/21 13:44 Home Medications Medication Instructions Recorded Confirmed Type Aerochamber MV #1 aer 11/26/14 05/22/21 History hydrochlorothiazide 25 mg PO DAILY #90 tab 02/16/15 05/22/21 History Rituxan 10 mg IV Q6 MONTHS vial 04/18/15 05/22/21 History montelukast [Singulair] 10 mg PO DAILY #90 tab MDD i tab 02/23/17 05/22/21 History meloxicam 15 mg PO DAILY #90 tab-cap 04/10/17 05/22/21 Rx amlodipine 5 mg tablet 5 mg PO DAILY #90 tab 02/06/20 05/22/21 Rx cetirizine 10 mg tablet 5 mg PO DAILY PRN 03/12/20 05/22/21 History omeprazole 20 mg capsule,delayed 20 mg PO BID #180 cap 01/31/21 05/22/21 Rx release melatonin 10 mg capsule 10 mg PO HS PRN 03/21/21 05/22/21 History citalopram 20 mg PO DAILY 04/17/21 05/22/21 History metformin 500 mg PO DAILY 04/17/21 05/22/21 History ascorbic acid (vitamin C) [Vitamin 500 mg PO BID #0 tab 04/25/21 05/22/21 Rx C] ipratropium-albuterol [Combivent 1 puff INHALATION QID PRN PRN #4 g 04/25/21 05/22/21 Rx Respimat] prednisone See Rx Instructions .ROUTE 04/25/21 05/22/21 Rx .COMPLEX #50 tab lorazepam 0.5 mg tablet 0.5 mg PO BID PRN #20 tab 04/30/21 05/22/21 Rx trazodone 50 mg tablet 50 mg PO QHS PRN #30 tab 04/30/21 05/22/21 Rx Exam Const General: cooperative, not diaphoretic and ill appearing Nutritional Appearance: overweight Orientation: alert, awake and oriented x3 HENMT Head: normal to inspection and normocephalic Ears: hearing grossly normal bilaterally General nose exam: external nose normal Face and sinus: normal facial exam Eyes General: appearance normal, both eyes and all related structures Alignment and Position: alignment normal Periorbital: periorbital findings normal Eyelids: eyelids normal Conjunctivae: conjunctivae normal Sclera: sclerae normal Cornea: corneas normal Pupils: PERRL EOM: EOM intact bilaterally Neck Neck: normal visual inspection, full ROM, no lymphadenopathy, no meningeal signs, trachea midline, supple and no JVD Carotids: normal carotid upstroke Lymphatic: no lymphadenopathy noted Chest Chest: normal inspection of the chest and normal palpation of entire chest wall Resp Effort & Inspection: tachypneic Auscultation: bronchovesicular breath sounds bilaterally, crackles bilaterally throughout and diminished lung sounds bilaterally in the lower lung garcia Cardio Jugular venous pressure: no JVD Palpation: normal PMI Rate: regular rate Rhythm: regular rhythm Pulses: normal peripheral pulses GI Inspection: normal to inspection Palpation: soft and no hepatosplenomegaly Percussion: normal to percussion Auscultation: normal bowel sounds Back/Spine/Pelvis Back: no CVA tenderness Cervical Spine: normal cervical lordosis Thoracic/Lumbar Spine: thoracic and lumbar spine normal to inspection Skin General skin exam: no rashes or lesions noted and scars (right upper back excisional skin scar) Rashes: no rashes Hair: normal Neuro General: patient alert, patient awake and patient oriented x3 Cranial Nerves: CN's II-XI intact bilaterally Cognition: normal cognition Speech: speech normal Gait: normal gait Motor: muscle tone normal throughout Sensory Exam: no sensory deficits noted Extrem General: normal to inspection, full ROM, capillary refill normal, no joint enlargement, no pedal edema, no calf tenderness and no edema Psych Appearance: grossly normal Mental Status: mental status grossly normal Speech and Movement: speech and movement normal Mood: congruent mood Affect: normal affect Attitude: cooperative Thought Process: normal Thought Content: normal Insight: insight good Judgment: judgment good
--- NOTE | 2021-05-24 12:28 | NT_ITS ---
Date of service: 05/24/21 Time of Service: 12:28 PT Notes Visit Reasons: COVID-19 Pneumonia,Acute Fevers R/O HCAP Patient had been on PT caseload under swing bed level 1 for continued rehabilitation but has poorly responded to activity due to inability to consistently maintain oxygen levels above 88% even at 7L/min after a short distance ambulation with FWW with Modified Lolita Dyspnea Scale level of 4-5/10 (somewhat severe to severe). Consulted with Dr. Chambers about holding off on PT evaluation until patient is able to demonstrate oxygen saturation levels better. Dr. Chambers agreed to seeing patient for re-evaluation on 05/27/2021. Thank you for the opportunity to participate in the care of this patient. Kelle Matos PT, DPT, CLT [facility] [place], [place]
[2021-05-24] MEDS: Dexamethasone 4 MG TAB PO (12:29)
[2021-05-24] MEDS: LORazepam 0.5 MG TAB PO ×3 (12:29→23:38)
[2021-05-24] MEDS: DOXYCYCLINE 100 MG in Normal Saline 100 ML IVPB (12:44)
[2021-05-24] MEDS: PIPERACILLIN/TAZO 3.375 GM in Normal Saline 50 ML IVPB ×2 (12:45→16:27)
[2021-05-24] MEDS: Enoxaparin 40 MG/0.4 ML SYR SC (14:04)
[2021-05-24] MEDS: VANCOMYCIN 750 MG in Normal Saline 250 ML 250 MG IV (14:09)
[2021-05-24] MEDS: Ipratropium/Albuterol 4 GM 120 PUFF INH IH ×2 (16:24→21:22)
--- NOTE | 2021-05-24 17:30 | INDS_ITS ---
Date of service: 05/24/21 PT Notes Visit Reasons: COVID-19 Pneumonia,Acute Fevers R/O HCAP Swing Bed Level I Physical Therapy Discharge Summary Date: 05/24/2021 Dates of Service: 05/23/2021 through 05/24/2021 only This is a clinical summary of care provided for the duration of dates listed above. No charge was made in the completion of this documentation. Referring Doctor: Massimo Chambers MD PT Orders: PT CONSULT: Extended stay weakness Precautions: Fall. Standard. Activity as tolerated. COVID-[address] Patient Profile/Admitting Diagnosis: Re-evaluation performed today under swing bed level 1 of care. 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 PMHX: Medical History Obesity (BMI 30-39.9) Rheumatoid arthritis Surgical History Colonoscopy - [facility] (03/01/13) DR. Prabhjot LAGUERRE Endometrial Biopsy 1990: NEG 1999: NEG S/P ankle fusion Social History/Home Situation: Independent with all activities of daily living without an assistive ambulatory device. [place] in [place] and spends the rest of the year here in [place]. Has a camper in [facility] but will be discharging to her friend's house with a flight of steps leading to the bedroom where they will be staying. Plans on staying at her firned's house for about two weeks or until Thanksgiving until they are able to go back to [place] for the winter. Her friend's house has 3 steps to enter and 7 steps to kitchen with rails on both sides. Equipment Owned/DME: Front-wheeled walker Subjective: NT. See most recent FRUIT GRADER OPERATOR notes. Objective: General Observation: NT. See most recent FRUIT GRADER OPERATOR notes. Mental Status: NT. See most recent FRUIT GRADER OPERATOR notes. Pain: NT. See most recent FRUIT GRADER OPERATOR notes. Vital Signs: NT. See most recent FRUIT GRADER OPERATOR notes. ROM: (On evaluation) Right Upper Extremity: Shoulder Flexion WFL. Shoulder abduction WFL. Elbow flexion WFL. Wrist flexion WFL. Functional opening and closing of hand WFL. Left Upper Extremity: Shoulder Flexion WFL. Shoulder abduction WFL. Elbow flexion WFL. Wrist flexion WFL. Functional opening and closing of hand WFL. Right Lower Extremity: Hip flexion WFL. Hip abduction WFL. Knee flexion WFL. Ankle dorsiflexion WFL. Ankle plantarflexion WFL. Left Lower Extremity: Hip flexion WFL. Hip abduction WFL. Knee flexion WFL. Ankle dorsiflexion WFL. Ankle plantarflexion WFL. Strength: (On evaluation) Right Upper Extremity: Shoulder flexors 3+/5. Shoulder abductors 3+/5. Elbow flexors 3+/5. Elbow extensors 3+/5. Barrel Loader And Cleaner strong. Left Upper Extremity: Shoulder flexors 3+/5. Shoulder abductors 3+/5. Elbow flexors 3+/5. Elbow extensors 3+/5. Barrel Loader And Cleaner strong. Right Lower Extremity: Hip flexors 3+/5. Hip abductors 3+/5. Knee flexors 3+/5. Knee extensors 3+/5. Ankle dorsiflexors 3+/5. Ankle plantarflexors 3+5. Left Lower Extremity: Hip flexors 3+/5. Hip abductors 3+/5. Knee flexors 3+/5. Knee extensors 3+/5. Ankle dorsiflexors 3+/5. Ankle plantarflexors 3+5. Bed Mobility/Transfers: (On evaluation) Sit to stand independent Stand to sit independentwith FWW Bed to bedside commode independent with stand pivot transfer Bedside commode to bed independent with stand pivot transfer Bed to reclining chair independent with stand pivot transfer Reclining chair to bed independent with stand pivot transfer Gait: (On evaluation) Instructed patient with level surface ambulation of 40 to 50 feet requiring supervision. Elen decreased. Denies pain, dizziness, and headache throughout activity. During the first walk of 25 feet patient desaturated to 81% on 4 L. Needed to be titrated up to 7 L which allowed resaturation back up to 91%. Needed to be left with 6.5 L at rest at conclusion of PT session to maintain saturation to 88-89%. Balance: Static Sitting: Normal Dynamic Sitting: Normal Static Standing: Good Dynamic Standing: Fair Assessment: Patient is able to ambulate however gets severely dyspneic at this time. Will continue to assess appropriateness of skilled services and coordinate with hospitalist if PT is no longer beneficial for patient. Somewhat severe to severe shortness of breath/4-5 out of 10 in the Modified Lolita Dyspnea Scale with 40-50 feet of in-room ambulation. Kelly requires the use of front- wheeled walker to increase activity tolerance and reduce fall risk due to report of fatigue and weakness in bilateral lower extremities. She will benefit from the use of a front-wheeled walker to provide stability and decreased activity tolerance. Patient presents with clinical signs and symptoms consistent with current/admitting diagnoses that have resulted to mobility limitations, gait instability, generalized weakness, and overall ADL decline as demonstrated by the following impairment level findings: 1. Decreased strength to BLE major muscle groups 2. Impaired standing balance 3. Impaired activity tolerance 4. Shortness of breath Impairments are contributing to the following functional limitations: 1. Difficulty with ambulation without assistive device 2. Increased completion time for mobility ADL performance 3. Increased risk for falls 4. Difficulty with managing steps alone safely Goals: Goals X1 week 1. Independent gait on level surface with use of FWW for at least 200 feet with 1/10 score (Very slight) in the Modified Lolita Dyspnea Scale NOT MET 2. Independent stair negotiation while holding onto B rails for at least 12 steps without report of pain nor dyspnea (once cleared to get out of room) 1/10 score (Very slight) in the Modified Lolita Dyspnea Scale NOT MET 3. Independent with home exercise program NOT MET 4. Good static and dynamic standing balance/tolerance NOT MET 5. Will demonstrate 1/10 score (Very slight) in the Modified Lolita Dyspnea Scale to allow for safe completion of mobility ADLs at discharge destination at 2 L/min via mask NOT MET DISCHARGE RECOMMENDATIONS: D/C to ICU on 05/24/2021 due to new onset fever and persistently low oxygen saturation with activity. TREATMENT CODE/TIME: NC Thank you for the opportunity to participate in the care of this patient. Kelle Matos PT, DPT, CLT [facility] [place], [place]
--- NOTE | 2021-05-24 17:59 | PDOC.CMPRO ---
- If Service Date Differs Date of service: 05/24/21 Time of Service: 17:59 Care Management Progress Note S/O: Kelly was changed to an acute medical patient today, from SWB 1, as her respiratory function was declining. Her O2 requirements were 6L with an oxygen mask today, up from 2L nasal canula yesterday at rest. Per report, she may need to transfer to the ICU, if she continues to decline. sent images to [facility] today to be reviewed by pulmonary, as she may require a higher level of care, especially if she requires intubation. CM will continue to follow. A: Kelly is a 71 year old woman admitted on 05/06/21 with Covid Pneumonia P:Kelly will be discharged home when medically cleared by provider. She will follow up with her PCP and plan of care as directed. Ultimately she wants to return to [place] where she lives and will transfer her care to her PCP in [place]. Her will drive her home via private vehicle when ready. CM will continue to support Kelly and assess for discharge planning concerns.
[2021-05-24] MEDS: Pantoprazole 40 MG TABCR PO (20:57)
[2021-05-24] MEDS: Ascorbic Acid 500 MG TAB 1000 MG PO (20:58)
[2021-05-24] MEDS: Atorvastatin 40 MG TAB PO (20:58)
[2021-05-24] MEDS: Acetaminophen 325 MG TAB PO (21:39)
--- NOTE | 2021-05-24 21:44 | NUR.NOTE ---
Dr notified of temp 38.6 and 7l o2 sats mid 80's. resp and material crew supervisor notified. Nursing Note:
[2021-05-24] MEDS: Normal Saline Flush 10 ML SYR IVP (23:38)
[2021-05-24] MEDS: Zolpidem 5 MG TAB PO (23:38)
[2021-05-25] VITALS (104 sets, daily range): BP systolic 91–146; BP diastolic 58–80; PULSE 68–99; RESP 15–53; TEMP 32–36.8; O2SAT 81–98
[2021-05-25] MEDS: DOXYCYCLINE 100 MG in Normal Saline 100 ML IVPB ×2 (01:58→19:03)
[2021-05-25] MEDS: VANCOMYCIN 750 MG in Normal Saline 250 ML 250 MG IV ×2 (02:23→16:43)
[2021-05-25] MEDS: PIPERACILLIN/TAZO 3.375 GM in Normal Saline 50 ML IVPB ×2 (03:50→16:42)
[2021-05-25 07:07] LABS: Abs Immature Grans 0.38 10^3/uL (0.0-0.06); Absolute Basophil Count 0.01 10^3/uL (0.0-0.2); Absolute Lymphocyte Count 0.23 10^3/uL (1.2-3.4); Absolute Monocyte Count 0.26 10^3/uL (0.1-0.8); Absolute Neutrophil Count 10.46 10^3/uL (1.2-6.7); Basophils % 0.1; HCT 24.8 % (36.0-46.0); HGB 8.2 g/dL (11.2-15.7); Immature Grans % 3.4; MCH 29.4 pg (27.0-33.0); MCHC 33.1 % (32.0-36.0); MCV 88.9 fL (80-95); MPV 9.5 fL (8.0-11.0); Monocytes % 2.3; Neutrophils % 92.2; Nucleated RBC 0 %; Platelet Count 251 10^3/uL (130-400); RBC 2.79 10^6/uL (3.93-5.22); RDW 16.2 % (11.7-14.6); RDW-SD 52.6 fL; WBC 11.34 10^3/uL (4.4-10.8)
[2021-05-25 07:37] LABS: ALT 24 U/L (14-59); AST 27 U/L (15-37); Albumin 2.2 g/dL (3.4-5.0); Alkaline Phosphatase 78 U/L (46-116); Anion Gap 9.9 mmol/L (3-11); BUN 26 mg/dL (7-18); Bilirubin, Total 0.4 mg/dL (0.2-1.0); CO2 29.1 mmol/L (21.0-32.0); CREATININE 0.8 mg/dL (0.55-1.02); Calcium 8.4 mg/dL (8.5-10.1); Chloride 98 mmol/L (98-107); Ferritin 610 ng/mL (8-252); Glucose 184 mg/dL (74-106); Magnesium 1.6 mg/dL (1.8-2.4); Potassium 4.2 mmol/L (3.5-5.1); Sodium 137 mmol/L (136-145); Total Protein 5.5 g/dL (6.4-8.2)
[2021-05-25 08:30] LABS: D-Dimer 988 ng/mlFEU (<500)
--- NOTE | 2021-05-25 08:47 | W.PM.PROGNOT ---
Date of Service Date of service: 05/25/21 Time of Service: 12:09 Assessment and Plan Assessment and plan (1) HCAP (healthcare-associated pneumonia): Status: Acute Assessment and plan: At this point, I am not convinced that there is a bacterial component, but given worsening of respiratory failure, I agree with continuing empiric abx. Continue vancomycin, zosyn, doxycycline. (2) Organizing pneumonia: Status: Acute Assessment and plan: I am concerned that what is going on might be worsening of the organizing pneumonia. Tegan reviewed the latest recommendations, I will increase her systemic corticosteroids (125 mg of solumedrol now followed by 60 mg of IV solumderol Q6hrs). If any improvement by tomorrow, may benefit from even further increase in steroid dose. (3) 2019 novel coronavirus-infected pneumonia (NCIP): Status: Acute Assessment and plan: As above (4) Respiratory failure with hypoxia: Status: Acute Assessment and plan: As above Discussion re code status re-initiated today. Patient needs to prone. Discussed with the patient and with nursing. Qualifiers: Chronicity: acute Qualified Code(s): J96.01 - Acute respiratory failure with hypoxia (5) Rheumatoid arthritis: Status: Chronic Assessment and plan: Continue Tylenol and ultram prn. High dose steroids should also be helpful. Qualifiers: Rheumatoid arthritis location: unspecified site Rheumatoid factor presence: unspecified presence Qualified Code(s): M06.9 - Rheumatoid arthritis, unspecified (6) DVT prophylaxis: Status: Acute Assessment and plan: Continue enoxaparin SC (7) Discharge planning issues: Status: Acute Assessment and plan: Full code Palliative care consulted. Code status is being discussed. Keep in ICU. Total Critical Care Time 60 minutes. Subjective Subjective Interval history since last seen: Ms Dasilva states she feels a little better. She is on CPAP now and spent the night on CPAP FiO2 65%, Pressure of 8, saturating 94-96%. She did not do well on max flow/FiO2 high flow nasal canula when eating breakfast (desaturated into the 70s). She denies chest pain, nausea, pain elsewhere. I had asked her what her wishes would be as far as intubation if her oxygen requirement got worse. She asked questions about how long someone can remain on the ventilator and would it help her. She is not sure and she would like to talk to her about it. We are arranging that conversation. She also asked me to call her Kristian ([phone]), which I did and he is awaiting a call back from the patient's room so that they can have this conversation. SR on monitor. Rhonchi. Incontinent of urine. Poor IV access. Nursing requested boogie and midline. Heme negative BM. Exam Narrative Exam Narrative: General: Pleasant elderly female who is on CPAP on her back, A&Ox3, dyspneic/tachypneic, of which does not seem to be aware HEENT: EOMI, MMM Heart: RRR, no m/r/g Lungs: Rhonchi on expiration B Abdomen: soft, nontender, nondistended Extremities: no edema BLE's Objective Last Vital Signs Temp 36.7 C 05/25/21 03:56 Pulse 71 05/25/21 06:01 Resp 37 H 05/25/21 06:41 BP 144/67 H 05/25/21 06:01 Pulse Ox 87 L 05/25/21 06:41 Laboratory Results - last 24 hr 05/25/21 05/25/21 05/25/21 06:20 06:20 06:20 WBC 11.34 H RBC 2.79 L Hgb 8.2 L Hct 24.8 L MCV 88.9 MCH 29.4 MCHC 33.1 RDW 16.2 H Plt Count 251 MPV 9.5 Immature Gran % 3.4 Neutrophils % 92.2 Lymphocytes % 2.0 Monocytes % 2.3 Eosinophils % 0.0 Basophils % 0.1 Nucleated RBC % 0 Absolute Neutrophils 10.46 H Absolute Lymphocytes 0.23 L Absolute Monocytes 0.26 Absolute Eosinophils 0.00 Absolute Basophils 0.01 D-Dimer 988 H Sodium 137 Potassium 4.2 Chloride 98 Carbon Dioxide 29.1 Anion Gap 9.9 BUN 26 H Creatinine 0.8 Estimated GFR/1.73 m2 >= 60.00 Glucose 184 H Calcium 8.4 L Magnesium 1.6 L Ferritin 610 H Total Bilirubin 0.4 AST 27 ALT 24 Alkaline Phosphatase 78 Total Protein 5.5 L Albumin 2.2 L
[2021-05-25] MEDS: Dexamethasone 4 MG TAB 10 MG PO (08:48)
[2021-05-25] MEDS: Furosemide 20 MG TAB PO (08:48)
[2021-05-25] MEDS: Ascorbic Acid 500 MG TAB 1000 MG PO ×2 (08:48→21:10)
[2021-05-25] MEDS: Montelukast 10 MG TAB PO (08:48)
[2021-05-25] MEDS: Citalopram 20 MG TAB PO (08:49)
[2021-05-25] MEDS: Pantoprazole 40 MG TABCR PO ×2 (08:49→21:11)
[2021-05-25] MEDS: Magnesium Oxide 400 MG TAB PO (08:49)
[2021-05-25] MEDS: Potassium Chloride 20 MEQ TABCR PO (08:50)
[2021-05-25] MEDS: Cholecalciferol (Vitamin D3) 1,000 UNIT TAB 2000 UNITS PO (08:55)
[2021-05-25] MEDS: Ipratropium/Albuterol 4 GM 120 PUFF INH IH ×2 (09:29→21:10)
--- NOTE | 2021-05-25 12:14 | NUR.NOTE ---
RN speaks to Dr. Bonds about ordering midline. ordered surgical consult. RN speaks with Med/television engineering teacher to see if Kelly Bolivar could come in to hospital to place midline. CATERING COOK is informed that he will have to call welding equipment repairer supervisor first and have welding equipment repairer supervisor contact anesthesia. RN calls welding equipment repairer supervisor who informs CATERING COOK that she will contact anesthesia MD to see if a central line can be placed.Nursing Note:
--- NOTE | 2021-05-25 12:16 | NUR.NOTE ---
RN has MATERIAL DISPATCHER call ED RN to attempt IV placement at 11:45 a.m. ED RN arrrives and tries to place IV without success.Nursing Note:
--- NOTE | 2021-05-25 12:26 | NUR.NOTE ---
Anesthesia arrives to place a central line.Nursing Note:
[2021-05-25] MEDS: LORazepam 0.5 MG TAB PO ×2 (13:02→19:30)
[2021-05-25] MEDS: Normal Saline Flush 10 ML SYR IVP (14:30)
--- NOTE | 2021-05-25 15:00 | DI.RAD_ITS ---
Exam(s) XR PORTABLE CHEST AP EXAM: XR PORTABLE CHEST AP CLINICAL HISTORY: Check IJ Placement TECHNIQUE: COMPARISON: No exams were available for comparison FINDINGS: Portable AP chest at 1537 hours. The heart is at the upper limits of normal in size. There appears to be some interval increase in bilateral intrapulmonary opacities since prior examination of r 5th.. There is been apparent interval placement of a in right IJ catheter, the tip of which appear s to lie near the junction of right atrium and IVC. This may be withdrawn for ideal positioning. IMPRESSION: RADIATION DOSE DELIVERED: Total DLP
--- NOTE | 2021-05-25 16:27 | DI.VRAD_ITS ---
PROCEDURE INFORMATION: Exam: XR Chest Exam date and time: 05/25/2021 3:01 PM Age: 71 years old Clinical indication: Check ij placement TECHNIQUE: Imaging protocol: XR of the chest. Views: 1 view. COMPARISON: CR XR PORTABLE CHEST AP 05/24/2021 10:19 AM FINDINGS: Tubes, catheters and devices: There has been interval placement of a right internal jugular central line, which appears to terminate at the lower cavoatrial junction. Lungs: There are prominent bilateral opacities in the bilateral lung garcia diffusely, which appears slightly more prominent than the prior examination. Pleural spaces: No pleural effusion. No pneumothorax. Heart/Mediastinum: No cardiomegaly. Bones/joints: Unremarkable. IMPRESSION: 1. Interval placement of a right internal jugular central line, terminating at the lower cavoatrial junction. The line may be retracted accordingly for proper positioning. 2. Slightly more prominent appearance of diffuse bilateral patchy parenchymal opacities. Dictated and Authenticated by: Marilu Chicas MD. Ordering:DIVINA Sargent MD
[2021-05-25] MEDS: Enoxaparin 40 MG/0.4 ML SYR SC (16:41)
[2021-05-25] MEDS: MAGNESIUM SULFATE 2 GM/50 ML BAG IVPB (16:43)
[2021-05-25] MEDS: Normal Saline 500 ML IV (16:44)
--- NOTE | 2021-05-25 16:49 | W.SURGCON ---
Date of service: 05/25/21 Time of Service: 13:49 Assessment and Plan Assessment and plan (1) Difficult intravenous access: Status: Acute Assessment and plan: -Informed consent was obtained from the patient after discussing all risks benefits and alternatives for central line placement -Right Internal Jugular Central line was placed under sterile conditions at the bedside in the ICU with ultrasound guidance -Chest x-ray reviewed, OK to use TLC -Please call surgery for removal when desired (2) HCAP (healthcare-associated pneumonia): Status: Acute (3) Organizing pneumonia: Status: Acute (4) Respiratory failure with hypoxia: Status: Acute Qualifiers: Chronicity: acute Qualified Code(s): J96.01 - Acute respiratory failure with hypoxia (5) 2019 novel coronavirus-infected pneumonia (NCIP): Status: Acute (6) Rheumatoid arthritis: Status: Chronic Qualifiers: Rheumatoid arthritis location: unspecified site Rheumatoid factor presence: unspecified presence Qualified Code(s): M06.9 - Rheumatoid arthritis, unspecified History of Present Illness Narrative: 71 year old female currently admitted with COVID-19 complicated by pneumonia and immunocompromised status. Patient has been suffering from symptoms related to COVID-19 since March and has been in and out of the hospital and ICU. She unfortunately has had difficult IV placement and anesthesia was unable to place a midline today. I was asked to see the patient to place a central line for IV access. Consults Consult date: 05/25/21 Requesting physician: Flor Bonds Review of Systems Constitutional Constitutional: Reports fatigue, Reports poor appetite and Reports weakness Cardiovascular Cardiovascular: Reports dyspnea Respiratory Respiratory: Reports cough, Reports dyspnea and Reports wheezing Gastrointestinal Gastrointestinal: Denies abdominal pain and Denies change in bowel habits Musculoskeletal Musculoskeletal: Denies numbness and Denies tingling Neurologic Neurologic: Denies numbness, Denies tingling and Reports weakness Endocrine Endocrine: Reports fatigue Allergic/Immunologic Allergic/Immunologic: Reports wheezing [facility] Medical History (Updated 05/25/21 @ 16:55 by Rosetta Rollins DO) Obesity (BMI 30-39.9) Rheumatoid arthritis Complicated by rheumatoid lung Surgical History Colonoscopy - [facility] [place] (03/01/13) DR. Prabhjot LAGUERRE Endometrial Biopsy 1990: NEG 1998: NEG S/P ankle fusion Social History Smoking/Tobacco Use Status: Never Smoking risk assessment performed?: Yes Alcohol Intake: current Alcohol Intake frequency: a few times a month Drug use: Never Substance use type: does not use Do you feel safe at home: Yes Do you feel safe in your relationship?: Yes Exam Const General: cooperative, comfortable and ill appearing Nutritional Appearance: average body habitus Resp Effort & Inspection: grunting, labored, no respiratory distress, tachypneic and no use of accessory muscles Cardio Rate: regular rate Rhythm: regular rhythm GI Palpation: soft and nontender General: other (Serna in place) Neuro General: patient alert, patient awake and patient oriented x3 Results Last Vital Signs Temp 98.1 F 05/25/21 03:56 Pulse 71 05/25/21 06:01 Resp 37 H 05/25/21 06:41 BP 144/67 H 05/25/21 06:01 Pulse Ox 87 L 05/25/21 06:41 Labs Result diagrams: 05/25/21 06:20 05/25/21 06:20 Labs: Laboratory Results - last 24 hr 05/25/21 05/25/21 05/25/21 06:20 06:20 06:20 WBC 11.34 H RBC 2.79 L Hgb 8.2 L Hct 24.8 L MCV 88.9 MCH 29.4 MCHC 33.1 RDW 16.2 H Plt Count 251 MPV 9.5 Immature Gran % 3.4 Neutrophils % 92.2 Lymphocytes % 2.0 Monocytes % 2.3 Eosinophils % 0.0 Basophils % 0.1 Nucleated RBC % 0 Absolute Neutrophils 10.46 H Absolute Lymphocytes 0.23 L Absolute Monocytes 0.26 Absolute Eosinophils 0.00 Absolute Basophils 0.01 D-Dimer 988 H Sodium 137 Potassium 4.2 Chloride 98 Carbon Dioxide 29.1 Anion Gap 9.9 BUN 26 H Creatinine 0.8 Estimated GFR/1.73 m2 >= 60.00 Glucose 184 H Calcium 8.4 L Magnesium 1.6 L Ferritin 610 H Total Bilirubin 0.4 AST 27 ALT 24 Alkaline Phosphatase 78 Total Protein 5.5 L Albumin 2.2 L
--- NOTE | 2021-05-25 16:58 | W.PM.OP ---
Date of service: 05/25/21 Time of Service: 13:58 Operative Note Operative Note DATE OF PROCEDURE: 05/25/21 PRE-OP DIAGNOSIS: NO IV ACCESS POST-OP DIAGNOSIS: same PROCEDURE: right internal jugular central line placement SURGEON: Rosetta Rollins ANESTHESIA TYPE: Local By Surgeon ESTIMATED BLOOD LOSS: 5 PATHOLOGY: none sent COMPLICATIONS: None Patient was transported to: no change Patient's condition: stable Implants: Right internal jugular triple lumen catheter Indications: patient did not have any IV access and midline was unable to be obtained earlier in the day Findings: normal anatomy, distended right internal jugular vein easy to visualize with ultrasound guidance Procedure Description: After discussing all risks benefits and alternatives with the patient, informed consent was obtained for placement of triple lumen catheter. Patient was placed in trendelenburg position and cleaned with Chlorhexidine solution. After allowing it to dry, the patient was then draped in the standard sterile fashion. She was instructed to maintain a leftward deviation of her head during the procedure. Bedside RN Chris was also present for assistance. The ultrasound was also draped sterilely. Using the ultrasound the right internal jugular vein was easily visualized and appeared to be in normal anatomical position. Local anesthesia was infiltrated directly over the area of planned cannulation. Once adequate local anesthesia was achieved, the access needle was used to cannulate the right internal jugular vein on first attempt. Blood was easily aspirated and the syringe removed. The wire was easily threaded into the needle cannula and into the right atrium. Ultrasound was used to confirm wire placement into the right internal jugular vein. The needle was removed and using the #11 blade scalpel a small skin incision was made. The dilator was easily threaded over the wire and removed before the previously flushed triple lumen catheter was placed over the wire. The wire was subsequently removed. All three lines were flushed and capped. The catheter was secured in place with two silk sutures. Biopatch and sterile dressings were applied. All needle sponge and instrument counts were correct x2 at the end of the procedure. The patient tolerated the procedure well without any complications. A STAT portable chest x-ray was ordered at the completion of the procedure and will be read prior to use.
--- NOTE | 2021-05-25 18:42 | NUR.NOTE ---
RN facilitates patient speaking with her and two sisters telephonically. to visit tomorrow.Nursing Note:
[2021-05-25] MEDS: methylPREDNISolone SUCC 125 MG VIAL 60 MG IVP (21:10)
[2021-05-25] MEDS: Atorvastatin 40 MG TAB PO (21:10)
[2021-05-25] MEDS: Melatonin 3 MG TAB 9 MG PO (21:13)
[2021-05-26] VITALS (37 sets, daily range): BP systolic 101–157; BP diastolic 48–90; PULSE 59–83; RESP 10–47; TEMP 36–37.2; O2SAT 83–97
[2021-05-26] MEDS: LORazepam 0.5 MG TAB PO ×3 (02:39→18:31)
[2021-05-26] MEDS: DOXYCYCLINE 100 MG in Normal Saline 100 ML IVPB ×2 (02:41→14:52)
[2021-05-26] MEDS: VANCOMYCIN 750 MG in Normal Saline 250 ML 250 MG IV ×3 (02:41→23:43)
[2021-05-26] MEDS: methylPREDNISolone SUCC 125 MG VIAL 60 MG IVP ×3 (03:20→19:56)
[2021-05-26 06:58] LABS: Abs Immature Grans 0.18 10^3/uL (0.0-0.06); Absolute Basophil Count 0.01 10^3/uL (0.0-0.2); Absolute Lymphocyte Count 0.19 10^3/uL (1.2-3.4); Absolute Monocyte Count 0.16 10^3/uL (0.1-0.8); Absolute Neutrophil Count 8.57 10^3/uL (1.2-6.7); Basophils % 0.1; HGB 7.9 g/dL (11.2-15.7); Lymphocytes % 2.1; MCH 29.5 pg (27.0-33.0); MCHC 32.9 % (32.0-36.0); MCV 89.6 fL (80-95); MPV 9.6 fL (8.0-11.0); Monocytes % 1.8; Nucleated RBC 0 %; Platelet Count 215 10^3/uL (130-400); RBC 2.68 10^6/uL (3.93-5.22); RDW 16.1 % (11.7-14.6); RDW-SD 52.7 fL; WBC 9.11 10^3/uL (4.4-10.8)
[2021-05-26 07:15] LABS: ALT 103 U/L (14-59); AST 82 U/L (15-37); Albumin 2.1 g/dL (3.4-5.0); Alkaline Phosphatase 76 U/L (46-116); Anion Gap 3.8 mmol/L (3-11); BUN 23 mg/dL (7-18); Bilirubin, Direct 0.1 mg/dL (0.0-0.2); Bilirubin, Total 0.5 mg/dL (0.2-1.0); C-Reactive Protein 12.26 mg/dL (0.0-0.3); CO2 33.2 mmol/L (21.0-32.0); CREATININE 0.8 mg/dL (0.55-1.02); Calcium 8.3 mg/dL (8.5-10.1); Chloride 98 mmol/L (98-107); Glucose 226 mg/dL (74-106); Magnesium 2.1 mg/dL (1.8-2.4); Sodium 135 mmol/L (136-145); Total Protein 5.5 g/dL (6.4-8.2)
[2021-05-26 07:38] LABS: Anisocytosis 1+; Diff Comment RBC Morph Reviewed; Polychromasia Present
[2021-05-26 08:13] LABS: D-Dimer 1662 ng/mlFEU (<500)
--- NOTE | 2021-05-26 08:29 | W.PM.PROGNOT ---
Date of Service Date of service: 05/26/21 Time of Service: 12:09 Assessment and Plan Assessment and plan (1) HCAP (healthcare-associated pneumonia): Status: Acute Assessment and plan: Continue empiric abx (vancomycin, zosyn, doxycycline) (2) Organizing pneumonia: Status: Acute Assessment and plan: I am concerned that what is going on might be worsening of the organizing pneumonia. Continue 60 mg of IV solumderol Q6hrs). Consider increasing dose further. (3) 2019 novel coronavirus-infected pneumonia (NCIP): Status: Acute Assessment and plan: As above Discussed with pharmacy - while baricitinib is normally recommended for a two week course, in this patient's case, her clinical worsening is temporarily correlated with discontinuation of baricitinib and she is in a unique situation. I am resuming baricitinib at this time with low threshold to stop if no improvement. (4) Respiratory failure with hypoxia: Status: Acute Assessment and plan: As above Encourage proning. Qualifiers: Chronicity: acute Qualified Code(s): J96.01 - Acute respiratory failure with hypoxia (5) Rheumatoid arthritis: Status: Chronic Assessment and plan: Continue Tylenol and ultram prn. High dose steroids should also be helpful. Qualifiers: Rheumatoid arthritis location: unspecified site Rheumatoid factor presence: unspecified presence Qualified Code(s): M06.9 - Rheumatoid arthritis, unspecified (6) DVT prophylaxis: Status: Acute Assessment and plan: Continue enoxaparin SC (7) Discharge planning issues: Status: Acute Assessment and plan: Full code Palliative care consulted. Keep in ICU. Total Critical Care Time 60 minutes. Subjective Subjective Interval history since last seen: Ms Dasilva states that she is feeling good. She does endorse feeling a little winded. She used CPAP all night. Pressure of 8, FiO2 65%, proned 4 hrs. Transitioned to humidified heated high flow now, 55L, 60% FiO2 but is desaturating. RR in 20s. Up to the chair, O2 sat now 90s. UOP 900 last night. 1800 cc in 24 hrs. Talked to her and states she wants to do everything (full code, aggressive measures, transfer if needed). Would like to stay at our hospital until seeing Dr Oliver to see if she has any other recommendations. Exam Narrative Exam Narrative: General: Pleasant elderly female on humidified heated high flow, mildly tachypneic/dyspneic, not cyanotic. HEENT: EOMI, MMM, R IJ CVL in place Heart: RRR, no m/r/g Lungs: Diminished breath sounds on R, Does have breath sounds on L. Abdomen: soft, nontender, nondistended Extremities: no edema BLE's Objective Last Vital Signs Temp 36.5 C 05/26/21 04:00 Pulse 70 05/26/21 06:01 Resp 30 H 05/26/21 06:01 BP 136/68 05/26/21 06:01 Pulse Ox 92 05/26/21 06:01 Laboratory Results - last 24 hr 05/26/21 05/26/21 05/26/21 06:00 06:00 06:00 WBC 9.11 RBC 2.68 L Hgb 7.9 L Hct 24.0 L MCV 89.6 MCH 29.5 MCHC 32.9 RDW 16.1 H Plt Count 215 MPV 9.6 Immature Gran % 2.0 Neutrophils % 94.0 Lymphocytes % 2.1 Monocytes % 1.8 Eosinophils % 0.0 Basophils % 0.1 Nucleated RBC % 0 Absolute Neutrophils 8.57 H Absolute Lymphocytes 0.19 L Absolute Monocytes 0.16 Absolute Eosinophils 0.00 Absolute Basophils 0.01 RBC Morphology See Below Polychromasia Present Anisocytosis 1+ D-Dimer 1662 H Sodium 135 L Potassium 4.0 Chloride 98 Carbon Dioxide 33.2 H Anion Gap 3.8 BUN 23 H Creatinine 0.8 Estimated GFR/1.73 m2 >= 60.00 Glucose 226 H Calcium 8.3 L Magnesium 2.1 Total Bilirubin 0.5 Conjugated Bilirubin 0.1 AST 82 H ALT 103 H Alkaline Phosphatase 76 C-Reactive Protein 12.26 H Total Protein 5.5 L Albumin 2.1 L
[2021-05-26] MEDS: Ipratropium/Albuterol 4 GM 120 PUFF INH IH ×4 (08:30→20:30)
[2021-05-26 08:33] LABS: Ferritin 1465 ng/mL (8-252)
--- NOTE | 2021-05-26 09:15 | NUR.NOTE ---
Triple lumen IJ is flushed with 0.9NS Good blood return.Nursing Note:
[2021-05-26] MEDS: PIPERACILLIN/TAZO 3.375 GM in Normal Saline 50 ML IVPB ×4 (09:27→23:42)
[2021-05-26] MEDS: Furosemide 20 MG TAB PO (09:27)
[2021-05-26] MEDS: Pantoprazole 40 MG TABCR PO ×2 (09:27→19:57)
[2021-05-26] MEDS: Citalopram 20 MG TAB PO (09:28)
[2021-05-26] MEDS: Ascorbic Acid 500 MG TAB 1000 MG PO ×2 (09:28→19:57)
[2021-05-26] MEDS: Cholecalciferol (Vitamin D3) 1,000 UNIT TAB 2000 UNITS PO (09:28)
[2021-05-26] MEDS: Magnesium Oxide 400 MG TAB PO (09:29)
[2021-05-26] MEDS: Potassium Chloride 20 MEQ TABCR PO (09:29)
[2021-05-26] MEDS: Montelukast 10 MG TAB PO (09:30)
[2021-05-26 13:16] LABS: Vancomycin, Trough 13.1 ug/mL (10.0-20.0)
--- NOTE | 2021-05-26 14:01 | NUR.NOTE ---
RN facilitates patient speaking with on facetime. Both spouses are onboard with full treatment with possible transfer to [facility].Nursing Note:
[2021-05-26] MEDS: Enoxaparin 40 MG/0.4 ML SYR SC (14:13)
--- NOTE | 2021-05-26 14:27 | NUR.NOTE ---
750mg Vancomycin is delivered to ICU 1.5 hours late. Pharmacy will not reschedule medication per RN request. Pharmacist is okay with Medication being given late.Nursing Note:
[2021-05-26] MEDS: Normal Saline 500 ML IV (16:13)
[2021-05-26] MEDS: Normal Saline Flush 10 ML SYR IVP ×2 (16:14→19:56)
[2021-05-26] MEDS: Atorvastatin 40 MG TAB PO (19:57)
[2021-05-26] MEDS: Zolpidem 5 MG TAB PO (19:57)
[2021-05-26 20:35] LABS: Legionella Ag Detection Urine Negative (Negative)
[2021-05-27] VITALS (27 sets, daily range): BP systolic 134–174; BP diastolic 52–103; PULSE 54–92; RESP 20–56; TEMP 32–36.7; O2SAT 84–96
[2021-05-27] MEDS: LORazepam 0.5 MG TAB PO ×2 (01:40→09:23)
[2021-05-27] MEDS: DOXYCYCLINE 100 MG in Normal Saline 100 ML IVPB ×2 (03:33→13:40)
[2021-05-27] MEDS: methylPREDNISolone SUCC 125 MG VIAL 60 MG IVP ×3 (03:34→20:06)
[2021-05-27] MEDS: Normal Saline Flush 10 ML SYR IVP ×3 (05:20→23:57)
[2021-05-27 07:22] LABS: Abs Immature Grans 0.16 10^3/uL (0.0-0.06); Absolute Lymphocyte Count 0.33 10^3/uL (1.2-3.4); Absolute Monocyte Count 0.32 10^3/uL (0.1-0.8); Absolute Neutrophil Count 7.22 10^3/uL (1.2-6.7); HGB 7.8 g/dL (11.2-15.7); Lymphocytes % 4.1; MCH 29.2 pg (27.0-33.0); MCHC 32.5 % (32.0-36.0); MCV 89.9 fL (80-95); MPV 9.8 fL (8.0-11.0); Neutrophils % 89.9; Nucleated RBC 0 %; Platelet Count 214 10^3/uL (130-400); RBC 2.67 10^6/uL (3.93-5.22); RDW 16.2 % (11.7-14.6); RDW-SD 53.1 fL; WBC 8.03 10^3/uL (4.4-10.8)
[2021-05-27 07:57] LABS: D-Dimer 2065 ng/mlFEU (<500)
[2021-05-27] MEDS: Ipratropium/Albuterol 4 GM 120 PUFF INH IH ×4 (08:00→20:07)
--- NOTE | 2021-05-27 08:14 | W.PM.PROGNOT ---
Date of Service Date of service: 05/27/21 Time of Service: 17:21 Assessment and Plan Assessment and plan (1) HCAP (healthcare-associated pneumonia): Status: Acute Assessment and plan: Continue empiric abx ( zosyn, doxycycline). Per my conversation with Dr Oliver, we also added IV bactrim to cover for possible PJP. (2) Organizing pneumonia: Status: Acute Assessment and plan: I am concerned that what is going on might be worsening of the organizing pneumonia. Continue 60 mg of IV solumderol Q6hrs). (3) 2019 novel coronavirus-infected pneumonia (NCIP): Status: Acute Assessment and plan: As above Continue steroids and baricitinib. Goals of care discussion today: DNR/DNI. Comfort measures if deterioration continued despite maximum therapy. Palliative care is consulted. (4) Respiratory failure with hypoxia: Status: Acute Assessment and plan: As above Encourage proning. Qualifiers: Chronicity: acute Qualified Code(s): J96.01 - Acute respiratory failure with hypoxia (5) Rheumatoid arthritis: Status: Chronic Assessment and plan: Continue Tylenol and ultram prn. High dose steroids should also be helpful. Qualifiers: Rheumatoid arthritis location: unspecified site Rheumatoid factor presence: unspecified presence Qualified Code(s): M06.9 - Rheumatoid arthritis, unspecified (6) DVT prophylaxis: Status: Acute Assessment and plan: Continue enoxaparin SC (7) Discharge planning issues: Status: Acute Assessment and plan: DNR/DNI Palliative care consulted. Keep in ICU. Total Critical Care Time [address] Oliver and with Dr Narayan Subjective Subjective Interval history since last seen: Ms Dasilva states that she is starting to feel a little tired of breathing like this. She was desaturating to 88 on high flow (max flow). Was transitioned to CPAP, FiO2 85% CPAP 14. Denies dizziness, chest pain, nausea. She was very hungry and ate. Got to see her through the glass door of the ICU this afternoon. Seen by Dr Oliver. After long discussion, she changed her code status to DNR/DNI and expressed that if things continued to deteriorate, she would choose comfort measures. Exam Narrative Exam Narrative: General: Pleasant elderly female on who is much more dyspneic/tachypneic today than I have ever seen her, A&Ox3. HEENT: EOMI, MMM, R IJ CVL in place Heart: RRR, no m/r/g Lungs: Expiratory wheezing B Abdomen: soft, nontender, nondistended Extremities: no edema BLE's Objective Last Vital Signs Temp 36.4 C L 05/27/21 04:05 Pulse 74 05/27/21 06:01 Resp 23 05/27/21 06:01 BP 174/90 H 05/27/21 06:01 Pulse Ox 90 L 05/27/21 06:01 Laboratory Results - last 24 hr 05/24/21 05/26/21 05/26/21 17:08 06:00 12:59 WBC RBC Hgb Hct MCV MCH MCHC RDW Plt Count MPV Immature Gran % Neutrophils % Lymphocytes % Monocytes % Eosinophils % Basophils % Nucleated RBC % Absolute Neutrophils Absolute Lymphocytes Absolute Monocytes Absolute Eosinophils Absolute Basophils D-Dimer Ferritin 1465 H Vancomycin Trough 13.1 Urine Legionella Ag Negative 05/27/21 05/27/21 06:01 06:01 WBC 8.03 RBC 2.67 L Hgb 7.8 L Hct 24.0 L MCV 89.9 MCH 29.2 MCHC 32.5 RDW 16.2 H Plt Count 214 MPV 9.8 Immature Gran % 2.0 Neutrophils % 89.9 Lymphocytes % 4.1 Monocytes % 4.0 Eosinophils % 0.0 Basophils % 0.0 Nucleated RBC % 0 Absolute Neutrophils 7.22 H Absolute Lymphocytes 0.33 L Absolute Monocytes 0.32 Absolute Eosinophils 0.00 Absolute Basophils 0.00 D-Dimer 2065 H Ferritin Vancomycin Trough Urine Legionella Ag
[2021-05-27 08:17] LABS: ALT 84 U/L (14-59); AST 42 U/L (15-37); Albumin 2.2 g/dL (3.4-5.0); Alkaline Phosphatase 80 U/L (46-116); Anion Gap 4.8 mmol/L (3-11); BUN 30 mg/dL (7-18); Bilirubin, Direct 0.1 mg/dL (0.0-0.2); Bilirubin, Total 0.4 mg/dL (0.2-1.0); C-Reactive Protein 6.98 mg/dL (0.0-0.3); CO2 32.2 mmol/L (21.0-32.0); CREATININE 0.9 mg/dL (0.55-1.02); Calcium 8.7 mg/dL (8.5-10.1); Chloride 100 mmol/L (98-107); Glucose 224 mg/dL (74-106); Magnesium 2.1 mg/dL (1.8-2.4); Potassium 4.3 mmol/L (3.5-5.1); Sodium 137 mmol/L (136-145); Total Protein 5.7 g/dL (6.4-8.2)
[2021-05-27] MEDS: PIPERACILLIN/TAZO 3.375 GM in Normal Saline 50 ML IVPB ×3 (09:16→23:57)
[2021-05-27 09:20] LABS: Ferritin 1746 ng/mL (8-252)
[2021-05-27] MEDS: Enoxaparin 80 MG/0.8 ML SYR SC ×2 (09:22→20:07)
[2021-05-27] MEDS: Potassium Chloride 20 MEQ TABCR PO (09:23)
[2021-05-27] MEDS: Magnesium Oxide 400 MG TAB PO (09:23)
[2021-05-27] MEDS: Citalopram 20 MG TAB PO (09:23)
[2021-05-27] MEDS: Cholecalciferol (Vitamin D3) 1,000 UNIT TAB 2000 UNITS PO (09:24)
[2021-05-27] MEDS: Pantoprazole 40 MG TABCR PO ×2 (09:24→20:07)
[2021-05-27] MEDS: Montelukast 10 MG TAB PO (09:24)
[2021-05-27] MEDS: Furosemide 20 MG TAB PO (09:25)
[2021-05-27] MEDS: VANCOMYCIN 750 MG in Normal Saline 250 ML 250 MG IV (09:50)
--- NOTE | 2021-05-27 10:07 | PDOC.CMPRO ---
- If Service Date Differs Date of service: 05/27/21 Time of Service: 10:07 Care Management Progress Note S/O: Kelly remains ICU level of care and is being treated for a protracted course of Covid-19 infection. Per provider, her waxing and waning course is likely complicated by treatment for her rheumatoid arthritis with Rituxan. Her oxygen needs increased on Thursday, requiring the transfer to ICU. CM was unable to meet with her today because of the isolation and unable to speak to her on the phone as she is on CPAP. Kelly met with Dr. Oliver this morning and made the decision to change her code status to DNR/DNI (see Dr. Oliver's note). Kelly has been alternating between CPAP and high flow oxygen via cannula and currently, at rest, is saturating in the high 80's to low 90's. A: Kelly is a 71 year old woman admitted on 05/06/21 with Covid Pneumonia P:Kelly's discharge plan in unclear at this time. She has had a protracted course of Covid with an inability to maintain her oxygen saturation levels. After being treated on Med-Surg in SB-1 status, she needed to be transferred to the ICU. Kelly was seen by Dr. Oliver this morning and made the decision to become a DNR/DNI. CM will continue na support Kelly and assess for discharge planning concerns.
--- NOTE | 2021-05-27 13:11 | W.PULMCC ---
General Date of Service Date of service: 05/27/21 Time of Service: 07:30 Reason for Admission to ICU: COVID Organizing PNA Assessment and Plan Assessment and plan (1) Obesity (BMI 30-39.9): Status: Chronic (2) Respiratory failure with hypoxia: Status: Acute Qualifiers: Chronicity: acute Qualified Code(s): J96.01 - Acute respiratory failure with hypoxia (3) COVID-19: Status: Acute (4) Rheumatoid arthritis: Status: Chronic Qualifiers: Rheumatoid arthritis location: unspecified site Rheumatoid factor presence: unspecified presence Qualified Code(s): M06.9 - Rheumatoid arthritis, unspecified (5) Organizing pneumonia: Status: Acute (6) ANSHU (acute kidney injury): Status: Resolved Assessment and plan: This is a 71 yo woman with obesity and RA on Rituxan who was initially diagnosed with COVID 03/21/21. She was hospitalized 04/17/21 and improved to the point of being discharged without the need for oxygen. She was readmitted with hypoxic respiratory and continued active COVID infection and the subsequent development of organizing pneumonia. She acutely decompensated after her barcitinib was discontinued and her inflammatory markers increased and so she was placed back on barcitinib and her steroids were increased to methylpred 60 q6. She was started on empiric antibiotic coverage given the decompensation despite a negative procal. Her repeat chest CT did not find PE but does show worsening organizing pneumonia. I worry that this could be related to an autoimmune driven ILD or this could just simply be inability to clear the virus given her compromised immune status. She is not a candidate for vvECMO or transplant given her age. I discussed her case with [facility] critical care who agreed with her plan and does not think they would be able to offer anything more than what is already being done for her. They did recommend testing for a fungal infection, so I did add on a fungitell and aspergillus Ab to assess for this. I would ideally bronch her to rule out suprainfection, however given her O2 requirements this is too risky. The patient understands how dire her situation is. I tried calling her , but had to leave a message on the machine. After a lengthy discussion the patient is now DNR/DNI. Recommendations Pulmonary: Hypoxic respiratory failure - recommend CPAP at night - HFNC during the day - sat goal >90% - Incentive spirometry - VibraPEP - proning as much as able - out of bed to chair during the day - daily phosphorus level - agree with scheduled Combivent Organizing Pneumonia - agree with a trial of methylpred 60 q6 for 3 days, if no improvement after this time can decreased back down to decadron 10mg daily - too tenuous for bronchoscopy - expanded autoimmune testing ordered Cardiac: No acute concerns Renal: No acute concerns - daily phos level added - decreased phos can make it more difficult to breath via less diaphragmatic ATP production I&O: Intake & Output 05/25/21 05/26/21 05/26/21 05/27/21 00:59 00:59 23:59 23:59 Intake Total 830 / 830 Output Total 550 / 550 Balance 280 / 280 Weight 78.2 kg Daily Fluid Goal:: recommend daily negative fluid balance - negative 1L goal in 24 hours GI Nutrition: OK for PO Date of Last Bowel Movement: 05/25/21 Infectious Disease: COVID - continue barcitinib and steroids - rule out fungal infections - fungitell and aspergillus ordered - continue Zosyn for now - start IV Bactrim - unlikely to have PJP (inconsistent CT findings and very unlikely to get this while hospitalized) - discontinue vanc given MRSA nares negative Hematologic: No acute concerns - continue to monitor Hb Neurologic: No acute concerns - monitor for depression and delirium Endocrine: Hyperglycemia - elevated glucose levels - recommend sliding scale insulin for better control Lines: R IJ CVC - recommend PICC line in order to D/C IJ CVC Code Status: Resuscitation Status DNR/DNI Subjective Critical and life-threatening events over the past 24 hours: This is an unfortunate 71-year-old woman with rheumatoid arthritis on Rituxan who was diagnosed with Covid on 03/21/2021 and has been unable to improve with the waxing and waning course. And is likely that her Rituxan is preventing her recovery from the infection and now unfortunately it seems as though she has been worsening organizing pneumonia that has landed her back in the ICU requiring maximum high flow nasal cannula therapy as well as high CPAP requirements. Her decompensation does seem to line up with the baricitinib being discontinued (had received a 2-week course). Was subsequently put back on barcitinib and remained on steroids will increase given her decompensation. She was also placed on vancomycin and Zosyn for the same reason. When I spoke with her today she was in ok spirits and was pleasant as she normally is. She is somewhat tired from her work of breathing and is short of breath. We had a long discussion about her clinical status and my worry about her not improving. We discussed what her goals are and if she were at the end of her life what she would want that to look like if she had control. She was tearful when I discussed my concerns that she may from this illness. I spoke with her about treatment plans moving forward and the different option available as well as risks. Ideally I would perform a bronchoscopy to fully rule out any form of infection in order to be more aggressive about immune suppression. However, her oxygen requirements are much too high to even consider doing this unless she was intubated, and even then the procedure would hold a significant degree of risk. I told her that if I intubated her for a bronchoscopy she has a very slim chance of being able to be liberated from the ventilator and she would like attached to machines, to which she replied well I do not want that, so we aren't doing that. I explained our other option is so start a stronger immune suppressant such as Cellcept, however the effects of this are not immediate but it may help in conjunction with the steroids. I explained that this also carries significant risk as if she does have an infection it will certainly make that worse. I was clear in telling her that she is receiving maximal care and that will not end but wanted to discuss code status. I explained that if she were to require a ventilator for her breathing it is overwhelmingly unlikely that she would ever be extubated. I also explained that if her heart stopped and she needed CPR, there would be a very slim chance of her being revived and that the odds of her coming back from that to a functional level (not needing nursing homes and around the clock care) was essentially nill and I would be causing harm to her (and explained exactly what CPR entails). In further discussion she made it clear to me that she did not want to on machines and would not want her family to see her attached to such machines at the end of her life. She agreed that if her clinical status got to a point where she was no longer able to survive without a ventilator that she would want a comfort prioritized plan and to be able to say goodbye to her loved ones. I told her that I thought that was the best choice for her and that becoming DNR/DNI does not mean that we stop aggressive medical therapy - it simply means that if the aggressive medical therapy we do fails to help her improve, we would allow her to pass with dignity and comfort. Exam Const General: acute distress moderate and respiratory Nutritional Appearance: obese [facility] Head: normocephalic Ears: external ears normal and no periauricular adenopathy General nose exam: nasal mucous membranes and turbinates normal Face and sinus: sinuses nontender Mouth: oropharynx normal and moist mucous membranes Teeth and gingiva: dentition normal Eyes General: appearance normal, both eyes and all related structures Pupils: PERRL Neck Neck: normal visual inspection and no lymphadenopathy Chest Chest: normal inspection of the chest Resp Effort & Inspection: normal respiratory effort Auscultation: rales bilaterally at the base, no rhonchi and no wheezes Cardio Rate: regular rate Rhythm: regular rhythm Heart Sounds: S1 normal, S2 normal and no murmurs Pulses: radial pulses present bilaterally GI Inspection: normal to inspection Palpation: soft Skin General skin exam: no rashes or lesions noted Neuro General: patient alert, patient awake and patient oriented x3 Extrem General: no clubbing, cyanosis or edema Psych Mental Status: mental status grossly normal Affect: normal affect Attitude: cooperative Most Recent VS/Results Last Vital Signs Temp 36.2 C L 05/27/21 09:00 Pulse 84 05/27/21 10:01 Resp 25 H 05/27/21 10:01 BP 156/77 H 05/27/21 10:01 Pulse Ox 90 L 05/27/21 10:00 Laboratory Results - last 24 hr 05/24/21 05/26/21 05/27/21 17:08 12:59 06:01 WBC RBC Hgb Hct MCV MCH MCHC RDW Plt Count MPV Immature Gran % Neutrophils % Lymphocytes % Monocytes % Eosinophils % Basophils % Nucleated RBC % Absolute Neutrophils Absolute Lymphocytes Absolute Monocytes Absolute Eosinophils Absolute Basophils D-Dimer Sodium 137 Potassium 4.3 Chloride 100 Carbon Dioxide 32.2 H Anion Gap 4.8 BUN 30 H Creatinine 0.9 Estimated GFR/1.73 m2 >= 60.00 Glucose 224 H Calcium 8.7 Magnesium 2.1 Ferritin 1746 H Total Bilirubin 0.4 Conjugated Bilirubin 0.1 AST 42 H ALT 84 H Alkaline Phosphatase 80 C-Reactive Protein 6.98 H Total Protein 5.7 L Albumin 2.2 L Vancomycin Trough 13.1 Urine Legionella Ag Negative 05/27/21 05/27/21 06:01 06:01 WBC 8.03 RBC 2.67 L Hgb 7.8 L Hct 24.0 L MCV 89.9 MCH 29.2 MCHC 32.5 RDW 16.2 H Plt Count 214 MPV 9.8 Immature Gran % 2.0 Neutrophils % 89.9 Lymphocytes % 4.1 Monocytes % 4.0 Eosinophils % 0.0 Basophils % 0.0 Nucleated RBC % 0 Absolute Neutrophils 7.22 H Absolute Lymphocytes 0.33 L Absolute Monocytes 0.32 Absolute Eosinophils 0.00 Absolute Basophils 0.00 D-Dimer 2065 H Sodium Potassium Chloride Carbon Dioxide Anion Gap BUN Creatinine Estimated GFR/1.73 m2 Glucose Calcium Magnesium Ferritin Total Bilirubin Conjugated Bilirubin AST ALT Alkaline Phosphatase C-Reactive Protein Total Protein Albumin Vancomycin Trough Urine Legionella Ag Review of Systems All systems reviewed & are unremarkable except as noted in HPI and below Time spent with patient Time spent in Critical Care: 70 Time spent in Critical care included: Coordination of care, Chart review, Documenting critically ill care, Time at immediate bedside, Discussing critically ill care with other medical staff and Other (outside tertiary care facility consultation)
[2021-05-27] MEDS: LORazepam 2 MG/ML VIAL 0.5 MG IVP ×2 (13:37→20:13)
--- NOTE | 2021-05-27 13:51 | NUR.NOTE ---
visiting outside of room. RN in room at this time Nursing Note:
--- NOTE | 2021-05-27 14:12 | NUR.NOTE ---
has left and was walked out by this literary writer as he was visibly upset. Nursing Note:
[2021-05-27] MEDS: Ascorbic Acid 500 MG TAB 1000 MG PO (20:06)
[2021-05-27] MEDS: Atorvastatin 40 MG TAB PO (20:07)
--- NOTE | 2021-05-27 20:10 | PCNE_ITS ---
Date of service: 05/27/21 Time of Service: 19:11 History of Present Illness History of Present Illness Chief Complaint: covid Narrative: Kelly states that she has had Covid for several weeks. She had been in the hospital for over a week and then returned home. Unfortunately things worsened and her oxygen saturations dipped into the 70s. She returned to the hospital was placed in the ICU and is presently on high flow oxygen. Family had stated that she wanted everything done. Today Dr. Phelps talked with Kelly and explained that despite aggressive care her condition was worsening. She also explained the process of going on a ventilator etc. Kelly shows DNR/DNI. Deepthi I am in talking with Kelly to give her support and to complete a COLST form. Kelly states that she wants to live, but at the same time understands that things are worsening. She wants every chance that living but does not want to go on a ventilator. She states that if things worsen and she changes to comfort measures, she would want to be kept comfortable including a morphine drip. Consults Consult date: 05/27/21 Requesting physician: Flor Bonds Assessment and Plan Assessment and plan (1) Organizing pneumonia: Status: Acute (2) Obesity (BMI 30-39.9): Status: Chronic (3) COVID-19: Status: Acute (4) Palliative care patient: Status: Acute Assessment and plan: Kelly and I talked about her current condition. She understands that things are worsening and that despite best effort on both staff and her own self, that she was not doing well. She understood Dr. Phelps's discussion with her regarding ventilator. She has decided not to go on a ventilator. She was willing to sign a COLST form as a DO NOT RESUSCITATE. She also talked about what dying and would look like. She would want medications to help her to be comfortable and not to suffer. I spoke spe cifically about a morphine drip. She did not want to suffer. Yet she was concerned because she still wants to live and is very sad about leaving her She asked me to call Rogelio. I did call him at [phone]. He really wants her to live but does not want her to suffer. We talked about her choices with ventilator, comfort care, and possible morphine drip. He does not want her to suffer he wants her to live but he understands that she may not. Kelly stated that she would want to stay in the hospital as they do not have a summer home here in the [facility]. The people that they are staying with have COPD and she does not want expose them to Covid. I will check on Kelly over the next few days. Review of Systems Narrative: She is very saddened by today's worsening status. She saw her and feels awful because of his emotional pain with her illness. She remains short of breath [facility] Medical History (Updated 05/27/21 @ 21:10 by Tracy Narayan MD, [place]) Obesity (BMI 30-39.9) Rheumatoid arthritis Complicated by rheumatoid lung Surgical History Colonoscopy - [facility] [place] (03/01/13) DR. Prabhjot LAGUERRE Endometrial Biopsy 1990: NEG 1999: NEG S/P ankle fusion Social History Smoking/Tobacco Use Status: Never Smoking risk assessment performed?: Yes Alcohol Intake: current Alcohol Intake frequency: a few times a month Drug use: Never Substance use type: does not use Do you feel safe at home: Yes Do you feel safe in your relationship?: Yes Exam Narrative Exam Narrative: Kelly is sitting in bed. She has just eaten her meal. She has high flow oxygen on and is satting between 88 and 91%. There is not a lot of airflow. Definitely diminished. Her heart is regular. Results Last Vital Signs Temp 97.9 F 05/27/21 12:20 Pulse 84 05/27/21 10:01 Resp 25 H 05/27/21 10:01 BP 156/77 H 05/27/21 10:01 Pulse Ox 90 L 05/27/21 10:00 Labs Result diagrams: 05/27/21 06:01 05/27/21 06:01 Labs: Laboratory Results - last 24 hr 05/24/21 05/27/21 05/27/21 17:08 06:01 06:01 WBC 8.03 RBC 2.67 L Hgb 7.8 L Hct 24.0 L MCV 89.9 MCH 29.2 MCHC 32.5 RDW 16.2 H Plt Count 214 MPV 9.8 Immature Gran % 2.0 Neutrophils % 89.9 Lymphocytes % 4.1 Monocytes % 4.0 Eosinophils % 0.0 Basophils % 0.0 Nucleated RBC % 0 Absolute Neutrophils 7.22 H Absolute Lymphocytes 0.33 L Absolute Monocytes 0.32 Absolute Eosinophils 0.00 Absolute Basophils 0.00 D-Dimer Sodium 137 Potassium 4.3 Chloride 100 Carbon Dioxide 32.2 H Anion Gap 4.8 BUN 30 H Creatinine 0.9 Estimated GFR/1.73 m2 >= 60.00 Glucose 224 H Calcium 8.7 Magnesium 2.1 Ferritin 1746 H Total Bilirubin 0.4 Conjugated Bilirubin 0.1 AST 42 H ALT 84 H Alkaline Phosphatase 80 C-Reactive Protein 6.98 H Total Protein 5.7 L Albumin 2.2 L Urine Legionella Ag Negative 05/27/21 06:01 WBC RBC Hgb Hct MCV MCH MCHC RDW Plt Count MPV Immature Gran % Neutrophils % Lymphocytes % Monocytes % Eosinophils % Basophils % Nucleated RBC % Absolute Neutrophils Absolute Lymphocytes Absolute Monocytes Absolute Eosinophils Absolute Basophils D-Dimer 2065 H Sodium Potassium Chloride Carbon Dioxide Anion Gap BUN Creatinine Estimated GFR/1.73 m2 Glucose Calcium Magnesium Ferritin Total Bilirubin Conjugated Bilirubin AST ALT Alkaline Phosphatase C-Reactive Protein Total Protein Albumin Urine Legionella Ag
[2021-05-27] MEDS: Melatonin 3 MG TAB 9 MG PO (20:13)
[2021-05-28] VITALS (29 sets, daily range): BP systolic 141–155; BP diastolic 72–88; PULSE 64–124; RESP 4–54; TEMP 31–36.8; O2SAT 71–95
[2021-05-28] MEDS: Insulin Aspart 300 UNITS/3 ML PEN SC ×2 (00:03→13:28)
[2021-05-28] MEDS: DOXYCYCLINE 100 MG in Normal Saline 100 ML IVPB (01:10)
[2021-05-28] MEDS: methylPREDNISolone SUCC 125 MG VIAL 60 MG IVP ×2 (04:25→11:40)
[2021-05-28 05:50] LABS: Abs Immature Grans 0.24 10^3/uL (0.0-0.06); Absolute Basophil Count 0.01 10^3/uL (0.0-0.2); Absolute Lymphocyte Count 0.34 10^3/uL (1.2-3.4); Absolute Monocyte Count 0.41 10^3/uL (0.1-0.8); Absolute Neutrophil Count 7.44 10^3/uL (1.2-6.7); Basophils % 0.1; HCT 23.8 % (36.0-46.0); HGB 7.6 g/dL (11.2-15.7); Immature Grans % 2.8; MCH 29.1 pg (27.0-33.0); MCHC 31.9 % (32.0-36.0); MCV 91.2 fL (80-95); MPV 9.5 fL (8.0-11.0); Monocytes % 4.9; Neutrophils % 88.2; Nucleated RBC 0 %; Platelet Count 203 10^3/uL (130-400); RBC 2.61 10^6/uL (3.93-5.22); RDW-SD 52.9 fL; WBC 8.44 10^3/uL (4.4-10.8)
[2021-05-28 06:32] LABS: D-Dimer 1699 ng/mlFEU (<500)
[2021-05-28 07:10] LABS: Procalcitonin < 0.1 ng/mL
[2021-05-28 07:14] LABS: PHOSPHORUS 2.7 mg/dL (2.6-4.7)
[2021-05-28 07:15] LABS: Calcium 8.4 mg/dL (8.5-10.1); Glucose 217 mg/dL (74-106)
[2021-05-28 07:16] LABS: AST 65 U/L (15-37); Albumin 2.1 g/dL (3.4-5.0); Alkaline Phosphatase 108 U/L (46-116); Anion Gap 7.3 mmol/L (3-11); BUN 26 mg/dL (7-18); Bilirubin, Total 0.3 mg/dL (0.2-1.0); CO2 32.7 mmol/L (21.0-32.0); Chloride 97 mmol/L (98-107); Estimated GFR 54.35 (mL/min/1.73m2); Potassium 4.5 mmol/L (3.5-5.1); Sodium 137 mmol/L (136-145); Total Protein 5.5 g/dL (6.4-8.2)
[2021-05-28 07:17] LABS: ALT 119 U/L (14-59); Bilirubin, Direct 0.1 mg/dL (0.0-0.2); C-Reactive Protein 3.64 mg/dL (0.0-0.3)
--- NOTE | 2021-05-28 08:20 | W.PM.PROGNOT ---
Date of Service Date of service: 05/28/21 Time of Service: 16:45 Assessment and Plan Assessment and plan (1) Respiratory failure with hypoxia: Status: Acute Assessment and plan: Worsening rapidly to the point that it is my and Dr Olvier's opinion that further aggressive care would not improve or reverse her condition and would be futile. The patient has agreed to go on comfort measures in her discussion with Dr Oliver today, which shall be our focus. She cannot come off CPAP long enough to take her oral medications or to eat. Qualifiers: Chronicity: acute Qualified Code(s): J96.01 - Acute respiratory failure with hypoxia (2) 2019 novel coronavirus-infected pneumonia (NCIP): Status: Acute Assessment and plan: As above (3) HCAP (healthcare-associated pneumonia): Status: Acute Assessment and plan: As above (4) Organizing pneumonia: Status: Acute Assessment and plan: I am concerned that what is going on might be worsening of the organizing pneumonia. Continue 60 mg of IV solumderol Q6hrs in order to avoid acute adrenal insufficiency which could be uncomfortable (5) Rheumatoid arthritis: Status: Chronic Assessment and plan: As above Qualifiers: Rheumatoid arthritis location: unspecified site Rheumatoid factor presence: unspecified presence Qualified Code(s): M06.9 - Rheumatoid arthritis, unspecified (6) DVT prophylaxis: Status: Acute Assessment and plan: D/c lovenox with focus on comfort measures (7) Discharge planning issues: Status: Acute Assessment and plan: DNR/DNI/comfort measures only Keep in ICU for now as the patient is requiring quite a bit of care while on comfort measures. Total Critical Care Time [address] Oliver and with Dr Narayan Subjective Subjective Interval history since last seen: Ms Dasilva was too short of breath to eat on high flow and could not get adequate saturations or feel comfortable despite max flow on both high flow or CPAP. The patient has indicated that she is getting tired of breathing like this. She was rapidly deteriorating this morning. When i saw her, she expressed that she wanted to see her family and did not want to start medications for comfort just yet. She did see Dr Oliver immediately after and, per her conversation with Kelly, the patient did agree to transition to comfort measures after her family's visit. Further aggressive care in this case would not help reverse her condition and would be futile, as per my discussion with Dr Oliver, with which I fully agree. The patient has been transitioned to comfort measures. Exam Narrative Exam Narrative: General: Pleasant elderly female, much more dyspneic/tachypneic and with evidence of cyanosis, A&Ox3, on CPAP at the time of my exam HEENT: EOMI, MMM, R IJ CVL in place Heart: RRR, no m/r/g Lungs: decreased expiratory wheezing Abdomen: soft, nontender, nondistended Extremities: no edema BLE's Objective Last Vital Signs Temp 36 C L 05/28/21 04:30 Pulse 68 05/28/21 06:01 Resp 40 H 05/28/21 06:01 BP 147/79 H 05/28/21 06:01 Pulse Ox 92 05/28/21 06:01 Laboratory Results - last 24 hr 05/27/21 05/28/21 05/28/21 06:01 05:15 05:15 WBC RBC Hgb Hct MCV MCH MCHC RDW Plt Count MPV Immature Gran % Neutrophils % Lymphocytes % Monocytes % Eosinophils % Basophils % Nucleated RBC % Absolute Neutrophils Absolute Lymphocytes Absolute Monocytes Absolute Eosinophils Absolute Basophils D-Dimer Sodium 137 137 Potassium 4.3 4.5 Chloride 100 97 L Carbon Dioxide 32.2 H 32.7 H Anion Gap 4.8 7.3 BUN 30 H 26 H Creatinine 0.9 1.0 Estimated GFR/1.73 m2 >= 60.00 54.35 Glucose 224 H 217 H Calcium 8.7 8.4 L Phosphorus Magnesium 2.1 2.0 Ferritin 1746 H Total Bilirubin 0.4 0.3 Conjugated Bilirubin 0.1 0.1 AST 42 H 65 H ALT 84 H 119 H Alkaline Phosphatase 80 108 C-Reactive Protein 6.98 H 3.64 H Total Protein 5.7 L 5.5 L Albumin 2.2 L 2.1 L Procalcitonin < 0.1 05/28/21 05/28/21 05/28/21 05:15 05:15 05:15 WBC 8.44 RBC 2.61 L Hgb 7.6 L Hct 23.8 L MCV 91.2 MCH 29.1 MCHC 31.9 L RDW 16.0 H Plt Count 203 MPV 9.5 Immature Gran % 2.8 Neutrophils % 88.2 Lymphocytes % 4.0 Monocytes % 4.9 Eosinophils % 0.0 Basophils % 0.1 Nucleated RBC % 0 Absolute Neutrophils 7.44 H Absolute Lymphocytes 0.34 L Absolute Monocytes 0.41 Absolute Eosinophils 0.00 Absolute Basophils 0.01 D-Dimer 1699 H Sodium Potassium Chloride Carbon Dioxide Anion Gap BUN Creatinine Estimated GFR/1.73 m2 Glucose Calcium Phosphorus 2.7 Magnesium Ferritin Total Bilirubin Conjugated Bilirubin AST ALT Alkaline Phosphatase C-Reactive Protein Total Protein Albumin Procalcitonin
[2021-05-28 08:44] LABS: Ferritin 1701 ng/mL (8-252)
[2021-05-28] MEDS: PIPERACILLIN/TAZO 3.375 GM in Normal Saline 50 ML IVPB (08:49)
[2021-05-28] MEDS: Normal Saline Flush 10 ML SYR IVP ×2 (08:50→14:48)
[2021-05-28] MEDS: Albuterol 2.5 MG/3 ML INH SOLN VIAL UPD ×2 (09:24→10:50)
[2021-05-28] MEDS: LORazepam 2 MG/ML VIAL IVP ×5 (10:15→17:07)
[2021-05-28] MEDS: fentaNYL 100 MCG/2 ML VIAL IVP ×6 (10:54→17:07)
[2021-05-28] MEDS: Enoxaparin 80 MG/0.8 ML SYR SC (11:39)
[2021-05-28] MEDS: Albuterol/Ipratropium 3 ML UPD VIAL UPD (11:40)
--- NOTE | 2021-05-28 11:43 | W.PULMCC ---
General Date of Service Date of service: 05/27/21 Time of Service: 07:30 Reason for Admission to ICU: COVID Organizing PNA Assessment and Plan Assessment and plan (1) Obesity (BMI 30-39.9): Status: Chronic (2) Respiratory failure with hypoxia: Status: Acute Qualifiers: Chronicity: acute Qualified Code(s): J96.01 - Acute respiratory failure with hypoxia (3) COVID-19: Status: Acute (4) Rheumatoid arthritis: Status: Chronic Qualifiers: Rheumatoid arthritis location: unspecified site Rheumatoid factor presence: unspecified presence Qualified Code(s): M06.9 - Rheumatoid arthritis, unspecified (5) Organizing pneumonia: Status: Acute (6) ANSHU (acute kidney injury): Status: Resolved Assessment and plan: This is a 71 yo woman with obesity and RA on Rituxan who was initially diagnosed with COVID 03/21/21. She was hospitalized 04/17/21 and improved to the point of being discharged without the need for oxygen. She was readmitted with hypoxic respiratory and continued active COVID infection and the subsequent development of organizing pneumonia. She acutely decompensated after her barcitinib was discontinued and her inflammatory markers increased and so she was placed back on barcitinib and her steroids were increased to methylpred 60 q6. She was started on empiric antibiotic coverage given the decompensation despite a negative procal. Her repeat chest CT did not find PE but does show worsening organizing pneumonia. I worry that this could be related to an autoimmune driven ILD or this could just simply be inability to clear the virus given her compromised immune status. She is not a candidate for vvECMO or transplant given her age. She appears to be actively dying. her and daughter are reportedly on their way. The focus for Kelly should be to focus on her comfort and quality time with family. Recommendations Pulmonary: Hypoxic respiratory failure - on continuous CPAP - unable to consistently saturate over 80% - consider removing mask and giving ativan and fentanyl for comfort to allow to pass naturally after she has spent time with her family Organizing Pneumonia - has been receiving trial of methylpred 60 q6 for 3 days - expanded autoimmune testing pending I&O: Intake & Output 05/26/21 05/26/21 05/27/21 05/28/21 00:59 23:59 23:59 23:59 Intake Total 1590 / 1590 760 / 760 Output Total 1050 / 1050 550 / 550 Balance 540 / 540 210 / 210 Weight 78.2 kg 82.7 kg GI Nutrition: NPO due to respiratory status Date of Last Bowel Movement: 05/27/21 Infectious Disease: COVID - continue barcitinib and steroids - rule out fungal infections - fungitell and aspergillus ordered - continue Zosyn for now - start IV Bactrim - unlikely to have PJP (inconsistent CT findings and very unlikely to get this while hospitalized) Hematologic: monitor Hb Lines: R IJ CVC Prophylaxis: Lovenox PPI Code Status: Resuscitation Status DNR/DNI Subjective Critical and life-threatening events over the past 24 hours: Kelly is not doing well today. Overnight her oxygen requirements drastically increased and she is now on CPAP 14, 90% FiO2. She is tachypneic and in moderate respiratory distress this morning. She is unable to speak due to her dyspnea. It is likely that she may today based on her respiratory decline. I was called at approximately 1045 by ICU staff stating that Kelyl was not doing well and was saturated in the seventies on 100% FiO2 on the CPAP. I went to see her again she was tachypneic to the sixties with low tidal breaths and saturating in the seventies. Different sizes of masks were attempted in order to try to decrease her 50% leak on the CPAP but this was not successful in improving her condition. While I was there I gave her 25 mcg of fentanyl as well as an albuterol nebulizer. Her saturations did rise to 80% and the fentanyl did reduce her respiratory rate to the high thirties. Her daughter and are reportedly en route to see her. They have been granted approval to don proper PPE in order to be in the room with Kelly and her last moments. I talked with Kelly and told her that we were at a point where we needed to focus on making her comfortable. She was in agreement with this but does want to be lucid for when her family comes. Exam Const General: acute distress moderate and respiratory Nutritional Appearance: obese HENMT Head: normocephalic Ears: external ears normal and no periauricular adenopathy General nose exam: nasal mucous membranes and turbinates normal Face and sinus: sinuses nontender Mouth: oropharynx normal and moist mucous membranes Teeth and gingiva: dentition normal Eyes General: appearance normal, both eyes and all related structures Pupils: PERRL Neck Neck: normal visual inspection and no lymphadenopathy Chest Chest: normal inspection of the chest Resp Effort & Inspection: normal respiratory effort Auscultation: rales bilaterally at the base, no rhonchi and no wheezes Cardio Rate: regular rate Rhythm: regular rhythm Heart Sounds: S1 normal, S2 normal and no murmurs Pulses: radial pulses present bilaterally GI Inspection: normal to inspection Palpation: soft Skin General skin exam: no rashes or lesions noted Neuro General: patient alert, patient awake and patient oriented x3 Extrem General: no clubbing, cyanosis or edema Psych Mental Status: mental status grossly normal Affect: normal affect Attitude: cooperative Most Recent VS/Results Last Vital Signs Temp 36 C L 05/28/21 04:30 Pulse 117 H 05/28/21 09:54 Resp 52 H 05/28/21 09:54 BP 147/79 H 05/28/21 06:01 Pulse Ox 71 L 05/28/21 09:54 Laboratory Results - last 24 hr 05/28/21 05/28/21 05/28/21 05:15 05:15 05:15 WBC 8.44 RBC 2.61 L Hgb 7.6 L Hct 23.8 L MCV 91.2 MCH 29.1 MCHC 31.9 L RDW 16.0 H Plt Count 203 MPV 9.5 Immature Gran % 2.8 Neutrophils % 88.2 Lymphocytes % 4.0 Monocytes % 4.9 Eosinophils % 0.0 Basophils % 0.1 Nucleated RBC % 0 Absolute Neutrophils 7.44 H Absolute Lymphocytes 0.34 L Absolute Monocytes 0.41 Absolute Eosinophils 0.00 Absolute Basophils 0.01 D-Dimer Sodium 137 Potassium 4.5 Chloride 97 L Carbon Dioxide 32.7 H Anion Gap 7.3 BUN 26 H Creatinine 1.0 Estimated GFR/1.73 m2 54.35 Glucose 217 H Calcium 8.4 L Phosphorus Magnesium 2.0 Ferritin 1701 H Total Bilirubin 0.3 Conjugated Bilirubin 0.1 AST 65 H ALT 119 H Alkaline Phosphatase 108 C-Reactive Protein 3.64 H Total Protein 5.5 L Albumin 2.1 L Procalcitonin < 0.1 05/28/21 05/28/21 05:15 05:15 WBC RBC Hgb Hct MCV MCH MCHC RDW Plt Count MPV Immature Gran % Neutrophils % Lymphocytes % Monocytes % Eosinophils % Basophils % Nucleated RBC % Absolute Neutrophils Absolute Lymphocytes Absolute Monocytes Absolute Eosinophils Absolute Basophils D-Dimer 1699 H Sodium Potassium Chloride Carbon Dioxide Anion Gap BUN Creatinine Estimated GFR/1.73 m2 Glucose Calcium Phosphorus 2.7 Magnesium Ferritin Total Bilirubin Conjugated Bilirubin AST ALT Alkaline Phosphatase C-Reactive Protein Total Protein Albumin Procalcitonin Review of Systems All systems reviewed & are unremarkable except as noted in HPI and below Time spent with patient Time spent in Critical Care: 70 Time spent in Critical care included: Coordination of care, Chart review, Documenting critically ill care, Time at immediate bedside and Discussing critically ill care with other medical staff
[2021-05-28] MEDS: Pantoprazole 40 MG TABCR PO (13:07)
[2021-05-28] MEDS: Magnesium Oxide 400 MG TAB PO (13:13)
[2021-05-28] MEDS: Furosemide 20 MG TAB PO (13:13)
[2021-05-28] MEDS: Montelukast 10 MG TAB PO (13:14)
[2021-05-28] MEDS: LORazepam 2 MG/ML VIAL 0.5 MG IVP (13:14)
[2021-05-28] MEDS: Potassium Chloride 20 MEQ TABCR PO (13:14)
[2021-05-28] MEDS: Ascorbic Acid 500 MG TAB 1000 MG PO (13:17)
[2021-05-28] MEDS: Cholecalciferol (Vitamin D3) 1,000 UNIT TAB 2000 UNITS PO (13:17)
[2021-05-28] MEDS: Citalopram 20 MG TAB PO (13:30)
--- NOTE | 2021-05-28 15:37 | NUR.NOTE ---
Nursing Note: 05/28/21 1020: attempts to call x2 unsuccessful but message left both times. 1030: Daughter Yaya contacted and given update, suggested if she wanted to visit she should do that now. Stated that she will be here soon. Informed Yaya that her father was not at home at which time she replied she would try to call him before she left her house. 1100. Daughter Yaya arrived. Reviewed PAPR use and how to properly don PPE. Prabhjot Motta RN assisted daughter with donning PPE. Daughter Yaya informed her dad has not returned calls. Relayed that her dad may be using the patient's cell phone. MULTIPLE KNIFE EDGE TRIMMER OPERATOR Li Travis in room with patient & daughter. 1105: Catherine Kaufman RN in room explaining equipment and assessment findings with daughter. 1110: Notified patient's on patient's cell phone & requested that he come to [facility]. Stated he would be here shortly. 1130: in unit. Explained patient condition and situation with visiting. Reviewed PAPR use and assisted with donning PPE. in room with daughter, Catherine Kaufman RN & Yaakov Jacobsen RN. Patient happy to see both visitors. Patient switched form CPAP to HI flow nasal O2 by Li Travis MULTIPLE KNIFE EDGE TRIMMER OPERATOR. 1150: Heart rate 103, RR 48-51 withe SPO2 consistently between 81-85% on hi flow. 1200: Continues to maintain SPO2 at 85 % while visiting. States she is comfortable. 1300 Sharita MONCADA in room & talking with family and patient 1415: exited room. PPE doffing assisted by Catherine Kaufman RN & Yaakov Jacobsen RN. teary asked to sit in ICU office until daughter is joins him. 1420: Daughter exited room. [place] assisted by Catherine Kaufman RN & Yaakov Jacobsen RN. Joined dad in ICU office. 1430: ICU phone number provided to both and daughter, encouraged to call when them want for patient updates. Discussed what home would be contacted when patient passes. was not sure of the name but stated he will contact the one in . on his way home. Daughter offered to go with him. Both were reassured that would be notified when patient passes away. Family stated that they did not want any of the patient's belongings except her rings. However, they did not want the rings now but after patient passes. they did not want to wait for them to be removed and cleaned. 1445: and daughter left the ICU. 1515: Catherine Kaufman Rn and Yaakov Jacobsen RN in patient's room. Patient back on CPAPbut alert. States she is comfortable. Yaakov Jacobsen RN asked permission to remove patient's rings an bracelet to place in safe. Pt consented. Four rings and 1 bracelet removed by Yaakov Jacobsen RN , disinfected and placed in safe. Description of Jewelry: 1 white colored ankle bracelet, 1 white/silver colored small ring with 5 hearts, 1 white/silver colored ring with white cler stones all around, 1 white/yellow ring with 5 tiers of 10 white/clear stones each tier, 1 double white/yellow colored ring with multiple small white stone and 1 large lear/white stone raise in center.
[2021-05-28 16:11] LABS: Streptococcus Pneumoniae Ag, U Negative (Negative)
--- NOTE | 2021-05-28 17:32 | CHAPLAIN ---
Kelly has had a prolonged case of COVID. She was discharged from here at one point and then readmitted. Today her condition is worsening and both Dr. Narayan from Palliative Care and Dr. Burgos, cupola tender helper, have talked with Kelly, explaining that there is no further aggressive treatment she have, and that she would likely not be able to come off a vent if she were placed on one. According to Dr. Hernandez's notes, Kelly is sad to acknowledge she is likely dying, but talked about wanting to be kept comfortable if she is. Kelly agreed to be placed on comfort measures. Arrangements were made for her and daughter to visit today, which they did. Kelly was asked if she wanted a supervisor ordnance truck installation visit and she said no. She told Dr. Burgos that she is Mandaen, but not muslim anymore. I brought a prayer shawl up for her .
--- NOTE | 2021-05-28 17:37 | CMPROGNOTE_ITS ---
- If Service Date Differs Date of service: 05/28/21 Time of Service: 17:37 Care Management Progress Note S/O: Kelly transitioned to comfort measures today, after discussing her condition with the hospitalist and data warehousing engineer, who stated that further aggressive care would not improve our reverse her condition and would be futile. Infection control allowed a one time visit from her and daughter, to say goodbye. Kelly reportedly cannot remove her CPAP long enough to take her oral medications or eat. CM will continue to support Kelly and her family during this difficult time. A: Kelly is a 71 yr old female admitted to [facility] on 05/06/21 with Covid Pneumonia. P: Kelly transitioned to comfort measures today. Her family was able to visit, due to an exception made by infection control. CM will continue to support Kelly and her family.
[2021-05-28] MEDS: fentaNYL 1,000 MCG in Normal Saline 80 ML 5 MCG IV (17:54)
--- NOTE | 2021-05-29 00:10 | NUR.NOTE ---
Nursing Note: pt at 2219. Dr. Mi notified at 2224, states he will complete the certificate when he rounds in the morning. Lilian Snow RN Bundler [employer] notified 2229. Right IJ removed. Serna removed. NEOB notified. Pt is not a candidate for donation. Pt discharged to the [facility]. [facility] Home answering service notified; account development representative states she will notify the quality assurance director. Record of Flowsheet completed except portion regarding when home accepted the patient. Flowsheet given to Marcelo Snow RN Bundler [employer] at [phone].
--- NOTE | 2021-05-29 07:54 | W.PM.DDS ---
Date of service: 05/29/21 Time of Service: 07:54 Discharge Sum: Prov Provider Consults: 05/25/21 08:10 Palliative Care Consult [CONS] Routine Consultation Status:: Follow-up needed Clarification:: Manage/follow per spec. Reason for consult:: worsening hypoxic respiratory failure, unable to clear COVID. Discuss goals of care 05/25/21 14:13 Surgical Consult [CONS] Routine Consulting Provider: Rosetta Rollins Consultation Status:: Contact made by Clarification:: Manage/follow per spec. Reason for consult:: Central Line placement Discharge Sum: Diag Contributing Factors (1) Respiratory failure with hypoxia: (2) 2019 novel coronavirus-infected pneumonia (NCIP): (3) HCAP (healthcare-associated pneumonia): (4) Organizing pneumonia: (5) Rheumatoid arthritis: (6) DVT prophylaxis: (7) Discharge planning issues: Discharge Sum: Summary Date and Time Admission Date: 05/06/2111/05/21 11:27
[2021-05-29 14:52] LABS: ANA Interpretation Positive (Negative); ANA Titer Pattern 1:160 Homogeneous
[2021-05-29 15:36] LABS: Scl 70 Antibodies, IgG <0.2 U
[2021-05-30 13:05] LABS: dsDNA Ab, IgG <12.3 IU/mL (<30.0)
[2021-05-30 13:44] LABS: SS-A Antibody 0.7 Units (<20.0)
[2021-05-30 13:47] LABS: SS-B (La) Ab, IgG 0.8 Units (<20.0)
[2021-06-11 15:11] LABS: Anti-EJ Ab Negative (Negative); Anti-Jo-1 Ab <20 Units (<20); Anti-Ku Ab Negative (Negative); Anti-MDA-5 Ab (CADM-140) <20 Units (<20); Anti-Mi-2-Ab Negative (Negative); Anti-NXP-2 (P140) Ab <20 Units (<20); Anti-OJ Ab Negative (Negative); Anti-PL-12 Ab Negative (Negative); Anti-PL-7 Ab Negative (Negative); Anti-PM/Scl-100 Ab <20 Units (<20); Anti-SRP Ab Negative (Negative); Anti-SS-A 52kD Ab, IgG <20 Units (<20); Anti-TIF-1gamma Ab <20 Units (<20); Anti-U1 RNP Ab <20 Units (<20); Anti-U2 RNP Ab Negative (Negative); Anti-U3 RNP (Fibrillarin) Negative (Negative)
== END 2021-05-28 23:40 | disposition expired | DRG 193 ==
LOC: MS 20:20 → ICU 20:21
PROVIDERS: Internal Medicine; Student in an Organized Health Care Education/Training Program; Admitting Provider Internal Medicine; PCP Family Medicine; Visit Provider Internal Medicine
DX: J18.9 Pneumonia, unspecified organism (principal); J96.01 Acute respiratory failure with hypoxia; U07.1 COVID-19; J12.82 Pneumonia due to coronavirus disease 2019; D84.821 Immunodeficiency due to drugs; Z51.5 Encounter for palliative care; M05.10 Rheumatoid lung disease with rheumatoid arthritis of unspecified site; J84.89 Other specified interstitial pulmonary diseases; E66.9 Obesity, unspecified; Z68.35 Body mass index [BMI] 35.0-35.9, adult; Z66 Do not resuscitate
CPT/HCPCS: 36556; 36415; 36591; 80048; 80053; 80076; 83516; 84145; 86235; 87081; 87305; 87449; 94640; 99221; J1650; 36600; 71045; 80202; 82728; 83735; 84100; 85025; 85379; 86038; 86140; 86225; 87899; 94660; 99223; 99238; 99291; J2060; J2543; J2930; J3010; J3490; J7613; J7620; J8540